=== PATIENT | female | born 1980 | race Caucasian/White ===

== ENCOUNTER → 2020-06-03 08:15 | Outpatient (CLI) | payer BC, SELFPAY ==
--- NOTE | ~2020-06-03 | MMUS_ITS ---
EXAMINATION: MM diagnostic taylor BI w william, US breast BI complete HISTORY: Possible left breast lump palpated and clinical exam. Lumpy breasts. TECHNIQUE: Full field and spot ML, MLO and craniocaudal 3-D tomosynthesis images of both breasts were performed and synthetic 2-D images were generated. CAD analysis was submitted and interpreted. High resolution bilateral complete breast ultrasound was performed. COMPARISON: None BREAST PARENCHYMAL COMPOSITION: The breasts are heterogeneously dense, which may obscure small masses . FINDINGS: MAMMOGRAPHIC FINDINGS: No definite reproducible suspicious mass or architectural distortion is evident. Occasional punctate benign calcifications are noted bilaterally. ULTRASOUND: No suspicious solid lesion or shadowing of either breast is evident. Right breast: 12:00 3 cm from nipple: 4 mm simple cyst 1:00 1 cm from nipple: Parallel circumscribed hypoechoic 5.8 x 2.9 x 5.5 mm solid lesion with central hyperechogenicity, uniform hypoechoic cortex, no posterior shadowing, likely a benign lymph node. 3:00 2 cm from nipple: two 2 mm cysts 5:00 3 cm from nipple: 3.7 mm cyst 8:00 5 cm from nipple: 3.4 mm x 5.7 mm cyst Left breast: 1:00 1 cm from nipple: 2.4 x 4.4 mm cyst 3:00 4 cm from nipple: 2.8 x 5.8 mm cyst 3:00 4 cm from nipple: 2.6 x 3.5 mm cyst 10:00 5 cm from nipple: 2.2 x 3.6 mm cyst IMPRESSION: 1. No mammographic evidence of malignancy 2. Routine mammographic screening is recommended. BI-RADS Category 2: Benign finding(s). Reviewed, dictated and finalized at location A. IMPRESSION: 1. No mammographic evidence of malignancy 2. Routine mammographic screening is recommended. BI-RADS Category 2: Benign finding(s).
== END ==
PROVIDERS: PCP Nurse Practitioner Family; Visit Provider Obstetrics & Gynecology
DX: N63.0 Unspecified lump in unspecified breast (principal)
CPT/HCPCS: 76641; 77062; 77066; G0279

== ENCOUNTER 2021-09-06 10:40 | Outpatient (CLI) | payer BC, SELFPAY ==
--- NOTE | ~2021-09-06 | MM_ITS ---
EXAMINATION: MM screening taylor BI w william HISTORY: Screening TECHNIQUE: Craniocaudal and mediolateral oblique 3-D tomosynthesis images were obtained and synthetic 2-D images were generated. CAD analysis was submitted and interpreted. COMPARISON: 06/03/2020 BREAST PARENCHYMAL COMPOSITION: The breasts are heterogeneously dense, which may obscure small masses . FINDINGS: There is no evidence of suspicious mass, calcification, or architectural distortion to sugg est malignancy in either breast. There has been no suspicious interval change. IMPRESSION: 1. No mammographic evidence of malignancy. 2. Recommend routine screening mammography in one year. BI-RADS Category 1: Negative Reviewed, dictated and finalized at location A. 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
== END 2021-09-06 10:41 | disposition home or self-care (01) ==
LOC: ANHIMG 10:43
PROVIDERS: PCP Nurse Practitioner Family; Visit Provider Obstetrics & Gynecology
DX: Z12.31 Encounter for screening mammogram for malignant neoplasm of breast (principal)
CPT/HCPCS: 77063; 77067

== ENCOUNTER 2022-10-09 15:08 | Outpatient (CLI) | payer BC, SELFPAY ==
--- NOTE | ~2022-10-09 | MM_ITS ---
EXAMINATION: MM screening taylor BI w william HISTORY: Screening TECHNIQUE: Craniocaudal and mediolateral oblique 3-D tomosynthesis images were obtained and synthetic 2-D images were generated. CAD analysis was submitted and interpreted. COMPARISON: Comparison to multiple prior studies sequentially, with oldest reviewed study dated 06/03. BREAST PARENCHYMAL COMPOSITION: The breasts are heterogeneously dense, which may obscure small masses . FINDINGS: There is no evidence of suspicious mass, calcification, or architectural distortion to sugg est malignancy in either breast. There has been no suspicious interval change. IMPRESSION: 1. No mammographic evidence of malignancy. 2. Recommend routine screening mammography in one year. BI-RADS Category 1: Negative Reviewed, dictated and finalized at location A. 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
== END 2022-10-09 15:09 | disposition home or self-care (01) ==
LOC: ANHIMG 15:10
PROVIDERS: PCP Nurse Practitioner Family; Visit Provider Obstetrics & Gynecology
DX: Z12.31 Encounter for screening mammogram for malignant neoplasm of breast (principal)
CPT/HCPCS: 77063; 77067

== ENCOUNTER 2023-09-24 12:47 | Outpatient (CLI) | payer BC, SELFPAY ==
--- NOTE | ~2023-09-24 | CT_ITS ---
EXAMINATION: CT sinus wo con DATE: 09/24/2023 12:58 INDICATION: Chronic sinusitis TECHNIQUE: Computed tomography (CT) of the paranasal sinuses was performed without contrast. Iterativ e reconstruction technique was employed. Exam dose: 321.89 mGy-cm total exam DLP. COMPARISON: None FINDINGS: There is leftward deviation of the nasal septum. There is relatively symmetric prominent soft tissue swelling of the nasal turbinates The right frontal sinus is not developed. The paranasal sinuses and mastoid air cells are otherwise n ormally developed and aerated. The ostiomeatal units are patent bilaterally. IMPRESSION: Leftward deviation of nasal septum Soft tissue swelling nasal turbinates No significant abnormality of the ostiomeatal units, paranasal sinuses or mastoid air cells Reviewed, dictated and finalized at Location A. Reviewed, dictated and finalized at location B. 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
== END 2023-09-24 12:48 | disposition home or self-care (01) ==
PROVIDERS: PCP Nurse Practitioner Family; Visit Provider Allergy & Immunology
DX: J32.9 Chronic sinusitis, unspecified (principal); J34.2 Deviated nasal septum
CPT/HCPCS: 70486

== ENCOUNTER 2023-12-06 15:27 | Outpatient (CLI) | payer BC, SELFPAY ==
--- NOTE | ~2023-12-06 | MM_ITS ---
EXAMINATION: MM screening taylor BI w william HISTORY: Screening mammogram TECHNIQUE: Craniocaudal and mediolateral oblique 3-D tomosynthesis images were obtained and synthetic 2-D images were generated. CAD analysis was submitted and interpreted. COMPARISON: 10/09/2022, 09/06/2021 bilateral screening mammogram examinations BREAST PARENCHYMAL COMPOSITION: The breasts are extremely dense, which lowers the sensitivity of mamm ography. FINDINGS: Occasional bilateral benign calcifications. There is no evidence of suspicious mass, calcif ication, or architectural distortion to suggest malignancy in either breast. There has been no suspic ious interval change. IMPRESSION: 1. No mammographic evidence of malignancy. 2. Recommend routine screening mammography in one year. BI-RADS Category 1: Negative Reviewed, dictated and finalized at location A.
== END 2023-12-06 15:28 | disposition home or self-care (01) ==
PROVIDERS: PCP Obstetrics & Gynecology; Visit Provider Obstetrics & Gynecology
DX: Z12.31 Encounter for screening mammogram for malignant neoplasm of breast (principal)
CPT/HCPCS: 77063; 77067

== ENCOUNTER 2024-03-07 11:28 | Outpatient (CLI) | payer BC, SELFPAY ==
--- NOTE | ~2024-03-07 | XR_ITS ---
Clinical Indication: Cough PA and lateral views of the chest: Comparison: None Findings: The lungs are clear, without evidence of focal consolidation or pleural effusion. Cardiome diastinal silhouette is within normal limits. Bones and soft tissues are unremarkable. Impression: Normal chest. Reviewed, dictated and finalized at location . Impression: Normal chest.
== END 2024-03-07 11:29 ==
DX: R05.9 Cough, unspecified (principal)
CPT/HCPCS: 71046

== ENCOUNTER 2024-06-06 08:39 | Outpatient (CLI) | payer BC, SELFPAY ==
--- NOTE | ~2024-06-06 | US_ITS ---
EXAMINATION: US pelvic complete w TV DATE: 06/06/2024 09:19 INDICATION: N93.9 - Abnormal uterine and vaginal bleeding, unspecified TECHNIQUE: Multiple transabdominal and endovaginal sonographic images of the pelvis were obtained. COMPARISON: None. FINDINGS: Uterus: 10.3 x 6.9 x 7.6 cm. Endometrial complex measures 1.0 mm. 0.7 cm isoechoic focus in the endom etrium. Multiple exophytic and intramural fibroids measuring up to 2.3 cm. Right Ovary: 2.9 x 2.4 x 2.4 cm. Vascular flow is present. No adnexal mass Left Ovary: 5.3 x 3.8 x 4.6 cm. Vascular flow is present. 4.0 cm simple ovarian cyst There is no free fluid in the pelvis. IMPRESSION: 7 mm isoechoic focus in the endometrial cavity of the uterine body, may represent an endometrial poly p, blood clot, or submucosal fibroid. Multiple uterine fibroids measuring up to 2.3 cm. 4.0 simple left ovarian cyst. Reviewed, dictated and finalized at location K. IMPRESSION: 7 mm isoechoic focus in the endometrial cavity of the uterine body, may represe nt an endometrial polyp, blood clot, or submucosal fibroid. Multiple uterine fibroids measuring up to 2.3 cm. 4.0 simple left ovarian cyst.
== END 2024-06-06 08:40 | disposition home or self-care (01) ==
PROVIDERS: PCP Obstetrics & Gynecology; Visit Provider Obstetrics & Gynecology
DX: D25.1 Intramural leiomyoma of uterus (principal); N83.292 Other ovarian cyst, left side
CPT/HCPCS: 76830; 76856

== ENCOUNTER 2024-07-12 17:36 | Emergency (ER) | payer BC, SELFPAY ==
--- NOTE | ~2024-07-12 | XR_ITS ---
XR chest 2V DATE: 07/12/2024 18:14 INDICATION: Productive cough for 2 weeks. Nonsmoker. TECHNIQUE: 2 views COMPARISON: 03/07/2024 2 view chest FINDINGS: Normal heart size. No hilar or mediastinal enlargement. No pulmonary infiltrate or consolid ation, pleural effusion or pulmonary vascular congestion or pneumothorax is detected. Status post cholecystectomy. L3 probable limbus vertebra. IMPRESSION: No active cardiopulmonary disease Status post cholecystectomy Reviewed, dictated and finalized at location A.
[2024-07-12 17:39] VITALS: PULSE 120; RESP 28; O2SAT 98
[2024-07-12 17:51] VITALS: BP 143/92; PULSE 139; RESP 16; TEMP 37.3; O2SAT 98
[2024-07-12 18:04] VITALS: BP 143/92; PULSE 139; RESP 16; TEMP 37.3; O2SAT 98
--- NOTE | 2024-07-12 18:07 | ED.GENADULT ---
HPI - General Adult General Chief complaint: Shortness of Breath/Dyspnea Stated complaint: SOB,cough pneumonia exposure Source: patient Mode of arrival: ambulatory Limitations: no limitations History of Present Illness HPI narrative: Pt presents for evaluation of a cough since 06/29/24. She states she went to urgent care on 07/01/24 and was told she had a common cold. She has an underlying history of asthma. She states that the provider at urgent care advised she use her inhaler for symptom. She now reports a fever, cough, shortness of breath and sore throat from frequent coughing. She denies any nausea, vomiting or diarrhea. 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 She does not smoke. She is concerned that she may have pneumonia. She was given a prescription for a medrol dose leon on 06/26/24 for what she states were symptoms related to her ears. She has tried dayquil and nyquil for her symptoms without much relief. Related Data Home Medications Medication Instructions Recorded Confirmed omeprazole 20 mg capsule,delayed 40 mg PO DAILY 10/30/23 07/12/24 release albuterol 90 mcg-budesonide 80 2 inh inhalation ONCE 06/24/24 07/12/24 mcg/actuation HFA aerosol inhaler (Airsupra) ergocalciferol (vitamin D2) 50,000 50,000 unit PO WEEKLY 06/26/24 07/12/24 unit tablet ferrous sulfate 325 mg (65 mg 325 mg PO DAILY 06/26/24 07/12/24 iron) tablet fluticasone propionate 50 1 spray intranasal QHS 07/12/24 07/12/24 mcg/actuation nasal spray,suspension Allergies Allergy/AdvReac Type Severity Reaction Status Date / Time No Known Allergies Allergy Verified 07/12/24 17:40 Review of Systems Review of Systems: CONSTITUTIONAL: Reports fever. Denies chills, or sweats. EYES: Denies visual changes, redness, or discharge. ENT: reports sore throat. Denies rhinorrhea, congestion, or otalgia. CARDIOVASCULAR: Denies chest pain, palpitations, or edema. RESPIRATORY: Reports cough and shortness of breath GASTROINTESTINAL: Denies abdominal pain, nausea, vomiting, or diarrhea. GENITOURINARY: Denies dysuria or hematuria. SKIN: Denies rash or itching. MUSCULOSKELETAL: Denies back pain, joint pain, or myalgia. NEUROLOGIC: Denies headache, numbness, dizziness, or weakness. PSYCHIATRIC: Denies anxiety or depression. [facility] Past Medical History Medical History Allergies Anemia, unspecified Anxiety Asthma GERD (gastroesophageal reflux disease) Low serum vitamin D Screening mammogram for breast cancer Surgical History Surgical History H/O tubal ligation (~2005) Hx of cholecystectomy Family History Family History Mother Hypertension Depression Anxiety Father Hypertension Cerebrovascular accident Depression Anxiety Other Carcinoma of colon, Onset Age: 70 maternal aunt Malignant tumor of transverse colon maternal aunt Sibling Anxiety Depression Sibling Anxiety Depression Social History Social History Smoking status: Never smoker Second hand tobacco smoke exposure: No Alcohol intake: never Alcohol use details: 1-4 a week Substance use: never Substance use type: does not use Do You Feel Safe in your Home?: Yes Lack of Transportation: No Lack of Food: Never True Current Housing: I Have Housing Concerned About Future Housing: No Difficulty Paying Gas/Electric Bills: No Difficulty Paying for Meds: No Currently Unemployed: No Education: High School Diploma/GED Difficulty w/ Childcare or Family Care: No Living arrangements: with family Additional living arrangements comments: Occupation/Education: occupation 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 HEAD: Normocephalic, atraumatic. EYES: PERRLA and EOMI. ENT: Nares clear, no rhinorrhea or epistaxis. Mucous membranes moist. Oropharynx without tonsillar hypertrophy exudate or other lesions. Bilateral TMs pearly strauss nonbulging NECK: Supple. No adenopathy or masses. No carotid bruits or JVD CHEST: cough present on exam. Clear to auscultation. No respiratory distress. No wheezes rales or rhonchi HEART: Rate 115 No murmur heard. Normal peripheral pulses. ABDOMEN: Soft, nontender, nondistended, normal active bowel sounds. EXTREMITIES: Normal range of motion. No edema. SKIN: Warm, dry, no rash. NEURO: No focal deficits. Alert and oriented x3. PSYCH: Normal mood and affect. Course Course Emergency Course: This is a 44-year-old female who presented for evaluation of this sick symptoms. Chest x-ray was obtained and there was no evidence of pneumonia. Exam is consistent with acute viral syndrome. She is tachycardic but her heart rate improved to the 110's on my exam. She indicates this is her baseline heart rate. I did offer to send her to the emergency department for further evaluation treatment. She declined. She states she has had similar symptoms in the past and simply wants to go home and rest. Will discharge with prednisone. She requested a prescription for guaifenesin with codeine. She has tried other medications without success so will proceed with that therapy. She should follow-up with her primary care provider go to the emergency department for worsening symptoms. Patient in agreement with plan of care. Level of Care: Express Care Visit Vital Signs Vital signs: Vital Signs Pulse Rate 120 H 07/12/24 17:39 Respiratory Rate 28 H 07/12/24 17:39 Pulse Oximetry 98 07/12/24 17:39 Oxygen Delivery Room Air 07/12/24 17:39 Temperature 37.3 C 07/12/24 18:04 Pulse Rate 139 H 07/12/24 18:04 Respiratory Rate 16 07/12/24 18:04 Blood Pressure 143/92 H 07/12/24 18:04 Pulse Oximetry 98 07/12/24 18:04 Oxygen Delivery Room Air 07/12/24 18:04 Medical Decision Making Vital Signs Vital Signs: Vital Signs Pulse Rate 120 H 07/12/24 17:39 Respiratory Rate 28 H 07/12/24 17:39 Pulse Oximetry 98 07/12/24 17:39 Oxygen Delivery Room Air 07/12/24 17:39 Temperature 37.3 C 07/12/24 18:04 Pulse Rate 139 H 07/12/24 18:04 Respiratory Rate 16 07/12/24 18:04 Blood Pressure 143/92 H 07/12/24 18:04 Pulse Oximetry 98 07/12/24 18:04 Oxygen Delivery Room Air 07/12/24 18:04 Imaging Data Radiologist's impression: XR chest 2V DATE: 07/12/2024 18:14 INDICATION: Productive cough for 2 weeks. Nonsmoker. TECHNIQUE: 2 views COMPARISON: 03/07/2024 2 view chest FINDINGS: Normal heart size. No hilar or mediastinal enlargement. No pulmonary infiltrate or consolidation, pleural effusion or pulmonary vascular congestion or pneumothorax is detected. Status post cholecystectomy. L3 probable limbus vertebra. IMPRESSION: No active cardiopulmonary disease Status post cholecystectomy Discharge Plan Discharge Clinical Impression: Viral upper respiratory tract infection Patient Disposition: Home, Self-Care Condition: Stable Instructions: Antibiotic Form, Viral Syndrome (ED) Patient Language: Maltese Prescriptions: New prednisone 20 mg tablet 40 mg PO DAILY Qty: 10 0RF codeine-guaifenesin 8-200 mg/5 mL liquid 5 ml PO Q6H Qty: 120 0RF No Action fluticasone propionate 50 mcg/actuation spray,suspension 1 spray INTRANASAL QHS omeprazole 20 mg capsule,delayed release(DR/EC) 40 mg PO DAILY norethindrone (contraceptive) 0.35 mg tablet 0.35 mg PO DAILY Qty: 28 0RF Airsupra 90-80 mcg/actuation HFA aerosol inhaler 2 inh inhalation ONCE Rx Instructions: as a single dose; may repeat up to 6 doses per day (12 inhalations) ferrous sulfate 325 mg (65 mg iron) tablet 325 mg PO DAILY ergocalciferol (vitamin D2) 50,000 unit tablet 50,000 unit PO WEEKLY methylprednisolone [Medrol (Leon)] 4 mg tablets,dose pack See Rx Instructions PO PER PKG DIR Qty: 21 0RF Patient Comments: COMPLETED Rx Instructions: COMPLETED Follow-up/Referrals: Juliet Guerrero APRN [Primary Care Provider] - Time of Disposition: 18:41
[2024-07-12 18:43] VITALS: PULSE 118; RESP 22; O2SAT 98
== END 2024-07-12 18:43 | disposition home or self-care (01) ==
PROVIDERS: Emergency Provider Nurse Practitioner; PCP Nurse Practitioner Adult Health
DX: J06.9 Acute upper respiratory infection, unspecified (principal); J45.909 Unspecified asthma, uncomplicated; K21.9 Gastro-esophageal reflux disease without esophagitis; D64.9 Anemia, unspecified
CPT/HCPCS: 71046; 99213; G0463

== ENCOUNTER 2024-08-06 11:24 | Outpatient (CLI) | payer BC, SELFPAY ==
[2024-08-06 20:26] LABS: Hematocrit 41.4 % (37.0-47.0); Hemoglobin 12.7 g/dL (12.0-15.0); Mean Corpuscular HGB Conc 30.7 g/dl (32-36); Mean Corpuscular Hemoglobin 27.7 pg (26-34); Mean Corpuscular Volume 90.2 fl (80-100); Mean Platelet Volume 9.4 fl (7.4-10.4); Platelet Count Result 397 k/mm3 (150-375); Red Blood Count 4.59 M/mm3 (4.2-5.4); Red Cell Distribution Width 14.5 % (11.5-14.5); White Blood Count 10.7 K/mm3 (4.5-10.0)
[2024-08-06 20:59] LABS: Iron 56 ug/dL (37-170)
[2024-08-06 21:09] LABS: Percent Iron Saturation 14 % (20-50)
[2024-08-06 21:22] LABS: Free T4 Free Thyroxine 1.54 ng/mL (0.78-2.19)
[2024-08-06 21:28] LABS: Alanine Aminotransferase 21 U/L (6-35); Alkaline Phosphatase 121 U/L (38-126); Anion Gap 5 mmol/L (4-12); Aspartate Amino Transferase 47 U/L (14-36); Bilirubin,Total 0.4 mg/dL (0.2-1.3); Blood Urea Nitrogen 10 mg/dL (7-17); Calcium 9.1 mg/dL (8.4-10.2); Carbon Dioxide 24 mmol/L (22-30); Chloride 106 mmol/L (98-107); Cholesterol 196 mg/dL (0-200); Estimated Glomerular Filt Rate > 60; Glucose 84 mg/dL (65-110); HDL Direct 50 mg/dL; Potassium 3.6 mmol/L (3.4-5.0); Sodium 135 mmol/L (137-145); Triglycerides 144 mg/dL (<150)
[2024-08-06 21:35] LABS: Ferritin 8.91 ng/mL (6.24-137)
[2024-08-06 21:44] LABS: LDL Cholesterol Direct 113 mg/dL
[2024-08-06 23:04] LABS: Vitamin D 25 Hydroxy 31.3 ng/mL
[2024-08-11 18:29] LABS: Thyroid Peroxidase Antibodies 2 IU/mL (<9)
== END 2024-08-06 11:25 | disposition home or self-care (01) ==
LOC: ANHBWCLAB 11:26
PROVIDERS: PCP Nurse Practitioner Adult Health; Visit Provider Nurse Practitioner Adult Health
DX: Z13.220 Encounter for screening for lipoid disorders (principal); D64.9 Anemia, unspecified; R79.89 Other specified abnormal findings of blood chemistry; E04.9 Nontoxic goiter, unspecified
CPT/HCPCS: 36415; 80053; 80061; 82306; 82728; 83540; 83550; 84439; 84443; 85027; 86376

== ENCOUNTER 2024-08-15 12:28 | Outpatient (CLI) | payer BC, SELFPAY ==
--- NOTE | ~2024-08-15 | US_ITS ---
EXAMINATION: US thyroid DATE: 08/15/2024 12:45 INDICATION: Nontoxic goiter, unspecified. TECHNIQUE: Multiple ultrasound images of the thyroid were obtained. COMPARISON: None. FINDINGS: The right thyroid lobe measures 5.5 x 2.0 x 2.0 cm. The left thyroid lobe measures 4.8 x 1.4 x 1.8 c m. The thyroid demonstrates heterogeneous echogenicity. Vascularity is normal. In the right thyroid lobe, there is a 7 mm solid, hyperechoic, wider than tall nodule with lobular margin without echogeni c foci (TI-RADS TR4). In the left thyroid lobe, there is a 4 mm nodule (TR4). IMPRESSION: 1. Thyroid nodules, likely not clinically significant. No follow-up is needed. Reviewed, dictated and finalized at location A. 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
== END 2024-08-15 12:29 | disposition home or self-care (01) ==
PROVIDERS: PCP Nurse Practitioner Adult Health; Visit Provider Nurse Practitioner Adult Health
DX: E04.2 Nontoxic multinodular goiter (principal)
CPT/HCPCS: 76536

== ENCOUNTER 2024-09-05 00:11 | Day surgery (SDC) | payer BC, SELFPAY ==
[2024-08-27 13:25] VITALS: BMI 29.7
--- NOTE | 2024-08-27 13:39 | PC.NURSE ---
Report to the Outpatient Waiting Room, entrance under the green pavilion located off [facility], at time _10:00am on date _09/05/24 . Planned Procedure Time: _12:00pm .? Time changes happen often and if your time is changed the preop area will call you the afternoon before. - You and your visitor will be asked to self-screen and do not enter if you have any COVID symptoms. Please call surgeon if you need to reschedule. - A mask is optional within the hospital at this time. Patients may have clear liquids (water, carbonated beverages, clear teas, apple juice) until 3 hours prior to surgery with a maximum of 20 ounces. - No food from midnight until time of surgery and no smoking. This includes no chewing gum, candy or mints.(0900) Take only the following medications with a SIP of water on the morning of surgery: ____Inhaler if needed DO NOT STOP ANY OF YOUR OTHER PRESCRIPTION MEDICATIONS PRIOR TO SURGERY EXCEPT THE FOLLOWING Medications to discontinue per physician Hold all vitamins and supplements for 3 days prior per Anesthesia Date to take last dose 09/01/24 Please no make-up, nail tajik, hairspray, perfume, deodorant, or body powder the day of surgery.? No jewelry (including any body piercings) or valuables the day of surgery, leave them at home.? Please take a shower or bath the night before, or the morning of, surgery with an antibacterial soap.? Wear comfortable, loose fitting clothing.? - Jewelry must be removed prior to entering the operating room.? Rings and piercings that are not removed may be cut off. - The hospital will not accept responsibility for valuables.? - Please leave all valuables, including medications, at home the day of surgery. If you are going home after surgery, a licensed route driver salesperson must drive you home.? - NO public transportation without another adult if you receive anesthesia. - We recommend that an adult stay with you for 24 hours following discharge. - We also recommend that you do not drive, make important decision, drink alcoholic beverages, or take any drugs that were not prescribed by your health care provider for at least 24 hours after your discharge time. Follow any additional instructions given to you from your surgeon. Telephone instructions given to __Patient and asked if any additional questions and then verbalized understanding. Patient advised to call surgeon office or pre surgery nurse liaison [phone] if any additional questions.
[2024-09-05] VITALS (10 sets, daily range): BP systolic 103–129; BP diastolic 46–82; PULSE 84–105; RESP 12–18; TEMP 36.1–37.1; O2SAT 94–100
--- NOTE | 2024-09-05 07:40 | P.HP_ITS ---
H&P: HPI History of Present Illness Date/Time: 09/05/24 07:40 Chief Complaint: Abnormal uterine bleeding uterine fibroids Narrative: 44-year-old female who presents robotic hysterectomy for abnormal uterine bleedi ng, pelvic pain and uterine fibroids. Patient has been dealing with prolonged vaginal bleeding. She states her pelvic pain has increased over time. Pelvic ultrasound was ordered to evaluate cause of bleeding. Ultrasound showed multiple uterine fibroids her out the uterus. Patient is status post tubal ligation. She is interested in surgical management of uterine fibroids. Review of Systems Cardiovascular: Cardiovascular: Denies chest pain, Denies leg edema, Denies palpitations, Denies dyspnea and Denies dyspnea on exertion Respiratory: Respiratory: Denies cough, Denies dyspnea and Denies dyspnea on exertion Gastrointestinal: Gastrointestinal: Denies abdominal pain, Denies constipation, Denies diarrhea, Denies nausea and Denies vomiting Genitourinary: Genitourinary: Denies hematuria, Denies urinary frequency, Denies dysuria, Denies pelvic pain, Denies urinary incontinence and Denies vaginal discharge Neurologic: Reports system reviewed and no additional complaints, except as documented Psychiatric: Psychiatric: Reports no additional psychiatric complaints Endocrine: Endocrine: Denies palpitations PMFSH Past Medical History Medical History Allergies Anemia, unspecified Anxiety Asthma GERD (gastroesophageal reflux disease) Low serum vitamin D Screening mammogram for breast cancer Surgical History Surgical History H/O tubal ligation (~2005) Hx of cholecystectomy Family History Family History Mother Hypertension Depression Anxiety Father Hypertension Cerebrovascular accident Depression Anxiety Other Carcinoma of colon, Onset Age: 70 maternal aunt Malignant tumor of transverse colon maternal aunt Sibling Anxiety Depression Sibling Anxiety Depression Social History Social History Smoking status: Never smoker Second hand tobacco smoke exposure: No Alcohol intake: never Alcohol use details: 1 monthly Substance use: never Substance use type: does not use Do You Feel Safe in your Home?: Yes Lack of Transportation: No Lack of Food: Never True Current Housing: I Have Housing Concerned About Future Housing: No Difficulty Paying Gas/Electric Bills: No Difficulty Paying for Meds: No Currently Unemployed: No Education: High School Diploma/GED Difficulty w/ Childcare or Family Care: No Living arrangements: with family Additional living arrangements comments: Occupation/Education: occupation 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 Gender identity (if verbalized by the patient): Female Sexual Orientation (if Verbalized by the Patient): Straight or Heterosexual Spiritual care concerns: No Agree to blood products: Yes Meds Home Medications and Allergies Home Medications ?Medication ?Instructions ?Recorded ?Confirmed ?Type albuterol 90 mcg-budesonide 80 2 inh inhalation ONCE 06/24/24 08/27/24 History mcg/actuation HFA aerosol inhaler (Airsupra) ergocalciferol (vitamin D2) 50,000 50,000 unit PO WEEKLY 06/26/24 08/27/24 History unit tablet fluticasone propionate 50 1 spray intranasal QHS 07/12/24 08/27/24 History mcg/actuation nasal spray,suspension multivitamin (Daily Multi-Vitamin 1 tablet PO DAILY 08/27/24 08/27/24 History tablet) esomeprazole magnesium 40 mg 40 mg PO DAILY #30 caps 08/28/24 Rx capsule,delayed release (Nexium) ferrous sulfate 325 mg (65 mg 650 mg (2 x 325 mg (65 mg iron)) 09/05/24 Rx iron) tablet PO DAILY #180 tabs Allergies Allergy/AdvReac Type Severity Reaction Status Date / Time No Known Allergies Allergy Verified 08/27/24 13:19 Exam Const: General: no acute distress Eyes: EOM: EOMs intact bilaterally Neck: Neck: supple Thyroid: thyroid normal Chest: Breast/axilla inspection: normal inspection of the breasts Breast/axilla palpation: normal palpation of the breasts, normal palpation of the axillae and no axillary lymphadenopathy Resp: Effort & Inspection: normal respiratory effort Auscultation: clear to auscultation bilaterally Cardio: Rate: regular rate Rhythm: regular rhythm GI: Inspection: non-distended GI Palp: Yes Soft to palpation, No Tenderness to palpation present (GI) and No Guarding due to palpation present (GI) Auscultation: normal bowel sounds : General: No bladder normal to palpation External Female Exam: normal external appearance Speculum Exam - Vagina: normal vaginal discharge and No vaginal bleeding Speculum Exam - Cervix: nontender Bimanual exam- vagina & uterus: No bladder normal to palpation and No Cervical tenderness present OB/external & speculum: No vaginal bleeding Skin: General skin exam: normal color and no rashes or lesions noted Neuro: Cognition (Neuro): normal cognition Speech: normal speech Extrem: General: normal to inspection and no edema Psych: Mental Status: mental status grossly normal Affect: normal affect Assessment and Plan Assessment and plan (1) Abnormal uterine bleeding (AUB): Code(s): N93.9 - Abnormal uterine and vaginal bleeding, unspecified Status: Acute Assessment and Plan: 44-year-old female who presents for follow-up regarding abnormal uterine bleeding Patient has had persistent prolonged bleeding Patient also reports associated pelvic pain Pelvic ultrasound reviewed enlarged uterus with multiple uterine fibroids Management options reviewed with patient Offered medical management with hormonal contraceptives versus surgical management Patient requesting definitive management via hysterectomy risks benefits and alternatives reviewed Will plan for robotic assisted total laparoscopic hysterectomy with bilateral salpingectomy (2) Pelvic pain: Code(s): R10.2 - Pelvic and perineal pain Status: Acute (3) Uterine fibroid: Code(s): D25.9 - Leiomyoma of uterus, unspecified Status: Acute Assessment and Plan: Uterus: 10.3 x 6.9 x 7.6 cm. Endometrial complex measures 1.0 mm. 0.7 cm isoechoic focus in the endometrium. Multiple exophytic and intramural fibroids measuring up to 2.3 cm.
[2024-09-05] MEDS: LACTATED RINGERS 1,000 ML 30 ML IV CONT ×2 (10:30→13:21)
[2024-09-05] MEDS: ACETAMINOPHEN 500 MG TABLET 1000 MG PO ×3 (10:41→23:16)
[2024-09-05] MEDS: KETOROLAC 15 MG/ML VIAL (*BKC) IV PUSH (10:41)
[2024-09-05 11:01] LABS: BEDSIDEPREGUCG Negative (Negative)
--- NOTE | 2024-09-05 11:10 | WPDHPUPDATE1 ---
History and Physical Update Update Date/Time: 09/05/24 11:10 History and Physical has been reviewed, including an updated exam of the patient. There are NO changes in the patient's condition. Risks, benefits, and alternatives have been discussed and questions answered. Patient agrees to proceed with procedure.
--- NOTE | 2024-09-05 11:26 | P.PNAN_ITS ---
Anes - Initial Pre Proc Eval Procedure: Operation Date: 09/05/24 12:00 Proposed Procedures p Robotic Assisted Total Laparoscopic Hysterectomy with Bilateral Salpingectomy, Possible Left Ovarian Cystectomy - Seferino Mccauley MD Date/Time: 09/05/24 11:26 Surgeon: Seferino Mccauley MD Pre Op Diagnosis: Abnormal Uterine Bleeding Patient Data Age: 44 Gender: F Height: 1.7 m Weight: 88.6 kg Last Vital Signs Temp 98 F 09/05/24 10:30 Pulse 99 09/05/24 10:30 Resp 16 09/05/24 10:30 BP 121/46 L 09/05/24 10:30 Pulse Ox 100 09/05/24 10:30 O2 Del Method Room Air 09/05/24 10:30 Allergies Allergy/AdvReac Type Severity Reaction Status Date / Time No Known Allergies Allergy Verified 09/05/24 10:35 Home Medications ?Medication ?Instructions ?Recorded ?Confirmed ?Type albuterol 90 mcg-budesonide 80 2 inh inhalation ONCE 06/24/24 08/27/24 History mcg/actuation HFA aerosol inhaler (Airsupra) ergocalciferol (vitamin D2) 50,000 50,000 unit PO WEEKLY 06/26/24 09/05/24 History unit tablet fluticasone propionate 50 1 spray intranasal QHS 07/12/24 09/05/24 History mcg/actuation nasal spray,suspension multivitamin (Daily Multi-Vitamin 1 tablet PO DAILY 08/27/24 09/05/24 History tablet) esomeprazole magnesium 40 mg 40 mg PO DAILY #30 caps 08/28/24 09/05/24 Rx capsule,delayed release (Nexium) ferrous sulfate 325 mg (65 mg 650 mg (2 x 325 mg (65 mg iron)) 09/05/24 09/05/24 Rx iron) tablet PO DAILY #180 tabs Laboratory Tests 09/05/24 09/05/24 10:19 10:30 POC Urine HCG, Qual Negative (Negative) Blood Type A Positive Antibody Screen Negative Patient hx anesthesia problems: none Family hx anesthesia problems: none Results Review: All pre-operative results and documents have been reviewed as part of the pre- operative evaluation. [facility] Past Medical History Medical History Anemia, unspecified Low serum vitamin D GERD (gastroesophageal reflux disease) Allergies Asthma Anxiety Screening mammogram for breast cancer Surgical History Surgical History H/O tubal ligation (~2006) Hx of cholecystectomy Family History Family History Mother Hypertension Depression Anxiety Father Hypertension Cerebrovascular accident Depression Anxiety Other Carcinoma of colon, Onset Age: 70 maternal aunt Malignant tumor of transverse colon maternal aunt Sibling Anxiety Depression Sibling Anxiety Depression Social History Social History Smoking status: Never smoker Second hand tobacco smoke exposure: No Alcohol intake: never Alcohol use details: 1 monthly Substance use: never Substance use type: does not use Do You Feel Safe in your Home?: Yes Lack of Transportation: No Lack of Food: Never True Current Housing: I Have Housing Concerned About Future Housing: No Difficulty Paying Gas/Electric Bills: No Difficulty Paying for Meds: No Currently Unemployed: No Education: High School Diploma/GED Difficulty w/ Childcare or Family Care: No Living arrangements: with family Additional living arrangements comments: Occupation/Education: occupation 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 Gender identity (if verbalized by the patient): Female Sexual Orientation (if Verbalized by the Patient): Straight or Heterosexual Spiritual care concerns: No Agree to blood products: Yes Anes - Eval Final PreProcedure Day of Procedure 09/05/24 11:26 Patient weight: obese Heart: regular rate and rhythm Lungs: clear to auscultation Airway: Mallampati scale class II Neurological: alert and oriented Last oral intake: >/= 8 hours ASA classification: II Emergent: no Anesthetic plan: proceed Anesthesia type and monitoring: general ETT and standard monitoring Results Review: All pre-operative results and documents have been reviewed as part of the pre- operative evaluation. Asthma, stable, hx of anxiety. Pt reports hx of palpitations, w/u sounds to have included holter and stress test all of which were nml. Informed Consent: The patient's anesthetic plan and its attendant risks and benefits were discussed with the patient/family/POA. Questions were solicited and answers provided to the satisfaction of the patient/family/POA.
[2024-09-05] MEDS: ceFAZolin 2 GM/D5W 50 ML 2 GM/50 ML BAG IVPB (11:53)
[2024-09-05] MEDS: LIDO 1%/EPINEPHRINE 1:100,000 20 ML VIAL 30 ML INFILTRATE (12:31)
--- NOTE | 2024-09-05 13:05 | W.PM.PROC2 ---
Procedure Note - Detailed Date of Procedure 09/05/24 Pre-op Diagnosis Abnormal Uterine Bleeding pelvic pain uterine fibroids ovarian cyst Post-op Diagnosis Same Procedure Performed robotic assisted total laparoscopic hysterectomy and right ovarian cystectomy Surgeon Seferino Mccauley MD Anesthesia General Indications AUB, uterine fibroids, ovarian cyst Findings right ovarian cyst, simple in appearnce, subserosal fibroids noted, s/p b/l salpingectomy, normal left ovary Description of Procedure After the patient was appropriately consented she was taken to the operating room where she was transferred to the table in a dorsal supine position. General anesthesia was then induced with endotracheal intubation. The patient was transferred to a dorsal lithotomy position using adjustable yellow-fin stirrups. Her position was adjusted for appropriate support of her lower back and lower extremities. The patient was prepped and draped. A transurethral asif catheter was place. The cervix was sequentially dilated and a AURELIA uterine manipulator placed in typical fashion about a 3.5 cm ANGELO ring. Gloves were changed. After confirmation of a functioning orogastric tube, lidocaine was injected at Poe's point in the LUQ and a 8mm incision was made. A 5mm Optiview trocar was then inserted into the abdominal cavity under direct visualization and done so without complication. The abdomen was then insufflated with approximately 2-3L of CO2 establishing a pneumoperitoneum and the patient was placed in Trendelenburg position. Just above the umbilicus in the midline, a 8mm incision made after injection of lidocaine and a 8mm bladeless trocar advanced into the abdominal cavity under direct visualization without incident. We subsequently placed two robotic ports in a similar fashion, one in the left mid-quadrant and one in the right, 10cm lateral to the midline port. The robot was then docked. Attention was turned to the left pelvis. The left fallopian tubes were noted to be surgically absent due to previous tubal ligation. The left utero-ovarian ligament was desiccated and transected, as was the round ligament. The posterior peritoneal leaf was taken down to the ANGELO ring. The anterior leaf was developed as well as the start of the bladder flap. The left uterine artery was then skeletonized and desiccated and transected just above the level of the ANGELO ring. Attention was turned to the right pelvis. The utero-ovarian ligament was desiccated and transected, as was the round ligament. The posterior peritoneal leaf was taken down to the ANGELO ring. The anterior leaf was developed as well as the start of the bladder flap. The right uterine artery was then skeletonized and desiccated and transected just above the level of the ANGELO ring. The bladder was then further dissected inferiorly over the level of the ANGELO ring. A circumferential colpotomy was made using monopolar current. The uterus and cervix were then delivered transvaginally. The right ovary was noted to have two large simple appearing cysts. Cystotomy was performed and clear fluid was suctioned from the cysts. Approximately 40 ml of clear fluid was removed. The cyst was was then removed and sent for pathology. Minimal ovarian tissue was removed. The cyst bed was copiously irrigated and noted to be hemostatic. I then placed a single figure of eight suture of 0-vicryl in the left corner of the vaginal cuff. I then re-approximated the colpotomy with a running #1 PDO Quill suture in 2 layers. Following this dissection, the abdomen and pelvis were copiously irrigated and all surgical sites found to be hemostatic. Skin sites were reapproximated with 4-0 Vicryl in a subcuticular fashion. Steri-Strips were placed. The patient tolerated the procedure well. Sponge, needle and instrument counts were correct x 2 and the patient was taken to recovery in stable condition. Ancef was given for antimicrobial prophylaxis. The patient had SCD's on for VTE prophylaxis during the entire procedure. Estimated Blood Loss 15 Drains No Packing No Pathology Yes (uterus, cervix, right ovarian cyst wall) Complications No immediate complications Condition Stable Disposition PACU [facility] Billing Surgery - Charge Forward: Surgery Billing
[2024-09-05] MEDS: fentaNYL CITRATE INJ (*CRX) 100 MCG/2 ML VIAL 25 MCG IV PUSH ×3 (14:01→14:27)
--- NOTE | 2024-09-05 14:41 | PC.NURSE ---
This patient, uAng Wilkins, was received from PACU on 09/05/24 at 1441. Patient/family oriented to unit policies and routines.
[2024-09-05] MEDS: ONDANSETRON INJ 4 MG/2 ML VIAL IV PUSH (15:16)
[2024-09-05] MEDS: LACTATED RINGERS 1,000 ML 125 ML IV CONT ×2 (15:19→23:18)
[2024-09-05] MEDS: SIMETHICONE 80 MG TAB.CHEW PO (17:09)
[2024-09-05] MEDS: DOCUSATE SODIUM 100 MG CAPSULE PO (17:10)
[2024-09-05] MEDS: KETOROLAC 30 MG/ML VIAL (*BKC) IV PUSH ×2 (17:10→23:17)
[2024-09-05] MEDS: PROMETHAZINE HCL 25 MG/ML AMPUL 12.5 MG IV PUSH (19:39)
[2024-09-05] MEDS: oxyCODONE HCL (*CRX) 5 MG TAB IR PO (19:42)
[2024-09-05] MEDS: SENNA/DOCUSATE SODIUM TABLET 2 TAB PO (22:35)
[2024-09-06 03:40] VITALS: BP 108/61; PULSE 89; RESP 16; TEMP 37.1; O2SAT 96
[2024-09-06 04:50] LABS: Basophils Percent Auto 0.3 % (0.2-1.2); Hematocrit 36.2 % (37.0-47.0); Hemoglobin 11.7 g/dL (12.0-15.0); Immature Granulocyte Absolute 0.05 K/mm3 (0.00-0.031); Immature Granulocyte Percent A 0.3 % (0-0.5); Lymphocytes Absolute Auto 1.12 K/mm3 (0.9-3.2); Lymphocytes Percent Auto 7.7 % (18.3-44.2); Mean Corpuscular HGB Conc 32.3 g/dl (32-36); Mean Corpuscular Hemoglobin 28.5 pg (26-34); Mean Corpuscular Volume 88.3 fl (80-100); Mean Platelet Volume 9.5 fl (7.4-10.4); Monocytes Absolute Auto 1.2 K/mm3 (0.1-0.6); Monocytes Percent Auto 8.5 % (2.6-8.5); Neutrophils Percent Auto 83.2 % (45.5-73.1); Platelet Count Result 340 k/mm3 (150-375); Red Cell Distribution Width 14.6 % (11.5-14.5); White Blood Count 14.5 K/mm3 (4.5-10.0)
[2024-09-06 04:59] LABS: Anion Gap 1 mmol/L (4-12); Blood Urea Nitrogen 9 mg/dL (7-17); Calcium 8.8 mg/dL (8.4-10.2); Carbon Dioxide 23 mmol/L (22-30); Chloride 111 mmol/L (98-107); Estimated CRCL calculation 116 ml/min; Estimated Glomerular Filt Rate > 60; Glucose 115 mg/dL (65-110); Sodium 135 mmol/L (137-145)
[2024-09-06] MEDS: KETOROLAC 30 MG/ML VIAL (*BKC) IV PUSH (05:29)
[2024-09-06] MEDS: ACETAMINOPHEN 500 MG TABLET 1000 MG PO (05:30)
--- NOTE | 2024-09-06 06:49 | WPDANESPN ---
Anes - Prog Note Post-Op Date/Time: 09/06/24 06:49 Cardiovascular status: normal Respiratory status: normal Airway patency: baseline Mental status: baseline Post-Op hydration status: normal Vital Signs: Last Vital Signs Temp 37.1 C 09/06/24 03:40 Pulse 89 09/06/24 03:40 Resp 16 09/06/24 03:40 BP 108/61 09/06/24 03:40 Pulse Ox 96 09/06/24 03:40 O2 Del Method Room Air 09/05/24 14:35 O2 Flow Rate 6 09/05/24 13:35 Pain Score (VAS): 1 I/O: Intake & Output 09/05/24 09/05/24 09/06/24 15:59 23:59 07:59 Intake Total 850 1530 1000 Output Total 230 1250 400 Balance 620 280 600 Laboratory Tests 09/06/24 03:47 09/06/24 03:47 09/05/24 09/05/24 09/06/24 10:19 10:30 03:47 WBC 14.5 H RBC 4.10 L Hgb 11.7 L Hct 36.2 L MCV 88.3 MCH 28.5 MCHC 32.3 RDW 14.6 H Plt Count 340 MPV 9.5 Immature Gran % (Auto) 0.3 Neut % (Auto) 83.2 H Lymph % (Auto) 7.7 L [place] % (Auto) 8.5 Eos % (Auto) 0.0 Baso % (Auto) 0.3 Lymph # (Auto) 1.12 [place] # (Auto) 1.2 H Eos # (Auto) 0.0 Baso # (Auto) 0.0 Abs Immat Gran (auto) 0.05 H Absolute Neuts (auto) 12.0 H Absolute Nucleated RBC 0.000 Nucleated RBC % 0.0 Sodium 135 L Potassium 4.0 Chloride 111 H Carbon Dioxide 23 Anion Gap 1 L BUN 9 Creatinine 0.60 L Estim Creat Clear Calc 116 Estimated GFR > 60 Glucose 115 H Calcium 8.8 POC Urine HCG, Qual Negative Blood Type A Positive Antibody Screen Negative Post-procedural complaints: none Patient Feedback: Patient satisfied with anesthetic care.
[2024-09-06] MEDS: DOCUSATE SODIUM 100 MG CAPSULE PO (08:24)
[2024-09-06] MEDS: PANTOPRAZOLE 40 MG TABLET PO (08:25)
[2024-09-06] MEDS: SIMETHICONE 80 MG TAB.CHEW PO (08:25)
[2024-09-06] MEDS: FERROUS SULFATE 325 MG TABLET DR 650 MG BY MOUTH (08:26)
[2024-09-06 08:30] VITALS: BP 134/81; PULSE 103; RESP 16; TEMP 36.6; O2SAT 100
--- NOTE | 2024-09-06 10:29 | P.PNOB_ITS ---
PRENATAL TEACHER - A/P Assessment and plan (1) H/O: hysterectomy: Code(s): Z90.710 - Acquired absence of both cervix and uterus Status: Acute Assessment and Plan: POD1. Doing well. Will discharge home. Postoperative Procedures: Procedures Operation Date: 09/05/24 12:00 Actual Procedure Side Surgeon p Robotic Assisted Total Laparoscopic Hysterectomy, Right Ovarian Cystectomy Bilateral Seferino Mccauley MD Time Spent With Patient Time: Total time spent is greater than 50% in coordination of care (as documented) at patient's floor/unit and/or counseling patient: Time with patient: less than 15 minutes PRENATAL TEACHER- PN:Subj Post-Op Subjective Date/time seen: 09/06/24 10:29 Interval history: She tolerated regular food this am. Request Zofran to be sent home with. She ambulated in room without difficulty. Subjective: patient reports feeling better, patient desires discharge, pain is well controlled and patient is tolerating oral intake Exam 2 Const: General: comfortable and no acute distress Eyes: General: appearance normal, both eyes and all related structures Resp: Effort & Inspection: normal respiratory effort GI: Other: incisions intact Neuro: General: patient oriented x3 Extrem: General: normal to inspection and no calf tenderness PRENATAL TEACHER - PN: Obj Data Vital Signs Vital Signs: Vital Signs - 24 hr 09/05/24 10:30 09/05/24 13:21 09/05/24 13:35 Temperature 98 F 97.7 F Pulse Rate 99 88 90 Respiratory Rate 16 12 12 Blood Pressure 121/46 L 124/78 128/80 Pulse Oximetry 100 100 100 Oxygen Delivery Room Air Simple Face Mask Simple Face Mask Oxygen Flow Rate 6 6 09/05/24 13:50 09/05/24 14:05 09/05/24 14:20 Temperature Pulse Rate 93 95 95 Respiratory Rate 16 16 16 Blood Pressure 127/79 128/73 129/82 Pulse Oximetry 100 97 99 Oxygen Delivery Room Air Room Air Room Air Oxygen Flow Rate 09/05/24 14:35 09/05/24 15:10 09/05/24 18:30 Temperature 97.0 F L 97.2 F L 98.1 F Pulse Rate 92 84 105 H Respiratory Rate 14 16 18 Blood Pressure 123/76 103/55 L 125/68 Pulse Oximetry 94 100 98 Oxygen Delivery Room Air Oxygen Flow Rate 09/05/24 22:35 09/06/24 03:40 09/06/24 08:30 Temperature 98.7 F 98.8 F 97.9 F Pulse Rate 98 89 103 H Respiratory Rate 15 16 16 Blood Pressure 127/78 108/61 134/81 Pulse Oximetry 96 96 100 Oxygen Delivery Oxygen Flow Rate 09/06/24 08:30 Temperature Pulse Rate 103 H Respiratory Rate 16 Blood Pressure Pulse Oximetry 100 Oxygen Delivery Room Air Oxygen Flow Rate Intake/Output Intake/Output: Intake & Output 09/03/24 09/04/24 09/05/24 09/06/24 23:59 23:59 23:59 23:59 Intake Total 2380 1250 Output Total 1480 600 Balance 900 650 Meds/Results Medications: Active Medications Generic Name Dose Route Start Last Admin Trade Name Barbara PRN Reason Stop Dose Admin Acetaminophen 1,000 mg 09/05/24 18:00 09/06/24 05:30 Acetaminophen 500 Mg Tablet PO 1,000 mg Q6HR LYNDON Administration Docusate Sodium 100 mg 09/05/24 17:00 09/06/24 08:24 Docusate Sodium 100 Mg Capsule PO 100 mg BID LYNDON Administration Ergocalciferol 50,000 units 09/08/24 09:00 Ergocalciferol 50,000 Units Capsule PO WEEKLY LYNDON Ferrous Sulfate 325 mg 09/06/24 17:00 Ferrous Sulfate [address] BY MOUTH BIDWM [facility] Fluticasone Propionate 1 spray 09/05/24 21:00 09/05/24 22:35 Fluticasone Propionate 0.05% Na Spr 16 Gm Btl (*Bkc) NASAL Not Given QHS [facility] Lactated Ringer's 1,000 mls @ 125 mls/hr 09/05/24 15:10 09/06/24 03:40 Lr - Lactated Ringers Iv IV CONT Infused .Q8H LYNDON Infusion Ibuprofen 600 mg 09/06/24 12:00 Ibuprofen 600 Mg Tablet PO Q6HR [facility] Miscellaneous Information 0 each 09/05/24 00:01 Airsupra Inhaler Is Nonformulary - Can Patient Use From Home? XX 10/05/24 00:00 CLARIFY LYNDON Multivitamins Therapeutic 1 tablet 09/06/24 09:00 Multivitamins Therapeutic Tab (*Bkc) PO DAILY LYNDON Naloxone HCl 0.1 mg 09/05/24 14:35 Naloxone Hcl 0.4 Mg/Ml Vial IV PUSH Q2M PRN Respiratory rate less than 10 Non-Formulary Medication 2 inhalation 09/05/24 14:35 Albuterol-Budesonide [Airsupra] INHALATION 10/05/24 14:34 ONCE LYNDON Ondansetron HCl 4 mg 09/05/24 14:35 09/05/24 15:16 Ondansetron Inj 4 Mg/2 Ml Vial IV PUSH 4 mg Q6H PRN Administration Nausea And Vomiting Oxycodone HCl 5 mg 09/05/24 14:35 09/05/24 19:42 Oxycodone Hcl (*Crx) 5 Mg Tab Ir PO 5 mg Q4H PRN Administration Pain Rated 4-6 Oxycodone HCl 10 mg 09/05/24 14:35 Oxycodone Hcl (*Crx) 5 Mg Tab Ir PO Q6H PRN Pain Rated 7-10 Pantoprazole Sodium 40 mg 09/06/24 09:00 09/06/24 08:25 Pantoprazole 40 Mg Tablet PO 40 mg QAM LYNDON Administration Promethazine HCl 12.5 mg 09/05/24 19:09 09/05/24 19:39 Promethazine Hcl 25 Mg/Ml Ampul IV PUSH 12.5 mg Q6H PRN Administration Nausea And Vomiting Senna/Docusate Sodium 2 tab 09/05/24 21:00 09/05/24 22:35 Senna/Docusate Sodium Tablet PO 2 tab HS LYNDON Administration Simethicone 80 mg 09/05/24 17:00 09/06/24 08:25 Simethicone 80 Mg Tab.Chew PO 80 mg TIDWM LYNDON Administration Labs 09/06/24 03:47 09/06/24 03:47 Labs: Laboratory Results - last 24 hr 09/05/24 09/05/24 09/06/24 10:19 10:30 03:47 WBC 14.5 H RBC 4.10 L Hgb 11.7 L Hct 36.2 L MCV 88.3 MCH 28.5 MCHC 32.3 RDW 14.6 H Plt Count 340 MPV 9.5 Immature Gran % (Auto) 0.3 Neut % (Auto) 83.2 H Lymph % (Auto) 7.7 L [place] % (Auto) 8.5 Eos % (Auto) 0.0 Baso % (Auto) 0.3 Lymph # (Auto) 1.12 [place] # (Auto) 1.2 H Eos # (Auto) 0.0 Baso # (Auto) 0.0 Abs Immat Gran (auto) 0.05 H Absolute Neuts (auto) 12.0 H Absolute Nucleated RBC 0.000 Nucleated RBC % 0.0 Sodium 135 L Potassium 4.0 Chloride 111 H Carbon Dioxide 23 Anion Gap 1 L BUN 9 Creatinine 0.60 L Estim Creat Clear Calc 116 Estimated GFR > 60 Glucose 115 H Calcium 8.8 POC Urine HCG, Qual Negative Blood Type A Positive Antibody Screen Negative
--- OUTSIDE RECORDS SUMMARY | 2024-09-12 00:39 | XMS_ITS | Encounter Summary ---
Author Organization [facility] Address [address] [facility] [place] [address] Care Team Providers Care Cook Roast Name Role Phone Haim Bullard Primary Care Provider + Reason for Visit * Reason Onset Date Comments Follow-up 07/09/2017 Encounter Details Date Type Department Care Team (Late st Contact Info) Description 07/09/2017 Telephone [facility] [address] [id number] Cindy Vora Follow-up Social History Tobacco Use Types Packs/Day Years Used Date Smoking Tobacco: Never Smokeless Tobacco: Never Alcohol Use Standard Drinks/Week Comments Yes 0 (1 standard drink = 0.6 oz pur e alcohol) Socially Sex and Gender Information Value Date Recorded Sex Assigned at Not on file Gender Identity Not on file Sexual Orientation Not on file documented as of this encounter Plan of Treatment Not on file documented as of this encounter Visit Diagnoses Not on filedocumented in this encounter Care Teams Cook Roast Relationship Specialty Start Date End Date Haim Bullard PA [address] [place] [address] [phone] PCP - General Physician Public Health Policy Analyst 07/06/17 documented as of this encounter
--- OUTSIDE RECORDS SUMMARY | 2024-09-12 00:39 | XMS_ITS | CONTINUITY OF CARE DOCUMENT ---
Author Name zeyad jeffers Address Unknown Organization [facility] Address [address] [place] [address] Phone [phone] Care Team Providers Care Grinder Set Up Operator Name Role Phone Salvatore Toribio MD Unavailable [phone] Nazario [facility], Yasmeen Nicolas Unavailable Nazario INVESTIGATOR CLAIMS-BC, Yasmeen Nicolas Unavailable PROBLEMS Condition Status Date Provider Notes Vitamin D deficiency active Asif Melendrez LVH active Alanna Albertmeyer Obesity active Salvatore Toribio MD COVID-19 active Salvatore Toribio MD Shortness of breath active Salvatore Toribio MD Cardiology examination active Salvatore Melendrez Chest pain-type to be determined active Florentino Hermosillo MD Palpitations active Asif Hermosillo MD FAMILY HISTORY OF HEART DISEASE active Sharad Hermosillo MD Acid reflux disease active Asif Hermosillo MD Asthma active Asif Hermosillo MD Family History of Hypertension: active ? Sharad Hermosillo MD ENCOUNTERS Date Type Provider Location Encounter Diag nosis - In-person encounter Office Visit Salvatore Toribio MD [facility] - In-person encounter Office Visit Salvatore Toribio MD [facility] Cardiology examinationShortness of breathCOVID-19ObesityLVH - In-person encounter Office Visit Asif Hermosillo MD [facility] Family History of Hypertension:AsthmaAcid reflux diseaseFAMILY HISTORY OF HEART DISEASEPalpitationsChest pain-type to be determined VITAL SIGNS Date Observation Value Provider Body Mass Index (Ratio) 30.98 kg/m2 My scanlon Kiran blood pressure, cuff size large Ta rudi Van blood pressure, diastolic 73 mm[Hg] Ta rudi Van blood pressure, systolic 112 mm[Hg] [facility] oxygen saturation, oximetry 99 % [facility] respiratory rate E&M 18 /min [facility] pulse rate 110 /min [facility] weight E&M 197.8 [lb_av] [facility] height E&M 67 [in_i] [facility] Body Mass Index (Ratio) 31.63 kg/m2 My scanlon Kiran blood pressure, diastolic 80 mm[Hg] Li [employer] blood pressure, systolic 123 mm[Hg] Linda [employer]Logic blood pressure, diastolic 80 mm[Hg] Sa ra Moon blood pressure, systolic 123 mm[Hg] Karmen a Moon oxygen saturation, oximetry 98 % Radha Moon respiratory rate E&M 22 /min Radha Si ms pulse rate 128 /min Radha Moon weight E&M 202 [lb_av] Radha Moon height E&M 67 [in_i] Radha Moon blood pressure, cuff size regular Sa ra Moon blood pressure, diastolic 72 mm[Hg] glory Chaudhary blood pressure, systolic 104 mm[Hg] Serina miguel Chaudhary blood pressure, diastolic 80 mm[Hg] Ailin Matamoros blood pressure, systolic 124 mm[Hg] Nicolette Matamoros pulse rate 96 /min Shankar stockton oxygen saturation, oximetry 96 % Shankar Matamoros respiratory rate E&M 16 /min Terry Matamoros Body Mass Index (Ratio) 29.60 kg/m2 Leda Matamoros weight E&M 189 [lb_av] Shankar stockton height E&M 67 [in_i] Shankar stockton ALLERGIES No Known Drug Allergies RESULTS Date Observation Value Provider Reference Range Interpretation Location NT-pro BNP 67 [facility] Normal [place] [facility] [address] [place] [address] Eric Orona D.O., MPH vitamin b12, serum 600.2 pg/mL [facility] 211.0 - 946.0 free thyroxine index 8.7 ??g/dL [facility] 4.4 - 11.4 triiodothyronine uptake 0.9 TBI [facility] 0.8 - 1.3 thyroxine, serum, total 7.8 ??G/DL [facility] 4.5 - 11.7 thyroid stimulating hormone, serum 1.790 ??IU/ML [facility] 0.270 - 4.200 pro brain natriuretic peptide 17.3 pg/mL [facility] 0.0 - 125.0 very low density lipoproteins 27.2 mg/dL [facility] 5.0 - 40.0 LDL/HDL (low-density lipoprotein/high-de nsity lipoprotein) ratio 2.7 RATIO [employer] - lipoprotein, beta, serum, point, quantitative, calculated 101.8 (?) [facility] 0.0 - 100.0 High HDL cholesterol, serum 38.0 mg/dL [facility] 45.0 - 65.0 Low cholesterol, serum 167.0 mg/dL [facility] 0.0 - 200.0 triglyceride, serum, fasting 136.0 mg/dL [facility] 0.0 - 150.0 lipase, serum 24.0 U/L [facility] 13.0 - 60.0 folate, serum 8.8 NG/MLM [facility] 4.4 - 31.0 ferritin, serum 16.2 ng/mL [facility] 13.0 - 150.0 anion gap, serum 10.2 [employer] - albumin/globulin ratio, serum 2.6 g/dL [facility] 1.1 - 2.5 High globulin, serum 2.9 [facility] 2.3 - 3.8 urea nitrogen/creatinine ratio, serum 14.3 [employer] - Estimated Glomerular Filtration Rate (calc) 101.2 (?) [facility] 59.0 - chloride, serum 102.8 mmol/L [facility] 98.0 - 107.0 potassium, serum 4.4 mmol/L [facility] 3.5 - 5.1 sodium, serum 137.0 mmol/L [facility] 136.0 - 145.0 creatinine, serum 0.7 mg/dL [facility] 0.5 - 1.0 carbon dioxide, venous blood 24.0 mmol/L [employer] 22.0 - 29.0 albumin, serum 4.3 g/dL [facility] 3.5 - 5.2 calcium, serum 9.7 mg/dL [facility] 8.6 - 10.2 aspartate aminotransferase (SGOT), serum 22.0 1/L [facility] 0.0 - 32.0 alkaline phosphatase, serum 97.0 1/L [facility] 40.0 - 130.0 alanine aminotransferase (SGPT), serum 31.0 1/L [facility] 0.0 - 33.0 protein, total, serum 7.2 g/dL [facility] 6.6 - 8.7 bilirubin, serum, total 0.3 mg/dL [facility] 0.0 - 1.2 urea nitrogen, blood 10.0 mg/dL [facility] 6.0 - 20.0 blood glucose, random 88.0 mg/dL [facility] 74.0 - 99.0 red blood cell distribution width, size density 49.4 fL [facility] - immature granulocytes, percentage of total cells, blood 0.1 % [facility] - nucleated red blood cells as percent of blood leukocytes 0.0 % [facility] - red blood cell (erythrocyte) count, per high power field 0.0 10*3/UL [facility] - eosinophils as percent of blood leukocytes 1.8 % [facility] as percent of blood leukocytes 54.1 % [facility] Neutrophils 3.8 CELLS/UL [facility] 1.5 - 7.8 basophils as percent of blood leukocytes 0.8 % [facility] - Absolute Basophils 0.1 CELLS/UL [facility] 0.0 - 0.2 monocytes as percent of blood leukocytes 7.8 % [facility] - Absolute Monocytes 0.6 CELLS/UL [facility] 0.2 - 1.0 lymphocytes as percent of blood leukocytes 35.4 % [facility] - Absolute Lymphocytes 2.5 CELLS/UL [facility] 0.9 - 3.9 mean platelet volume 10.2 (?) [facility] - platelet count 407.0 THOUSAND/U L [facility] 100.0 - 400.0 High mean corpuscular hemoglobin concentration, RBC 30.3 G/DL [facility] 31.0 - 38.0 Low mean corpuscular hemoglobin, RBC 28.7 pg [facility] 25.0 - 35.0 mean corpuscular volume, RBC 94.7 fL Link[facility] 75.0 - 100.0 hematocrit, blood 42.6 % LinkLog 35.0 - 55.0 hemoglobin, blood 12.9 g/dL [facility] 11.5 - 16.5 erythrocyte count, whole blood 4.5 MILLION/UL [facility] 3.5 - 5.5 iron, serum 52.0 ug/dL [facility] 25.0 - 156.0 iron saturation percent, serum 12.6 % [facility] 20.0 - 50.0 Low iron binding capacity, total 413.0 ug/dL [facility] 250.0 - 450.0 rapid plasma reagin antibody, serum NON-REACTI VE [facility] NON-REACTIVE activated partial thromboplastin time 29.2 SECONDS [facility] 23.0 - 33.0 prothrombin time (patient) 10.4 s [facility] 9.0 - 11.5 international normalized ratio (INR) 0.9 [facility] 0.9 - 1.1 hemoglobin A1C, blood, as % of total hemoglobin 5.1 % [facility] 4.0 - 6.0 HISTORY OF MEDICATION USE Medication Status Instructions Dates Provider Indications Com ments VITAMIN D3 71349 UNIT ORAL TABLET active take 1 tab once a week Delicia Garcia VENTOLIN HFA AEROSOL SOLUTION active once daily Shankar Matamoros PROMETHAZINE HCL CRYSTALS active every 4 hours as needed for cough Shankar Matamoros OMEPRAZOLE 40 MG ORAL CAPSULE DELAYED RELEASE active once daily Shankar Matamoros QVAR 40 MCG/ACT INHALATION AEROSOL SOLUTION active 2 puffs twice daily Shankar Matamoros SOCIAL HISTORY Date Observation Value Provider social history E&M S moking History: Hoa finley has never smoked. Salvatore Toribio MD social history reviewed E&M revi ewed - no changes required Salvatore Toribio MD smoking status Never smoker Chelsea Silver social history E&M S moking History: Hoa finley has never smoked. Salvatore Toribio MD social history reviewed E&M revi ewed - no changes required Salvatore Toribio MD smoking status Never smoker Radha Moon smoking status Never smoker Nasrin flores smoking status Never smoker Asif Hermosillo MD social history E&M S moking History: Hoa finley has been counseled to quit. Asif Hermosillo MD social history reviewed E&M revi ewed - no changes required Asif Hermosillo MD FUNCTIONAL STATUS Date Observation Value Provider periodic limb movement index absent (0) Nasrin Chaudhary FAMILY HISTORY Family Member Condition Father Family History of Hy pertension: Mother Family History of Hy pertension: INSURANCE PROVIDERS Payer name Policy type / Coverage type Vesta red libertarian ID [id number] 1 ADVANCE DIRECTIVES Name Date DISCUSSED - NO DECISION MADE TREATMENT PLAN Date Name Performer [id number],C, H er updated medication list for this problem includes: Omeprazole 40 Mg Oral Capsule Delayed Release (Omeprazole) ..... Once daily Alanna Wadechanning [id number],S, W eight loss advised Alanna Pricemargareth [id number],C,T he pt continues to be very symptomatic with SOB and rapid heartbeats with minimal exertion. Myoview scan was normal, echo was normal. CT was negative for PE, however showed bronchal thickening. Insurance denied TcPYP scan. At this time I recommend to have the TcPYP scan done and schedule a cardiac cath. Alanna Beck [id number],C,T he pt continues to be very symptomatic with SOB and rapid heartbeats with minimal exertion. Myoview scan was normal, echo was normal. CT was negative for PE, however showed bronchal thickening. Insurance denied TcPYP scan. At this time I recommend to have the TcPYP scan done and schedule a cardiac cath. Alanna Pricemargareth [id number],C, W eight loss advised Alanna Pricemargraeth [id number],C, P t had Covid in 2021. She describes it as mild. Last month she developed SOB with minimal exertion. Chest Xray showed cardiomegaly. Echo showed LVH with diastolic dysfunction. No leg swelling. WE will obtian stress myoview, PFTs, proBNP, and CT PE protocol , and Tc PYP scan. Alanna Kiran [id number],C,P t had Covid in 2021. She describes it as mild. Last month she developed SOB with minimal exertion. Chest Xray showed cardiomegaly. Echo showed LVH with diastolic dysfunction. No leg swelling. WE will obtian stress myoview, PFTs, proBNP, and CT PE protocol , and Tc PYP scan. Alanna Beck [id number],S, Asif cleveland MD [id number],S, Asif cleveland MD [id number],S, H er updated medication list for this problem includes: Omeprazole 40 Mg Oral Cpdr (Omeprazole) ..... Once daily Asif Hermosillo MD [id number],S,n eg xraty, will prop up head of bed H er updated medication list for this problem includes: Ventolin Hfa Aers (Albuterol sulfate aers) ..... Once daily Qvar 40 Mcg/act Inh Aers (Beclomethasone dipropionate) ..... 2 puffs twice daily Asif Hermosillo MD [id number],S,s on hypermobilie and gentetic varant MYH11 GIVING HIM RISK FOR AORTIC DISEASE, CURRENT EHCO AT 15 IS NORMAL Asif Hermosillo MD Cardiology: H er updated medication list for this problem includes: Omeprazole 40 Mg Oral Capsule Delayed Release (Omeprazole) ..... Once daily Alanna Beck Cardiology: W eight loss advised Alanna Beck Cardiology:The pt co ntinues to be very symptomatic with SOB and rapid heartbeats with minimal exertion. Myoview scan was normal, echo was normal. CT was negative for PE, however showed bronchal thickening. Insurance denied TcPYP scan. At this time I recommend to have the TcPYP scan done and schedule a cardiac cath. Alanna Beck Cardiology:The pt co ntinues to be very symptomatic with SOB and rapid heartbeats with minimal exertion. Myoview scan was normal, echo was normal. CT was negative for PE, however showed bronchal thickening. Insurance denied TcPYP scan. At this time I recommend to have the TcPYP scan done and schedule a cardiac cath. Alanna Beck Cardiology: W eight loss advised Alanna Beck Cardiology: P t had Covid in 2021. She describes it as mild. Last month she developed SOB with minimal exertion. Chest Xray showed cardiomegaly. Echo showed LVH with diastolic dysfunction. No leg swelling. WE will obtian stress myoview, PFTs, proBNP, and CT PE protocol , and Tc PYP scan. Alanna Beck Cardiology:Pt had Co vid in 2021. She describes it as mild. Last month she developed SOB with minimal exertion. Chest Xray showed cardiomegaly. Echo showed LVH with diastolic dysfunction. No leg swelling. WE will obtian stress myoview, PFTs, proBNP, and CT PE protocol , and Tc PYP scan. Alanna Beck Cardiology Asif Heromsillo MD Cardiology Asif Hermosillo MD Cardiology: H er updated medication list for this problem includes: Omeprazole 40 Mg Oral Cpdr (Omeprazole) ..... Once daily Asif Hermosillo MD Cardiology:neg xraty , will prop up head of bed H er updated medication list for this problem includes: Ventolin Hfa Aers (Albuterol sulfate aers) ..... Once daily Qvar 40 Mcg/act Inh Aers (Beclomethasone dipropionate) ..... 2 puffs twice daily Asif Hermosillo MD Cardiology:son hyper mobilie and gentetic varant MYH11 GIVING HIM RISK FOR AORTIC DISEASE, CURRENT EHCO AT 15 IS NORMAL Asif Hermosillo MD Date Name PYP Technetium (Amyl oid) DLCO - 24572 FRC - 15686 FVC - 43999 CT Angio Chest (PE P rotocol) Stress Exercise Card iolite PROBNP, N TERMINAL PARTIAL THROMBOPLAST IN TIME, ACTIVATED PROTHROMBIN TIME WIT H INR LIPASE Complete Echo STR - Routine Mobile Cardiac Tele RPR (MONITOR) W/REFL TITER FOLATE, SERUM FERRITIN IRON AND TOTAL IRON BINDING CAPACITY THYROID PANEL WITH T SH, 3RD GENERATION CBC (INCLUDES DIFF/P LT) VITAMIN B12 VITAMIN D, 25-HYDROX Y, LC/MS/MS HEMOGLOBIN A1c LIPID PANEL COMPREHENSIVE METABO LIC PANEL W/EGFR PROBNP, N TERMINAL DLCO - 75098 FRC - 68019 FVC - 07680 HISTORY OF PROCEDURES Procedure Date Procedure Name Provider Procedure Notes S tatus Spirometry Salvatore Toribio MD completed FVC / MVV - 86703 Salvatore Toribio MD com pleted FRC - 88607 Salvatore Toribio MD completed SpO2 w/o 6min walk/titration Salvatore Toribio MD completed SVC - 43964 Salvatore Toribio MD completed DLCO - 30247 Salvatore Toribio MD complete d EKG Salvatore Toribio MD completed BLOOD COUNT HEMOGLOBIN Asif Hermosillo MD completed FVC - 42748 Asif Hermosillo MD complet ed FRC - 87923 Asif Hermosillo MD complet ed DLCO - 39152 Asif Hermosillo MD comple david Stress EKG Salvatore Toribio MD completed Event Monitor Karla Phillip [facility] EKG Asif Hermosillo MD complete d SNOMED-CT: [id number] Current Medications Documented Asif Hermosillo MD completed
--- OUTSIDE RECORDS SUMMARY | 2024-09-12 00:39 | XMS_ITS | Encounter Summary ---
Author Organization [facility] Address [address] [place] [address] Care Team Providers Care Predictive Maintenance Technician Name Role Phone Haim Bullard Primary Care Provider + Reason for Visit * Reason Onset Date Comments Follow-up 11/16/2017 Encounter Details Date Type Department Care Team (Late st Contact Info) Description 11/16/2017 Telephone [facility] [address] [address] Cindy Vora Follow-up Social History [...] on filedocumented in this encounter Care Teams Predictive Maintenance Technician Relationship Specialty Start Date End Date Haim Bullard PA [address] [place] [phone] PCP - General Physician General Contractor 07/06/17 documented as of this encounter
--- OUTSIDE RECORDS SUMMARY | 2024-09-12 00:39 | XMS_ITS | Encounter Summary ---
Author Organization [facility] Address [address] [place] [address] Care Team Providers Care Telephone Answerer Name Role Phone Haim Bullard Primary Care Provider + Reason for Visit * Reason Onset Date Comments Follow-up 03/28/2019 Encounter Details Date Type Department Care Team (Late st Contact Info) Description 03/28/2019 Telephone [facility] [address] [address] Maira Horn, LADLE CLEANER-[facility] [address] [place] [address] Follow-up Social History Tobacco Use Types Packs/Day [...] on filedocumented in this encounter Care Teams Telephone Answerer Relationship Specialty Start Date End Date Haim Bullard PA [address] [place] [address] PCP - General Physician Speedometer Inspector 07/06/17 documented as of this encounter
--- OUTSIDE RECORDS SUMMARY | 2024-09-12 00:39 | XMS_ITS | Clinical Summary ---
Author Organization [facility] Address [address] [facility] [place] [address] Care Team Providers Care Technical Support Analyst Name Role Phone Haim Bullard Primary Care Provider + Source Comments [facility],non-owned Affiliates and Associated Physician Practices is amultiple site organization consisting of ambulatory clinics and hospital sitesin [place], [place], [place] and [place]. This disclosure is being madepursuant to the Care Everywhere program and may not contain all information available regarding this patient. Last updated 18.[facility] Allergies No known active allergies Medications * Be aware that medications may not be up to date on this document. Alwaysverify current medications with the patient. Medication Sig Dispensed Refills Start Date End Date Status Fexofenadine HCl (SHANTELL PO) Active diphenhydrAMINE HCl (BENADRYL ALLERGY PO) Act wilmer amitriptyline (ELAVIL) 25 MG tablet Take 25 mg by mouth at bedtime Active Family History Medical History Relation Name Comments Hypertension Father Diabetes - Type 2 Mother Hypertension Mother Relation Name Status Comments Father Mother Social History Tobacco Use Types Packs/Day Years Used Date Smoking Tobacco: Never Smokeless Tobacco: Never Alcohol Use Standard Drinks/Week Comments Yes 0 (1 standard drink = 0.6 oz pur e alcohol) Socially Sex and Gender Information Value Date Recorded Sex Assigned at Not on file Gender Identity Not on file Sexual Orientation Not on file Last Filed Vital Signs Vital Sign Reading Time Taken Comments Blood Pressure 104/70 03/26/2019 6:02 PM CDT Pulse 99 03/26/2019 6:02 PM CDT Temperature 36.6 ??C (97.8 ??F) 03/26/2019 6:02 PM CD T Respiratory Rate 16 03/26/2019 6:02 PM CDT Oxygen Saturation 98% 03/26/2019 6:02 PM CDT Inhaled Oxygen Concentration - - Weight 81.6 kg (180 lb) 03/26/2019 6:02 PM CDT Height 171.5 cm (5' 7.5 ) 03/26/2019 6:02 PM CDT Body Mass Index 27.78 03/26/2019 6:02 PM CDT Plan of Treatment Health Maintenance Due Date Last Done Comments LIPID TESTING 1980 MAMMOGRAM 1980 PAP SMEAR 1980 HIV SCREENING 1995 HEPATITIS C SCREENING 06/07/1998 DTAP/TDAP/TD VACCINES (1 - Tdap) 1999 HEPATITIS B VACCINE (1 of 3 - 19+ 3-dose series) 1999 DEPRESSION SCREENING 09/10/2023 COVID-19 VACCINE (1 - 2023-2 5 season) 2024 INFLUENZA VACCINE (#1) 2024 ZOSTER VACCINE (1 of 2) 2030 HIB VACCINE Aged Out No longer eligi ble based on patient's age to complete this topic HPV VACCINE Aged Out No longer eligi ble based on patient's age to complete this topic MENINGOCOCCAL VACCINE Aged Out No yo patrick eligible based on patient's age to complete this topic PNEUMOCOCCAL VACCINE Aged Out No long er eligible based on patient's age to complete this topic Care Teams Technical Support Analyst Relationship Specialty Start Date End Date Haim Bullard PA [address] [place] [address] PCP - General Physician Medical Lab Director 07/06/17
--- OUTSIDE RECORDS SUMMARY | 2024-09-12 00:39 | XMS_ITS | Patient Health Summary ---
Author Organization [facility] [employer] Address [address] [place] [address] Care Team Providers Care Television Production Assistant Name Role Phone Haim Bullard Primary Care Provider + Note from [facility],non-owned Affiliates and Associated Physician Practices is amultiple site organization consisting of ambulatory clinics and hospital sitesin [place], [place], [place] and [place]. This disclosure is being madepursuant to the Care Everywhere program and may not contain all information available regarding this patient. Last updated 18.[facility] [employer] Allergies No known active allergies Medications * Be aware that medications may not be up to date on this document. Alwaysverify current medications with the patient. * Fexofenadine HCl (SHANTELL PO) * diphenhydrAMINE HCl (BENADRYL ALLERGY PO) * amitriptyline (ELAVIL) 25 MG tablet Take 25 mg by mouth at bedtime Social History Tobacco Use Types Packs/Day Years [...] Mass Index 27.78 03/26/2019 6:02 PM CDT Procedures * INFLUENZA A+B - POINT OF CARE (AMB)(Performed 11/14/2017) Performed for Nasopharyngitis acute * STREP A SCREEN - POINT OF CARE (AMB) STL(Performed 11/14/2017) Performed for Nasopharyngitis acute * STREP A SCREEN - POINT OF CARE (AMB) STL(Performed 09/26/2017) Performed for Acute streptococcal pharyngitis * INFLUENZA A+B - POINT OF CARE (AMB)(Performed 09/26/2017) Performed for Acute streptococcal pharyngitis Results * STREP A SCREEN (11/14/2017) Only the most recent of2 resultswithin the time period is included. Strep A Rapid POCT Negative Negative Strep A Internal Control Present Lot # [id number] Expiration Date 05/31/19 Throat ENTIRE THROAT (SURFACE REGION OF NECK) / Unknown 11/14/2017 Leah Brumfield APRN-[facility] - POINT OF CA RE ORDERABLES * INFLUENZA A+B - POINT OF CARE (AMB) (11/14/2017) Only the most recent of2 resultswithin the time period is included. Influenza A Antigen Rapid Negative Negative Influenza B Antigen Rapid Negative Negative Influenza Internal Control yes NEGATIVE - POSITIVE Influenza Lot Number [id number] Influenza Expiration Date 10/11/19 Other NASOPHARYNGEAL SWAB / Unknown 11/14/2017 Leah Brumfield APRN-[facility] - POINT OF CA RE ORDERABLES Care Teams Television Production Assistant Relationship Specialty [place] [address] [place] [phone] PCP - General Physician Turkey Pinner 07/06/17
--- OUTSIDE RECORDS SUMMARY | 2024-09-12 00:39 | XMS_ITS | Data Portability ---
Author Organization [facility] [employer], Main Office Address [address] [place] [address] Care Team Providers Care Digital Director Name Role Phone JM DE LEON Primary Care Provider [phone] HAWA, PFIEFER Diplomatic Interpreter/Translator HAWA, PFIEFER Diplomatic Interpreter/Translator HAWA, PFIEFER Diplomatic Interpreter/Translator [phone] Assessment No assessment recorded. Plan of Treatment Reminders Order Date Submit Date Provider Last Modified By Organization Details Last Modified Time Details Appointments None recorded. Lab lipid panel, serum 2022 [facility] (Lab), [address] [place], [address], 22:43:13 TSH, serum or plasma 2022 [facility] (Lab), [address] [place], [address], 22:47:36 CBC w/ auto diff 2022 [facility] (Lab), [address] [place], [address], 20:32:42 CMP, serum or plasma 2022 [facility] (Lab), [address] [place], [address], 22:43:08 glycohemogl obin, total, blood 2022 023 [facility] (Lab), [address] [place], [address], 3 21:27:50 CBC w/ auto diff 2023 024 [facility] (Lab), [address] [place], [address], 4 18:36:35 iron + total iron-bindin g capacity (TIBC), serum 2023 024 [facility] (Lab), [address] [place], [address], 4 18:36:35 ferritin, serum or plasma 2023 024 [facility] (Lab), [address] [place], [address], 4 18:36:35 vitamin B12 + folate, serum or blood 2023 024 [facility] (Lab), [address] [place], [address], 4 18:36:35 Referral professor of public administration referral 2022 023 [email or web address] 3 Martine Schneider MD, [address] [place] [address], [place], [address], 3 09:02:42 gastroenter ologist referral - Please call patient to schedule an appointment . Thank you. [address] [facility], [address], [id number], [place], [address], 4 18:40:49 Procedures None recorded. Surgeries None recorded. Imaging MAMMO, screening, digital, bilateral - *Please call pt to schedule* [email or web address] [facility], [address], [address], [place], [address], 4 09:10:29 XR, chest, 2 view 2023 024 [facility], [address], [place], [address], 4 10:28:03 Medication Orders Airsupra 90 mcg-80 mcg/actuati on HFA aerosol inhaler 2023 024 [facility] #[id number], [address], [place], [address], 4 09:22:41 ergocalcife rol (vitamin D2) 1,250 mcg (50,000 unit) capsule [address] [id number], [address], [place], [address], 4 09:22:41 omeprazole 40 mg capsule,del ayed release [address] [id number], [address], [place], [address], 4 09:22:40 ergocalcife rol (vitamin D2) 1,250 mcg (50,000 unit) capsule [address] [id number], [address], [place], [address], 4 11:23:47 hydroxyzine HCl 25 mg tablet 2023 024 [id number], [address], [place], [address], 4 11:41:32 triamcinolo ne acetonide 40 mg/mL suspension for injection 2023 024 Not available 4 11:29:13 betamethaso ne acetate and sodium phos 6 mg/mL suspension for injection 2023 024 Not available 11:32:34 Patient TargetsNo targets recorded. Patient Instructions Encounter Date Encounter Id Patient Instructions Last Modified By Organization Details Last Modified Time 07/10/2023 [id number] wellness after 07/11/24 6 mo fu anxiety, gerd, asthma, allergies around january 2024. [email or web address] Not available 07/10/2023 09:41:20 Reason for Referral Cad Drafter Referral for Aller gy to food Referring Physician: Yasmeen De Jesus, [facility], Encounter Date: 07/10/2023 Facepiece Line Supervisor Referral for Family history of cancer of colon Please call patient to schedule an appointment. Thank you. Referring Physician: Jm De Leon, [facility], Encounter Date: 02/22/2024 Results Created Date Observation Date Name Description Value Unit Range Abnormal Flag Note LastModifiedBy Organization Detail LastModifiedTime 01/18/20 22 01/18/2022 HEMOG LOBIN A1C hemoglobin A1C 5.1 %_of_ total _HGB <5.7 normal For the purpo se of [place] for the prese nce of diabe helena: <5.7% Consi stent with the absen ce of diabe helena 5.7-6 .4% Consi stent with incre ased risk for diabe helena (pred iabet es) > or =6.5% Consi stent with diabe helena This assay resul t is consi stent with a decre ased risk of diabe helena. Curre ntly, no conse nsus exist s farhan garay use of hemog lobin A1c for diagn osis of diabe helena in child amadou. Accor ding to Ameri can Diabe helena Assoc iatio n (ADA) guide lines , hemog lobin A1c <7.0% repre sents optim al contr ol in non-p regna nt diabe tic patie nts. Diffe rent metri cs may apply to speci fic patie nt popul ation s. [facility]ds of Medic al Care in Diabe helena(A DA). Not Available [facility] [address] [address] [place], [address], 01/18/2022 04:55:10 01/18/20 22 01/18/2022 VITAM IN D,25- OH,TO ERICH,I A vitamin D,25-oh,tota l,ia 28 NG/mL 30-100 low Vitam in D Statu s 25-OH Vitam in D: Defic iency : <20 ng/mL Insuf ficie ncy: 20 - 29 ng/mL Optim al: > or = 30 ng/mL For 25-OH Vitam in D testi ng on patie nts on D2-cervantes pplem entat ion and patie nts for whom quant itati on of D2 and D3 fract ions is requi red, the [facility] eD(TM ) 25-OH VIT D, (D2,D 3), LC/MS /MS is recom noe d: order code 93981 (juan carlos ents >2yrs ). See Note 1 Note 1 For addit ional infor petra schmitz refer to http: //antoine Castañeda stDia gnost ics.c om/fa q/FAQ 199 (This link is being provi ded for infor cassie fernandez/ douglas bro purpo ses only. ) Not Available [facility] [address] [address] [place], [address], 01/18/2022 04:55:10 01/18/20 22 01/18/2022 TSH W/REF ABRAN TO FT4 TSH w/reflex to FT4 1.75 mIU/L normal Refer ence Range > or = 20 Years 0.40- 4.50 Pregn angelita Range s First trime ster 0.26- 2.66 Secon d trime ster 0.55- 2.73 Third trime ster 0.43- 2.91 Not Available [facility] [address] [place], [address], 01/18/2022 04:55:09 01/18/20 22 01/18/2022 VITAM IN B12/F OLATE , SERUM PANEL vitamin B12 634 pg/mL 200-11 00 normal Not Available [address], [address], 01/18/2022 04:55:08 01/18/20 22 01/18/2022 VITAM IN B12/F OLATE , SERUM PANEL folate, serum 19.0 NG/mL normal Refer ence Range Low: <3.4 Borde rline : 3.4-5 .4 Carmen l: >5.4 Not Available [address], [address], 01/18/2022 04:55:08 01/18/20 22 01/18/2022 CBC (INCL UDES DIFF/ PLT) white blood cell count 8.3 thous and/u L 3.8-10 .8 normal Not Available [address], [address], 01/18/2022 04:55:08 01/18/20 22 01/18/2022 CBC (INCL UDES DIFF/ PLT) red blood cell count 4.28 abel on/uL 3.80-5 .10 normal Not Available [address], [address], 01/18/2022 04:55:08 01/18/20 22 01/18/2022 CBC (INCL UDES DIFF/ PLT) hemoglobin 11.9 g/dL 11.7-1 5.5 normal Not Available [address], [address], 01/18/2022 04:55:08 01/18/20 22 01/18/2022 CBC (INCL UDES DIFF/ PLT) hematocrit 37.2 % 35.0-4 5.0 normal Not Available [address], [address], 01/18/2022 04:55:08 01/18/20 22 01/18/2022 CBC (INCL UDES DIFF/ PLT) MCV 86.9 fL 80.0-1 00.0 normal Not Available [address], [address], 01/18/2022 04:55:08 01/18/20 22 01/18/2022 CBC (INCL UDES DIFF/ PLT) MCH 27.8 pg 27.0-3 3.0 normal Not Available [address], [address], 01/18/2022 04:55:08 01/18/20 22 01/18/2022 CBC (INCL UDES DIFF/ PLT) MCHC 32.0 g/dL 32.0-3 6.0 normal Not Available [facility] [address], [address], 01/18/2022 04:55:08 01/18/20 22 01/18/2022 CBC (INCL UDES DIFF/ PLT) RDW 13.4 % 11.0-1 5.0 normal Not Available [address], [address], 01/18/2022 04:55:08 01/18/20 22 01/18/2022 CBC (INCL UDES DIFF/ PLT) platelet count 442 thous and/u L 140-40 0 high Not Available [address], [address], 01/18/2022 04:55:08 01/18/20 22 01/18/2022 CBC (INCL UDES DIFF/ PLT) MPV 10.0 fL 7.5-12 .5 normal Not Available [facility] [address], [address], 01/18/2022 04:55:08 01/18/20 22 01/18/2022 CBC (INCL UDES DIFF/ PLT) absolute neutrophils 4723 cells /uL 1500-7 800 normal Not Available [address], [address], 01/18/2022 04:55:08 01/18/20 22 01/18/2022 CBC (INCL UDES DIFF/ PLT) absolute lymphocytes 2673 cells /uL 850-39 00 normal Not Available [facility] [address], [address], 01/18/2022 04:55:08 01/18/20 22 01/18/2022 CBC (INCL UDES DIFF/ PLT) absolute monocytes 664 cells /uL 200-95 0 normal Not Available [address], [address], 01/18/2022 04:55:08 01/18/20 22 01/18/2022 CBC (INCL UDES DIFF/ PLT) absolute eosinophils 174 cells /uL 15-500 normal Not Available [facility] [address], [address], 01/18/2022 04:55:08 01/18/20 22 01/18/2022 CBC (INCL UDES DIFF/ PLT) absolute basophils 66 cells /uL 0-200 normal Not Available [facility] [address], [address], 01/18/2022 04:55:08 01/18/20 22 01/18/2022 CBC (INCL UDES DIFF/ PLT) neutrophils 56.9 % normal Not Available [address], [address], 01/18/2022 04:55:08 01/18/20 22 01/18/2022 CBC (INCL UDES DIFF/ PLT) lymphocytes 32.2 % normal Not Available [address], [address], 01/18/2022 04:55:08 01/18/20 22 01/18/2022 CBC (INCL UDES DIFF/ PLT) monocytes 8.0 % normal Not Available [address], [address], 01/18/2022 04:55:08 01/18/20 22 01/18/2022 CBC (INCL UDES DIFF/ PLT) eosinophils 2.1 % normal Not Available [address], [address], 01/18/2022 04:55:08 01/18/20 22 01/18/2022 CBC (INCL UDES DIFF/ PLT) basophils 0.8 % normal Not Available [address], [address], 01/18/2022 04:55:08 01/18/20 22 01/18/2022 COMPR EHENS POLO METAB OLIC PANEL glucose 84 mg/dL 65-99 normal Fasti ng refer ence inter olga Not Available [address], [address], 01/18/2022 04:55:08 01/18/20 22 01/18/2022 COMPR EHENS POLO METAB OLIC PANEL urea nitrogen (BUN) 10 mg/dL 7-25 normal Not Available [address], [address], 01/18/2022 04:55:08 01/18/20 22 01/18/2022 COMPR EHENS POLO METAB OLIC PANEL creatinine 0.83 mg/dL 0.50-1 .10 normal Not Available [address], [address], 01/18/2022 04:55:08 01/18/20 22 01/18/2022 COMPR EHENS POLO METAB OLIC PANEL eGFR non-afr. new zealander 88 mL/mi n/1.7 3m2 > or = 60 normal Not Available [address], [address], 01/18/2022 04:55:08 01/18/20 22 01/18/2022 COMPR EHENS POLO METAB OLIC PANEL eGFR 102 mL/mi n/1.7 3m2 > or = 60 normal Not Available [address], [address], 01/18/2022 04:55:08 01/18/20 22 01/18/2022 COMPR EHENS POLO METAB OLIC PANEL BUN/creatini ne ratio not applic able (calc ) 6-22 Not Available [address], [address], 01/18/2022 04:55:08 01/18/20 22 01/18/2022 COMPR EHENS POLO METAB OLIC PANEL sodium 139 mmol/ L 135-14 6 normal Not Available [address], [address], 01/18/2022 04:55:08 01/18/20 22 01/18/2022 COMPR EHENS POLO METAB OLIC PANEL potassium 4.1 mmol/ L 3.5-5. 3 normal Not Available [address], [address], 01/18/2022 04:55:08 01/18/20 22 01/18/2022 COMPR EHENS POLO METAB OLIC PANEL chloride 106 mmol/ L 98-110 normal Not Available [address], [address], 01/18/2022 04:55:08 01/18/20 22 01/18/2022 COMPR EHENS POLO METAB OLIC PANEL carbon dioxide 25 mmol/ L 20-32 normal Not Available [address], [address], 01/18/2022 04:55:08 01/18/20 22 01/18/2022 COMPR EHENS POLO METAB OLIC PANEL calcium 9.2 mg/dL 8.6-10 .2 normal Not Available [address], [address], 01/18/2022 04:55:08 01/18/20 22 01/18/2022 COMPR EHENS POLO METAB OLIC PANEL protein, total 6.7 g/dL 6.1-8. 1 normal Not Available [address], [address], 01/18/2022 04:55:08 01/18/20 22 01/18/2022 COMPR EHENS POLO METAB OLIC PANEL albumin 3.8 g/dL 3.6-5. 1 normal Not Available [address], [address], 01/18/2022 04:55:08 01/18/20 22 01/18/2022 COMPR EHENS POLO METAB OLIC PANEL globulin 2.9 g/dL_ (calc ) 1.9-3. 7 normal Not Available [address], [address], 01/18/2022 04:55:08 01/18/20 22 01/18/2022 COMPR EHENS POLO METAB OLIC PANEL albumin/glob ulin ratio 1.3 (calc ) 1.0-2. 5 normal Not Available [address], [address], 01/18/2022 04:55:08 01/18/20 22 01/18/2022 COMPR EHENS POLO METAB OLIC PANEL bilirubin, total 0.4 mg/dL 0.2-1. 2 normal Not Available [address], [address], 01/18/2022 04:55:08 01/18/20 22 01/18/2022 COMPR EHENS POLO METAB OLIC PANEL alkaline phosphatase 110 U/L 31-125 normal Not Available [address], [address], 01/18/2022 04:55:08 01/18/20 22 01/18/2022 COMPR EHENS POLO METAB OLIC PANEL AST 18 U/L 10-30 normal Not Available [address], [address], 01/18/2022 04:55:08 01/18/20 22 01/18/2022 COMPR EHENS POLO METAB OLIC PANEL ALT 18 U/L 6-29 normal Not Available [address], [address], 01/18/2022 04:55:08 01/18/20 22 01/18/2022 LIPID PANEL , STAND CAROLIN cholesterol, total 162 mg/dL <200 normal Not Available [address], [address], 01/18/2022 04:55:07 01/18/20 22 01/18/2022 LIPID PANEL , STAND CAROLIN HDL cholesterol 35 mg/dL > or = 50 low Not Available [address], [address], 01/18/2022 04:55:07 01/18/20 22 01/18/2022 LIPID PANEL , STAND CAROLIN triglyceride s 149 mg/dL <150 normal Not Available [address], [address], 01/18/2022 04:55:07 01/18/20 22 01/18/2022 LIPID PANEL , STAND CAROLIN LDL-choleste rol 102 mg/dL _(lilly c) high Refer ence range : <100 Elena able range <100 mg/dL for prima ry preve ntion ; <70 mg/dL for patie nts with CHD or diabe tic patie nts with > or = 2 CHD risk facto rs. LDL-C is now calcu lated using the Mony n-Hop kins calcu stephanie n, which is a valid ated novel metho d provi jarrod stephan r accur acy than the Fried abdi equat ion in the estim ation of LDL-C . Mony flores SS et al. IBIS. 2013; 310(1 9): 2061- 2068 (http ://ed ucati on.[employer] kavyaDataium. com/f aq/FA Q164) Not Available [facility] [address] [address] , [place], [address], 01/18/2022 04:55:07 01/18/20 22 01/18/2022 LIPID PANEL , STAND CAROLIN chol/HDLC ratio 4.6 (calc ) <5.0 normal Not Available [facility] [address] [address] , [place], [address], 01/18/2022 04:55:07 01/18/20 22 01/18/2022 LIPID PANEL , STAND CAROLIN non HDL cholesterol 127 mg/dL _(lilly c) <130 normal For patie nts with diabe helena plus 1 major ASCVD risk facto r, treat ing to a non-H DL-C goal of <100 mg/dL (LDL- C of <70 mg/dL ) is consi dered a thera pejaylai c optio n. Not Available [facility] [address] [address] , [place], [address], 01/18/2022 04:55:07 07/10/20 23 07/10/2023 CBC/C OMPLE TE BLD COUNT W/DIF F white blood cells 8.0 x10'3 /uL 4.2-10 .8 Not Available [facility] (Lab) [address] [place], [address], 07/10/2023 20:32:42 07/10/20 23 07/10/2023 CBC/C OMPLE TE BLD COUNT W/DIF F red blood cells 4.52 x10'6 /uL 3.80-5 .20 Not Available [facility] (Lab) [address] [place], [address], 07/10/2023 20:32:42 07/10/20 23 07/10/2023 CBC/C OMPLE TE BLD COUNT W/DIF F hemoglobin 11.9 g/dL 12.0-1 5.6 low Not Available [facility] (Lab) [address] [place], [address], 07/10/2023 20:32:42 07/10/2007/10/2023 CBC/C OMPLE TE BLD COUNT W/DIF F hematocrit 38.6 % 35.7-4 5.7 Not Available [facility] (Lab) [address] [place], [address], 07/10/2023 20:32:42 07/10/2007/10/2023 CBC/C OMPLE TE BLD COUNT W/DIF F mean red cell volume 85.4 fL 82.0-9 9.0 Not Available [facility] (Lab) [address] [place], [address], 07/10/2023 20:32:42 07/10/2007/10/2023 CBC/C OMPLE TE BLD COUNT W/DIF F mean red cell hemoglobin 26.3 pg 27.0-3 3.0 low Not Available [facility] (Lab) [address] [place], [address], 07/10/2023 20:32:42 07/10/2007/10/2023 CBC/C OMPLE TE BLD COUNT W/DIF F mean RBC HGB concentratio n 30.8 g/dL 31.0-3 6.0 low Not Available [facility] (Lab) [address] [place], [address], 07/10/2023 20:32:42 07/10/2007/10/2023 CBC/C OMPLE TE BLD COUNT W/DIF F red cell distribution width 15.2 % 11.8-1 5.5 Not Available [facility] (Lab) [address] [place], [address], 07/10/2023 20:32:42 07/10/2007/10/2023 CBC/C OMPLE TE BLD COUNT W/DIF F platelets 422 x10'3 /uL 150-40 0 high Not Available [facility] (Lab) [address] [place], [address], 07/10/2023 20:32:42 07/10/2007/10/2023 CBC/C OMPLE TE BLD COUNT W/DIF F mean platelet volume 10.7 fL 9.0-12 .4 Not Available [facility] (Lab) [address] [place], [address], 07/10/2023 20:32:42 07/10/2007/10/2023 CBC/C OMPLE TE BLD COUNT W/DIF F neutrophils 59.7 % 39.0-7 2.0 Not Available [facility] (Lab) [address] [place], [address], 07/10/2023 20:32:42 07/10/2007/10/2023 CBC/C OMPLE TE BLD COUNT W/DIF F lymphocytes 30.7 % 16.0-4 7.0 Not Available [facility] (Lab) [address] [place], [address], 07/10/2023 20:32:42 07/10/2007/10/2023 CBC/C OMPLE TE BLD COUNT W/DIF F monocytes 6.8 % 5.0-12 .0 Not Available [facility] (Lab) [address] [place], [address], 07/10/2023 20:32:42 07/10/2007/10/2023 CBC/C OMPLE TE BLD COUNT W/DIF F eosinophils 1.6 % 1.0-7. 0 Not Available [facility] (Lab) [address] [place], [address], 07/10/2023 20:32:42 07/10/2007/10/2023 CBC/C OMPLE TE BLD COUNT W/DIF F basophils 0.9 % 0.0-2. 0 Not Available [facility] (Lab) [address] [place], [address], 07/10/2023 20:32:42 07/10/2007/10/2023 CBC/C OMPLE TE BLD COUNT W/DIF F immature granulocytes 0.3 % 0.00-0 .50 Not Available [facility] (Lab) [address] [place], [address], 07/10/2023 20:32:42 07/10/2007/10/2023 CBC/C OMPLE TE BLD COUNT W/DIF F neutrophils, absolute count 4.77 x10'3 /uL 1.5-8. 0 Not Available [facility] (Lab) [address] [place], [address], 07/10/2023 20:32:42 07/10/2007/10/2023 CBC/C OMPLE TE BLD COUNT W/DIF F lymphocytes, absolute count 2.45 x10'3 /uL 1.07-3 .43 Not Available [facility] (Lab) [address] [place], [address], 07/10/2023 20:32:42 07/10/2007/10/2023 CBC/C OMPLE TE BLD COUNT W/DIF F monocytes, absolute count 0.54 x10'3 /uL 0.29-0 .99 Not Available [facility] (Lab) [address] [place], [address], 07/10/2023 20:32:42 07/10/2007/10/2023 CBC/C OMPLE TE BLD COUNT W/DIF F eosinophils, absolute count 0.13 x10'3 /uL 0.02-0 .53 Not Available [facility] (Lab) [address] [place], [address], 07/10/2023 20:32:42 07/10/20 23 07/10/2023 CBC/C OMPLE TE BLD COUNT W/DIF F basophils, absolute count 0.07 x10'3 /uL 0.01-0 .08 Not Available [facility] (Lab) [address] [place], [address], 07/10/2023 20:32:42 07/10/2007/10/2023 CBC/C OMPLE TE BLD COUNT W/DIF F immature granulocytes ,absolute 0.02 x10'3 /uL 0.00-0 .05 Not Available [facility] (Lab) [address] [place], [address], 07/10/2023 20:32:42 07/10/20 23 07/10/2023 CBC/C OMPLE TE BLD COUNT W/DIF F nucleated red blood cells 0.0 % -0 Not Available [facility] (Lab) [address] [place], [address], 07/10/2023 20:32:42 07/10/2007/10/2023 CBC/C OMPLE TE BLD COUNT W/DIF F NRBC# 0.00 x10'3 /uL Not Available [facility] (Lab) [address] [place], [address], 07/10/2023 20:32:42 07/10/2007/10/2023 HEMOG LOBIN A1C HA1C 5.5 % 4.0-6. 0 Diabe helena Scree mona Crite tree: <5.7% Consi stent with absen ce of diabe helena 5.7-6 .4% Consi stent with incre ased risk for diabe helena (pred iabet es) >OR=6 .5% Consi stent with diabe helena REFER ENCE: Diabe helena Care 2016, 39(Cervantes ppl.1 ):s13 -s22 Not Available [facility] (Lab) [address] [place], [address], 07/10/2023 21:27:50 07/10/2007/10/2023 COMPR EHENS POLO METAB OLIC PANEL sodium 136 mmol/ L 137-14 5 low Not Available [facility] (Lab) [address] [place], [address], 07/10/2023 22:43:08 07/10/2007/10/2023 COMPR EHENS POLO METAB OLIC PANEL potassium 4.8 mmol/ L 3.5-5. 1 Not Available [facility] (Lab) [address] [place], [address], 07/10/2023 22:43:08 07/10/2007/10/2023 COMPR EHENS POLO METAB OLIC PANEL chloride 106 mmol/ L 98-107 Not Available [facility] (Lab) [address] [place], [address], 07/10/2023 22:43:08 07/10/2007/10/2023 COMPR EHENS POLO METAB OLIC PANEL carbon dioxide 23 mmol/ L 22-30 Not Available [facility] (Lab) [address] [facility] [place], [address], 07/10/2023 22:43:08 07/10/2007/10/2023 COMPR EHENS POLO METAB OLIC PANEL anion gap 11.8 mmol/ L 14-22 low Not Available [facility] (Lab) [address] [place], [address], 07/10/2023 22:43:08 07/10/2007/10/2023 COMPR EHENS POLO METAB OLIC PANEL glucose 68 mg/dL 70-99 low Not Available [facility] (Lab) [address] [place], [address], 07/10/2023 22:43:08 07/10/20 23 07/10/2023 COMPR EHENS POLO METAB OLIC PANEL BUN 12 mg/dL 8-19 Not Available [facility] (Lab) [address] [place], [address], 07/10/2023 22:43:08 07/10/20 23 07/10/2023 COMPR EHENS POLO METAB OLIC PANEL creatinine 0.73 mg/dL 0.66-1 .25 Not Available [facility] (Lab) [address] [place], [address], 07/10/2023 22:43:08 07/10/20 23 07/10/2023 COMPR EHENS POLO METAB OLIC PANEL GFR >60 Refer ence Range : Wyano ge GFR Healt hy Adult : >60 mL/mi n/1.7 3 m2 Chron ic Kidne y Disea se: 15-60 mL/mi n/1.7 3 m2 Kidne y Failu re: <15/m L/min /1.73 m2 www.n iddk. nih.g ov The MDRD study equat ion has not been valid ated in child amadou <18 years of age; pregn ant women ; the elder ly >85 years of age; or in some racia l or ethni c subgr oups, such as Hisma nics. Outsi de the valid ated shade eters , estim ated GFR is less accur ate, requi ring clini lilly judgm ent on a case- by-ca se basis . Clini lilly inter preta tion for other races and ages must be made by the clini shelley. The MDRD study equat ion has not been valid ated for the evalu ation of serum creat inine relat ed to nutri brionna l statu s or medic ation usage . For perso ns <18 years of age, a pedia tric GFR calcu lator is avail able on the NKF websi te: https ://owen w.geovanni kovacs.o rg/pr ofess ional s/kdo qi/gf r_cal culat or Not Available [facility] (Lab) [address] [place], [address], 07/10/2023 22:43:08 07/10/20 23 07/10/2023 COMPR EHENS POLO METAB OLIC PANEL alkaline phosphatase 106 U/L 38-126 Not Available [facility] (Lab) [address] [place], [address], 07/10/2023 22:43:08 07/10/20 23 07/10/2023 COMPR EHENS POLO METAB OLIC PANEL alanine aminotransfe rase 22 U/L 0-35 Not Available [facility] (Lab) [address] [place], [address], 07/10/2023 22:43:08 07/10/20 23 07/10/2023 COMPR EHENS POLO METAB OLIC PANEL aspartate aminotransfe rase 24 U/L 15-37 Not Available [facility] (Lab) [address] [place], [address], 07/10/2023 22:43:08 07/10/20 23 07/10/2023 COMPR EHENS POLO METAB OLIC PANEL bilirubin, total 0.30 mg/dL 0.20-1 .30 Not Available [facility] (Lab) [address] [place], [address], 07/10/2023 22:43:08 07/10/20 23 07/10/2023 COMPR EHENS POLO METAB OLIC PANEL calcium 9.6 mg/dL 8.4-10 .2 Not Available [facility] (Lab) [address] [place], [address], 07/10/2023 22:43:08 07/10/20 23 07/10/2023 COMPR EHENS POLO METAB OLIC PANEL total protein 7.6 g/dL 6.3-8. 2 Not Available [facility] (Lab) [address] [place], [address], 07/10/2023 22:43:08 07/10/20 23 07/10/2023 COMPR EHENS POLO METAB OLIC PANEL albumin 4.1 g/dL 3.4-5. 0 Not Available [facility] (Lab) [address] [place], [address], 07/10/2023 22:43:08 07/10/20 23 07/10/2023 COMPR EHENS POLO METAB OLIC PANEL globulin 3.5 g/dL 2.6-4. 2 Not Available [facility] (Lab) [address] [place], [address], 07/10/2023 22:43:08 07/10/2007/10/2023 COMPR EHENS POLO METAB OLIC PANEL A/G ratio 1.2 ratio 1.0-2. 0 Not Available [facility] (Lab) [address] [place], [address], 07/10/2023 22:43:08 07/10/2007/10/2023 LIPID PANEL cholesterol 181 mg/dL 140-19 9 [facility] STACEY NSUS RECOM MENDA TION FOR DARREN STERO L: ADULT CHILD LOW RISK: <200 <170 BORDE RLINE : <200- 239 ----- HIGH RISK: >240 >200 Not Available [facility] (Lab) [address] [place], [place], [id number], 07/10/2023 22:43:13 07/10/2007/10/2023 LIPID PANEL triglyceride s 129 mg/dL 0-150 [facility] STACEY NSUS REPOR T RECOM MENDA TION FOR TRIGL YCERI HEATHER: ADULT CHILD LOW RISK: <150 ----- BODER LINE: 150-1 99 ----- HIGH RISK: >200 ----- Not Available [facility] (Lab) [address] [place], [address], 07/10/2023 22:43:13 07/10/20 23 07/10/2023 LIPID PANEL HDL cholesterol 35 mg/dL 40- low Not Available [facility] (Lab) [address] [place], [address], 07/10/2023 22:43:13 07/10/2007/10/2023 LIPID PANEL LDL cholesterol, calculated 120 mg/dL 0-130 [facility] STACEY NSUS REPOR T RECOM MENDA TIONS FOR LDL: ADULT CHILD LOW RISK <130 <110 (OPTI MAL LDL) <100 ----- BORDE RLINE : 130-1 59 ----- HIGH RISK: >160 >130 A TRIGL YCERI DE RESUL T >400 INVAL IDATE S THE CALCU LATIO N FOR LDL FRACT IONAT ION - THE LDL RESUL T WILL NOT BE REPOR MICHOACANO. Not Available [facility] (Lab) [address] [place], [address], 07/10/2023 22:43:13 07/10/2007/10/2023 TSH W/REF ABRAN FT4 TSH with reflex free T4 1.970 uIU/m L 0.465- 4.680 Not Available [facility] (Lab) [address] [place], [address], 07/10/2023 22:47:36 12/20/19 22 12/19/2021 XR, chest [facility] [address] [place] [address] Patien t Name: AUNG TYSON Access ion #: [id number] Sex: F : 1979 9 Locati on: RAD Attend ing Physic armando: ROSA DE JESUS Orderi Physic armando: ROSA DE JESUS Exam Date: 022 10:24 AM Exam Name: XR CHEST 2V Admitt ing Diagno sis(es ): RADIOL OGY REPORT - FINAL EXAM: XR CHEST 2V HISTOR Y: dyspne a 41-yea r-old female with chroni c bronch itis, cough, chest conges tion, shortn ess of breath . COMPAR SID: Chest x-ray dated 2014. TECHNI QUE: PA and latera l views of the chest were perfor med. FINDIN GS: No pneumo thorax , pulmon lara edema, pleura l effusi ons, or consol idativ e infilt rates. The heart is enlarg ed. 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 No fractu res are identi fied about the bony thorax . Surgic al clips in the right upper quadra nt are consis tent with prior cholec ystect bernadette. Page 1 of 2 [facility] Patien t Name: AUNG TYSON Access ion #: [id number] Sex: F : 1979 9 Exam Date: 10:24 AM Exam Name: XR CHEST 2V Admitt ing Diagno sis(es ): IMPRES OREN: Cardio megaly withou t eviden ce of acute intrat horaci c proces s. Create d and electr onical ly signed by: Kale salazar MD Signed Date: 10:41 AM (CT) Dictat ed by: Kale salazar MD DD: 10:41 AM (CT) DT: 10:41 AM (CT) Page 2 of 2 [id number] [facility] (Imaging) [address] [place], [address], 11/08/2022 13:57:19 12/24/19 22 12/23/2021 US, echoc ardio gram No observ ation record ed. [id number] [facility] [address] [place], [address], 11/08/2022 13:57:19 02/04/20 22 02/03/2022 CT, angio gram, chest , w/ contr ast No observ ation record ed. [id number] [facility] Add On Lab Orders [address] [place], [address], 11/08/2022 13:57:19 02/14/20 22 02/13/2022 exerc ise stres s test No observ ation record ed. MIGRATION. [id number] [facility] [address], [place], [address], 11/08/2022 13:57:19 02/15/20 22 02/13/2022 myoca rdial perfu oren study w/ eject ion fract ion (PROC ) No observ ation record ed. MIGRATION. [id number] [facility] [address], [place], [address], 11/08/2022 13:57:19 03/30/20 22 03/30/2022 PFT, compl ete No observ ation record ed. MIGRATION. [id number] [facility] [address] , [place], [address], 11/08/2022 13:57:19 10/09/19 23 10/09/2022 MAMMO , scree mona, bilat eral No observ ation record ed. [id number], [place], [address], 11/08/2022 13:57:19 07/04/20 23 07/04/2023 XR, ribs, bilat eral No observ ation record ed. [email or web address] [facility] [address] [place], [address], 07/05/2023 07:18:57 07/04/20 23 07/04/2023 XR, lumba r spine No observ ation record ed. [email or web address] [facility] [address] [place], [address], 07/05/2023 07:19:29 09/24/19 24 09/24/2023 CT, sinus es, w/o contr ast No observ ation record ed. [address], [place], [address], 09/26/2023 12:41:31 03/10/20 24 03/07/2024 XR, chest , 2 view No observ ation record ed. [facility] [address], [place], [address], 03/10/2024 11:17:16 Result Notes None recorded. Problems Name Problem SNOMED Code Status Onset Date Resolution Date Notes Provider Name and Address Organization Details Recorded Time Sprain of left ankle 6578567094845 9105 Active 2019 Not Available [facility] 3 13:54:05 Fluid level behind tympanic membrane Active 2018 Not Available [facility] 3 13:54:05 Pain in right hip joint 9699037055816 02 Active 2020 Not Available [facility] 3 13:54:05 Bronchitis 74872310 Active 2021 Not Available [facility] 3 13:54:06 Seasonal allergic rhinitis 145473858 Active 2021 Not Available [facility] 3 13:54:06 Feels hot 386422227 Active 2019 Not Available [facility] 3 13:54:06 Seasonal asthma 357200150 Active 2021 Not Available [facility] 3 13:54:06 Anxiety 33956717 Active 2020 Not Available [facility] 3 13:54:06 Cough 79573075 Active 2021 Not Available [facility] 3 13:54:06 Wheezing 24930570 Active 2019 Not Available [facility] 3 13:54:06 Cardiomega ly 5050263 Active 2021 Not Available [facility] 3 13:54:06 COVID-19 755522782 Active 2022 Yasmeen De Jesus NP [address] [facility] [address], [place], [address] , [facility] 3 10:07:24 Gastroesop hageal reflux disease 203406371 Active 2022 Yasmeen De Jesus NP [address], [address], [place], [address] , [place] [facility] 3 09:37:33 Allergy to food 987059290 Active 2022 Yasmeen De Jesus NP [address], [address], [place], [address] , [facility] 3 11:31:20 Vitamin D deficiency 95525861 Active 2023 MARAH June [address], [address], [place], [address] , [place] [facility] 4 09:09:33 Asthma 412070224 Active 2023 MARAH June [address], [address], [place], [address] , [place] [facility] 4 09:11:38 Mucus in stool 204096190 Active 2023 MARAH Juen [address], [address], [place], [address] , [place] [facility] 4 09:14:57 Productive cough 68467389 Active 2023 MARAH June [address], [address], [place], [address] , [facility] 4 09:19:26 Thrombocyt osis 2432557 Active 2023 MARAH June [address], [address], [place], [address] , [facility] 4 09:22:15 Iron deficiency anemia 71851692 Active 2023 MARAH June [address], [address], [place], [address] , [place] [facility] 4 19:47:24 Contact dermatitis 28967855 Active 2023 MARAH June [address], [address], [place], [address] , [place] [facility] 11:10:01 Problem Notes None recorded. Procedures Surgical History Date Name Laterality Status Provider Name and Address Organization Details Recorded Time 10/09/19 23 Date of Last Pap Smear completed Yasmeen Yoder RN [facility] 07/10/2023 11:09:47 10/09/19 23 Most Recent Mammogram completed Yasmeen Yoder RN [facility] 07/10/2023 11:09:30 09/10/19 14 Cholecystectomy completed Not Available [facility] 11/08/2022 13:52:32 09/10/19 06 [employer] Surgery completed Not Available [facility] 11/08/2022 13:52:32 Imaging Results Imaging Date Name Status LastModified by Organization Details LastModified Time 12/19/2021 XR, chest completed [id number] [facility] (Imaging) [address] [place], [address], 11/08/2022 13:57:19 12/23/2021 US, echocardiogram completed [id number] [facility] [address] [place], [address], 11/08/2022 13:57:19 02/03/2022 CT, angiogram, chest, w/ contrast completed [id number] [facility] Add On Lab Orders [address] [place], [address], 11/08/2022 13:57:19 10/09/2022 MAMMO, screening, bilateral completed [id number] [facility] [address], [place], [address], 11/08/2022 13:57:19 02/13/2022 exercise stress test completed [id number] [facility] [address], [place], [address], 11/08/2022 13:57:19 02/13/2022 myocardial perfusion study w/ ejection fraction (PROC) completed [id number] [facility] [address], [place], [address], 11/08/2022 13:57:19 03/30/2022 PFT, complete completed [id number] [facility] [address], [place], [address], 11/08/2022 13:57:19 07/04/2023 XR, ribs, bilateral completed [email or web address] [facility] [address] [place], [address], 07/05/2023 07:18:57 07/04/2023 XR, lumbar spine completed [email or web address] [facility] [address] [place], [address], 07/05/2023 07:19:29 09/24/2023 CT, sinuses, w/o contrast completed [place] [address], [place], [address], 09/26/2023 12:41:31 03/07/2024 XR, chest, 2 view [facility] [address] [facility] [address], [place], [address], 03/10/2024 11:17:16 Procedure Notes None recorded. Medical Equipment None Reported. Allergies No known drug allergies Medications Name Sig Start Date Stop Date Status Note LastModified by Organization Details LastModified Time sleepio mis 07/10 completed Not Available Not Available Not Available cyclobenz aprine 10 mg tablet Take 1 tablet 3 times a day by oral route as needed. 07/10 completed Not Available Not Available Not Available amoxicill in 500 mg capsule 01/22 completed Not Available Not Available Not Available Qvar 80 mcg/actua tion Metered Aerosol oral inhaler 04/02 completed Not Available Not Available Not Available promethaz ine-DM 6.25 mg-15 mg/5 mL oral syrup 01/22 completed Not Available Not Available Not Available prednison e 10 mg tablet PLEASE SEE ATTACHED FOR DETAILED DIRECTIO NS 04/29 completed Not Available Not Available Not Available azithromy amrit 250 mg tablet TAKE 2 TABLETS BY MOUTH TODAY, THEN TAKE 1 TABLET DAILY FOR 4 DAYS active Not Available Not Available No t Available fluconazo le 150 mg tablet Take 1 tablet by oral route for 1 day. active Not Available Not Available No t Available benzonata te 200 mg capsule TAKE 1 CAPSULE BY MOUTH EVERY 8 HOURS NEEDED active Not Available Not Available No t Available phenazopy ridine 200 mg tablet TAKE 1 TABLET BY MOUTH THREE TIMES A DAY FOR 3 DAYS active Not Available Not Available No t Available prednison e 20 mg tablet 2 tab po daily for 3 days, then 1 tab po daily for 4 days. 05/08 completed Not Available Not Available Not Available sertralin e 100 mg tablet TAKE 1 TABLET BY MOUTH EVERY DAY active Not Available Not Available No t Available acetamino phen 300 mg-codein e 30 mg tablet TAKE 1-2 TABLETS BY MOUTH EVERY 6 HOURS NEEDED FOR PAIN DIRECTED 07/10 completed Not Available Not Available Not Available ciproflox acin 500 mg tablet 01/22 completed Not Available Not Available Not Available sulfameth oxazole 800 mg-trimet hoprim 160 mg tablet 01/22 completed Not Available Not Available Not Available omeprazol e 40 mg capsule,d elayed release TAKE 1 CAPSULE BY MOUTH EVERY DAY DIRECTED FOR 90 DAYS active Not Available Not Available No t Available triamcino lone acetonide 0.1 % topical cream APPLY TO AFFECTED AREA NEEDED 2 TIMES DAILY FOR 7 DAYS 04/29 completed Not Available Not Available Not Available amoxicill in 500 mg tablet Take 1 tablet every 8 hours by oral route. active Not Available Not Available No t Available ondansetr on 8 mg disintegr ating tablet Place 1 tablet every 8 hours by translin gual route as needed. active Not Available Not Available No t Available betametha sone acetate and sodium phos 6 mg/mL suspensio n for injection Take 8 mg every day by injectio n route as directed for 1 day. 2023 active Not Available Not Available Not Avai lable ofloxacin 0.3 % ear drops INSTILL 1 DROP INTO THE LEFT EAR EVERY 3 HOURS WHILE AWAKE 07/10 completed Not Available Not Available Not Available amoxicill in 875 mg tablet TAKE 1 TABLET BY MOUTH EVERY 12 HOURS FOR 10 DAYS 07/10 completed Not Available Not Available Not Available amitripty line 25 mg tablet 1 tab po nightly active Not Available Not Available No t Available triamcino lone acetonide 0.025 % topical cream APPLY TO AFFECTED AREA TWICE A DAY 07/10 completed Not Available Not Available Not Available baclofen 10 mg tablet 01/22 completed Not Available Not Available Not Available triamcino lone acetonide 40 mg/mL suspensio n for injection Take 2 mL every day by injectio n route as directed for 1 day. 2023 active Not Available Not Available Not Avai lable ferrous sulfate 325 mg (65 mg iron) tablet TAKE 1 TABLET BY MOUTH EVERY DAY DIRECTED active Not Available Not Available No t Available omeprazol e 20 mg capsule,d elayed release TAKE 1 CAPSULE BY MOUTH EVERY DAY 04/29 completed perfers 2 pills Not Available Not Available Not Available monteluka st 10 mg tablet TAKE 1 TABLET BY MOUTH EVERY DAY IN THE EVENING FOR 30 DAYS 07/10 completed Not Available Not Available Not Available hydroxyzi ne HCl 25 mg tablet TAKE 1 TABLET BY MOUTH THREE TIMES A DAY NEEDED FOR ITCHING 2023 active Not Available Not Available Not Avai lable codeine 10 mg-guaife nesin 100 mg/5 mL oral liquid TAKE 5ML BY MOUTH EVERY 6 HOURS NEEDED FOR ALLERGY SYMPTOMS 05/08 completed Not Available Not Available Not Available ergocalci ferol (vitamin D2) 1,250 mcg (50,000 unit) capsule TAKE 1 CAPSULE BY MOUTH ONCE WEEKLY DIRECTED FOR 84 DAYS 2023 active Not Available Not Available Not Avai lable cefuroxim e axetil 500 mg tablet TAKE 1 TABLET BY MOUTH TWICE A DAY 02/21 completed Not Available Not Available Not Available methylpre dnisolone 4 mg tablets in a dose pack TAKE 6 TABLETS ON DAY 1 DIRECTED ON PACKAGE AND DECREASE BY 1 TAB EACH DAY FOR A TOTAL OF 6 DAYS 02/21 completed Not Available Not Available Not Available albuterol sulfate HFA 90 mcg/actua tion aerosol inhaler INHALE 2 PUFFS BY MOUTH EVERY 4-6 HOURS NEEDED FOR WHEEZING active Not Available Not Available No t Available celecoxib 100 mg capsule TAKE 1 CAPSULE BY MOUTH EVERY DAY NEEDED WITH FOOD 07/10 completed Not Available Not Available Not Available ketoconaz ole 2 % topical cream APPLY 1 GRAM ONTO THE AFFECTED AREA(S) ONCE DAILY UNTIL RESOLVED THEN FOR AN ADDITION AL 7 DAYS 07/10 completed Not Available Not Available Not Available ondansetr on 4 mg disintegr ating tablet Take 1 tablet every 6-8 hours by oral route as needed for 5 days. active Not Available Not Available No t Available fluticaso ne propionat e 50 mcg/actua tion nasal spray,braeden pension INSTILL 1 TO 2 SPRAYS INTO EACH NOTRIL DAILY 02/21 completed Not Available Not Available Not Available sertralin e 50 mg tablet TAKE 1 TABLET BY MOUTH ONCE DAILY FOR 2 WEEKS, THEN INCREASE TO 100 MG TABLETS 07/10 completed Not Available Not Available Not Available doxycycli ne hyclate 100 mg tablet Take 1 tablet twice a day by oral route. active Not Available Not Available No t Available naproxen 500 mg tablet 1 tab po bid prn 08/03 completed Not Available Not Available Not Available amoxicill in 875 mg-potass ium clavulana te 125 mg tablet TAKE 1 TABLET BY MOUTH TWICE A DAY 02/21 completed Not Available Not Available Not Available amoxicill in 500 mg-potass ium clavulana te 125 mg tablet TAKE 1 TABLET BY MOUTH EVERY 12 HOURS FOR 7 DAYS 12/14 completed Not Available Not Available Not Available tobramyci n 0.3 %-dexamet hasone 0.1 % eye drops,braeden pension 12/04 completed Not Available Not Available Not Available azithromy amrit 500 mg tablet 01/22 completed Not Available Not Available Not Available bupropion HCl XL 150 mg 24 hr tablet, extended release TAKE 1 TABLET BY MOUTH EVERY DAY 06/16 completed Not Available Not Available Not Available escitalop dorian 5 mg tablet TAKE 1 TABLET BY MOUTH EVERY DAY 05/17 completed pt was shaky and stopped it. Not Available Not Available Not Available nitrofura ntoin monohydra te/macroc rystals 100 mg capsule Take 1 capsule every 12 hours by oral route as directed for 7 days. 08/03 completed Not Available Not Available Not Available omeprazol e 20 mg tablet,de layed release 01/22 completed Not Available Not Available Not Available Whitney Saline Nasal Neti Rinse with packet Take 1 packet twice a day by nasal route. 08/03 completed Not Available Not Available Not Available Fluzone Quad (PF) 60 mcg (15 mcg x 4)/0.5 mL IM syringe TO BE ADMINIST ERED BY PHARMACI ST FOR IMMUNIZA TION active Not Available Not Available No t Available Fluzone Quad (PF) 60 mcg (15 mcg x 4)/0.5 mL IM syringe active Not Available Not Available Not Available BinaxNOW COVID-19 Ag Self Test kit 06/16 completed Not Available Not Available Not Available Paxlovid 300 mg (150 mg x 2)-100 mg tablets in a dose pack Take 1 dose pk twice a day by oral route as directed for 5 days. 10/17 completed Not Available Not Available Not Available Airsupra 90 mcg-80 mcg/actua tion HFA aerosol inhaler Inhale 2 inhalati ons 3 times a day by inhalati on route as needed for 30 days. active Not Available Not Available No t Available Vitals Date Recorded Body mass index (BMI) Body height Oxygen saturation Oxygen saturation in Arterial blood by Pulse oximetry Heart rate Body temperature Body weight Systolic blood pressure Diastolic blood pressure Provider Name and Address Organization Details Last Updated DateTime 2 31.3 kg/m2 170.18 cm 98 % 98 % 106 /min 98.2 [degF] 81095.4 7 g 124 mm[Hg] 88 mm[Hg] Not Available [facility] 3 13:53:09 Date Recorded Body weight Body mass index (BMI) Body height Body temperature Heart rate Respiratory rate Oxygen saturation Oxygen saturation in Arterial blood by Pulse oximetry Systolic blood pressure Diastolic blood pressure Provider Name and Address Organization Details Last Updated DateTime 3 16672.1 7 g 31.3 kg/m2 170.18 cm 96.5 [degF] 81 /min 16 /min 99 % 99 % 138 mm[Hg] 92 mm[Hg] Yasmeen Yoder RN [place] [facility] 3 11:05:40 Date Recorded Body height Body mass index (BMI) Body weight Body temperature Respiratory rate Heart rate Oxygen saturation Oxygen saturation in Arterial blood by Pulse oximetry Systolic blood pressure Diastolic blood pressure Provider Name and Address Organization Details Last Updated DateTime 4 170.18 cm 30.4 kg/m2 90623.9 2 g 98.3 [degF] 20 /min 74 /min 98 % 98 % 122 mm[Hg] 88 mm[Hg] Yasmeen Yoder RN [facility] [employer] [facility] 4 08:46:02 Date Recorded Body height Body mass index (BMI) Body weight Body temperature Heart rate Respiratory rate Oxygen saturation Oxygen saturation in Arterial blood by Pulse oximetry Systolic blood pressure Diastolic blood pressure Provider Name and Address Organization Details Last Updated DateTime 4 170.18 cm 30 kg/m2 58994.9 4 g 97.8 [degF] 100 /min 20 /min 98 % 98 % 122 mm[Hg] 70 mm[Hg] Yasmeen Yoder RN [facility] [employer] [facility] 4 11:07:18 Social History Question Answer Notes LastModified by Organization Details LastModified Time Tobacco Smoking Status Never Smoker Not Available [facility] 11/08/2022 13:52:29 Do You Have An Advance Directive? No Information not available 07/10/2023 What Is Your Level Of Alcohol Consumption? Occasional [id number] Information not available 11/08/2022 If You Are , What Was Your Level Of Alcohol Consumption Prior To ? None [id number] Information not available 11/08/2022 Is Blood Transfusion Acceptable In An Emergency? Yes Information not available 07/10/2023 What Is Your Level Of Caffeine Consumption? Moderate [id number] Information not available 11/08/2022 What Is Your Code Status? Full Code Not If Brain Information not available 07/10/2023 In The 14 Days Before Symptom Onset, Have You Had Close Contact With A Laboratory-confi rmed COVID-19 While That Case Was Ill? No [id number] Information not available 11/08/2022 In The 14 Days Before Symptom Onset, Have You Had Close Contact With A Person Who Is Under Investigation For COVID-19 While That Person Was Ill? No [id number] Information not available 11/08/2022 Are You Currently Employed? Yes Information not available 07/10/2023 What Type Of Diet Are You Following? REGULAR [id number] Information not available 11/08/2022 What Is Your Occupation? [employer] Information not available 07/10/2023 Have There Been Any Changes To Your Family Or Social Situation? No Information not available 07/10/2023 Do You Use Insect Repellent Routinely? No Information not available 07/10/2023 Where Do You Live? 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 No Information not available 07/10/2023 Do You Have Any Pets? Yes Information not available 07/10/2023 What Is Your Relationship Status? [id number] Information not available 11/08/2022 Do You Use Your Seat Belt Or Car Seat Routinely? Yes [id number] Information not available 11/08/2022 Do You Have Smoke And Carbon Monoxide Detectors In Your Home? Yes Information not available 07/10/2023 Are There Any Smokers In Your House? No Information not available 07/10/2023 Do You Participate In Social Media? Yes Information not available 07/10/2023 Do You Feel Stressed (tense, Restless, Nervous, Or Anxious, Or Unable To Sleep At Night)? [id number] Information not available 02/22/2024 Do You Use Any Illicit Or Recreational Drugs? No [id number] Information not available 11/08/2022 Do You Use Sunscreen Routinely? No Information not available 07/10/2023 Have You Recently Traveled Abroad? No Information not available 07/10/2023 Sex: Female Functional Status Question Answer Note LastModified by Organizat ion Details LastModified Time What is your exercise level? Occasional active job Information not available 07/10/2023 Mental Status None recorded. Family History Relationship Description Onset Age of this Age Resolved Age Notes LastModified by Organization Details LastModified Time Father Hypertensive disorder [id number] Not available 11/08/2022 13:52:33 Father Family history of stroke [id number] Not available 11/08/2022 13:52:33 Mother Hypertensive disorder [id number] Not available 11/08/2022 13:52:33 Maternal Aunt Malignant tumor of transverse colon [id number] Not available 11/08/2022 13:52:33 Maternal Aunt Malignant tumor of colon ~70's [id number] Not available 11/08/2022 13:52:33 Medical History Condition Response ANXIETY DISORDER Y HEADACHES/MIGRAINES Y Gynecological History Statement/Question Response Abnormal Pap Y Flow Heavy Date of LMP 01/30/2024 Duration of Flow (days) 6 Current Control Method Tubal Ligat ion Age at Menarche 12 Most Recent Mammogram 10/09/2022 Date of Last Mammogram 10/09/2022 Date of Last Colonoscopy Frequency of Cycle (Q days) 28 Most Recent Bone Density Date of Last Pap Smear 10/09/2022 Obstetrics History GPAL:G 2 P 2 0 0 2 Type Value Full Term 2 Living 2 Total 2 Immunizations Vaccine Type Date Status Note Provider Nam e and Address Organization Details Recorded Time Influenza, split virus, quadrivalent, preservative 1 completed Not Available [facility] 11/08/2022 13:57:13 Influenza, split virus, quadrivalent, preservative 0 completed Not Available [facility] 11/08/2022 13:57:13 Influenza, split virus, quadrivalent, preservative 9 completed Not Available [facility] 11/08/2022 13:57:14 Past Encounters Encounter ID Performer Location Encounter Start Date Encounter Closed Date Diagnosis/Indication Diagnosis SNOMED-CT Code Diagnosis ICD10 Code [id number] [facility] [address] [place] [address] 12/20/2020 00:00:00 12/20/2020 14:33:50 [id number] [facility] [address] [place] [address] 1 08/03/2021 00:00:00 08/03/2021 14:53:36 [id number] _DEISY_Cheryl IGRATION_ DEFAULT_1 _1 , 08/31/2021 00:00:00 08/31/2021 10:59:[id number] [address] 10/14/2021 00:00:00 10/14/2021 16:34:[id number] [address] 12/14/2021 00:00:00 12/14/2021 10:34:[id number] [address] 1 01/04/2022 00:00:00 01/04/2022 11:38:[id number] [address] 1 06/16/2022 00:00:00 06/16/2022 10:05:24 [id number] Yasmeen De Jesus NP [address] [address] 07/10/2023 10:52:51 07/10/2023 12:09:13 Adult health examination 757352104 Z00.00 Anemia screening 1512264 07 Z13.0 Diabetes m ellitus screening 682077365 Z13.1 Thyroid di sorder screening 884318676 Z13.29 Hyperlipid emia screening 431012567 Z13.220 Anxiety 04805183 F41.9 Seasonal asthma 54191236 6 J45.909 Gastroesop hageal reflux disease 020962334 K21.9 Screening for malignant neoplasm of breast 344798028 Z12.39 Allergy to food 26472762 1 T78.1XXA [id number] MARAH June [address] [address] 02/22/2024 08:28:53 02/22/2024 09:38:22 Vitamin D deficiency 76958089 E55.9 Asthma 644068433 J45.90 9 Gastroesop hageal reflux disease 492208726 K21.9 Family his tory of cancer of colon 080059301 Z80.0 Productive cough 7431367 5 R05.9 Thrombocytosis 7812286 D 75.826 [id number] MARAH June S_GMG [address] [address] 04/29/2024 10:54:07 04/29/2024 11:27:31 Contact dermatitis 70395433 L25.9 Vitamin D deficiency 347 48718 E55.9 Health Concerns Section Related Observation LastModified by Organization Detai ls LastModified Time None Recorded Concern Status LastModified by Organization Details LastModified Time None Recorded Advance Directives Directive N: Payers Encounter Date Sequence Insurance Name Policy Number Policy Adan Covered Member ID Adan Member ID Guarantor Name 07/10/2023 1 [facility] [id number] Carlos Wilkins [id number] Aung Wilkins 02/22/2024 1 [employer] [id number] Carlos Wilkins [id number] Aung Bergeron Franky 04/29/2024 1 [employer] [id number] Carlos Wilkins [id number] Aung Wilkins Notes Date Note Type Note Provider Name and Address Organization Details Recorded Time 07/10/2023 text/html Here for jaimee s visit.Last was 01/04/22 Covid End of Apr 2023. Still having hoarse voice and goes in and out.Cough still going on.Has posterior drainage.Has changed all taste buds. Sensitive to peanut butter, recees peanut butter- throat feels thick and under pressure. Since covid vood hasn't tasted the same. No pickles, peppers, fruit. Yasmeen De Jesus NP [address] [facility], [place], [address], [facility] 07/10/2023 11:53:48 02/22/2024 text/html Aung Wilkins is a 43 year old female patient here today to establish care. She was previously under the care of Yasmeen De Jesus DNP. Her past medical history is significant for asthma and seasonal allergic rhinitis. She utilizes albuterol 2 puffs q 4 hours PRN. She also utilizes flonase and xavier/benadryl. She has a histroy of acid reflux. She takes omeprazole 20 mg PO daily. She states this is ineffective. She has been taking two per day. She has a history of vitamin D deficiency and anemia. We will start vitamin D once weekly and OTC iron supplement. She has elevated platelets. She has concerns with mucousy stools. She states that she will occasionally have cough fits that will produce watery phlegm. Family Hx:Colon cancers Surgical Hx:cholecystomytub al Flu shot: OVID vaccines: x2Tdap: 2013WWE: 11/2023, managed by OBMammogram: 09/2023, managed by OBColonoscopy: referral sent MARAH June [address] [facility], [place], [address], [facility] 02/22/2024 09:33:40 04/29/2024 text/html Aung Wilkins is a 43 year old female patient here today for a concern of poison mohit. Went to on 03/29, had a shot of prednisone and an oral taper pack. States helped when she was taking it but is now so itchy that she is scratching bruises into her skin. MARAH June [address] [facility], [place], [address], [facility] 04/29/2024 11:26:04 OBGyn Episode No OBEpisode recorded.
--- OUTSIDE RECORDS SUMMARY | 2024-09-12 00:39 | XMS_ITS | Encounter Summary ---
Author Organization [facility] Address [address] [facility] [place] [address] Care Team Providers Care Informatica Architect Name Role Phone Haim Bullard Primary Care Provider + Reason for Visit * Reason Comments Sore Throat Ear Pain Fatigue Nausea GENERALIZED BODY ACHES Encounter Details Date Type Department Care Team (Latest Contact Info) Description 11/14/2017 9:00 AM THERAPIST PHYSICAL Office Visit [facility] AT [address] [address] Provider, Yannick Exp Nameoki Nasopharyngitis acute (Primary Dx) Social History Tobacco Use Types Packs/Day Years Used Date Smoking Tobacco: Never Smokeless Tobacco: Never Alcohol Use Standard Drinks/Week Comments Yes 0 (1 standard drink = 0.6 oz pur e alcohol) Socially Sex and Gender Information Value Date Recorded Sex Assigned at Not on file Gender Identity Not on file Sexual Orientation Not on file documented as of this encounter Last Filed Vital Signs Vital Sign Reading Time Taken Comments Blood Pressure 108/70 11/14/2017 9:07 AM THERAPIST PHYSICAL Pulse 99 11/14/2017 9:07 AM THERAPIST PHYSICAL Temperature 37 ??C (98.6 ??F) 11/14/2017 9:07 AM THERAPIST PHYSICAL Respiratory Rate 16 11/14/2017 9:07 AM THERAPIST PHYSICAL Oxygen Saturation 98% 11/14/2017 9:07 AM THERAPIST PHYSICAL Inhaled Oxygen Concentration - - Weight 86.2 kg (190 lb) 11/14/2017 9:07 AM THERAPIST PHYSICAL Height 171.5 cm (5' 7.5 ) 11/14/2017 9:07 AM THERAPIST PHYSICAL Body Mass Index 29.32 11/14/2017 9:07 AM THERAPIST PHYSICAL documented in this encounter Patient Instructions * Patient Instructions* Trower, M, [employer] WORK[employer] - 11/14/2017 9:25 AM THERAPIST PHYSICAL Images from the original note were not included. Cold Symptoms PLUNKET NURSE: Cold symptoms include sneezing, dry throat, a stuffy nose, headache, watery eyes, and a cough. Yourcough may be dry, or you may cough up mucus. You may also have muscle aches, joint pain, and tiredness. Rarely, you may have a fever. Cold symptoms occur from inflammation in your upper respiratory system caused by a virus. Most colds go away without treatment. Seek care immediately if: ?? You have increased tiredness and weakness. ?? You are unable to eat. ?? Your heart is beating much faster than usual for you. ?? You see white spots in the back of your throat and your neck is swollen and sore to the touch. ?? You see pinpoint or larger reddish-purple dots on your skin. Contact your healthcare provider if: ?? You have a fever higher than 102??F (38.9??C). ?? You have new or worsening shortness of breath. ?? You have thick nasal drainage for more than 2 days. ?? Your symptoms do not improve or get worse within 5 days. ?? You have questions or concerns about your condition or care. Treatment for cold symptoms may include NSAIDS to decrease muscle aches and fever. Cold medicines may also be given to decrease coughing, nasal stuffiness, sneezing, and a runny nose. Manage your cold symptoms: The following may help relieve cold symptoms, such as a dry throat and congestion: ?? Gargle with mouthwash or warm salt water as directed. ?? Suck on throat lozenges or hard candy. ?? Use a cold or warm vaporizer or humidifier to ease your breathing. ?? Rest for at least 2 days and then as needed to decrease tiredness and weakness. ?? Use petroleum based jelly around your nostrils to decrease irritation from blowing your nose. ?? Drink plenty of liquids. Liquids will help thin and loosen thick mucus so you can cough it up. Liquids will also keep you hydrated. Ask your healthcare provider which liquids are best for you and how much to drink each day. Prevent the spread of germs by washing your hands often. You can spread your cold germs to others for at least 3 days after your symptoms start. Do not share items, such as eating utensils. Cover your nose and mouth when you cough or sneeze using the crook of your elbow instead of your hands. Throwused tissues in the garbage. Do not smoke: Smoking may worsen your symptoms and increase the length of time you feel sick. Talk with your healthcare provider if you need help to stop smoking. Follow up with your healthcare provider as directed: Write down your questions so you remember to ask them during your visits. ?? 2017 [employer] Information is for End User's use only and may not be sold, redistributed or otherwise used for commercial purposes. All illustrations and images included in CareNotes?? are the copyrighted property of [employer] or [employer]. The above information is an medicaid nurse only. It is not intended as medical advice for individual conditions or treatments. Talk to your doctor, nurse or pharmacist before following any medical regimen to see if it is safe and effective for you. Pharyngitis WHAT YOU NEED TO KNOW: What is pharyngitis? Pharyngitis, or sore throat, is inflammation of the tissues and structures in your pharynx (throat). Pharyngitis is most often caused by bacteria. It may also be caused by a coldor flu virus. Other causes include smoking, allergies, or acid reflux. What signs and symptoms may occur with pharyngitis? ?? Sore throat or pain when you swallow ?? Fever, chills, and body aches ?? Hoarse or raspy voice ?? Cough, runny or stuffy nose, itchy or watery eyes ?? Headache ?? Upset stomach and loss of appetite ?? Mild neck stiffness ?? Swollen glands that feel like hard lumps when you touch your neck ?? White and yellow pus-filled blisters in the back of your throat How is pharyngitis diagnosed? Tell your healthcare provider about your symptoms. He may look insideyour throat and feel your neck. You may also need the following tests: ?? A throat culture may show which germ is causing your sore throat. A cotton swab is rubbed against the back of your throat. ?? Blood tests may be used to show if another medical condition is causing your sore throat. How is pharyngitis treated? Viral pharyngitis will go away on its own without treatment. Your sore throat should start to feel better in 3 to 5 days for both viral and bacterial infections. You may need any of the following: ?? Antibiotics treat a bacterial infection. ?? NSAIDs , such as ibuprofen, help decrease swelling, pain, and fever. NSAIDs can cause stomach bleeding or kidney problems in certain people. If you take blood thinner medicine, always ask your healthcare provider if NSAIDs are safe for you. Always read the medicine label and follow directions. ?? Acetaminophen decreases pain and fever. It is available without a doctor's order. Ask how much to take and how often to take it. Follow directions. Acetaminophen can cause liver damage if not taken correctly. How can I manage my symptoms? ?? Gargle salt water. Mix ?? teaspoon salt in an 8 ounce glass of warm water and gargle. This may help decrease swelling in your throat. ?? Drink liquids as directed. You may need to drink more liquids than usual. Liquids may help soothe your throat and prevent dehydration. Ask how much liquid to drink each day and which liquids are best for you. ?? Use a cool-steam humidifier to help moisten the air in your room and decrease your cough. ?? Soothe your throat with cough drops, ice, soft foods, or popsicles. How can I prevent the spread of pharyngitis? Cover your mouth and nose when you cough or sneeze. Donot share food or drinks. Wash your hands often. Use soap and water. If soap and water are unavailable, use an alcohol based hand medicaid business analyst. Call 911 for any of the following: ?? You have trouble breathing or swallowing because your throat is swollen or sore. When should I seek immediate care? ?? You are drooling because it hurts too much to swallow. ?? Your fever is higher than 102?F (39?C) or lasts longer than 3 days. ?? You are confused. ?? You taste blood in your throat. When should I contact my healthcare provider? ?? Your throat pain gets worse. ?? You have a painful lump in your throat that does not go away after 5 days. ?? Your symptoms do not improve after 5 days. ?? You have questions or concerns about your condition or care. CARE AGREEMENT: You have the right to help plan your care. Learn about your health condition and how it may be treated. Discuss treatment options with your caregivers to decide what care you want to receive. You always have the right to refuse treatment. The above information is an medicaid nurse only. It is not intended as medical advice for individual conditions or treatments. Talk to your doctor, nurse or pharmacist before following any medical regimen to see if it is safe and effective for you. ?? 2017 [employer] Information is for End User's use only and may not be sold, redistributed or otherwise used for commercial purposes. All illustrations and images included in CareNotes?? are the copyrighted property of [employer] or [employer]. APIST PHYSICAL documented in this encounter Progress Notes * Leah Brumfield APRN-CNP - 11/14/2017 9:17 AM CST History Aung Hills is a 37 y.o. female who presents to the clinic with Chief Complaint Patient presents with ??? Sore Throat ??? Ear Pain ??? Fatigue ??? Nausea ??? GENERALIZED BODY ACHES . Primary Care Physician is CATHERINE Payne. She reports the following symptoms: sinus and nasal congestion, sneezing, body aches, sore throat, post nasal drip, myalgias, fever, chills, dry cough, productive cough, pain while swallowing and enlarged tonsils. Onset was 1 day ago. The Clinical course has been gradually worsening. Patient is drinking plenty of fluids. Positive for sick contacts. OTC- NyQuil, tylenol cold, and ibuprofen with norelief. Past Medical History: Diagnosis Date ??? No known health problems Family History Problem Relation Age of Onset ??? Diabetes - Type 2 Mother ??? Hypertension Mother ??? Hypertension Father No current outpatient prescriptions on file. No current facility-administered medications for this visit. No Known Allergies Social History Social History ??? Marital status: Single Social History Main Topics ??? Smoking status: Never Smoker ??? Smokeless tobacco: Never Used ??? Alcohol use Yes Comment: Socially Social History Narrative Review of Systems Constitutional: Positive for fatigue, fevers, chills, malaise Eyes: Negative Ears, nose, mouth, and throat: Positive for persistent sore throat, congestion Respiratory: Positive for acute cough, Negative for shortness of breath Cardiovascular: Negative for chest pain Objective: BP 108/70 (BP SITE: LEFT ARM, BP POSITION: SITTING, BP CUFF SIZE: Adult) Pulse 99 Temp 98.6 ??F (Oral) Resp 16 Ht 1.715 m (5' 7.5 ) Wt 86.2 kg (190 lb) SpO2 98% BMI 29.32 kg/m2 General appearance: alert, cooperative, no distress, oriented to person, place, and time Head: normocephalic, without trauma Eyes: sclera and conjunctiva clear Ears: canals clear, tympanic membranes normal, hearing intact to voice, fluid noted behind right TM, no bulging Nose: mucosa erythematous and swollen, clear rhinorrhea Throat: mild oropharyngeal erythema, tonsils unremarkable Neck: supple Nodes: no cervical adenopathy Lungs: breath sounds normal and symmetric; no rales or wheezes Heart: regular rhythm, normal S1 and S2, without murmurs, gallops or rubs Assessment: Encounter Diagnosis Name Primary? Nasopharyngitis acute Yes Plan: Drink plenty of fluids to help thin secretions. May take Tylenol or Ibuprofen for fever or pain as directed per package instructions May take OTC antihistamines such as Zyrtec, Kristel, or Claritin as directed per package instructions for allergy relief May take Sudafed (must get from behind pharmacy counter), for relief of sinus congestion, as directed per package instructions Recommend use of OTC intranasal saline irrigation daily per package instructions Recommend daily use of Flonase or Nasonex, as directed per package instuctions Warm salt water gargles Humidifier Reviewed education materials and instructions with patient and answered all questions. Aung Hills verbalized understanding and agrees with plan. Follow up with CATHERINE Payne if symptoms worsen or do not completely resolve. SEEK EMERGENCY CARE IF SEVERE SYMPTOMS, SUCH HIGH FEVER, DIFFICULTY SWALLOWING SALIVA, DROOLING,NECK PAIN OR SWELLING, MENTAL STATUS CHANGES, OR SEVERE HEADACHE OCCUR. Orders Placed This Encounter ??? STREP A SCREEN ??? INFLUENZA A+B - POINT OF CARE (AMB) Recent Results (from the past 24 hour(s)) STREP A SCREEN Collection Time: 11/14/17 12:00 AM Result Value Ref Range Strep A Rapid Negative Negative Strep A INTERNAL CONTROL Present Lot Number [id number] Expiration Date 05/31/19 INFLUENZA A+B - POINT OF CARE (AMB) Collection Time: 11/14/17 12:00 AM Result Value Ref Range Influenza A Ag Negative Negative Influenza B Ag Negative Negative Influenza Control yes NEGATIVE - POSITIVE Influenza Lot# [id number] Influenza Expir Date 10/11/19 Leah Brumfield APRN, FNP-BC 11/14/2017 9:33 AM APIST PHYSICAL documented in this encounter Plan of Treatment Not on file documented as of this encounter Procedures Procedure Name Priority Date/Time Associated Diagnosis Comments STREP A SCREEN - POINT OF CARE (AMB) STL Routine 11/14/2017 Nasopharyngitis acute INFLUENZA A+B - POINT OF CARE (AMB) Routine 11/14/2017 Nasopharyngitis acute documented in this encounter Results * INFLUENZA A+B - POINT OF CARE (AMB) (11/14/2017) Influenza A Antigen Rapid Negative Negative Influenza B Antigen Rapid Negative Negative Influenza Internal Control yes NEGATIVE - POSITIVE Influenza Lot Number [id number] Influenza Expiration Date 10/11/19 Other NASOPHARYNGEAL SWAB / Unknown 11/14/2017 [facility] - POINT OF CA RE ORDERABLES * STREP A SCREEN (11/14/2017) Strep A Rapid POCT Negative Negative Strep A Internal Control Present Lot # [id number] Expiration Date 05/31/19 Throat ENTIRE THROAT (SURFACE REGION OF NECK) / Unknown 11/14/2017 [facility] - POINT OF CA RE ORDERABLES documented in this encounter Visit Diagnoses Diagnosis Nasopharyngitis acute- Primary Acute nasopharyngitis (common cold) documented in this encounter Care Teams Informatica Architect Relationship Specialty Start Date End Date Haim Bullard PA [address] [place] [id number] PCP - General Physician Real Estate Associate 07/06/17 documented as of this encounter
--- OUTSIDE RECORDS SUMMARY | 2024-09-12 00:39 | XMS_ITS | Encounter Summary ---
Author Organization [facility] Address [address] [place] [address] Care Team Providers Care Geriatric Physical Therapist Name Role Phone Haim Bullard Primary Care Provider + Reason for Visit * Reason Comments FLU Encounter Details Date Type Department Care Team (Latest Contact Info) Description 09/26/2017 6:00 PM MOBILE PET GROOMER Office Visit [facility] [place] [address] [place] [address] Provider, [facility] Exp Nameoki Acute streptococcal pharyngitis (Primary Dx) Social History Tobacco Use Types [...] Sign Reading Time Taken Comments Blood Pressure 110/80 09/26/2017 6:41 PM MOBILE PET GROOMER Pulse 110 09/26/2017 6:41 PM MOBILE PET GROOMER Temperature 36.9 ??C (98.5 ??F) 09/26/2017 6:41 PM CS T Respiratory Rate 16 09/26/2017 6:41 PM MOBILE PET GROOMER Oxygen Saturation 99% 09/26/2017 6:41 PM MOBILE PET GROOMER Inhaled Oxygen Concentration - - Weight 86.2 kg (190 lb) 09/26/2017 6:41 PM MOBILE PET GROOMER Height 171.5 cm (5' 7.5 ) 09/26/2017 6:41 PM MOBILE PET GROOMER Body Mass Index 29.32 09/26/2017 6:41 PM MOBILE PET GROOMER documented in this encounter Patient Instructions * Patient Instructions* Maira Horn, WOODEN BOAT BUILDER-SOLAR PHOTOVOLTAIC DESIGNER - 09/26/2017 6:58 PM MOBILE PET GROOMER Images from the original note were not included. Drink plenty of fluids May take Tylenol or Ibuprofen as directed per package instructions Warm salt water gargles Humidifier Change toothbrush on day 3 of antibiotic (or after 6 doses)- Sunday evening Follow up with CATHERINE Payne if symptoms worsen or do not completely resolve. SEEK EMERGENCY CARE IF SEVERE SYMPTOMS PERSIST, SUCH BUT NOT LIMITED TO: HIGH FEVERS, NECK PAIN OR TENDERNESS, DEVELOPMENT OF RASH, DIFFICULTY SWALLOWING, MENTAL STATUS CHANGES, SEVERE HEADACHE, OR INABILITY TO SWALLOW SALIVA (MAY MANIFEST DROOLING IN CHILDREN) Strep Throat SEAT COVERS TRIMMER: Strep throat is a throat infection caused by bacteria. It is easily spread from person to person. Common symptoms include the following: ?? Sore, red, and swollen throat ?? Fever and headache ?? Upset stomach, abdominal pain, or vomiting ?? White or yellow patches or blisters in the back of your throat ?? Tender, swollen lumps on the sides of your neck or jaw ?? Throat pain when you swallow Call 911 for any of the following: ?? You have trouble breathing. Seek care immediately if: ?? You have new symptoms like a bad headache, stiff neck, chest pain, or vomiting. ?? You are drooling because you cannot swallow your spit. Contact your healthcare provider if: ?? You have a fever. ?? You have a rash or ear pain. ?? You have green, yellow-brown, or bloody mucus when you cough or blow your nose. ?? You are unable to drink anything. ?? You have questions or concerns about your condition or care. Treatment for strep throat may include antibiotic medicine to treat your strep throat. You should feel better within 2 to 3 days after you start antibiotics. You may return to work or school 24 hoursafter you start antibiotics. Manage strep throat: ?? Use lozenges, ice, soft foods, or popsicles to soothe your throat. ?? Drink juice, milk shakes, or soup if your throat is too sore to eat solid food. Drinking liquidscan also help prevent dehydration. ?? Gargle with salt water. Mix ?? teaspoon salt in a glass of warm water and gargle. This may help reduce swelling in your throat. ?? Do not smoke. Nicotine and other chemicals in cigarettes and cigars can cause lung damage and make your symptoms worse. Ask your healthcare provider for information if you currently smoke and needhelp to quit. E-cigarettes or smokeless tobacco still contain nicotine. Talk to your healthcare provider before you use these products. Prevent the spread of strep throat: ?? Wash your hands often. Use soap and water. Wash your hands after you use the bathroom, change a child's diapers, or sneeze. Wash your hands before you prepare or eat food. ?? Do not share food or drinks. Replace your toothbrush after you have taken antibiotics for 24 hours. Follow up with your healthcare provider as directed: Write down your questions so you remember to ask them during your visits. ?? 2017 [employer] Information is for End User's use only and may not be sold, redistributed or otherwise used for commercial purposes. All illustrations and images included in CareNotes?? are the copyrighted property of [employer]. or [employer]. The above information is an certified nurses' aide only. It is not intended as medical advice for individual conditions or treatments. Talk to your doctor, nurse or pharmacist before following any medical regimen to see if it is safe and effective for you. LE PET GROOMER documented in this encounter Progress Notes * Maira Horn APRN-CNP - 09/26/2017 6:40 PM CST Images from the original note were not included. Subjective: Aung Hills is a 37 y.o. female who presents to the clinic for Chief Complaint Patient presents with ??? FLU . Her Primary Care Physician is CATHERINE Payne. She reports sore throat, congestion, fever with Tmax to 100.5-101.9, bilateral ear pressure/pain, sinus pressure, productive cough Color: moderate clear, achiness, shortness of breath, wheeze, headache described as sinus pain and pressure. Onset of symptoms was 3 days ago, and is gradually worsening since that time. She is drinking plenty of fluids. Positive for sick contacts. OTC- NyQuil cold and flu Past Medical History: Diagnosis Date ??? No known health problems Family History Problem Relation Age of Onset ??? Diabetes - Type 2 Mother ??? Hypertension Mother ??? Hypertension Father Current Outpatient Prescriptions Medication Sig Dispense Refill ??? amoxicillin (AMOXIL) 500 MG capsule Take 1 capsule by mouth 2 times daily for 10 days 20 capsule 0 No current facility-administered medications for this visit. No Known Allergies Social History Social History ??? Marital status: Single Social History Main Topics ??? Smoking status: Never Smoker ??? Smokeless tobacco: Never Used ??? Alcohol use Yes Comment: Socially ??? Drug use: No Review of Systems Constitutional: Positive for fatigue, fevers, chills, malaise, body aches and headache. Eyes: Positive for visual blurring bilaterally, resolved Ears, nose, mouth, and throat: Positive for earaches bilaterally, persistent sore throat, congestion Respiratory: Positive for shortness of breath, acute cough, clear sputum production, wheezing Cardiovascular: Negative for tachycardia Gastrointestinal: Negative for poor appetite Hematologic/lymphatic: Positive for swollen nodes Objective: BP 110/80 Pulse 110 Temp 98.5 ??F Resp 16 Ht 1.715 m (5' 7.5 ) Wt 86.2 kg (190 lb) SpO2 99% BMI 29.32 kg/m2 Exam General appearance: alert, cooperative, no distress, oriented to person, place, and time, ill-appearing Head: normocephalic, without trauma Eyes: sclera and conjunctiva clear Ears: bilateral TM with serous fluid. No erythema or bulging Nose: nares open; no septal deviation is noted, nasal mucosa not inflamed Throat: no mucous membrane abnormalities, moderate oropharyngeal erythema, tonsils 2+ Neck: supple Nodes: submandibular and cervical adenopathy bilaterally Lungs: breath sounds normal and symmetric; no rales or wheezes Heart: regular rhythm, normal S1 and S2, without murmurs, gallops or rubs Assessment: Encounter Diagnosis Name Primary? Acute streptococcal pharyngitis Yes Plan: Drink plenty of fluids May take Tylenol or Ibuprofen as directed per package instructions Warm salt water gargles Humidifier Change toothbrush on day 3 of antibiotic (or after 6 doses)- Sunday evening Follow up with CATHERINE Payne if symptoms worsen or do not completely resolve. SEEK EMERGENCY CARE IF SEVERE SYMPTOMS PERSIST, SUCH BUT NOT LIMITED TO: HIGH FEVERS, NECK PAIN OR TENDERNESS, DEVELOPMENT OF RASH, DIFFICULTY SWALLOWING, MENTAL STATUS CHANGES, SEVERE HEADACHE, OR INABILITY TO SWALLOW SALIVA (MAY MANIFEST DROOLING IN CHILDREN) Orders Placed This Encounter ??? INFLUENZA A+B - POINT OF CARE (AMB) ??? STREP A SCREEN - POINT OF CARE (AMB) STL ??? amoxicillin (AMOXIL) 500 MG capsule Sig: Take 1 capsule by mouth 2 times daily for 10 days Dispense: 20 capsule Refill: 0 Recent Results (from the past 24 hour(s)) STREP A SCREEN - POINT OF CARE (AMB) STL Collection Time: 09/26/17 12:00 AM Result Value Ref Range Strep A Rapid Positive (Abnormal) Negative Strep A INTERNAL CONTROL Present Lot Number [id number] Expiration Date 03/05/2019 Maira Horn APRN, MARAH-NY 09/26/2017 7:05 PM LE PET GROOMER documented in this encounter Plan of Treatment Not on file documented as of this encounter Procedures Procedure Name Priority Date/Time Associated Diagnosis Comments STREP A SCREEN - POINT OF CARE (AMB) STL Routine 09/26/2017 Acute streptococcal pharyngitis INFLUENZA A+B - POINT OF CARE (AMB) Routine 09/26/2017 Acute streptococcal pharyngitis documented in this encounter Results * (ABNORMAL) STREP A SCREEN - POINT OF CARE (AMB) STL (09/26/2017) Strep A Rapid POCT Positive(A) Negative Strep A Internal Control Present Lot # [id number] Expiration Date 03/05/2019 Throat ENTIRE THROAT (SURFACE REGION OF NECK) / Unknown 09/26/2017 [facility] - POINT OF CARE ORDERABLES * INFLUENZA A+B - POINT OF CARE (AMB) (09/26/2017) Influenza A Antigen Rapid Negative Negative Influenza B Antigen Rapid Negative Negative Influenza Internal Control present NEGATIVE - POSITIVE Influenza Lot Number [id number] Influenza Expiration Date 06/04/2019 Other NASOPHARYNGEAL SWAB / Unknown 09/26/2017 Maira Horn APRN-SOLAR PHOTOVOLTAIC DESIGNER LAB - POINT OF CARE ORDERABLES documented in this encounter Visit Diagnoses Diagnosis Acute streptococcal pharyngitis- Primary Streptococcal sore throat documented in this encounter Care Teams Geriatric Physical Therapist Relationship Specialty [place] [address] [place] [phone] PCP - General Physician Shredder Tender Peat 07/06/17 documented as of this encounter
--- OUTSIDE RECORDS SUMMARY | 2024-09-12 00:39 | XMS_ITS | Encounter Summary ---
Author Organization [facility] Address [address] [address] Care Team Providers Care Automation Mechanic Name Role Phone Haim Bullard Primary Care Provider + Reason for Visit * Reason Comments Headache Sinusitis Encounter Details Date Type Department Care Team (Late st Contact Info) Description 07/06/2017 11:20 AM CDT Office Visit [facility] [address] [phone] Provider, [facility] Exp Nameoki Acute non-recurrent sinusitis, unspecified location (Primary Dx) Social History Tobacco Use Types [...] Sign Reading Time Taken Comments Blood Pressure 112/68 07/06/2017 11:27 AM CDT Pulse 86 07/06/2017 11:27 AM CDT Temperature 36.6 ??C (97.8 ??F) 07/06/2017 11:27 AM C DT Respiratory Rate 18 07/06/2017 11:27 AM CDT Oxygen Saturation 98% 07/06/2017 11:27 AM CDT Inhaled Oxygen Concentration - - Weight 86.2 kg (190 lb) 07/06/2017 11:27 AM CDT Height 170.2 cm (5' 7 ) 07/06/2017 11:27 AM CDT Body Mass Index 29.76 07/06/2017 11:27 AM CDT documented in this encounter Patient Instructions * Patient Instructions* Castro Teresa A, INCIDENT HANDLER-ENDLESS TRACK VEHICLE MECHANIC - 07/06/2017 11:38 AM CDT Sinusitis TOOL POLISHER: Sinusitis is inflammation or infection of your sinuses. It is most often caused by a virus. Acute sinusitis may last up to 12 weeks. Chronic sinusitis lasts longer than 12 weeks. Recurrent sinusitis is when you have 3 or more episodes of sinusitis in 1 year. Common symptoms include the following: ?? Fever ?? Pain, pressure, redness, or swelling around the forehead, cheeks, or eyes ?? Thick yellow or green discharge from your nose ?? Tenderness when you touch your face over your sinuses ?? Dry cough that happens mostly at night or when you lie down ?? Headache and face pain that is worse when you lean forward ?? Teeth pain or pain when you chew Seek care immediately if: ?? Your eye and eyelid are red, swollen, and painful. ?? You cannot open your eye. ?? You have vision changes, such as double vision. ?? Your eyeball bulges out or you cannot move your eye. ?? You are more sleepy than normal, or you notice changes in your ability to think, move, or talk. ?? You have a stiff neck, a fever, or a bad headache. ?? You have swelling of your forehead or scalp. Contact your healthcare provider if: ?? Your symptoms get worse after 5 to 7 days. ?? Your symptoms do not go away after 10 days. ?? You have nausea and vomiting. ?? Your nose is bleeding. ?? You have questions or concerns about your condition or care. Treatment for sinusitis may include any of the following: ?? Acetaminophen decreases pain and fever. It is available without a doctor's order. Ask how much to take and how often to take it. Follow directions. Acetaminophen can cause liver damage if not taken correctly. ?? NSAIDs , such as ibuprofen, help decrease swelling, pain, and fever. This medicine is available with or without a doctor's order. NSAIDs can cause stomach bleeding or kidney problems in certain people. If you take blood thinner medicine, always ask if NSAIDs are safe for you. Always read the medicine label and follow directions. Do not give these medicines to children under 6 months of age without direction from your child's healthcare provider. ?? Nasal steroid sprays may help decrease inflammation in your nose and sinuses. ?? Decongestants help reduce swelling and drain mucus in the nose and sinuses. They may help you breathe easier. ?? Antihistamines help dry mucus in the nose and relieve sneezing. ?? Take your medicine as directed. Contact your healthcare provider if you think your medicine is not helping or if you have side effects. Tell him or her if you are allergic to any medicine. Keep a list of the medicines, vitamins, and herbs you take. Include the amounts, and when and why you take them. Bring the list or the pill bottles to follow-up visits. Carry your medicine list with you in case of an emergency. Self-care: ?? Rinse your sinuses. Use a sinus rinse device to rinse your nasal passages with a saline (salt water) solution. This will help thin the mucus in your nose and rinse away pollen and dirt. It will also help reduce swelling so you can breathe normally. Ask your healthcare provider how often to do this. ?? Breathe in steam. Heat a bowl of water until you see steam. Lean over the bowl and make a tent over your head with a large towel. Breathe deeply for about 20 minutes. Be careful not to get too close to the steam or burn yourself. Do this 3 times a day. You can also breathe deeply when you take ahot shower. ?? Sleep with your head elevated. Place an extra pillow under your head before you go to sleep to help your sinuses drain. ?? Drink liquids as directed. Ask your healthcare provider how much liquid to drink each day and which liquids are best for you. Liquids will thin the mucus in your nose and help it drain. Avoid drinks that contain alcohol or caffeine. ?? Do not smoke, and avoid secondhand smoke. Nicotine and other chemicals in cigarettes and cigars can make your symptoms worse. Ask your healthcare provider for information if you currently smoke and need help to quit. E-cigarettes or smokeless tobacco still contain nicotine. Talk to your healthcare provider before you use these products. Prevent the spread of germs that cause sinusitis: Wash your hands often with soap and water. Wash your hands after you use the bathroom, change a child's diaper, or sneeze. Wash your hands before youprepare or eat food. Follow up with your healthcare provider as directed: Write down your questions so you remember to ask them during your visits. ?? 2016 [employer]. Information is for End User's use only and may not be sold, redistributed or otherwise used for commercial purposes. All illustrations and images included in CareNotes?? are the copyrighted property of [employer]. or [employer]. The above information is an tray delivery aide only. It is not intended as medical advice for individual conditions or treatments. Talk to your doctor, nurse or pharmacist before following any medical regimen to see if it is safe and effective for you. documented in this encounter Progress Notes * Teresa Erazo APRN-CNP - 07/06/2017 11:31 AM CDT Subjective: Aung Hills is a 37 y.o. female who presents to the clinic for Chief Complaint Patient presents with ??? Headache ??? Sinusitis . Her Primary Care Physician is CATHERINE Payne. She reports ear pain left, plugged sensation left ear, congestion, coryza, productive cough with yellow and green sputum, minimal amount, sinus pressure and headache, and post nasal drainage Patient states the sinus pressure and headache is currently a 3/10. Was a 10/10 a few days ago, but has been taking Excedrin, which does help. Onset of symptoms was 2 weeks ago, and is gradually worsening since that time. She is drinking plenty of fluids. Patient denies fever, chills, sore throat, shortness of breath, chest pain, or wheezing. Patient states she has had some nausea, but thinks it is from the drainage. Denies vomiting or diarrhea. She have tried Claritin and Kristel, which has not helped with symptoms. Has also tried Excedrin forher headache and sinus pressure, which has helped. 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 Past Medical History: Diagnosis Date ??? No known health problems Family History Problem Relation Age of Onset ??? Diabetes - Type 2 Mother ??? Hypertension Mother ??? Hypertension Father Current Outpatient Prescriptions Medication Sig Dispense Refill ??? amoxicillin-clavulanate (AUGMENTIN) 875-125 MG tablet Take 1 tablet by mouth 2 times daily withmorning and evening meal for 7 days 14 tablet 0 No current facility-administered medications for this visit. No Known Allergies Social History Social History ??? Marital status: Single Spouse name: N/A ??? Number of children: N/A ??? Years of education: N/A Occupational History ??? Not on file. Social History Main Topics ??? Smoking status: Never Smoker ??? Smokeless tobacco: Never Used ??? Alcohol use Yes Comment: Socially ??? Drug use: No ??? Sexual activity: Not on file Other Topics Concern ??? Not on file Social History Narrative ??? No narrative on file Review of Systems Constitutional: Negative Eyes: Negative Ears, nose, mouth, and throat: Positive for left ear pain and clogged sensation, nasal congestion, runny nose, sinus pressure, post nasal drainage Respiratory: Positive for acute cough, green and yellow sputum production Cardiovascular: Negative Gastrointestinal: Positive for nausea Skin: Negative Neurological: Headaches Objective: BP 112/68 Pulse 86 Temp 97.8 ??F Resp 18 Ht 1.702 m (5' 7 ) Wt 86.2 kg (190 lb) SpO2 98% BMI 29.76 kg/m2 Exam General appearance: alert, cooperative, no distress Eyes: sclera and conjunctiva clear, EOMI and PERRLA, lids normal Ears: Bilateral canals clear. Right tympanic membrane - normal. Left tympanic membrane - air/fluid interface visualized and bubbles present Nose: nares open; no septal deviation is noted, mucosa erythematous and swollen, purulent rhinorrhea, maxillary tenderness bilaterally, frontal tenderness bilaterally Throat: no mucous membrane abnormalities, no erythema of the posterior oropharynx, no exudates noted. Uvula midline. Moderate amount of post nasal drainage noted. Nodes: Neck supple with full AROM. no cervical, axillary or inguinal adenopathy Lungs: breath sounds normal and symmetric; no rales or wheezes Heart: regular rhythm, normal S1 and S2, without murmurs, gallops or rubs Skin: no rashes or other abnormalities are noted Neurologic: mental status normal; alert and oriented X 3 Assessment: Encounter Diagnosis Name Primary? Acute non-recurrent sinusitis, unspecified location Yes Plan: Discussed the dx and tx of sinusitis. Start Augmentin for acute sinusitis. Treating with antibiotic based on length of symptoms with worsening symptoms and physical exam findings. Increase fluid intake and rest Steam inhalation and warm compresses may help with sinus pressure Alt tylenol and motrin every 3-4 hours as needed for pain/fever OTC antihistamine of choice per label directions. Flonase 2 sprays in each nostril daily to help with nasal congestion and post-nasal drainage Plain robitussin during the day and 1 dose of the robitussin DM at night if cough keeping you awakeat night, all per label directions. ?? If not being treated for high blood pressure, may take sudafed per label directions. ?? otc saline nasal spray per label directions for sinus pressure and nasal stuffiness. ?? Can use of a cool mist humidifier or a vaporizer to increase air moisture in home or can breath moist air from warm shower to help with breathing and cough.. F/u with PCP if symptoms worsen or do not improve Go to the ER if having uncontrolled fever with headache and stiff neck, respiratory difficulty, uncontrollable fever, or increase in severity of symptoms. Orders Placed This Encounter ??? amoxicillin-clavulanate (AUGMENTIN) 875-125 MG tablet Sig: Take 1 tablet by mouth 2 times daily with morning and evening meal for 7 days Dispense: 14 tablet Refill: 0 No results found for this or any previous visit (from the past 24 hour(s)). documented in this encounter Plan of Treatment Not on file documented as of this encounter Visit Diagnoses Diagnosis Acute non-recurrent sinusitis, unspecified location- Primary documented in this encounter Care Teams Automation Mechanic Relationship Specialty Start Date End Date Haim Bullard PA [address] [place] [phone] PCP - General Physician Chief Deputy Clerk/Bailiff 07/06/17 documented as of this encounter
--- OUTSIDE RECORDS SUMMARY | 2024-09-12 00:39 | XMS_ITS | Encounter Summary ---
Author Organization [facility] Address [address] [place] [address] Care Team Providers Care Cloth Covered Helmet Puller Name Role Phone aHim Bullard Primary Care Provider + Reason for Visit * Reason Comments Ear Pain Encounter Details Date Type Department Care Team (Late st Contact Info) Description 03/26/2019 5:40 PM CDT Office Visit [facility] AT [address] [address] [facility], [facility] Exp Nameoki Non-recurrent acute serous otitis media of both ears (Primary Dx) Social History Tobacco Use Types [...] Mass Index 27.78 03/26/2019 6:02 PM CDT documented in this encounter Patient Instructions * Patient Instructions* Maira Horn, SENIOR QUALITY METHODS SPECIALIST-THERAPEUTIC SUPPORT STAFF - 03/26/2019 6:11 PM CDT It could take up to 12 weeks for the fluid behind your ear drum(s) to clear. If symptoms remain beyond 12 weeks, seek an evaluation from ENT. Continue daily use of antihistamine. Consider changing to Zyrtec or Xyyal for a while. Applying a warm pack to the affected area may help with the discomfort. Do not place Q-Tips or other objects into ear canal Do not use OTC ear drops without consulting with your healthcare provider. May take Tylenol or Ibuprofen for fever or pain as directed per package instructions. Recommend daily use of Flonase or Nasonex, as directed per package instructions Follow up with CATHERINE Payne if symptoms worsen or do not completely resolve. Earache MULTIPLE NEEDLE STITCHER: An earache may be caused by any of the following: ?? Infection of the inner or outer ear ?? Earwax buildup, or small objects put into your ear ?? Ear injury caused by a cotton swab or by air pressure changes from a plane ride or scuba diving ?? Other infections, such as tonsillitis or pharyngitis ?? Jaw or dental problems such as cavities or TMJ ?? Neck pain caused by problems such as arthritis in your upper spine Seek care immediately if: ?? You have a severe earache. ?? You have ear pain with itching, hearing loss, dizziness, a feeling of fullness in your ear, or ringing in your ears. Contact your healthcare provider if: ?? Your ear pain worsens or does not go away with treatment. ?? You have drainage from your ear. ?? You have a fever. ?? Your outer ear becomes red, swollen, and warm. ?? You have questions or concerns about your condition or care. Treatment for an earache will depend on how severe it is. Pain medicine may help decrease your pain. Ask for more information about the medicines you are given and how to use them safely. Follow up with your healthcare provider as directed: Write down your questions so you remember to ask them during your visits. ?? Copyright [employer] 2019 Information is for End User's use only and may not be sold, redistributed or otherwise used for commercial purposes. All illustrations and images included in CareNotes?? are the copyrighted property of [employer]. or [employer] The above information is an educational program assistant only. It is not intended as medical advice for individual conditions or treatments. Talk to your doctor, nurse or pharmacist before following any medical regimen to see if it is safe and effective for you. documented in this encounter Progress Notes * Maira Horn APRN-CNP - 03/26/2019 6:01 PM CDT Subjective: Aung Wilkins is a 38 year old female who presents to the clinic today for Chief Complaint Patient presents with ??? Ear Pain . Primary Care Physician is CATHERINE Payne. Symptoms include ear pain bilateral, plugged sensation bilateral and congestion. Onset of symptoms was 7 days ago, gradually worsening since that time. She has also reported the following symptoms: sore throat, congestion, post nasal drip, bilateral ear pressure/pain, and is drinking plenty of fluids.. The ear pain is described as aching and pressure, and is 7/10 in intensity. OTC- Takes antihista mines daily, including antihistamine nose spray. Sick Contacts: none Past Medical History: Diagnosis Date ??? Seasonal allergies Family History Problem Relation Age of Onset ??? Diabetes - Type 2 Mother ??? Hypertension Mother ??? Hypertension Father Current Outpatient Prescriptions Medication Sig Dispense Refill ??? amitriptyline (ELAVIL) 25 MG tablet Take 25 mg by mouth at bedtime ??? diphenhydrAMINE HCl (BENADRYL ALLERGY PO) ??? Fexofenadine HCl (SHANTELL PO) No current facility-administered medications for this visit. No Known Allergies Social History Social History ??? Marital status: Social History Main Topics ??? Smoking status: Never Smoker ??? Smokeless tobacco: Never Used ??? Alcohol use Yes Comment: Socially ??? Drug use: No Review of Systems Constitutional: Negative for fevers, chills, malaise. Eyes: Negative Ears, nose, mouth, and throat: Positive for nasal congestion, bilateral ear pain, muffled hearing, and seasonal allergies. Respiratory: Negative Cardiovascular: Negative Hematologic/lymphatic: Negative Objective: BP 104/70 Pulse 99 Temp 97.8 ??F (36.6 ??C) Resp 16 Ht 1.715 m (5' 7.5 ) Wt 81.6 kg (180 lb) SpO2 98% BMI 27.78 kg/m2 Exam General appearance: alert, cooperative, no distress, oriented to person, place, and time, wellappearing Head: normocephalic, without trauma Eyes: sclera and conjunctiva clear Ears: bilateral TM with serous bubbles. No erythema or bulging. Nose: nares open; no septal deviation is noted, mucosa erythematous and swollen, no sinus pain withpalpation. No rhinorrhea. Throat: no mucous membrane abnormalities Neck: supple; no tenderness over eustachian tubes with palpation Nodes: no cervical, pre-auricular or post-auricular adenopathy Lungs: breath sounds normal and symmetric; no rales or wheezes Heart: regular rhythm, normal S1 and S2, without murmurs, gallops or rubs Assessment: Encounter Diagnosis Name Primary? Non-recurrent acute serous otitis media of both ears Yes Plan: It could take up to 12 weeks for the fluid behind your ear drum(s) to clear. If symptoms remain beyond 12 weeks, seek an evaluation from ENT. Continue daily use of antihistamine. Consider changing to Xyzal or Zyrtec. Applying a warm pack to the affected area may help with the discomfort. Do not place Q-Tips or other objects into ear canal Do not use OTC ear drops without consulting with your healthcare provider. May take Tylenol or Ibuprofen for fever or pain as directed per package instructions May take Sudafed (must get from behind pharmacy counter), for relief of sinus congestion, as directed per package instructions Recommend use of OTC intranasal saline irrigation daily per package instructions Recommend daily use of Flonase or Nasonex, as directed per package instructions Reviewed education materials and instructions with patient and answered all questions. Aung Wilkins verbalized understanding and agrees with plan. Follow up with CATHERINE Payne if symptoms worsen or do not completely resolve. JENNIFER Be 03/26/2019 6:29 PM documented in this encounter Plan of Treatment Not on file documented as of this encounter Visit Diagnoses Diagnosis Non-recurrent acute serous otitis media of both ears- Primary documented in this encounter Care Teams Cloth Covered Helmet Puller Relationship Specialty Start Date End Date Haim Bullard PA [address] [place] [address] PCP - General Physician Machinist General 07/06/17 documented as of this encounter
--- OUTSIDE RECORDS SUMMARY | 2024-09-12 00:39 | XMS_ITS | Referral Summary ---
Author Organization [facility] Address [address] [place] [address] Care Team Providers Care Claim Adjuster Name Role Phone Haim Bullard Primary Care Provider + Source Comments [facility],non-owned Affiliates and Associated Physician Practices is amultiple site organization consisting of ambulatory clinics and hospital sitesin [place], [place], [place] and [place]. This disclosure is being madepursuant to the Care Everywhere program and may not contain all information available regarding this patient. Last updated 18.[employer] [facility] Allergies No known active allergies Medications * Be aware that medications may not be up to date on this document. Alwaysverify current medications with the patient. Medication Sig Dispensed Refills Start Date End Date Status Fexofenadine HCl (SHANTELL PO) Active diphenhydrAMINE HCl (BENADRYL ALLERGY PO) Act wilmer amitriptyline (ELAVIL) 25 MG tablet Take 25 mg by mouth at bedtime Active Social History Tobacco Use Types Packs/Day Years [...] 03/26/2019 6:02 PM CDT Plan of Treatment Not on file Care Teams Claim Adjuster Relationship Specialty Start Date End Date Haim Bullard PA [address] [place] [address] PCP - General Physician White Sugar Pan Tank Operator 07/06/17
== END 2024-09-06 11:00 | disposition home or self-care (01) ==
LOC: ANHSURGERY 13:12 → ANHOB2 16:25
PROVIDERS: PCP Nurse Practitioner Adult Health; Visit Provider Student in an Organized Health Care Education/Training Program
PROC: (CPT 58571; principal; 2024-09-05 12:00)
DX: D25.1 Intramural leiomyoma of uterus (principal); D27.0 Benign neoplasm of right ovary; N85.8 Other specified noninflammatory disorders of uterus; G89.18 Other acute postprocedural pain; D64.9 Anemia, unspecified; F41.9 Anxiety disorder, unspecified; J45.909 Unspecified asthma, uncomplicated; K21.9 Gastro-esophageal reflux disease without esophagitis; E55.9 Vitamin D deficiency, unspecified; E66.9 Obesity, unspecified; Z68.30 Body mass index [BMI] 30.0-30.9, adult; Z79.51 Long term (current) use of inhaled steroids; Z98.890 Other specified postprocedural states; Z98.51 Tubal ligation status; Z90.49 Acquired absence of other specified parts of digestive tract; Z80.0 Family history of malignant neoplasm of digestive organs; Z82.49 Family history of ischemic heart disease and other diseases of the circulatory system
CPT/HCPCS: 58571; 58662; S2900; 36415; 80048; 85025; 86850; 86900; 86901; 88305; 88307; 99199; A9270; J0690; J1100; J1171; J1885; J2003; J2004; J2250; J2371; J2405; J2550; J2704; J3010; J7030; J7120

== ENCOUNTER 2024-10-22 08:07 | Outpatient (CLI) | payer BC, SELFPAY ==
--- NOTE | ~2024-10-22 | XR_ITS ---
Left foot Technique: AP, oblique, and lateral views were obtained. Clinical History: Injury Findings: No acute fracture or dislocation is seen. Osseous alignment is anatomic. Joint spaces are p reserved without erosive or degenerative change. Soft tissues are unremarkable. Impression: Unremarkable left foot radiographs. Reviewed, dictated and finalized at [facility]. [employer] Impression: Unremarkable left foot radiographs.
--- OUTSIDE RECORDS SUMMARY | 2024-10-22 08:23 | XMS_ITS | Data Portability ---
Author Organization [facility] [employer], Main Office Address [address] [place] [address] Care Team Providers Care Polymer Scientist Name Role Phone JM DE LEON Primary Care Provider HAWA, PFIEFER Tank Erector HAWA, PFIEFER Tank Erector HAWA, PFIEFER Tank Erector Assessment No assessment recorded. Plan of Treatment Reminders Order Date Submit Date Provider Last Modified By Organization Details Last Modified Time Details Appointments None recorded. Lab lipid panel, serum 2022 [facility] (Lab), [address] [place], [address], 22:43:13 TSH, serum or plasma 2022 [facility] (Lab), [address] [place], [address], 22:47:36 CBC w/ auto diff 2022 [facility] (Lab), [address] [place], [address], 20:32:42 CMP, serum or plasma 2022 [facility] (Lab), [address] [place], [address], 22:43:08 glycohemogl obin, total, blood 2022 023 [facility] (Lab), [address] [place], [address], 3 21:27:50 CBC w/ auto diff 2023 024 [facility] (Lab), [address] [place], [address], 4 18:36:35 iron + total iron-bindin g capacity (TIBC), serum 2023 024 [facility] (Lab), [address] [place], [address], 4 18:36:35 ferritin, serum or plasma 2023 024 [facility] (Lab), [address] [place], [address], 4 18:36:35 vitamin B12 + folate, serum or blood 2023 024 [facility] (Lab), [address] [place], [address], 4 18:36:35 Referral transactional paralegal referral 2022 023 [email or web address] 3 Martine Schneider MD, [address] [place] [address], [place], [address], 3 09:02:42 gastroenter ologist referral - Please call patient to schedule an appointment . Thank you. [address] [facility], [address], [address], [place], [address], 4 18:40:49 Procedures None recorded. Surgeries None recorded. Imaging MAMMO, screening, digital, bilateral - *Please call pt to schedule* [email or web address] [facility], [address], [address], [place], [address], 4 09:10:29 XR, chest, [address] [facility], [address], [place], [address], 4 10:28:03 Medication Orders Airsupra 90 mcg-80 mcg/actuati on HFA aerosol inhaler 2023 024 [facility] #[id number], [address], [place], [address], 4 09:22:41 ergocalcife rol (vitamin D2) 1,250 mcg (50,000 unit) capsule 2023 024 [id number], [address], [place], [address], 4 09:22:41 omeprazole 40 mg capsule,del ayed release 2023 024 [id number], [address], [place], [address], 4 09:22:40 ergocalcife rol (vitamin D2) 1,250 mcg (50,000 unit) capsule 2023 024 [id number], [address], [place], [address], 4 11:23:47 hydroxyzine HCl 25 mg tablet 2023 024 [id number], [address], [place], [address], 4 11:41:32 triamcinolo ne acetonide 40 mg/mL suspension for injection 2023 024 Not available 4 11:29:13 betamethaso ne acetate and sodium phos 6 mg/mL suspension for injection 2023 024 Not available 11:32:34 Patient TargetsNo targets recorded. Patient Instructions Encounter Date Encounter Id Patient Instructions Last Modified By Organization Details Last Modified Time 07/10/2023 [id number] wellness after 07/11/24 6 mo fu anxiety, gerd, asthma, allergies around january 2024. 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 Thank you. Referring Physician: Jm De Leon, [facility], Encounter Date: 02/22/2024 Results Created Date [...] Care in Diabe helena(A DA). Not Available [employer] [address] [address] [place], [address], 01/18/2022 04:55:10 01/18/20 22 01/18/2022 VITAM IN [...] /MS is recom noe d: order code 27189 (juan carlos ents >2yrs ). See Note 1 Note 1 For addit ional infor petra schmitz refer to http: //antoine Castañeda stDia gnost ics.c om/fa q/FAQ 199 (This link is being provi ded for infor cassie fernandez/ douglas bro purpo ses only. ) Not Available [employer] [facility] [address] [address] [place], [address], 01/18/2022 04:55:10 01/18/20 22 01/18/2022 TSH W/REF ABRAN TO FT4 TSH w/reflex to FT4 1.75 mIU/L normal Refer ence Range > or = 20 Years 0.40- 4.50 Pregn angelita Range s First trime ster 0.26- 2.66 Secon d trime ster 0.55- 2.73 Third trime ster 0.43- 2.91 Not Available [employer] [facility] [address] [place], [address], 01/18/2022 04:55:09 01/18/20 22 01/18/2022 VITAM IN B12/F OLATE , SERUM PANEL vitamin B12 634 pg/mL 200-11 00 normal Not Available [address], [address], 01/18/2022 04:55:08 01/18/20 22 01/18/2022 VITAM IN B12/F OLATE , SERUM PANEL folate, serum 19.0 NG/mL normal Refer ence Range Low: <3.4 Borde rline : 3.4-5 .4 Carmen l: >5.4 Not Available [address], [address], 01/18/2022 04:55:08 01/18/20 22 01/18/2022 CBC (INCL UDES DIFF/ PLT) white blood cell count 8.3 thous and/u L 3.8-10 .8 normal Not Available [address], [address], 01/18/2022 04:55:08 01/18/20 22 01/18/2022 CBC (INCL UDES DIFF/ PLT) red blood cell count 4.28 abel on/uL 3.80-5 .10 normal Not Available [address], [address], 01/18/2022 04:55:08 01/18/20 22 01/18/2022 CBC (INCL UDES DIFF/ PLT) hemoglobin 11.9 g/dL 11.7-1 5.5 normal Not Available [address], [address], 01/18/2022 04:55:08 01/18/20 22 01/18/2022 CBC (INCL UDES DIFF/ PLT) hematocrit 37.2 % 35.0-4 5.0 normal Not Available [address], [address], 01/18/2022 04:55:08 01/18/20 22 01/18/2022 CBC (INCL UDES DIFF/ PLT) MCV 86.9 fL 80.0-1 00.0 normal Not Available [address], [address], 01/18/2022 04:55:08 01/18/20 22 01/18/2022 CBC (INCL UDES DIFF/ PLT) MCH 27.8 pg 27.0-3 3.0 normal Not Available [address], [address], 01/18/2022 04:55:08 01/18/20 22 01/18/2022 CBC (INCL UDES DIFF/ PLT) MCHC 32.0 g/dL 32.0-3 6.0 normal Not Available [facility] [address], [address], 01/18/2022 04:55:08 01/18/20 22 01/18/2022 CBC (INCL UDES DIFF/ PLT) RDW 13.4 % 11.0-1 5.0 normal Not Available [address], [address], 01/18/2022 04:55:08 01/18/20 22 01/18/2022 CBC (INCL UDES DIFF/ PLT) platelet count 442 thous and/u L 140-40 0 high Not Available [address], [address], 01/18/2022 04:55:08 01/18/20 22 01/18/2022 CBC (INCL UDES DIFF/ PLT) MPV 10.0 fL 7.5-12 .5 normal Not Available [employer] [address], [address], 01/18/2022 04:55:08 01/18/20 22 01/18/2022 CBC (INCL UDES DIFF/ PLT) absolute neutrophils 4723 cells /uL 1500-7 800 normal Not Available [address], [address], 01/18/2022 04:55:08 01/18/20 22 01/18/2022 CBC (INCL UDES DIFF/ PLT) absolute lymphocytes 2673 cells /uL 850-39 00 normal Not Available [facility] [address], [address], 01/18/2022 04:55:08 01/18/20 22 01/18/2022 CBC (INCL UDES DIFF/ PLT) absolute monocytes 664 cells /uL 200-95 0 normal Not Available [address], [address], 01/18/2022 04:55:08 01/18/20 22 01/18/2022 CBC (INCL UDES DIFF/ PLT) absolute eosinophils 174 cells /uL 15-500 normal Not Available [facility] [address], [address], 01/18/2022 04:55:08 01/18/20 22 01/18/2022 CBC (INCL UDES DIFF/ PLT) absolute basophils 66 cells /uL 0-200 normal Not Available [employer] [address], [address], 01/18/2022 04:55:08 01/18/20 22 01/18/2022 CBC (INCL UDES DIFF/ PLT) neutrophils 56.9 % normal Not Available [address], [address], 01/18/2022 04:55:08 01/18/20 22 01/18/2022 CBC (INCL UDES DIFF/ PLT) lymphocytes 32.2 % normal Not Available [address], [address], 01/18/2022 04:55:08 01/18/20 22 01/18/2022 CBC (INCL UDES DIFF/ PLT) monocytes 8.0 % normal Not Available [address], [address], 01/18/2022 04:55:08 01/18/20 22 01/18/2022 CBC (INCL UDES DIFF/ PLT) eosinophils 2.1 % normal Not Available [address], [address], 01/18/2022 04:55:08 01/18/20 22 01/18/2022 CBC (INCL UDES DIFF/ PLT) basophils 0.8 % normal Not Available [address], [address], 01/18/2022 04:55:08 01/18/20 22 01/18/2022 COMPR EHENS POLO METAB OLIC PANEL glucose 84 mg/dL 65-99 normal Fasti ng refer ence inter olga Not Available [address], [address], 01/18/2022 04:55:08 01/18/20 22 01/18/2022 COMPR EHENS POLO METAB OLIC PANEL urea nitrogen (BUN) 10 mg/dL 7-25 normal Not Available [address], [address], 01/18/2022 04:55:08 01/18/20 22 01/18/2022 COMPR EHENS POLO METAB OLIC PANEL creatinine 0.83 mg/dL 0.50-1 .10 normal Not Available [address], [address], 01/18/2022 04:55:08 01/18/20 22 01/18/2022 COMPR EHENS POLO METAB OLIC PANEL eGFR non-afr. gabonese 88 mL/mi n/1.7 3m2 > or = 60 normal Not Available [address], [address], 01/18/2022 04:55:08 01/18/20 22 01/18/2022 COMPR EHENS POLO METAB OLIC PANEL eGFR 102 mL/mi n/1.7 3m2 > or = 60 normal Not Available [address], [address], 01/18/2022 04:55:08 01/18/20 22 01/18/2022 COMPR EHENS POLO METAB OLIC PANEL BUN/creatini ne ratio not applic able (calc ) 6-22 Not Available [address], [address], 01/18/2022 04:55:08 01/18/20 22 01/18/2022 COMPR EHENS POLO METAB OLIC PANEL sodium 139 mmol/ L 135-14 6 normal Not Available [address], [address], 01/18/2022 04:55:08 01/18/20 22 01/18/2022 COMPR EHENS POLO METAB OLIC PANEL potassium 4.1 mmol/ L 3.5-5. 3 normal Not Available [address], [address], 01/18/2022 04:55:08 01/18/20 22 01/18/2022 COMPR EHENS POLO METAB OLIC PANEL chloride 106 mmol/ L 98-110 normal Not Available [address], [address], 01/18/2022 04:55:08 01/18/20 22 01/18/2022 COMPR EHENS POLO METAB OLIC PANEL carbon dioxide 25 mmol/ L 20-32 normal Not Available [address], [address], 01/18/2022 04:55:08 01/18/20 22 01/18/2022 COMPR EHENS POLO METAB OLIC PANEL calcium 9.2 mg/dL 8.6-10 .2 normal Not Available [address], [address], 01/18/2022 04:55:08 01/18/20 22 01/18/2022 COMPR EHENS POLO METAB OLIC PANEL protein, total 6.7 g/dL 6.1-8. 1 normal Not Available [address], [address], 01/18/2022 04:55:08 01/18/20 22 01/18/2022 COMPR EHENS POLO METAB OLIC PANEL albumin 3.8 g/dL 3.6-5. 1 normal Not Available [address], [address], 01/18/2022 04:55:08 01/18/20 22 01/18/2022 COMPR EHENS POLO METAB OLIC PANEL globulin 2.9 g/dL_ (calc ) 1.9-3. 7 normal Not Available [address], [address], 01/18/2022 04:55:08 01/18/20 22 01/18/2022 COMPR EHENS POLO METAB OLIC PANEL albumin/glob ulin ratio 1.3 (calc ) 1.0-2. 5 normal Not Available [address], [address], 01/18/2022 04:55:08 01/18/20 22 01/18/2022 COMPR EHENS POLO METAB OLIC PANEL bilirubin, total 0.4 mg/dL 0.2-1. 2 normal Not Available [address], [address], 01/18/2022 04:55:08 01/18/20 22 01/18/2022 COMPR EHENS POLO METAB OLIC PANEL alkaline phosphatase 110 U/L 31-125 normal Not Available [address], [address], 01/18/2022 04:55:08 01/18/20 22 01/18/2022 COMPR EHENS POLO METAB OLIC PANEL AST 18 U/L 10-30 normal Not Available [address], [address], 01/18/2022 04:55:08 01/18/20 22 01/18/2022 COMPR EHENS POLO METAB OLIC PANEL ALT 18 U/L 6-29 normal Not Available [address], [address], 01/18/2022 04:55:08 01/18/20 22 01/18/2022 LIPID PANEL , STAND CAROLIN cholesterol, total 162 mg/dL <200 normal Not Available [address], [address], 01/18/2022 04:55:07 01/18/20 22 01/18/2022 LIPID PANEL , STAND CAROLIN HDL cholesterol 35 mg/dL > or = 50 low Not Available [address], [address], 01/18/2022 04:55:07 01/18/20 22 01/18/2022 LIPID PANEL , STAND CAROLIN triglyceride s 149 mg/dL <150 normal Not Available [address], [address], 01/18/2022 04:55:07 01/18/20 22 01/18/2022 LIPID PANEL [...] 310(1 9): 2061- 2068 (http ://ed ucati on.IntroNiche kavyaEnliken. com/f aq/FA Q164) Not Available [facility] [address] , [place], [address], 01/18/2022 04:55:07 01/18/20 22 01/18/2022 LIPID PANEL , STAND CAROLIN chol/HDLC ratio 4.6 (calc ) <5.0 normal Not Available [facility] [address] , [place], [address], 01/18/2022 04:55:07 01/18/20 22 01/18/2022 LIPID PANEL , STAND CAROLIN non HDL cholesterol 127 mg/dL _(lilly c) <130 normal For patie nts with diabe helena plus 1 major ASCVD risk facto r, treat ing to a non-H DL-C goal of <100 mg/dL (LDL- C of <70 mg/dL ) is consi dered a thera pejaylai c optio n. Not Available [facility] [address] [address] , [place], [address], 01/18/2022 04:55:07 07/10/20 23 07/10/2023 CBC/C OMPLE TE BLD COUNT W/DIF F white blood cells 8.0 x10'3 /uL 4.2-10 .8 Not Available [facility] (Lab) [address] [place], [address], 07/10/2023 20:32:42 07/10/20 23 07/10/2023 CBC/C OMPLE TE BLD COUNT W/DIF F red blood cells 4.52 x10'6 /uL 3.80-5 .20 Not Available [facility] (Lab) [address] [place], [address], 07/10/2023 20:32:42 07/10/20 23 07/10/2023 CBC/C OMPLE TE BLD COUNT W/DIF F hemoglobin 11.9 g/dL 12.0-1 5.6 low Not Available [facility] (Lab) [address] [place], [address], 07/10/2023 20:32:42 07/10/2007/10/2023 CBC/C OMPLE TE BLD COUNT W/DIF F hematocrit 38.6 % 35.7-4 5.7 Not Available [facility] (Lab) [address] [place], [address], 07/10/2023 20:32:42 07/10/2007/10/2023 CBC/C OMPLE TE BLD COUNT W/DIF F mean red cell volume 85.4 fL 82.0-9 9.0 Not Available [facility] (Lab) [address] [place], [address], 07/10/2023 20:32:42 07/10/2007/10/2023 CBC/C OMPLE TE BLD COUNT W/DIF F mean red cell hemoglobin 26.3 pg 27.0-3 3.0 low Not Available [facility] (Lab) [address] [place], [address], 07/10/2023 20:32:42 07/10/2007/10/2023 CBC/C OMPLE TE BLD COUNT W/DIF F mean RBC HGB concentratio n 30.8 g/dL 31.0-3 6.0 low Not Available [facility] (Lab) [address] [place], [address], 07/10/2023 20:32:42 07/10/2007/10/2023 CBC/C OMPLE TE BLD COUNT W/DIF F red cell distribution width 15.2 % 11.8-1 5.5 Not Available [facility] (Lab) [address] [place], [address], 07/10/2023 20:32:42 07/10/2007/10/2023 CBC/C OMPLE TE BLD COUNT W/DIF F platelets 422 x10'3 /uL 150-40 0 high Not Available [facility] (Lab) [address] [place], [address], 07/10/2023 20:32:42 07/10/2007/10/2023 CBC/C OMPLE TE BLD COUNT W/DIF F mean platelet volume 10.7 fL 9.0-12 .4 Not Available [facility] (Lab) [address] [place], [address], 07/10/2023 20:32:42 07/10/2007/10/2023 CBC/C OMPLE TE BLD COUNT W/DIF F neutrophils 59.7 % 39.0-7 2.0 Not Available [facility] (Lab) [address] [place], [address], 07/10/2023 20:32:42 07/10/2007/10/2023 CBC/C OMPLE TE BLD COUNT W/DIF F lymphocytes 30.7 % 16.0-4 7.0 Not Available [facility] (Lab) [address] [place], [address], 07/10/2023 20:32:42 07/10/2007/10/2023 CBC/C OMPLE TE BLD COUNT W/DIF F monocytes 6.8 % 5.0-12 .0 Not Available [facility] (Lab) [address] [place], [address], 07/10/2023 20:32:42 07/10/2007/10/2023 CBC/C OMPLE TE BLD COUNT W/DIF F eosinophils 1.6 % 1.0-7. 0 Not Available [facility] (Lab) [address] [place], [address], 07/10/2023 20:32:42 07/10/2007/10/2023 CBC/C OMPLE TE BLD COUNT W/DIF F basophils 0.9 % 0.0-2. 0 Not Available [facility] (Lab) [address] [place], [address], 07/10/2023 20:32:42 07/10/2007/10/2023 CBC/C OMPLE TE BLD COUNT W/DIF F immature granulocytes 0.3 % 0.00-0 .50 Not Available [facility] (Lab) [address] [place], [address], 07/10/2023 20:32:42 07/10/2007/10/2023 CBC/C OMPLE TE BLD COUNT W/DIF F neutrophils, absolute count 4.77 x10'3 /uL 1.5-8. 0 Not Available [facility] (Lab) [address] [place], [address], 07/10/2023 20:32:42 07/10/2007/10/2023 CBC/C OMPLE TE BLD COUNT W/DIF F lymphocytes, absolute count 2.45 x10'3 /uL 1.07-3 .43 Not Available [facility] (Lab) [address] [place], [address], 07/10/2023 20:32:42 07/10/2007/10/2023 CBC/C OMPLE TE BLD COUNT W/DIF F monocytes, absolute count 0.54 x10'3 /uL 0.29-0 .99 Not Available [facility] (Lab) [address] [place], [address], 07/10/2023 20:32:42 07/10/2007/10/2023 CBC/C OMPLE TE BLD COUNT W/DIF F eosinophils, absolute count 0.13 x10'3 /uL 0.02-0 .53 Not Available [facility] (Lab) [address] [place], [address], 07/10/2023 20:32:42 07/10/20 23 07/10/2023 CBC/C OMPLE TE BLD COUNT W/DIF F basophils, absolute count 0.07 x10'3 /uL 0.01-0 .08 Not Available [facility] (Lab) [address] [place], [address], 07/10/2023 20:32:42 07/10/2007/10/2023 CBC/C OMPLE TE BLD COUNT W/DIF F immature granulocytes ,absolute 0.02 x10'3 /uL 0.00-0 .05 Not Available [facility] (Lab) [address] [place], [address], 07/10/2023 20:32:42 07/10/20 23 07/10/2023 CBC/C OMPLE TE BLD COUNT W/DIF F nucleated red blood cells 0.0 % -0 Not Available [facility] (Lab) [address] [place], [address], 07/10/2023 20:32:42 07/10/2007/10/2023 CBC/C OMPLE TE BLD COUNT W/DIF F NRBC# 0.00 x10'3 /uL Not Available [facility] (Lab) [address] [place], [address], 07/10/2023 20:32:42 07/10/2007/10/2023 HEMOG LOBIN A1C HA1C 5.5 % 4.0-6. 0 Diabe helena Scree mona Crite tere: <5.7% Consi stent with absen ce of diabe helena 5.7-6 .4% Consi stent with incre ased risk for diabe helena (pred iabet es) >OR=6 .5% Consi stent with diabe helena REFER ENCE: Diabe helena Care 2016, 39(Cervantes ppl.1 ):s13 -s22 Not Available [facility] (Lab) [address] [place], [address], 07/10/2023 21:27:50 07/10/2007/10/2023 COMPR EHENS POLO METAB OLIC PANEL sodium 136 mmol/ L 137-14 5 low Not Available [facility] (Lab) [address] [place], [address], 07/10/2023 22:43:08 07/10/2007/10/2023 COMPR EHENS POLO METAB OLIC PANEL potassium 4.8 mmol/ L 3.5-5. 1 Not Available [facility] (Lab) [address] [place], [address], 07/10/2023 22:43:08 07/10/2007/10/2023 COMPR EHENS POLO METAB OLIC PANEL chloride 106 mmol/ L 98-107 Not Available [facility] (Lab) [address] [place], [address], 07/10/2023 22:43:08 07/10/2007/10/2023 COMPR EHENS POLO METAB OLIC PANEL carbon dioxide 23 mmol/ L 22-30 Not Available [facility] (Lab) [address] [facility] [place], [address], 07/10/2023 22:43:08 07/10/2007/10/2023 COMPR EHENS POLO METAB OLIC PANEL anion gap 11.8 mmol/ L 14-22 low Not Available [facility] (Lab) [address] [place], [address], 07/10/2023 22:43:08 07/10/2007/10/2023 COMPR EHENS POLO METAB OLIC PANEL glucose 68 mg/dL 70-99 low Not Available [facility] (Lab) [address] [place], [address], 07/10/2023 22:43:08 07/10/20 23 07/10/2023 COMPR EHENS POLO METAB OLIC PANEL BUN 12 mg/dL 8-19 Not Available [facility] (Lab) [address] [place], [address], 07/10/2023 22:43:08 07/10/20 23 07/10/2023 COMPR EHENS POLO METAB OLIC PANEL creatinine 0.73 mg/dL 0.66-1 .25 Not Available [facility] (Lab) [address] [place], [address], 07/10/2023 22:43:08 07/10/20 23 07/10/2023 COMPR EHENS POLO METAB OLIC PANEL GFR >60 Refer ence Range : [place] ge GFR Healt hy Adult : >60 [...] or ethni c subgr oups, such as Hisky nics. Outsi de the valid ated shade [...] s/kdo qi/gf r_cal culat or Not Available [facility] (Lab) [address] [place], [address], 07/10/2023 22:43:08 07/10/20 23 07/10/2023 COMPR EHENS POLO METAB OLIC PANEL alkaline phosphatase 106 U/L 38-126 Not Available [facility] (Lab) [address] [place], [address], 07/10/2023 22:43:08 07/10/20 23 07/10/2023 COMPR EHENS POLO METAB OLIC PANEL alanine aminotransfe rase 22 U/L 0-35 Not Available [facility] (Lab) [address] [place], [address], 07/10/2023 22:43:08 07/10/20 23 07/10/2023 COMPR EHENS POLO METAB OLIC PANEL aspartate aminotransfe rase 24 U/L 15-37 Not Available [facility] (Lab) [address] [place], [address], 07/10/2023 22:43:08 07/10/20 23 07/10/2023 COMPR EHENS POLO METAB OLIC PANEL bilirubin, total 0.30 mg/dL 0.20-1 .30 Not Available [facility] (Lab) [address] [place], [address], 07/10/2023 22:43:08 07/10/20 23 07/10/2023 COMPR EHENS POLO METAB OLIC PANEL calcium 9.6 mg/dL 8.4-10 .2 Not Available [facility] (Lab) [address] [place], [address], 07/10/2023 22:43:08 07/10/20 23 07/10/2023 COMPR EHENS POLO METAB OLIC PANEL total protein 7.6 g/dL 6.3-8. 2 Not Available [facility] (Lab) [address] [place], [address], 07/10/2023 22:43:08 07/10/20 23 07/10/2023 COMPR EHENS POLO METAB OLIC PANEL albumin 4.1 g/dL 3.4-5. 0 Not Available [facility] (Lab) [address] [place], [address], 07/10/2023 22:43:08 07/10/20 23 07/10/2023 COMPR EHENS POLO METAB OLIC PANEL globulin 3.5 g/dL 2.6-4. 2 Not Available [facility] (Lab) [address] [place], [address], 07/10/2023 22:43:08 07/10/2007/10/2023 COMPR EHENS POLO METAB OLIC PANEL A/G ratio 1.2 ratio 1.0-2. 0 Not Available [facility] (Lab) [address] [place], [address], 07/10/2023 22:43:08 07/10/2007/10/2023 LIPID PANEL cholesterol 181 mg/dL 140-19 9 NIH STACEY NSUS RECOM MENDA TION FOR DARREN STERO L: ADULT CHILD LOW RISK: <200 <170 BORDE RLINE : <200- 239 ----- HIGH RISK: >240 >200 Not Available [facility] (Lab) [address] [place], [address], 07/10/2023 22:43:13 07/10/2007/10/2023 LIPID PANEL triglyceride s 129 mg/dL 0-150 NIH STACEY NSUS REPOR T RECOM MENDA TION FOR TRIGL YCERI HEATHER: ADULT CHILD LOW RISK: <150 ----- BODER LINE: 150-1 99 ----- HIGH RISK: >200 ----- Not Available [facility] (Lab) [address] [place], [address], 07/10/2023 22:43:13 07/10/20 23 07/10/2023 LIPID PANEL HDL cholesterol 35 mg/dL 40- low Not Available [facility] (Lab) [address] [place], [address], 07/10/2023 22:43:13 07/10/2007/10/2023 LIPID PANEL LDL cholesterol, [...] WILL NOT BE REPOR MICHOACANO. Not Available [facility] (Lab) [address] [place], [address], 07/10/2023 22:43:13 07/10/2007/10/2023 TSH W/REF ABRAN FT4 TSH with reflex free T4 1.970 uIU/m L 0.465- 4.680 Not Available [facility] (Lab) [address] [place], [address], 07/10/2023 22:47:36 12/20/19 22 12/19/2021 XR, chest [facility] [address] [place] [address] [phone] Patien t Name: AUNG TYSON Access ion #: [id number] Sex: F : 1979 9 Locati [...] cholec ystect bernadette. Page 1 of 2 [facility] Patien t Name: AUNG TYSON Access ion #: [id number] Sex: F : 1979 9 Exam [...] 10:41 AM (CT) Page 2 of 2 [id number] [facility] (Imaging) [address] [place], [address], 11/08/2022 13:57:19 12/24/19 22 12/23/2021 US, echoc ardio gram No observ ation record ed. [id number] [facility] [address] [place], [address], 11/08/2022 13:57:19 02/04/20 22 02/03/2022 CT, angio gram, chest , w/ contr ast No observ ation record ed. [id number] [facility] Add On Lab Orders [address] [place], [address], 11/08/2022 13:57:19 02/14/20 22 02/13/2022 exerc ise stres s test No observ ation record ed. MIGRATION. [id number] [facility] [address], [place], [address], 11/08/2022 13:57:19 02/15/20 22 02/13/2022 myoca rdial perfu oren study w/ eject ion fract ion (PROC ) No observ ation record ed. MIGRATION. [id number] [facility] [address], [place], [address], 11/08/2022 13:57:19 03/30/20 22 03/30/2022 PFT, compl ete No observ ation record ed. MIGRATION. [id number] [facility] [address] , [place], [address], 11/08/2022 13:57:19 10/09/19 23 10/09/2022 MAMMO , scree mona, bilat eral No observ ation record ed. [id number], [place], [address], 11/08/2022 13:57:19 07/04/20 23 07/04/2023 XR, ribs, bilat eral No observ ation record ed. [email or web address] [facility] [address] [place], [address], 07/05/2023 07:18:57 07/04/20 23 07/04/2023 XR, lumba r spine No observ ation record ed. [email or web address] [facility] [address] [place], [address], 07/05/2023 07:19:29 09/24/19 24 09/24/2023 CT, sinus es, w/o contr ast No observ ation record ed. [address], [place], [address], 09/26/2023 12:41:31 03/10/20 24 03/07/2024 XR, chest , 2 view No observ ation record ed. [facility] [address], [place], [address], 03/10/2024 11:17:16 Result Notes None recorded. Problems Name Problem SNOMED Code Status Onset Date Resolution Date Notes Provider Name and Address Organization Details Recorded Time Sprain of left ankle 8144628202079 9105 Active 2019 Not Available [facility] 3 13:54:05 Fluid level behind tympanic membrane Active 2018 Not Available [facility] 3 13:54:05 Pain in right hip joint 2488889993594 02 Active 2020 Not Available [facility] 3 13:54:05 Bronchitis 75217650 Active 2021 Not Available [facility] 3 13:54:06 Seasonal allergic rhinitis 501759401 Active 2021 Not Available [facility] 3 13:54:06 Feels hot 686036141 Active 2019 Not Available [facility] 3 13:54:06 Seasonal asthma 584582421 Active 2021 Not Available [facility] 3 13:54:06 Anxiety 16597837 Active 2020 Not Available [facility] 3 13:54:06 Cough 92905207 Active 2021 Not Available [facility] 3 13:54:06 Wheezing 84621945 Active 2019 Not Available [facility] 3 13:54:06 Cardiomega ly 2742717 Active 2021 Not Available [facility] 3 13:54:06 COVID-19 275442138 Active 2022 Yasmeen De Jesus NP [address] [facility] [address] [address], [facility] [address], [place], [address] , [facility] [employer] [facility] 3 10:07:24 Gastroesop hageal reflux disease 154624815 Active 2022 Yasmeen De Jesus NP [address], [place], [address] , [place] [facility] 3 09:37:33 Allergy to food 882107990 Active 2022 Yasmeen De Jesus NP [address], [address], [place], [address] , [place] [facility] 3 11:31:20 Vitamin D deficiency 22256722 Active 2023 MARAH June [address], [address], [place], [address] , [place] [facility] 4 09:09:33 Asthma 933084007 Active 2023 MARHA June [address], [place], [address] , [place] [facility] 4 09:11:38 Mucus in stool 677905698 Active 2023 MARAH June [address], [place], [address] , [place] [facility] 4 09:14:57 Productive cough 63256889 Active 2023 MARAH June [address], [place], [address] , [facility] 4 09:19:26 Thrombocyt osis 3621116 Active 2023 MARAH June [address], [place], [address] , [facility] 4 09:22:15 Iron deficiency anemia 66062255 Active 2023 MARAH June [address], [place], [address] , [place] [facility] 4 19:47:24 Contact dermatitis 16192064 Active 2023 MARAH June [address], [place], [address] , [place] [facility] 11:10:01 Problem Notes None recorded. 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 Not Available [facility] 11/08/2022 13:52:32 Imaging Results Imaging Date Name Status LastModified by Organization Details LastModified Time 12/19/2021 XR, chest completed [id number] [facility] (Imaging) [address] [place], [address], 11/08/2022 13:57:19 12/23/2021 US, echocardiogram completed [id number] .[id number] [facility] [address] [place], [address], 11/08/2022 13:57:19 02/03/2022 CT, angiogram, chest, w/ contrast completed [id number].[id number] 8900 [facility] Add On Lab Orders [address] [place], [address], 11/08/2022 13:57:19 10/09/2022 MAMMO, screening, bilateral completed [id number] 7766 [facility] [address], [place], [address], 11/08/2022 13:57:19 02/13/2022 exercise stress test completed MIGRATION.[id number] 9857 [facility] [address], [place], [address], 11/08/2022 13:57:19 02/13/2022 myocardial perfusion study w/ ejection fraction (PROC) completed MIGRATION.[id number] 8125 [facility] [address], [place], [address], 11/08/2022 13:57:19 03/30/2022 PFT, complete completed MIGRATION.[id number] 23 0026 [facility] [address], [place], [address], 11/08/2022 13:57:19 07/04/2023 XR, ribs, bilateral completed [email or web address] [facility] [address] [place], [address], 07/05/2023 07:18:57 07/04/2023 XR, lumbar spine completed [email or web address] [facility] [address] [place], [address], 07/05/2023 07:19:29 09/24/2023 CT, sinuses, w/o contrast completed [place] [address], [place], [address], 09/26/2023 12:41:31 03/07/2024 XR, chest, [address] [facility] [address], [place], [address], 03/10/2024 11:17:16 Procedure Notes None recorded. Medical [...] MOUTH ONCE WEEKLY DIRECTED FOR 84 DAYS 2024 active Not Available Not Available Not Avai [...] completed Not Available Not Available Not Available [facility] Nasal Neti Rinse with packet Take [...] Address Organization Details Last Updated DateTime 3 31.3 kg/m2 170.18 cm 98 % 98 % 106 /min 98.2 [degF] 63467.4 7 g 124 mm[Hg] 88 mm[Hg] Not Available [facility] 3 13:53:09 Date Recorded Body weight Body mass index (BMI) Body height Body temperature Heart rate Respiratory rate Oxygen saturation Oxygen saturation in Arterial blood by Pulse oximetry Pain severity - 0-10 verbal numeric rating [Score] - Reported Systolic blood pressure Diastolic blood pressure Provider Name and Address Organization Details Last Updated DateTime 3 34937.1 7 g 31.3 kg/m2 170.18 cm 96.5 [degF] 81 /min 16 /min 99 % 99 % 5 138 mm[Hg] 92 mm[Hg] Yasmeen Yoder RN [place] [facility] [place] [facility] [employer] 3 11:05:40 Date Recorded Body height Body mass index (BMI) Body weight Body temperature Respiratory rate Heart rate Oxygen saturation Oxygen saturation in Arterial blood by Pulse oximetry Pain severity - 0-10 verbal numeric rating [Score] - Reported Systolic blood pressure Diastolic blood pressure Provider Name and Address Organization Details Last Updated DateTime 4 170.18 cm 30.4 kg/m2 83098.9 2 g 98.3 [degF] 20 /min 74 /min 98 % 98 % 0 122 mm[Hg] 88 mm[Hg] Yasmeen Yoder RN [facility] [employer] [facility] 4 08:46:02 Date Recorded Body height Body mass index (BMI) Body weight Body temperature Heart rate Respiratory rate Oxygen saturation Oxygen saturation in Arterial blood by Pulse oximetry Pain severity - 0-10 verbal numeric rating [Score] - Reported Systolic blood pressure Diastolic blood pressure Provider Name and Address Organization Details Last Updated DateTime 4 170.18 cm 30 kg/m2 71021.9 4 g 97.8 [degF] 100 /min 20 /min 98 % 98 % 2 122 mm[Hg] 70 mm[Hg] Yasmeen Yoder RN [facility] [employer] 4 11:07:18 Social History Question Answer Notes LastModified by Organization Details LastModified Time Tobacco Smoking Status Never Smoker Not Available [facility] 11/08/2022 13:52:29 Do You Have An Advance Directive? No Information not available 07/10/2023 What Is Your Level Of Alcohol Consumption? Occasional [id number] Information not available 11/08/2022 If You Are , What Was Your Level Of Alcohol Consumption Prior To ? None MIGRATION.[id number] Information not available 11/08/2022 Is Blood Transfusion Acceptable In An Emergency? Yes Information not available 07/10/2023 What Is Your Level Of Caffeine Consumption? Moderate [id number] Information not available 11/08/2022 What Is Your Code Status? Full Code Not If Brain Information not available 07/10/2023 In The 14 Days Before Symptom Onset, Have You Had Close Contact With A Laboratory-confi rmed COVID-19 While That Case Was Ill? No MIGRATION.030 [id number] Information not available 11/08/2022 In The 14 Days Before Symptom Onset, Have You Had Close Contact With A Person Who Is Under Investigation For COVID-19 While That Person Was Ill? No MIGRATION.0301 [id number] Information not available 11/08/2022 Are You Currently Employed? Yes Information not available 07/10/2023 What Type Of Diet Are You Following? REGULAR MIGRATION.030 392871 Information not available 11/08/2022 What Is Your Occupation? [employer] Information not available 07/10/2023 Have There Been Any Changes To Your Family Or Social Situation? No Information not available 07/10/2023 Do You Use Insect Repellent Routinely? No Information not available 07/10/2023 Where Do You Live? SingleLevelHouse Information not available 07/10/2023 Do You Have A Medical Power Of Core Laying Machine Operator? No Information not available 07/10/2023 Do You Have Any Pets? Yes Information not available 07/10/2023 What Is Your Relationship Status? MIGRATION.030 [id number] Information not available 11/08/2022 Do You Use Your Seat Belt Or Car Seat Routinely? Yes MIGRATION.030 957482 Information not available 11/08/2022 Do You Have Smoke And Carbon Monoxide Detectors In Your Home? Yes Information not available 07/10/2023 Are There Any Smokers In Your House? No Information not available 07/10/2023 Do You Participate In Social Media? Yes Information not available 07/10/2023 Do You Feel Stressed (tense, Restless, Nervous, Or Anxious, Or Unable To Sleep At Night)? [id number] Information not available 02/22/2024 Do You Use Any Illicit Or Recreational Drugs? No MIGRATION.030 196900 Information not available 11/08/2022 Do You Use [...] Organization Details LastModified Time Father Hypertensive disorder MIGRATION.186 [id number] Not available 11/08/2022 13:52:33 Father Family history of stroke MIGRATION.538 [id number] Not available 11/08/2022 13:52:33 Mother Hypertensive disorder MIGRATION.292 [id number] Not available 11/08/2022 13:52:33 Maternal Aunt Malignant tumor of transverse colon MIGRATION.609 [id number] Not available 11/08/2022 13:52:33 Maternal Aunt Malignant tumor of colon ~70's MIGRATION.934 [id number] Not available 11/08/2022 13:52:33 Medical History Condition Response HEADACHES/MIGRAINES Y ANXIETY DISORDER Y Gynecological History Statement/Question Response Abnormal Pap [...] virus, quadrivalent, preservative 1 completed Not Available [facility] 11/08/2022 13:57:13 Influenza, split virus, quadrivalent, preservative 0 completed Not Available [facility] 11/08/2022 13:57:13 Influenza, split virus, quadrivalent, preservative 9 completed Not Available [facility] 11/08/2022 13:57:14 Past Encounters Encounter ID Performer Location Encounter Start Date Encounter Closed Date Diagnosis/Indication Diagnosis SNOMED-CT Code Diagnosis ICD10 Code Diagnosis Note [id number] [facility] [address] [place] [address] 12/20/2020 00:00:00 12/20/2020 14:33:50 [id number] [facility] [address] [place] [address] 08/03/2021 00:00:00 08/03/2021 14:53:36 [id number] _ATHENA_M IGRATION_ DEFAULT_1 _1 , 08/31/2021 00:00:00 08/31/2021 10:59:[id number] [address] 10/14/2021 00:00:00 10/14/2021 16:34:[id number] [address] 12/14/2021 00:00:00 12/14/2021 10:34:[id number] [address] 01/04/2022 00:00:00 01/04/2022 11:38:[id number] [address] 06/16/2022 00:00:00 06/16/2022 10:05:24 [id number] Yasmeen De Jesus NP [address] [address] 07/10/2023 10:52:51 07/10/2023 12:09:13 Adult health examination 001338963 Z00.00 Encouraged well balanced meals, active lifestyle, and routine vision and dental exams. Anemia screening 7893459 07 Z13.0 Diabetes m ellitus screening 173582659 Z13.1 Thyroid di sorder screening 525033149 Z13.29 Hyperlipid emia screening 065006909 Z13.220 Anxiety 69123651 F41.9 Sertraline 50 mg, 2 tabs po daily. Seasonal asthma 42107613 6 J45.909 Montelukas t 10 mg po daily.Albu terol prn Gastroesop hageal reflux disease 629061795 K21.9 Omeprazole 20 mg po daily. Jump to 40 mg to see if better coverage. Screening for malignant neoplasm of breast 622126305 Z12.39 Allergy to food 22890943 1 T78.1XXA [id number] Jm De Leon [facility] [address] [address] 02/22/2024 08:28:53 02/22/2024 09:38:22 Vitamin D deficiency 25989264 E55.9 Asthma 189807557 J45.90 9 Gastroesop hageal reflux disease 059251352 K21.9 Family his tory of cancer of colon 221707228 Z80.0 Productive cough 0800579 5 R05.9 Thrombocytosis 3450757 D 75.127 [id number] Jm De Leon [facility] [address] [address] 04/29/2024 10:54:07 04/29/2024 11:27:31 Contact dermatitis 33863120 L25.9 Vitamin D deficiency 347 [address]3941 E55.9 Health Concerns Section Related Observation LastModified by Organization Detai ls LastModified Time None Recorded Concern Status LastModified by Organization Details LastModified Time None Recorded Advance Directives Directive N: Payers Encounter Date Sequence Insurance Name Policy Number Policy Adan Covered Member ID Adan Member ID Guarantor Name 07/10/2023 1 [place] [id number] Carlos Wilkins [id number] Aung Wilkins 02/22/2024 1 [place] [id number] Carlos Wilkins [id number] Aung Wilkins 04/29/2024 1 [place] [id number] Carlos Wilkins [id number] Aung Wilkins Notes Date Note Type Note [...] same. No pickles, peppers, fruit. Yasmeen De Jesus, [facility] [address], [place], [address], [employer] 07/10/2023 11:53:48 02/22/2024 text/html Aung Wilkins is [...] by OBColonoscopy: referral sent MARAH June [address] [employer] [place], [address], [employer] 02/22/2024 09:33:40 04/29/2024 text/html Aung Wilkins is a 43 year old female patient here today for a concern of poison mohit. Went to on 03/29, had a shot of prednisone and an oral taper pack. States helped when she was taking it but is now so itchy that she is scratching bruises into her skin. MARAH June [address], [place], [address], [employer] 04/29/2024 11:26:04 OBGyn Episode No OBEpisode recorded.
== END 2024-10-22 08:08 | disposition home or self-care (01) ==
LOC: ANHBWCIMG 08:07
PROVIDERS: PCP Nurse Practitioner Adult Health; Visit Provider Nurse Practitioner Adult Health
DX: S99.922A Unspecified injury of left foot, initial encounter (principal); X58.XXXA Exposure to other specified factors, initial encounter
CPT/HCPCS: 73630

== ENCOUNTER 2024-10-23 11:52 | Outpatient (CLI) | payer BC, SELFPAY ==
--- NOTE | ~2024-10-23 | XR_ITS ---
EXAMINATION: XR tibia fibula LT 2V, XR ankle LT 2V DATE: 10/23/2024 12:02 INDICATION: Left lower leg injury TECHNIQUE: 1. Anteroposterior and lateral views of the left tibia and fibula were obtained. 2. AP and lateral views of the left ankle were obtained. COMPARISON: None. FINDINGS: Alignment is normal. No fracture. Joint spaces are normal. Soft tissues are unremarkable. No ankle graciela int effusion. IMPRESSION: 1. Negative left ankle and tibia-fibula radiographs. Reviewed, dictated and finalized at location A. TIONAL CONSULTANT IMPRESSION: 1. Negative left ankle and tibia-fibula radiographs.
--- OUTSIDE RECORDS SUMMARY | 2024-10-23 11:55 | XMS_ITS | Referral Summary ---
Author Organization [facility] Address [address] [place] [address] Care Team Providers Care Honey Extractor Name Role Phone Haim Bullard Primary Care Provider + Source Comments [facility],non-owned Affiliates and Associated Physician Practices is amultiple site organization consisting of ambulatory clinics and hospital sitesin [place], [place], [place] and [place]. This disclosure is being madepursuant to the Care Everywhere program and may not contain all information available regarding this patient. Last updated 18.[facility] Allergies No known active allergies Medications * [...] 99 03/26/2019 6:02 PM CDT Temperature 36.6 C (97.8 F) 03/26/2019 6:02 PM CDT Respiratory Rate 16 03/26/2019 6:02 PM CDT Oxygen Saturation 98% 03/26/2019 6:02 PM CDT Inhaled Oxygen Concentration - - Weight 81.6 kg (180 lb) 03/26/2019 6:02 PM CDT Height 171.5 cm (5' 7.5 ) 03/26/2019 6:02 PM CDT Body Mass Index 27.78 03/26/2019 6:02 PM CDT Plan of Treatment Not on file Care Teams Honey Extractor Relationship Specialty Start Date End Date Haim Bullard PA [address] [place] [address] PCP - General Physician Investment Representative 07/06/17
--- OUTSIDE RECORDS SUMMARY | 2024-10-23 11:55 | XMS_ITS | Patient Health Summary ---
Author Organization [facility] [employer] Address [address] [facility] [place] [address] Care Team Providers Care Outside B2B Sales Name Role Phone Haim Bullard Primary Care Provider + Note from [facility],non-owned Affiliates and Associated Physician Practices is amultiple site organization consisting of ambulatory clinics and hospital sitesin [place], [place], [place] and [place]. This disclosure is being madepursuant to the Care Everywhere program and may not contain all information available regarding this patient. Last updated 18.[facility] Allergies No known active allergies Medications [...] Strep A Internal Control Present Lot # [id number] Expiration Date 05/31/19 Throat ENTIRE THROAT (SURFACE REGION OF NECK) / Unknown 11/14/2017 Leah Brumfield APRN-[facility] - POINT OF [place] RE ORDERABLES * INFLUENZA A+B - POINT OF CARE (AMB) (11/14/2017) Only the most recent of2 resultswithin the time period is included. Influenza A Antigen Rapid Negative Negative Influenza B Antigen Rapid Negative Negative Influenza Internal Control yes NEGATIVE - POSITIVE Influenza Lot Number [id number] Influenza Expiration Date 10/11/19 Other NASOPHARYNGEAL SWAB / Unknown 11/14/2017 Leah Brumfield APRN-[facility] - POINT OF CA RE ORDERABLES Care Teams Outside B2B Sales Relationship Specialty Start Date End Date Haim Bullard PA [address] [place] [phone] PCP - General Physician Environmental Test Technician 07/06/17
--- OUTSIDE RECORDS SUMMARY | 2024-10-23 11:55 | XMS_ITS | Clinical Summary ---
Author Organization [facility] Address [address] [facility] [place] [address] Care Team Providers Care Mosaic Tile Maker Name Role Phone Haim Bullard Primary Care Provider + Source Comments [facility],non-owned Affiliates and Associated Physician Practices is amultiple site organization consisting of ambulatory clinics and hospital sitesin [place], [place], [place] and [place]. This disclosure is being madepursuant to the Care Everywhere program and may not contain all information available regarding this patient. Last updated 18.[facility] Allergies No known active allergies Medications * [...] of 3 - 19+ 3-dose series) 1999 COVID-19 VACCINE ( - 2023-2 5 season) 2024 INFLUENZA VACCINE (#1) 2024 DEPRESSION SCREENING 09/10/2024 ZOSTER VACCINE (1 of 2) 2030 HIB VACCINE Aged Out No longer eligi ble based on patient's age to complete this topic HPV VACCINE Aged Out No longer eligi ble based on patient's age to complete this topic MENINGOCOCCAL (Group B) VACCINE Aged Out No longer eligible based on patient's age to complete this topic MENINGOCOCCAL VACCINE Aged Out No yo patrick eligible based on patient's age to complete this topic PNEUMOCOCCAL VACCINE Aged Out No long er eligible based on patient's age to complete this topic Care Teams Mosaic Tile Maker Relationship Specialty Start Date End Date Haim Bullard PA [address] [place] [address] PCP - General Physician Court Specialist 07/06/17
== END 2024-10-23 11:53 | disposition home or self-care (01) ==
LOC: ANHBWCIMG 11:53
PROVIDERS: PCP Nurse Practitioner Adult Health; Visit Provider Nurse Practitioner Adult Health
DX: S99.919A Unspecified injury of unspecified ankle, initial encounter (principal); S89.92XA Unspecified injury of left lower leg, initial encounter; X58.XXXA Exposure to other specified factors, initial encounter
CPT/HCPCS: 73590; 73600

== ENCOUNTER 2024-10-23 13:48 | Outpatient (CLI) | payer BC, SELFPAY ==
--- NOTE | ~2024-10-23 | US_ITS ---
EXAMINATION: US venous doppler [facility] DATE: 10/23/2024 14:33 INDICATION: Left lower limb pain. TECHNIQUE: Grayscale ultrasound images without and with compression and Doppler ultrasound images of the left lower extremity veins were obtained. COMPARISON: None. FINDINGS: The visualized portions of left common femoral vein, profunda (deep) femoral vein, femoral vein, popl iteal vein, peroneal veins, posterior tibial veins, and greater saphenous vein outflow are patent. IMPRESSION: 1. No deep venous thrombosis. Reviewed, dictated and finalized at location A. LOPER SUPPORT ENGINEER
--- OUTSIDE RECORDS SUMMARY | 2024-10-23 13:51 | XMS_ITS | Patient Health Summary ---
Author Organization [facility] Address [address] [place] [address] Care Team Providers Care Chief Credit Officer Name Role Phone Haim Bullard Primary Care Provider + Note from [facility],non-owned Affiliates and Associated Physician Practices is amultiple site organization consisting of ambulatory clinics and hospital sitesin [place], [place], [place] and [place]. This disclosure is being madepursuant to the Care Everywhere program and may not contain all information available regarding this patient. Last updated 18.[facility] Allergies No known active allergies Medications * [...] Strep A Internal Control Present Lot # [id number] Expiration Date 05/31/19 Throat ENTIRE THROAT (SURFACE REGION OF NECK) / Unknown 11/14/2017 Leah Brumfield APRN-[facility] - POINT OF [place] RE ORDERABLES * INFLUENZA A+B - POINT OF CARE (AMB) (11/14/2017) Only the most recent of2 resultswithin the time period is included. Influenza A Antigen Rapid Negative Negative Influenza B Antigen Rapid Negative Negative Influenza Internal Control yes NEGATIVE - POSITIVE Influenza Lot Number [id number] Influenza Expiration Date 10/11/19 Other NASOPHARYNGEAL SWAB / Unknown 11/14/2017 Leah Brumfield APRN-[facility] - POINT OF CA RE ORDERABLES Care Teams Chief Credit Officer Relationship Specialty Start Date End Date Haim Bullard PA [address] [place] [phone] PCP - General Physician Taping Supervisor 07/06/17
--- OUTSIDE RECORDS SUMMARY | 2024-10-23 13:51 | XMS_ITS | Referral Summary ---
Author Organization [facility] [employer] Address [address] [place] [address] Care Team Providers Care Tube Inspector Name Role Phone Haim Bullard Primary Care Provider + Source Comments [facility],non-owned Affiliates and Associated Physician Practices is amultiple site organization consisting of ambulatory clinics and hospital sitesin [place], [place], [place] and [place]. This disclosure is being madepursuant to the Care Everywhere program and may not contain all information available regarding this patient. Last updated 18.[facility] Allergies No known active allergies Medications * [...] of Treatment Not on file Care Teams Tube Inspector Relationship Specialty Start Date End Date Haim Bullard PA [address] [place] [address] PCP - General Physician Counter Stitcher 07/06/17
--- OUTSIDE RECORDS SUMMARY | 2024-10-23 13:51 | XMS_ITS | Clinical Summary ---
Author Organization [facility] [employer] Address [address] [place] [address] Care Team Providers Care Corporate Planner Name Role Phone Haim Bullard Primary Care Provider + Source Comments [facility] [employer],non-owned Affiliates and Associated Physician Practices is amultiple site organization consisting of ambulatory clinics and hospital sitesin [place], [place], [place] and [place]. This disclosure is being madepursuant to the Care Everywhere program and may not contain all information available regarding this patient. Last updated 18.[employer] Allergies No known active allergies Medications * [...] age to complete this topic Care Teams Corporate Planner Relationship Specialty Start Date End Date Haim Bullard PA [address] [place] [address] PCP - General Physician Mind Reader 07/06/17
== END 2024-10-23 13:49 | disposition home or self-care (01) ==
PROVIDERS: PCP Nurse Practitioner Adult Health; Visit Provider Nurse Practitioner Adult Health
DX: M79.662 Pain in left lower leg (principal); Z98.890 Other specified postprocedural states
CPT/HCPCS: 73590; 73600; 93971

== ENCOUNTER 2024-12-08 15:45 | Outpatient (CLI) | payer BC, SELFPAY ==
--- NOTE | ~2024-12-08 | MM_ITS ---
EXAMINATION: MM screening taylor BI w william HISTORY: Screening mammogram TECHNIQUE: Craniocaudal and mediolateral oblique 3-D tomosynthesis images were obtained and synthetic 2-D images were generated. CAD analysis was submitted and interpreted. COMPARISON: 12/06/2023, 10/09/2022, 09/06/2021 BREAST PARENCHYMAL COMPOSITION:Dense: The breasts are heterogeneously dense, which may obscure small masses. FINDINGS: Possible developing asymmetry in the central left breast on MLO view. Stable parenchymal ap pearance of the right breast. No suspicious masses or calcifications. IMPRESSION: Possible developing asymmetry left breast on MLO view. Spot compression and true lateral views, and possibly ultrasound, recommended for further evaluation. BI-RADS Category 0: Incomplete: Needs additional imaging evaluation. Reviewed, dictated and finalized at [facility]. IMPRESSION: Possible developing asymmetry left breast on MLO view. Spot compression and tr ue lateral views, and possibly ultrasound, recommended for further evaluation. BI-RADS Category 0: Incomplete: Needs additional imaging evaluation.
--- OUTSIDE RECORDS SUMMARY | 2024-12-08 17:15 | XMS_ITS | Clinical Summary ---
Author Organization [facility] Address [address] [place] [address] Care Team Providers Care Sander Operator Name Role Phone Haim Bullard Primary Care Provider + Source Comments [facility],non-owned Affiliates and Associated Physician Practices is amultiple site organization consisting of ambulatory clinics and hospital sitesin [place], [place], [place] and [place]. This disclosure is being madepursuant to the Care Everywhere program and may not contain all information available regarding this patient. Last updated 18.[facility] Allergies No known active allergies Medications * [...] to complete this topic MENINGOCOCCAL (Group B) VACC INE SHARED DECISION-MAKING Aged Out No longer eligibl e based on patient's age to complete this topic MENINGOCOCCAL GROUPS A/C/Y/W VACCINE Aged Out No longer eligible b ased on patient's age to complete this topic PNEUMOCOCCAL VACCINE Aged Out No long er eligible based on patient's age to complete this topic Care Teams Sander Operator Relationship Specialty Start Date End Date Haim Bullard PA [address] [place] [address] PCP - General Physician Diving Board Assembler 07/06/17
--- OUTSIDE RECORDS SUMMARY | 2024-12-08 17:15 | XMS_ITS | CONTINUITY OF CARE DOCUMENT ---
Author Name zeyad jeffers Address Unknown Organization [facility] Address [address] [place] [address] Phone [phone] Care Team Providers Care Director Of Safety Name Role Phone Salvatore Toribio MD Unavailable [phone] Nazario [facility]-, Yasmeen Nicolas Unavailable Nazario [employer] [facility], Yasmeen Nicolas Unavailable PROBLEMS Condition Status Date Provider Notes Vitamin D deficiency active Asif Melendrez Family History of Hypertension: active ? Sharad Hermosillo MD Asthma active Asif Hermosillo MD Acid reflux disease active Asif Hermosillo MD FAMILY HISTORY OF HEART DISEASE active Sharad Hermosillo MD Palpitations active Asif Hermosillo MD Chest pain-type to be determined active Florentino Hermosillo MD Cardiology examination active Salvatore Melendrez Shortness of breath active Salvatore Toribio MD COVID-19 active Salvatore Toribio MD Obesity active Salvatore Toribio MD [facility] active Alanna Beck ENCOUNTERS Date Type Provider Location Encounter Diag nosis - In-person encounter Office Visit Salvatore Toribio MD [facility] - In-person encounter Office Visit Salvatore Toribio MD [facility] Cardiology examinationShortness of breathCOVID-19ObesityLVH - In-person encounter Office Visit Asif Hermosillo MD [facility] Family History of Hypertension:AsthmaAcid reflux diseaseFAMILY HISTORY OF HEART DISEASEPalpitationsChest pain-type to be determined VITAL SIGNS Date Observation Value Provider Body Mass Index (Ratio) 30.98 kg/m2 My scanlon Kiran blood pressure, cuff size large Ta rudi Van blood pressure, diastolic 73 mm[Hg] Ta rudi Van blood pressure, systolic 112 mm[Hg] [facility] oxygen saturation, oximetry 99 % [facility] respiratory rate E&M 18 /min [facility] pulse rate 110 /min [facility] weight E&M 197.8 [lb_av] [facility] height E&M 67 [in_i] [facility] Body Mass Index (Ratio) 31.63 kg/m2 My [...] Location NT-pro BNP [address] [facility] [place] [facility] [address] [place] [address] Eric Orona D.O., MPH vitamin b12, serum [...] cell distribution width, size density 49.4 fL [facility] - immature granulocytes, percentage of total cells, blood 0.1 % [facility] - nucleated red blood cells as percent of blood leukocytes 0.0 % [facility] - red blood cell (erythrocyte) count, per high power field 0.0 10*3/UL [facility] - eosinophils as percent of blood leukocytes 1.8 % [facility] - neutrophils as percent of blood leukocytes 54.1 % [facility] Absolute Neutrophils 3.8 CELLS/UL [facility] 1.5 - 7.8 basophils as percent of blood leukocytes 0.8 % [facility] - Absolute Basophils 0.1 CELLS/UL [facility] 0.0 - 0.2 monocytes as percent of blood leukocytes 7.8 % [facility] - Absolute Monocytes 0.6 CELLS/UL [facility] 0.2 - 1.0 lymphocytes as percent of blood leukocytes 35.4 % [facility] - Absolute Lymphocytes 2.5 CELLS/UL [facility] 0.9 - 3.9 mean platelet volume 10.2 (?) [facility] - platelet count 407.0 THOUSAND/U L [facility] [...] Dates Provider Indications Com ments VITAMIN D3 19081 UNIT ORAL TABLET active take 1 tab [...] Policy type / Coverage type Vesta red republican ID [id number] 1 ADVANCE DIRECTIVES Name Date DISCUSSED - NO DECISION MADE TREATMENT PLAN Date Name Performer [id number],C, H er updated medication list for this problem includes: Omeprazole 40 Mg Oral Capsule Delayed Release (Omeprazole) ..... Once daily Alanna Wadechanning [id number],S, W eight loss advised Alanna Pricemargareth [id number],C,T he pt continues to be very symptomatic with SOB and rapid heartbeats with minimal exertion. Myoview scan was normal, echo was normal. CT was negative for PE, however showed bronchal thickening. Insurance denied TcPYP scan. At this time I recommend to have the TcPYP scan done and schedule a cardiac cath. Alanna Beck [id number],C,T he pt continues to be very symptomatic with SOB and rapid heartbeats with minimal exertion. Myoview scan was normal, echo was normal. CT was negative for PE, however showed bronchal thickening. Insurance denied TcPYP scan. At this time I recommend to have the TcPYP scan done and schedule a cardiac cath. Alanna Pricemargareth [id number],C, W eight loss advised Alanna Pricemargareth [id number],C, P t had Covid in 2021. She describes it as mild. Last month she developed SOB with minimal exertion. Chest Xray showed cardiomegaly. Echo showed LVH with diastolic dysfunction. No leg swelling. WE will obtian stress myoview, PFTs, proBNP, and CT PE protocol , and Tc PYP scan. Alanna Kiran [id number],C,P t had Covid in 2021. She describes it as mild. Last month she developed SOB with minimal exertion. Chest Xray showed cardiomegaly. Echo showed LVH with diastolic dysfunction. No leg swelling. WE will obtian stress myoview, PFTs, proBNP, and CT PE protocol , and Tc PYP scan. Alanna Beck [id number],S, Asif cleveland MD [id number],S, Asif cleveland MD [id number],S, H er updated medication list for this problem includes: Omeprazole 40 Mg Oral Cpdr (Omeprazole) ..... Once daily Asif Hermosillo MD [id number],S,n eg xraty, will prop up head of bed H er updated medication list for this problem includes: Ventolin Hfa Aers (Albuterol sulfate aers) ..... Once daily Qvar 40 Mcg/act Inh Aers (Beclomethasone dipropionate) ..... 2 puffs twice daily Asif Hermosillo MD [id number],S,s on hypermobilie and gentetic varant MYH11 GIVING [...] Tc PYP scan. Alanna Beck Cardiology Asif Hermosillo MD Cardiology Asif Hermosillo MD Cardiology: H [...] Name PYP Technetium (Amyl oid) DLCO - 74918 FRC - 32735 FVC - 72002 CT Angio Chest (PE P rotocol) Stress [...] PANEL W/EGFR PROBNP, N TERMINAL DLCO - 87598 FRC - 81647 FVC - 80215 HISTORY OF PROCEDURES Procedure Date Procedure Name Provider Procedure Notes S tatus Spirometry Salvatore Toribio MD completed FVC / MVV - 33982 Salvatore Toribio MD com pleted FRC - 67291 Salvatore Toribio MD completed SpO2 w/o 6min walk/titration Salvatore Toribio MD completed SVC - 32405 Salvatore Toribio MD completed DLCO - 23369 Salvatore Toribio MD complete d EKG Salvatore Toribio MD completed BLOOD COUNT HEMOGLOBIN Asif Hermosillo MD completed FVC - 34076 Asif Hermosillo MD complet ed FRC - 65725 Asif Hermosillo MD complet ed DLCO - 81085 Asif Hermosillo MD comple david Stress EKG Salvatore Toribio MD completed Event Monitor Karla Phillip [facility] EKG Asif Hermosillo MD complete d SNOMED-CT: [id number] Current Medications Documented Asif Hermosillo MD completed
== END 2024-12-08 15:46 | disposition home or self-care (01) ==
LOC: ANHIMG 15:51
PROVIDERS: PCP Nurse Practitioner Adult Health; Visit Provider Obstetrics & Gynecology
DX: Z12.31 Encounter for screening mammogram for malignant neoplasm of breast (principal); R92.8 Other abnormal and inconclusive findings on diagnostic imaging of breast
CPT/HCPCS: 77063; 77067

== ENCOUNTER 2024-12-19 13:14 | Outpatient (CLI) | payer BC, SELFPAY ==
--- NOTE | ~2024-12-19 | MMUS_ITS ---
EXAMINATION: MM diagnostic taylor LT w william, US breast LT complete HISTORY: Follow-up developing asymmetry of the left breast. TECHNIQUE: Additional 3-D tomosynthesis images of the left breast were performed and synthetic 2-D im ages were generated. CAD analysis was submitted and interpreted. High resolution complete left breast ultrasound was performed. COMPARISON: Comparison to multiple prior studies sequentially, with oldest reviewed study dated 06/03. BREAST PARENCHYMAL COMPOSITION: Dense: The breasts are heterogeneously dense, which may obscure small masses FINDINGS: MAMMOGRAPHIC FINDINGS: There is a new centrally located left breast mass obscured by fibroglandular tissue. ULTRASOUND: Complete US of all 4 quadrants of the left breast/s and retroareolar region was reviewed. At 12:00 ne ar the nipple there is an oval hypoechoic mass measuring 1.3 x 1.3 x 0.6 cm with parallel orientation , circumscribed margins and no internal vascularity. There is posterior acoustic enhancement. At 2:00 , 1 cm from the nipple there is a slightly lobulated hypoechoic 1 cm mass with heterogeneous internal echotexture, no internal vascularity and no significant posterior features. At 8:00, 2 cm from the n ipple there is an oval hypoechoic 4 mm mass with central echogenicity, likely benign. IMPRESSION: 1. Multiple left breast masses identified by ultrasound. Ultrasound-guided biopsy of masses located a t 12:00 near the nipple and 2:00, 1 cm from the nipple recommended. 2. Recommend ultrasound-guided left breast biopsies. BI-RADS category 4, suspicious findings. Reviewed, dictated and finalized at location A. IMPRESSION: 1. Multiple left breast masses identified by ultrasound. Ultrasound-guided biop sy of masses located at 12:00 near the nipple and 2:00, 1 cm from the nipple re commended. 2. Recommend ultrasound-guided left breast biopsies. BI-RADS category 4, suspicious findings.
--- OUTSIDE RECORDS SUMMARY | 2024-12-19 13:19 | XMS_ITS | Clinical Summary ---
Author Organization [email or web address] Address [address] [place] [address] Care Team Providers Care Food Photographer Name Role Phone Haim Bullard Primary Care Provider + Source Comments [email or web address],non-owned Affiliates and Associated Physician Practices is amultiple site organization consisting of ambulatory clinics and hospital sitesin [place], [place], [place] and [place]. This disclosure is being madepursuant to the Care Everywhere program and may not contain all information available regarding this patient. Last updated [email or web address] Allergies No known active allergies Medications * [...] - 19+ 3-dose series) 1999 COVID-19 VACCINE (1 - 2023-2 5 season) 2024 DEPRESSION SCREENING 09/10/2024 INFLUENZA VACCINE (Season Ended) 2025 ZOSTER VACCINE (1 of 2) 2030 HIB [...] age to complete this topic Care Teams Food Photographer Relationship Specialty Start Date End Date Haim Bullard PA [address] [place] [address] PCP - General Physician Geographic Information Systems Manager 07/06/17
--- OUTSIDE RECORDS SUMMARY | 2024-12-19 13:19 | XMS_ITS | CONTINUITY OF CARE DOCUMENT ---
Author Name zeyad jeffers Address Unknown Organization [facility] Address [address] [place] [address] Phone [phone] Care Team Providers Care Court Commissioner Name Role Phone Salvatore Toribio MD Unavailable [phone] Nazario [facility]-, Yasmeen Nicolas Unavailable [phone] Nazario [employer] [facility]-BC, Yasmeen Nicolas Unavailable PROBLEMS Condition Status Date [...] In-person encounter Office Visit Salvatore Toribio MD [facility] - In-person encounter Office Visit Salvatore Toribio MD [facility] Cardiology examinationShortness of breathCOVID-19ObesityLVH - In-person encounter Office Visit Asif Hermosillo MD [facility] Family History of Hypertension:AsthmaAcid reflux diseaseFAMILY HISTORY OF HEART DISEASEPalpitationsChest pain-type to be determined VITAL SIGNS Date Observation Value Provider Body Mass Index (Ratio) 30.98 kg/m2 My scanlon Kiran blood pressure, cuff size large Ta rudi Van blood pressure, diastolic 73 mm[Hg] Ta rudi Van blood pressure, systolic 112 mm[Hg] [facility] oxygen saturation, oximetry 99 % [facility] respiratory rate E&M 18 /min [facility] pulse rate 110 /min [facility] weight E&M 197.8 [lb_av] [facility] height E&M 67 [in_i] [facility] Body Mass Index (Ratio) 31.63 [...] [place] Body Mass Index (Ratio) 29.60 kg/m2 Lead [place] weight E&M 189 [lb_av] Shankar [place] height E&M 67 [in_i] Shankar [place] ALLERGIES No Known Drug Allergies RESULTS Date Observation Value Provider Reference Range Interpretation Location NT-pro BNP [address] [employer] [place] [facility] [address] [place] [address] Eric Orona D.O., MPH vitamin b12, serum [...] cell distribution width, size density 49.4 fL [facility] - immature granulocytes, percentage of total cells, blood 0.1 % [facility] - nucleated red blood cells as percent of blood leukocytes 0.0 % [facility] - red blood cell (erythrocyte) count, per high power field 0.0 10*3/UL [facility] - eosinophils as percent of blood leukocytes 1.8 % [facility] - neutrophils as percent of blood leukocytes 54.1 % [facility] Neutrophils 3.8 CELLS/UL [facility] 1.5 - 7.8 basophils as percent of blood leukocytes 0.8 % [facility] - Absolute Basophils 0.1 CELLS/UL [facility] 0.0 - 0.2 monocytes as percent of blood leukocytes 7.8 % [employer] - Absolute Monocytes 0.6 CELLS/UL [facility] 0.2 - 1.0 lymphocytes as percent of blood leukocytes 35.4 % [facility] - Absolute Lymphocytes 2.5 CELLS/UL [facility] 0.9 - 3.9 mean platelet volume 10.2 (?) [facility] - platelet count 407.0 THOUSAND/U L [employer] [...] Dates Provider Indications Com ments VITAMIN D3 04563 UNIT ORAL TABLET active take 1 tab [...] Nasrin flores smoking status Never smoker Asif eHrmosillo MD social history E&M S moking History: [...] Policy type / Coverage type Vesta red constitution party ID [id number] 1 ADVANCE DIRECTIVES Name Date DISCUSSED - NO DECISION MADE TREATMENT PLAN Date Name Performer [id number],C, H er updated medication list for this problem includes: Omeprazole 40 Mg Oral Capsule Delayed Release (Omeprazole) ..... Once daily Alanna Wadechanning [id number],S, W eight loss advised Alanna Pricemargareth [id number],C,T he pt continues to be very symptomatic with SOB and rapid heartbeats with minimal exertion. Myoview scan was normal, echo was normal. CT was negative for PE, however showed bronchal thickening. Insurance denied TcPYP scan. At this time I recommend to have the TcPYP scan done and schedule a cardiac cath. Alanna Beck [id number],C,T he pt continues to be very symptomatic with SOB and rapid heartbeats with minimal exertion. Myoview scan was normal, echo was normal. CT was negative for PE, however showed bronchal thickening. Insurance denied TcPYP scan. At this time I recommend to have the TcPYP scan done and schedule a cardiac cath. Alanna Pricemargareth [id number],C, W eight loss advised Alanna Pricemargareth [id number],C, P t had Covid in 2021. She describes it as mild. Last month she developed SOB with minimal exertion. Chest Xray showed cardiomegaly. Echo showed LVH with diastolic dysfunction. No leg swelling. WE will obtian stress myoview, PFTs, proBNP, and CT PE protocol , and Tc PYP scan. Alanna Kiran [id number],C,P t had Covid in 2021. She describes it as mild. Last month she developed SOB with minimal exertion. Chest Xray showed cardiomegaly. Echo showed LVH with diastolic dysfunction. No leg swelling. WE will obtian stress myoview, PFTs, proBNP, and CT PE protocol , and Tc PYP scan. Alanna Beck [id number],S, Asif cleveland MD [id number],S, Asif cleveland MD [id number],S, H er updated medication list for this problem includes: Omeprazole 40 Mg Oral Cpdr (Omeprazole) ..... Once daily Asif Hermosillo MD [id number],S,n eg xraty, will prop up head of bed H er updated medication list for this problem includes: Ventolin Hfa Aers (Albuterol sulfate aers) ..... Once daily Qvar 40 Mcg/act Inh Aers (Beclomethasone dipropionate) ..... 2 puffs twice daily Asif Hermosillo MD [id number],S,s on hypermobilie and gentetic varant MYH11 GIVING [...] Name PYP Technetium (Amyl oid) DLCO - 85947 FRC - 80579 FVC - 55762 CT Angio Chest (PE P rotocol) Stress [...] PANEL W/EGFR PROBNP, N TERMINAL DLCO - 88342 FRC - 49599 FVC - 56344 HISTORY OF PROCEDURES Procedure Date Procedure Name Provider Procedure Notes S tatus Spirometry Salvatore Toribio MD completed FVC / MVV - 77737 Salvatore Toribio MD com pleted FRC - 20360 Salvatore Toribio MD completed SpO2 w/o 6min walk/titration Salvatore Toribio MD completed SVC - 81800 Salvatore Toribio MD completed DLCO - 05812 Salvatore Toribio MD complete d EKG Salvatore Toriboi MD completed BLOOD COUNT HEMOGLOBIN Asif Hermosillo MD completed FVC - 79977 Asif Hermosillo MD complet ed FRC - 75145 Asif Hermosillo MD complet ed DLCO - 28351 Asif Hermosillo MD comple david Stress EKG Salvatore Toribio MD completed Event Monitor Karla Phillip [facility] EKG Asif Hermosillo MD complete d SNOMED-CT: [id number] Current Medications Documented Asif Hermosillo MD completed
--- OUTSIDE RECORDS SUMMARY | 2024-12-19 13:19 | XMS_ITS | Data Portability ---
Author Organization [facility] [employer], Main Office Address [address] [place] [address] Care Team Providers Care Learning Support Specialist Name Role Phone JM DE LEON Primary Care Provider [phone] HAWA, PFIEFER Picc Nurse HAWA, PFIEFER Picc Nurse HAWA, PFIEFER Picc Nurse [phone] Assessment No assessment recorded. Plan of Treatment Reminders Order Date Submit Date Provider Last Modified By Organization Details Last Modified Time Details Appointments None recorded. Lab CBC w/ auto diff 2023 024 [facility] (Lab), [address] [place], [address], 4 18:36:35 iron + total iron-bindin g capacity (TIBC), serum 2023 024 [facility] (Lab), [address] [place], [address], 4 18:36:35 ferritin, serum or plasma 2023 024 [facility] (Lab), [address] [place], [address], 4 18:36:35 vitamin B12 + folate, serum or blood 2023 024 [facility] (Lab), [address] [place], [address], 4 18:36:35 lipid panel, serum 2022 023 [facility] (Lab), [address] [place], [address], 22:43:13 TSH, serum or plasma 2022 023 [facility] (Lab), [address] [place], [address], 22:47:36 CBC w/ auto diff 2022 023 [facility] (Lab), [address] [place], [address], 20:32:42 CMP, serum or plasma 2022 023 [facility] (Lab), [address] [place], [address], 22:43:08 glycohemogl obin, total, blood 2022 023 [facility] (Lab), [address] [place], [address], 21:27:50 Referral gastroenter ologist referral - Please call patient to schedule an appointment . Thank you. [address] [facility], [address] [facility] [address], [id number], [address], 4 18:40:49 reel worker referral 2022 023 [email or web address] 3 Martine Schneider MD, [address] [place], [address], 3 09:02:42 Procedures None recorded. Surgeries None recorded. Imaging XR, chest, 2 view 2023 024 [facility], [address] [facility] [address], [address], 4 10:28:03 MAMMO, screening, digital, bilateral - *Please call pt to schedule* 2022 [email or web address] [place] [address] - [facility], [address], [place] [address], [place], [address], 4 09:10:29 Medication Orders ergocalcife rol (vitamin D2) 1,250 mcg (50,000 unit) capsule 2023 024 [facility] #[id number], [address], [place], [address], 4 11:23:47 hydroxyzine HCl 25 mg tablet [address] [facility]/Pharmacy #[id number], [address], [place], [address], 4 11:41:32 triamcinolo ne acetonide 40 mg/mL suspension for injection 2023 024 Not available 4 11:29:13 betamethaso ne acetate and sodium phos 6 mg/mL suspension for injection 2023 024 Not available 4 11:32:34 Airsupra 90 mcg-80 mcg/actuati on HFA aerosol inhaler 2023 024 [facility]/Pharmacy #[id number], [address], [place], [address], 4 09:22:41 ergocalcife rol (vitamin D2) 1,250 mcg (50,000 unit) capsule 2023 024 [facility]/Pharmacy #[id number], [address], [place], [address], 4 09:22:41 omeprazole 40 mg capsule,del ayed release 2023 024 [facility] #[id number], [address], [place], [address], 09:22:40 Patient TargetsNo targets recorded. Patient Instructions Encounter Date Encounter Id Patient Instructions Last Modified By Organization Details Last Modified Time 07/10/2023 [id number] wellness after 07/11/24 6 mo fu anxiety, gerd, asthma, allergies around january 2024. 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 Thank you. Referring Physician: Jm De Leon, Family Medicine, Encounter Date: 02/22/2024 Results Created Date [...] Care in Diabe helena(A DA). Not Available [facility] [place] [address] [place], [address], 01/18/2022 04:55:10 01/18/20 22 01/18/2022 VITAM IN [...] /MS is recom noe d: order code 14121 (juan carlos ents >2yrs ). See Note 1 Note 1 For addit ional infor petra schmitz refer to http: //antoine Castañeda stDia gnost ics.c om/fa q/FAQ 199 (This link is being provi ded for infor cassie fernandez/ douglas bro purpo ses only. ) Not Available [facility] [address] [address] [place], [address], 01/18/2022 04:55:10 01/18/20 22 01/18/2022 TSH W/REF ABRAN TO FT4 TSH w/reflex to FT4 1.75 mIU/L normal Refer ence Range > or = 20 Years 0.40- 4.50 Pregn angelita Range s First trime ster 0.26- 2.66 Secon d trime ster 0.55- 2.73 Third trime ster 0.43- 2.91 Not Available [facility] [address] [place], [address], 01/18/2022 04:55:09 01/18/20 22 01/18/2022 VITAM IN B12/F OLATE , SERUM PANEL vitamin B12 634 pg/mL 200-11 00 normal Not Available [address], [address], 01/18/2022 04:55:08 01/18/20 22 01/18/2022 VITAM IN B12/F OLATE , SERUM PANEL folate, serum 19.0 NG/mL normal Refer ence Range Low: <3.4 Borde rline : 3.4-5 .4 Carmen l: >5.4 Not Available [address], [address], 01/18/2022 04:55:08 01/18/20 22 01/18/2022 CBC (INCL UDES DIFF/ PLT) white blood cell count 8.3 thous and/u L 3.8-10 .8 normal Not Available [address], [address], 01/18/2022 04:55:08 01/18/20 22 01/18/2022 CBC (INCL UDES DIFF/ PLT) red blood cell count 4.28 abel on/uL 3.80-5 .10 normal Not Available [address], [address], 01/18/2022 04:55:08 01/18/20 22 01/18/2022 CBC (INCL UDES DIFF/ PLT) hemoglobin 11.9 g/dL 11.7-1 5.5 normal Not Available [address], [address], 01/18/2022 04:55:08 01/18/20 22 01/18/2022 CBC (INCL UDES DIFF/ PLT) hematocrit 37.2 % 35.0-4 5.0 normal Not Available [address], [address], 01/18/2022 04:55:08 01/18/20 22 01/18/2022 CBC (INCL UDES DIFF/ PLT) MCV 86.9 fL 80.0-1 00.0 normal Not Available [address], [address], 01/18/2022 04:55:08 01/18/20 22 01/18/2022 CBC (INCL UDES DIFF/ PLT) MCH 27.8 pg 27.0-3 3.0 normal Not Available [address], [address], 01/18/2022 04:55:08 01/18/20 22 01/18/2022 CBC (INCL UDES DIFF/ PLT) MCHC 32.0 g/dL 32.0-3 6.0 normal Not Available [facility] [address], [address], 01/18/2022 04:55:08 01/18/20 22 01/18/2022 CBC (INCL UDES DIFF/ PLT) RDW 13.4 % 11.0-1 5.0 normal Not Available [address], [address], 01/18/2022 04:55:08 01/18/20 22 01/18/2022 CBC (INCL UDES DIFF/ PLT) platelet count 442 thous and/u L 140-40 0 high Not Available [address], [address], 01/18/2022 04:55:08 01/18/20 22 01/18/2022 CBC (INCL UDES DIFF/ PLT) MPV 10.0 fL 7.5-12 .5 normal Not Available [facility] [address], [address], 01/18/2022 04:55:08 01/18/20 22 01/18/2022 CBC (INCL UDES DIFF/ PLT) absolute neutrophils 4723 cells /uL 1500-7 800 normal Not Available [address], [address], 01/18/2022 04:55:08 01/18/20 22 01/18/2022 CBC (INCL UDES DIFF/ PLT) absolute lymphocytes 2673 cells /uL 850-39 00 normal Not Available [facility] [address], [address], 01/18/2022 04:55:08 01/18/20 22 01/18/2022 CBC (INCL UDES DIFF/ PLT) absolute monocytes 664 cells /uL 200-95 0 normal Not Available [address], [address], 01/18/2022 04:55:08 01/18/20 22 01/18/2022 CBC (INCL UDES DIFF/ PLT) absolute eosinophils 174 cells /uL 15-500 normal Not Available [facility] [address], [address], 01/18/2022 04:55:08 01/18/20 22 01/18/2022 CBC (INCL UDES DIFF/ PLT) absolute basophils 66 cells /uL 0-200 normal Not Available [facility] [address], [address], 01/18/2022 04:55:08 01/18/20 22 01/18/2022 CBC (INCL UDES DIFF/ PLT) neutrophils 56.9 % normal Not Available [address], [address], 01/18/2022 04:55:08 01/18/20 22 01/18/2022 CBC (INCL UDES DIFF/ PLT) lymphocytes 32.2 % normal Not Available [address], [address], 01/18/2022 04:55:08 01/18/20 22 01/18/2022 CBC (INCL UDES DIFF/ PLT) monocytes 8.0 % normal Not Available [address], [address], 01/18/2022 04:55:08 01/18/20 22 01/18/2022 CBC (INCL UDES DIFF/ PLT) eosinophils 2.1 % normal Not Available [address], [address], 01/18/2022 04:55:08 01/18/20 22 01/18/2022 CBC (INCL UDES DIFF/ PLT) basophils 0.8 % normal Not Available [address], [address], 01/18/2022 04:55:08 01/18/20 22 01/18/2022 COMPR EHENS POLO METAB OLIC PANEL glucose 84 mg/dL 65-99 normal Fasti ng refer ence inter olga Not Available [address], [address], 01/18/2022 04:55:08 01/18/20 22 01/18/2022 COMPR EHENS POLO METAB OLIC PANEL urea nitrogen (BUN) 10 mg/dL 7-25 normal Not Available [address], [address], 01/18/2022 04:55:08 01/18/20 22 01/18/2022 COMPR EHENS POLO METAB OLIC PANEL creatinine 0.83 mg/dL 0.50-1 .10 normal Not Available [address], [address], 01/18/2022 04:55:08 01/18/20 22 01/18/2022 COMPR EHENS POLO METAB OLIC PANEL eGFR non-afr. paraguayan 88 mL/mi n/1.7 3m2 > or = 60 normal Not Available [address], [address], 01/18/2022 04:55:08 01/18/20 22 01/18/2022 COMPR EHENS POLO METAB OLIC PANEL eGFR 102 mL/mi n/1.7 3m2 > or = 60 normal Not Available [address], [address], 01/18/2022 04:55:08 01/18/20 22 01/18/2022 COMPR EHENS POLO METAB OLIC PANEL BUN/creatini ne ratio not applic able (calc ) 6-22 Not Available [address], [address], 01/18/2022 04:55:08 01/18/20 22 01/18/2022 COMPR EHENS POLO METAB OLIC PANEL sodium 139 mmol/ L 135-14 6 normal Not Available [address], [address], 01/18/2022 04:55:08 01/18/20 22 01/18/2022 COMPR EHENS POLO METAB OLIC PANEL potassium 4.1 mmol/ L 3.5-5. 3 normal Not Available [address], [address], 01/18/2022 04:55:08 01/18/20 22 01/18/2022 COMPR EHENS POLO METAB OLIC PANEL chloride 106 mmol/ L 98-110 normal Not Available [address], [address], 01/18/2022 04:55:08 01/18/20 22 01/18/2022 COMPR EHENS POLO METAB OLIC PANEL carbon dioxide 25 mmol/ L 20-32 normal Not Available [address], [address], 01/18/2022 04:55:08 01/18/20 22 01/18/2022 COMPR EHENS POLO METAB OLIC PANEL calcium 9.2 mg/dL 8.6-10 .2 normal Not Available [address], [address], 01/18/2022 04:55:08 01/18/20 22 01/18/2022 COMPR EHENS POLO METAB OLIC PANEL protein, total 6.7 g/dL 6.1-8. 1 normal Not Available [address], [address], 01/18/2022 04:55:08 01/18/20 22 01/18/2022 COMPR EHENS POLO METAB OLIC PANEL albumin 3.8 g/dL 3.6-5. 1 normal Not Available [address], [address], 01/18/2022 04:55:08 01/18/20 22 01/18/2022 COMPR EHENS POLO METAB OLIC PANEL globulin 2.9 g/dL_ (calc ) 1.9-3. 7 normal Not Available [address], [address], 01/18/2022 04:55:08 01/18/20 22 01/18/2022 COMPR EHENS POLO METAB OLIC PANEL albumin/glob ulin ratio 1.3 (calc ) 1.0-2. 5 normal Not Available [address], [address], 01/18/2022 04:55:08 01/18/20 22 01/18/2022 COMPR EHENS POLO METAB OLIC PANEL bilirubin, total 0.4 mg/dL 0.2-1. 2 normal Not Available [address], [address], 01/18/2022 04:55:08 01/18/20 22 01/18/2022 COMPR EHENS POLO METAB OLIC PANEL alkaline phosphatase 110 U/L 31-125 normal Not Available [address], [address], 01/18/2022 04:55:08 01/18/20 22 01/18/2022 COMPR EHENS POLO METAB OLIC PANEL AST 18 U/L 10-30 normal Not Available [address], [address], 01/18/2022 04:55:08 01/18/20 22 01/18/2022 COMPR EHENS POLO METAB OLIC PANEL ALT 18 U/L 6-29 normal Not Available [address], [address], 01/18/2022 04:55:08 01/18/20 22 01/18/2022 LIPID PANEL , STAND CAROLIN cholesterol, total 162 mg/dL <200 normal Not Available [address], [address], 01/18/2022 04:55:07 01/18/20 22 01/18/2022 LIPID PANEL , STAND CAROLIN HDL cholesterol 35 mg/dL > or = 50 low Not Available [address], [address], 01/18/2022 04:55:07 01/18/20 22 01/18/2022 LIPID PANEL , STAND CAROLIN triglyceride s 149 mg/dL <150 normal Not Available [address], [address], 01/18/2022 04:55:07 01/18/20 22 01/18/2022 LIPID PANEL [...] 310(1 9): 2061- 2068 (http ://ed ucati on.Coinex-IO kavyaEmployyd.com. com/f aq/FA Q164) Not Available [facility] [address] [address] , [place], [address], 01/18/2022 04:55:07 01/18/20 22 01/18/2022 LIPID PANEL , STAND CAROLIN chol/HDLC ratio 4.6 (calc ) <5.0 normal Not Available [facility] [address] [address] , [place], [address], 01/18/2022 04:55:07 01/18/20 22 01/18/2022 LIPID PANEL , STAND CAROLIN non HDL cholesterol 127 mg/dL _(lilly c) <130 normal For patie nts with diabe helena plus 1 major ASCVD risk facto r, treat ing to a non-H DL-C goal of <100 mg/dL (LDL- C of <70 mg/dL ) is consi dered a thera pejaylai c optio n. Not Available [facility] [address] [address] , [place], [address], 01/18/2022 04:55:07 07/10/20 23 07/10/2023 CBC/C OMPLE TE BLD COUNT W/DIF F white blood cells 8.0 x10'3 /uL 4.2-10 .8 Not Available [facility] (Lab) [address] [place], [address], 07/10/2023 20:32:42 07/10/20 23 07/10/2023 CBC/C OMPLE TE BLD COUNT W/DIF F red blood cells 4.52 x10'6 /uL 3.80-5 .20 Not Available [facility] (Lab) [address] [place], [address], 07/10/2023 20:32:42 07/10/20 23 07/10/2023 CBC/C OMPLE TE BLD COUNT W/DIF F hemoglobin 11.9 g/dL 12.0-1 5.6 low Not Available [facility] (Lab) [address] [place], [address], 07/10/2023 20:32:42 07/10/2007/10/2023 CBC/C OMPLE TE BLD COUNT W/DIF F hematocrit 38.6 % 35.7-4 5.7 Not Available [facility] (Lab) [address] [place], [address], 07/10/2023 20:32:42 07/10/2007/10/2023 CBC/C OMPLE TE BLD COUNT W/DIF F mean red cell volume 85.4 fL 82.0-9 9.0 Not Available [facility] (Lab) [address] [place], [address], 07/10/2023 20:32:42 07/10/2007/10/2023 CBC/C OMPLE TE BLD COUNT W/DIF F mean red cell hemoglobin 26.3 pg 27.0-3 3.0 low Not Available [facility] (Lab) [address] [place], [address], 07/10/2023 20:32:42 07/10/2007/10/2023 CBC/C OMPLE TE BLD COUNT W/DIF F mean RBC HGB concentratio n 30.8 g/dL 31.0-3 6.0 low Not Available [facility] (Lab) [address] [place], [address], 07/10/2023 20:32:42 07/10/2007/10/2023 CBC/C OMPLE TE BLD COUNT W/DIF F red cell distribution width 15.2 % 11.8-1 5.5 Not Available [facility] (Lab) [address] [place], [address], 07/10/2023 20:32:42 07/10/2007/10/2023 CBC/C OMPLE TE BLD COUNT W/DIF F platelets 422 x10'3 /uL 150-40 0 high Not Available [facility] (Lab) [address] [place], [address], 07/10/2023 20:32:42 07/10/2007/10/2023 CBC/C OMPLE TE BLD COUNT W/DIF F mean platelet volume 10.7 fL 9.0-12 .4 Not Available [facility] (Lab) [address] [place], [address], 07/10/2023 20:32:42 07/10/2007/10/2023 CBC/C OMPLE TE BLD COUNT W/DIF F neutrophils 59.7 % 39.0-7 2.0 Not Available [facility] (Lab) [address] [place], [address], 07/10/2023 20:32:42 07/10/2007/10/2023 CBC/C OMPLE TE BLD COUNT W/DIF F lymphocytes 30.7 % 16.0-4 7.0 Not Available [facility] (Lab) [address] [place], [address], 07/10/2023 20:32:42 07/10/2007/10/2023 CBC/C OMPLE TE BLD COUNT W/DIF F monocytes 6.8 % 5.0-12 .0 Not Available [facility] (Lab) [address] [place], [address], 07/10/2023 20:32:42 07/10/2007/10/2023 CBC/C OMPLE TE BLD COUNT W/DIF F eosinophils 1.6 % 1.0-7. 0 Not Available [facility] (Lab) [address] [place], [address], 07/10/2023 20:32:42 07/10/2007/10/2023 CBC/C OMPLE TE BLD COUNT W/DIF F basophils 0.9 % 0.0-2. 0 Not Available [facility] (Lab) [address] [place], [address], 07/10/2023 20:32:42 07/10/2007/10/2023 CBC/C OMPLE TE BLD COUNT W/DIF F immature granulocytes 0.3 % 0.00-0 .50 Not Available [facility] (Lab) [address] [place], [address], 07/10/2023 20:32:42 07/10/2007/10/2023 CBC/C OMPLE TE BLD COUNT W/DIF F neutrophils, absolute count 4.77 x10'3 /uL 1.5-8. 0 Not Available [facility] (Lab) [address] [place], [address], 07/10/2023 20:32:42 07/10/2007/10/2023 CBC/C OMPLE TE BLD COUNT W/DIF F lymphocytes, absolute count 2.45 x10'3 /uL 1.07-3 .43 Not Available [facility] (Lab) [address] [place], [address], 07/10/2023 20:32:42 07/10/2007/10/2023 CBC/C OMPLE TE BLD COUNT W/DIF F monocytes, absolute count 0.54 x10'3 /uL 0.29-0 .99 Not Available [facility] (Lab) [address] [place], [address], 07/10/2023 20:32:42 07/10/2007/10/2023 CBC/C OMPLE TE BLD COUNT W/DIF F eosinophils, absolute count 0.13 x10'3 /uL 0.02-0 .53 Not Available [facility] (Lab) [address] [place], [address], 07/10/2023 20:32:42 07/10/20 23 07/10/2023 CBC/C OMPLE TE BLD COUNT W/DIF F basophils, absolute count 0.07 x10'3 /uL 0.01-0 .08 Not Available [facility] (Lab) [address] [place], [address], 07/10/2023 20:32:42 07/10/2007/10/2023 CBC/C OMPLE TE BLD COUNT W/DIF F immature granulocytes ,absolute 0.02 x10'3 /uL 0.00-0 .05 Not Available [facility] (Lab) [address] [place], [address], 07/10/2023 20:32:42 07/10/20 23 07/10/2023 CBC/C OMPLE TE BLD COUNT W/DIF F nucleated red blood cells 0.0 % -0 Not Available [facility] (Lab) [address] [place], [address], 07/10/2023 20:32:42 07/10/2007/10/2023 CBC/C OMPLE TE BLD COUNT W/DIF F NRBC# 0.00 x10'3 /uL Not Available [facility] (Lab) [address] [place], [address], 07/10/2023 20:32:42 07/10/2007/10/2023 HEMOG LOBIN A1C HA1C 5.5 % 4.0-6. 0 Diabe helena Scree mona Crite tere: <5.7% Consi stent with absen ce of diabe helena 5.7-6 .4% Consi stent with incre ased risk for diabe helena (pred iabet es) >OR=6 .5% Consi stent with diabe helena REFER ENCE: Diabe helena Care 2016, 39(Cervantes ppl.1 ):s13 -s22 Not Available [facility] (Lab) [address] [place], [address], 07/10/2023 21:27:50 07/10/2007/10/2023 COMPR EHENS POLO METAB OLIC PANEL sodium 136 mmol/ L 137-14 5 low Not Available [facility] (Lab) [address] [place], [address], 07/10/2023 22:43:08 07/10/2007/10/2023 COMPR EHENS POLO METAB OLIC PANEL potassium 4.8 mmol/ L 3.5-5. 1 Not Available [facility] (Lab) [address] [place], [address], 07/10/2023 22:43:08 07/10/2007/10/2023 COMPR EHENS POLO METAB OLIC PANEL chloride 106 mmol/ L 98-107 Not Available [facility] (Lab) [address] [place], [address], 07/10/2023 22:43:08 07/10/2007/10/2023 COMPR EHENS POLO METAB OLIC PANEL carbon dioxide 23 mmol/ L 22-30 Not Available [facility] (Lab) [address] [place], [address], 07/10/2023 22:43:08 07/10/2007/10/2023 COMPR EHENS POLO METAB OLIC PANEL anion gap 11.8 mmol/ L 14-22 low Not Available [facility] (Lab) [address] [place], [address], 07/10/2023 22:43:08 07/10/2007/10/2023 COMPR EHENS POLO METAB OLIC PANEL glucose 68 mg/dL 70-99 low Not Available [facility] (Lab) [address] [place], [address], 07/10/2023 22:43:08 07/10/20 23 07/10/2023 COMPR EHENS POLO METAB OLIC PANEL BUN 12 mg/dL 8-19 Not Available [facility] (Lab) [address] [place], [address], 07/10/2023 22:43:08 07/10/20 23 07/10/2023 COMPR EHENS POLO METAB OLIC PANEL creatinine 0.73 mg/dL 0.66-1 .25 Not Available [facility] (Lab) [address] [place], [address], 07/10/2023 22:43:08 07/10/20 23 07/10/2023 COMPR EHENS POLO METAB OLIC PANEL GFR >60 Refer ence Range : [place] ge GFR Healt hy Adult : >60 [...] or ethni c subgr oups, such as Hisok nics. Outsi de the valid ated shade [...] qi/gf r_cal culat or Not Available [facility] (Lab) [address] [place], [address], 07/10/2023 22:43:08 07/10/20 23 07/10/2023 COMPR EHENS POLO METAB OLIC PANEL alkaline phosphatase 106 U/L 38-126 Not Available [facility] (Lab) [address] [place], [address], 07/10/2023 22:43:08 07/10/20 23 07/10/2023 COMPR EHENS POLO METAB OLIC PANEL alanine aminotransfe rase 22 U/L 0-35 Not Available [facility] (Lab) [address] [place], [address], 07/10/2023 22:43:08 07/10/20 23 07/10/2023 COMPR EHENS POLO METAB OLIC PANEL aspartate aminotransfe rase 24 U/L 15-37 Not Available [facility] (Lab) [address] [place], [address], 07/10/2023 22:43:08 07/10/20 23 07/10/2023 COMPR EHENS POLO METAB OLIC PANEL bilirubin, total 0.30 mg/dL 0.20-1 .30 Not Available [facility] (Lab) [address] [place], [address], 07/10/2023 22:43:08 07/10/20 23 07/10/2023 COMPR EHENS POLO METAB OLIC PANEL calcium 9.6 mg/dL 8.4-10 .2 Not Available [facility] (Lab) [address] [place], [address], 07/10/2023 22:43:08 07/10/20 23 07/10/2023 COMPR EHENS POLO METAB OLIC PANEL total protein 7.6 g/dL 6.3-8. 2 Not Available [facility] (Lab) [address] [place], [address], 07/10/2023 22:43:08 07/10/20 23 07/10/2023 COMPR EHENS POLO METAB OLIC PANEL albumin 4.1 g/dL 3.4-5. 0 Not Available [facility] (Lab) [address] [place], [address], 07/10/2023 22:43:08 07/10/20 23 07/10/2023 COMPR EHENS POLO METAB OLIC PANEL globulin 3.5 g/dL 2.6-4. 2 Not Available [facility] (Lab) [address] [place], [address], 07/10/2023 22:43:08 07/10/2007/10/2023 COMPR EHENS POLO METAB OLIC PANEL A/G ratio 1.2 ratio 1.0-2. 0 Not Available [facility] (Lab) [address] [place], [address], 07/10/2023 22:43:08 07/10/2007/10/2023 LIPID PANEL cholesterol 181 mg/dL 140-19 9 NIH STACEY NSUS RECOM MENDA TION FOR DARREN STERO L: ADULT CHILD LOW RISK: <200 <170 BORDE RLINE : <200- 239 ----- HIGH RISK: >240 >200 Not Available [facility] (Lab) [address] [place], [address], 07/10/2023 22:43:13 07/10/2007/10/2023 LIPID PANEL triglyceride s 129 mg/dL 0-150 NIH STACEY NSUS REPOR T RECOM MENDA TION FOR TRIGL YCERI HEATHER: ADULT CHILD LOW RISK: <150 ----- BODER LINE: 150-1 99 ----- HIGH RISK: >200 ----- Not Available [facility] (Lab) [address] [place], [address], 07/10/2023 22:43:13 07/10/20 23 07/10/2023 LIPID PANEL HDL cholesterol 35 mg/dL 40- low Not Available [facility] (Lab) [address] [place], [address], 07/10/2023 22:43:13 07/10/2007/10/2023 LIPID PANEL LDL cholesterol, [...] NOT BE REPOR MICHOACANO. Not Available [facility] (Lab) [address] [place], [address], 07/10/2023 22:43:13 07/10/2007/10/2023 TSH W/REF ABRAN FT4 TSH with reflex free T4 1.970 uIU/m L 0.465- 4.680 Not Available [facility] (Lab) [address] [place], [address], 07/10/2023 22:47:36 12/20/19 22 12/19/2021 XR, chest [facility] [address] [place] [address] [phone] Patien t Name: AUNG TYSON Access ion #: [id number] Sex: F : 1979 9 Locati [...] cholec ystect bernadette. Page 1 of 2 [facility] Patien t Name: AUNG TYSON Access ion #: [id number] Sex: F : 1979 9 Exam [...] 10:41 AM (CT) Page 2 of 2 [id number] [facility] (Imaging) [address] [place], [address], 11/08/2022 13:57:19 12/24/19 22 12/23/2021 US, echoc ardio gram No observ ation record ed. [id number] [facility] [address] [place], [address], 11/08/2022 13:57:19 02/04/20 22 02/03/2022 CT, angio gram, chest , w/ contr ast No observ ation record ed. [id number] [facility] Add On Lab Orders [address] [place], [address], 11/08/2022 13:57:19 02/14/20 22 02/13/2022 exerc ise stres s test No observ ation record ed. MIGRATION. [id number] [facility] [address], [place], [address], 11/08/2022 13:57:19 02/15/20 22 02/13/2022 myoca rdial perfu oren study w/ eject ion fract ion (PROC ) No observ ation record ed. MIGRATION. [id number] [facility] [address], [place], [address], 11/08/2022 13:57:19 03/30/20 22 03/30/2022 PFT, compl ete No observ ation record ed. MIGRATION. [id number] [facility] [address] , [place], [address], 11/08/2022 13:57:19 10/09/19 23 10/09/2022 MAMMO , scree mona, bilat eral No observ ation record ed. [id number], [place], [address], 11/08/2022 13:57:19 07/04/20 23 07/04/2023 XR, ribs, bilat eral No observ ation record ed. [email or web address] [facility] [address] [place], [address], 07/05/2023 07:18:57 07/04/20 23 07/04/2023 XR, lumba r spine No observ ation record ed. [email or web address] [facility] [address] [place], [address], 07/05/2023 07:19:29 09/24/19 24 09/24/2023 CT, sinus es, w/o contr ast No observ ation record ed. [address], [place], [address], 09/26/2023 12:41:31 03/10/20 24 03/07/2024 XR, chest , 2 view No observ ation record ed. [facility] [address], [place], [address], 03/10/2024 11:17:16 Result Notes None recorded. Problems Name Problem SNOMED Code Status Onset Date Resolution Date Notes Provider Name and Address Organization Details Recorded Time Sprain of left ankle 7790378746340 9105 Active 2019 Not Available [facility] 3 13:54:05 Fluid level behind tympanic membrane Active 2018 Not Available [facility] 3 13:54:05 Pain in right hip joint 6798568899482 02 Active 2020 Not Available [facility] 3 13:54:05 Bronchitis 54410967 Active 2021 Not Available [facility] 3 13:54:06 Seasonal allergic rhinitis 178945150 Active 2021 Not Available [facility] 3 13:54:06 Feels hot 055283659 Active 2019 Not Available [facility] 3 13:54:06 Seasonal asthma 203876638 Active 2021 Not Available [facility] 3 13:54:06 Anxiety 33800034 Active 2020 Not Available [facility] 3 13:54:06 Cough 44489926 Active 2021 Not Available [facility] 3 13:54:06 Wheezing 92002157 Active 2019 Not Available [facility] 3 13:54:06 Cardiomega ly 2910024 Active 2021 Not Available [facility] 3 13:54:06 COVID-19 437303838 Active 2022 Yasmeen De Jesus NP [address], [facility] [address], [place], [address] , [facility] [employer] [facility] 3 10:07:24 Gastroesop hageal reflux disease 143860781 Active 2022 Yasmeen De Jesus NP [address], [address], [place], [address] , [place] [facility] 3 09:37:33 Allergy to food 576228890 Active 2022 Yasmeen De Jesus NP [address], [address], [place], [address] , [place] [facility] 3 11:31:20 Vitamin D deficiency 68863342 Active 2023 MARAH June [address], [address], [place], [address] , [place] [facility] 4 09:09:33 Asthma 744366127 Active 2023 MARAH June [address], [address], [place], [address] , [place] [facility] 4 09:11:38 Mucus in stool 609361384 Active 2023 MARAH June [address], [address], [place], [address] , [place] [facility] 4 09:14:57 Productive cough 14445221 Active 2023 MARAH June [address], [address], [place], [address] , [facility] 4 09:19:26 Thrombocyt osis 3771656 Active 2023 MARAH June [address], [address], [place], [address] , [facility] 4 09:22:15 Iron deficiency anemia 12614640 Active 2023 MARAH June [address], [address], [place], [address] , [place] [facility] 4 19:47:24 Contact dermatitis 89769029 Active 2023 MARAH June [address], [address], [place], [address] , [place] [facility] 11:10:01 Problem Notes None recorded. Procedures Surgical History Date Name Laterality Status Provider Name and Address Organization Details Recorded Time 10/09/19 23 Date of Last Pap Smear completed Yasmeen Yoder RN [facility] 07/10/2023 11:09:47 10/09/19 23 Most Recent Mammogram completed Yasmeen Yoder RN [facility] 07/10/2023 11:09:30 09/10/19 14 Cholecystectomy completed Not Available [facility] 11/08/2022 13:52:32 09/10/19 06 DIGITAL ANALYTICS MANAGER Surgery completed Not Available [facility] 11/08/2022 13:52:32 Imaging Results Imaging Date Name Status LastModified by Organization Details LastModified Time 12/19/2021 XR, chest completed [id number] [facility] (Imaging) [address] [place], [address], 11/08/2022 13:57:19 12/23/2021 US, echocardiogram completed [id number] .[id number] [facility]- [facility] [address] [place], [address], 11/08/2022 13:57:19 02/03/2022 CT, angiogram, chest, w/ contrast completed [id number] 7178 [facility] Add On Lab Orders [address] [place], [address], 11/08/2022 13:57:19 10/09/2022 MAMMO, screening, bilateral completed [id number] 8319 [facility] [address], [place], [address], 11/08/2022 13:57:19 02/13/2022 exercise stress test completed [id number] 7837 [facility] [address], [place], [address], 11/08/2022 13:57:19 02/13/2022 myocardial perfusion study w/ ejection fraction (PROC) completed [id number].[id number] 9382 [facility] [address], [place], [address], 11/08/2022 13:57:19 03/30/2022 PFT, complete completed [id number].[id number] 0026 [facility] [address], [place], [address], 11/08/2022 13:57:19 07/04/2023 XR, ribs, bilateral completed [email or web address] [facility] [address] [place], [address], 07/05/2023 07:18:57 07/04/2023 XR, lumbar spine completed [email or web address] [facility] [address] [place], [address], 07/05/2023 07:19:29 09/24/2023 CT, sinuses, w/o contrast completed [place] [address], [place], [address], 09/26/2023 12:41:31 03/07/2024 XR, chest, 2 view completed [address] [facility] [address], [place], [address], 03/10/2024 11:17:16 Procedure Notes None recorded. Medical [...] completed Not Available Not Available Not Available [facility]al Neti Rinse with packet Take [...] % 98 % 106 /min 98.2 [degF] 37495.4 7 g 124 mm[Hg] 88 mm[Hg] Not Available [facility] 3 13:53:09 Date Recorded Body weight Body mass index (BMI) Body height Body temperature Heart rate Respiratory rate Oxygen saturation Oxygen saturation in Arterial blood by Pulse oximetry Pain severity - 0-10 verbal numeric rating [Score] - Reported Systolic blood pressure Diastolic blood pressure Provider Name and Address Organization Details Last Updated DateTime 3 87148.1 7 g 31.3 kg/m2 170.18 cm 96.5 [degF] 81 /min 16 /min 99 % 99 % 5 138 mm[Hg] 92 mm[Hg] Yasmeen Yoder RN [place] [facility] [place] [facility] 3 11:05:40 Date Recorded Body height Body mass index (BMI) Body weight Body temperature Respiratory rate Heart rate Oxygen saturation Oxygen saturation in Arterial blood by Pulse oximetry Pain severity - 0-10 verbal numeric rating [Score] - Reported Systolic blood pressure Diastolic blood pressure Provider Name and Address Organization Details Last Updated DateTime 4 170.18 cm 30.4 kg/m2 59366.9 2 g 98.3 [degF] 20 /min 74 /min 98 % 98 % 0 122 mm[Hg] 88 mm[Hg] Yasmeen Yoder RN [facility] [employer] [facility] 4 08:46:02 Date Recorded Body height Body mass index (BMI) Body weight Body temperature Heart rate Respiratory rate Oxygen saturation Oxygen saturation in Arterial blood by Pulse oximetry Pain severity - 0-10 verbal numeric rating [Score] - Reported Systolic blood pressure Diastolic blood pressure Provider Name and Address Organization Details Last Updated DateTime 4 170.18 cm 30 kg/m2 83130.9 4 g 97.8 [degF] 100 /min 20 /min 98 % 98 % 2 122 mm[Hg] 70 mm[Hg] Yasmeen Yoder RN [facility] [employer] 4 11:07:18 Social History Question Answer Notes LastModified by Organization Details LastModified Time Tobacco Smoking Status Never Smoker Not Available [facility] 11/08/2022 13:52:29 Do You Have An Advance Directive? No Information not available 07/10/2023 What Is Your Level Of Alcohol Consumption? Occasional [id number] Information not available 11/08/2022 If You Are , What Was Your Level Of Alcohol Consumption Prior To ? None [id number] Information not available 11/08/2022 Is Blood Transfusion Acceptable In An Emergency? Yes Information not available 07/10/2023 What Is Your Level Of Caffeine Consumption? Moderate [id number] Information not available 11/08/2022 What Is Your Code Status? Full Code Not If Brain Information not available 07/10/2023 In The 14 Days Before Symptom Onset, Have You Had Close Contact With A Laboratory-confi rmed COVID-19 While That Case Was Ill? No MIGRATION.030 [id number] Information not available 11/08/2022 In The 14 Days Before Symptom Onset, Have You Had Close Contact With A Person Who Is Under Investigation For COVID-19 While That Person Was Ill? No MIGRATION.0301 [id number] Information not available 11/08/2022 Are You Currently Employed? Yes Information not available 07/10/2023 What Type Of Diet Are You Following? 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 No Information not available 07/10/2023 Do You Use Insect Repellent Routinely? No Information not available 07/10/2023 Where Do You Live? SingleLevelHouse Information not available 07/10/2023 Do You Have A Medical Power Of Capper Machine Operator? No Information not available 07/10/2023 Do You Have Any Pets? Yes Information not available 07/10/2023 What Is Your Relationship Status? MIGRATION.030 [id number] Information not available 11/08/2022 Do You Use Your Seat Belt Or Car Seat Routinely? Yes MIGRATION.030 [id number] Information not available 11/08/2022 Do You Have Smoke And Carbon Monoxide Detectors In Your Home? Yes Information not available 07/10/2023 Are There Any Smokers In Your House? No Information not available 07/10/2023 Do You Participate In Social Media? Yes Information not available 07/10/2023 Do You Feel Stressed (tense, Restless, Nervous, Or Anxious, Or Unable To Sleep At Night)? [id number] Information not available 02/22/2024 Do You Use Any Illicit Or Recreational Drugs? No MIGRATION.030 [id number] Information not available 11/08/2022 Do You Use [...] Organization Details LastModified Time Father Hypertensive disorder MIGRATION.015 [id number] Not available 11/08/2022 13:52:33 Father Family history of stroke MIGRATION.066 [id number] Not available 11/08/2022 13:52:33 Mother Hypertensive disorder MIGRATION.856 [id number] Not available 11/08/2022 13:52:33 Maternal Aunt Malignant tumor of transverse colon MIGRATION.393 [id number] Not available 11/08/2022 13:52:33 Maternal Aunt Malignant tumor of colon ~70's MIGRATION.750 [id number] Not available 11/08/2022 13:52:33 Medical History Condition [...] virus, quadrivalent, preservative 1 completed Not Available [facility] 11/08/2022 13:57:13 Influenza, split virus, quadrivalent, preservative 0 completed Not Available [facility] 11/08/2022 13:57:13 Influenza, split virus, quadrivalent, preservative 9 completed Not Available [facility] 11/08/2022 13:57:14 Past Encounters Encounter ID Performer Location Encounter Start Date Encounter Closed Date Diagnosis/Indication Diagnosis SNOMED-CT Code Diagnosis ICD10 Code Diagnosis Note [id number] [facility] [address] [place] [address] 12/20/2020 00:00:00 12/20/2020 14:33:50 [id number] [facility] [address] [place] [address] 08/03/2021 00:00:00 08/03/2021 14:53:36 [id number] _ATHENA_M IGRATION_ DEFAULT_1 _1 , 08/31/2021 00:00:00 08/31/2021 10:59:[id number] [address] 10/14/2021 00:00:00 10/14/2021 16:34:[id number] [address] 12/14/2021 00:00:00 12/14/2021 10:34:[id number] [address] 01/04/2022 00:00:00 01/04/2022 11:38:[id number] [address] 06/16/2022 00:00:00 06/16/2022 10:05:24 [id number] Yasmeen De Jesus NP [address] [address] 07/10/2023 10:52:51 07/10/2023 12:09:13 Adult health examination 647467717 Z00.00 Encouraged well balanced meals, active lifestyle, and routine vision and dental exams. Anemia screening 0728354 07 Z13.0 Diabetes m ellitus screening 709450513 Z13.1 Thyroid di sorder screening 247717836 Z13.29 Hyperlipid emia screening 672923294 Z13.220 Anxiety 31891637 F41.9 Sertraline 50 mg, 2 tabs po daily. Seasonal asthma 52422384 6 J45.909 Montelukas t 10 mg po daily.Albu terol prn Gastroesop hageal reflux disease 194333318 K21.9 Omeprazole 20 mg po daily. Jump to 40 mg to see if better coverage. Screening for malignant neoplasm of breast 957731770 Z12.39 Allergy to food 84857418 1 T78.1XXA [id number] Jm De Leon [facility] [address] [address] 02/22/2024 08:28:53 02/22/2024 09:38:22 Vitamin D deficiency 20194253 E55.9 Asthma 018947478 J45.90 9 Gastroesop hageal reflux disease 864019414 K21.9 Family his tory of cancer of colon 270663719 Z80.0 Productive cough 7416650 5 R05.9 Thrombocytosis 9635405 D 75.467 [id number] Jm De Leon [facility] [address] [address] 04/29/2024 10:54:07 04/29/2024 11:27:31 Contact dermatitis 05207329 L25.9 Vitamin D deficiency 347 11757 E55.9 Health Concerns Section Related Observation LastModified by Organization Detai ls LastModified Time None Recorded Concern Status LastModified by Organization Details LastModified Time None Recorded Advance Directives Directive N: Payers Encounter Date Sequence Insurance Name Policy Number Policy Adan Covered Member ID Adan Member ID Guarantor Name 07/10/2023 1 [place] [id number] Carlos Wilkins [id number] Aung Wilkins 02/22/2024 1 [place] [id number] Carlos Wilkins [id number] Aung Wilkins 04/29/2024 1 [place] [id number] Carlos Wilkins [id number] Aung Wilkins Notes Date Note Type Note [...] Jesus, CARYN [address], [address], [place], [address], [employer] 07/10/2023 11:53:48 02/22/2024 text/html Aung Wilkins is a 43 year old female patient here today to establish care. She was previously under the care of aYsmeen De Jesus DNP. Her past medical history [...] OBMammogram: 09/2023, managed by OBColonoscopy: referral sent AMRAH June [address], [employer], [place], [address], [employer] 02/22/2024 09:33:40 04/29/2024 text/html Aung Wilkins is a 43 year old female patient here today for a concern of poison mohit. Went to on 03/29, had a shot of prednisone and an oral taper pack. States helped when she was taking it but is now so itchy that she is scratching bruises into her skin. MARAH June [address], [employer] [address], [place], [address], [employer] 04/29/2024 11:26:04 OBGyn Episode No OBEpisode recorded.
== END 2024-12-19 13:15 | disposition home or self-care (01) ==
PROVIDERS: PCP Nurse Practitioner Adult Health; Visit Provider Obstetrics & Gynecology
DX: R92.8 Other abnormal and inconclusive findings on diagnostic imaging of breast (principal); N64.89 Other specified disorders of breast
CPT/HCPCS: 76641; 77061; 77065; G0279

== ENCOUNTER 2025-01-09 10:00 | Outpatient (RCR) | payer BC, SELFPAY ==
--- NOTE | 2024-11-21 08:55 | OPREHPOC ---
Outpatient Therapy Plan of Care This is a Multidisciplinary Plan of Care that may contain components documented by all disciplines (PT, OT, and ST.) PT Problem 1 PT Problem #1 Knowledge Deficit PT Goal 1 Goal / Goal Update *indep with HEP Target Visit 8 PT Problem 2 PT Problem #2 Pain PT Goal 1 Goal / Goal Update *decrease pain L ankle to 3/10 at worst Target Visit 8 PT Problem 3 PT Problem #3 Impaired Strength PT Goal 1 Goal / Goal Update increase strength and stability over L ankle to improve posture and mobility 1* single leg standing x 10 seconds 2* bilateral ankle PF in standing x 10 reps without UE support Target Visit 8
--- NOTE | 2024-11-21 08:55 | PTOPEVAL1 ---
Assessment and note entered by Alannah Vora, PT Evaluation Information Assessment Status Evaluation ICD-10 Condition Codes (PT) Pain in left ankle and joints of left foot M25.572 Other ICD-10 Condition Codes ( sprain L ankle S93.402A PT) Onset Oct 20, 2024 Subjective Information ankle rolled when walking to her car; instant pain; had xrays- no fracture, walking boot for 2 weeks-- no longer using; have lace up ankle brace now, wearing all time when walking; have been doing ankle exercises from dr: a-b-c, gastroc stretch, move ankle HX: multiple R and L ankle sprains, L ankle fracture-non surgical, L knee and hip pain. 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 Standing/walking tolerance decreased due to pain. She is doing all of her home and work tasks with increased pain. LE functional scale rating of 58% limitation in activity level. She has been doing active L ankle exercises from dr office. She is wearing a lace up support brace over ankle. History includes: multiple R and L ankle sprains, L ankle fracture- non surgical; Bilateral knee pain. With the evaluation: L ankle active ROM is WNL-- increased inversion motion; decreased strength of L ankle; poor standing position of knees and ankles, with no arch of feet, bilateral single leg standing of 3 seconds and unstable. Skilled PT services are indicated to increase strength and stability of L ankle, modalities to decrease pain and education for HEP and posture correction. Plan of Care Interventions Electrical Stimulation,Hot Pack/Cold Pack,Manual Therapy,Neuro Re-education,Patient/Caregiver Education,Therapeutic Activities,Therapeutic Exercise,Ultrasound,Other Other Interventions taping, fluidotherapy PT Services Indicated Yes Treatment Frequency and 1-2x/wk for 8 visits Duration These treatments will address the objective and functional deficits as defined above. The patient will be advanced safely and appropriately in order for the patient to progress towards his/her prior level of function. Additional exercises will be introduced and as well as a comprehensive home exercise program upon discharge, if needed, ?to ensure carryover of functional gains achieved in the clinic. This treatment plan has been reviewed and agreement upon by the patient.
--- NOTE | 2025-01-09 10:32 | OPREHPOC ---
Outpatient Therapy Plan of Care This is a Multidisciplinary Plan of Care that may contain components documented by all disciplines (PT, OT, and ST.) PT Problem 1 PT Problem #1 Knowledge Deficit PT Goal 1 Goal / Goal Update *indep with HEP 5-25 d/c goal met [facility] Visit 8 Progress Met PT Problem 2 PT Problem #2 Pain PT Goal 1 Goal / Goal Update *decrease pain L ankle to 3/10 at worst 5-25 d/c goal met Target Visit 8 Progress Met PT Problem 3 PT Problem #3 Impaired Strength PT Goal 1 Goal / Goal Update increase strength and stability over L ankle to improve posture and mobility 1* single leg standing x 10 seconds 2* bilateral ankle PF in standing x 10 reps without UE support --25 d/c goal 2 met Target Visit 8 Progress Partially Met
--- NOTE | 2025-01-09 10:32 | PTOPDC ---
Assessment and note entered by Alannah Vora, PT Assessment Status Discharge ICD-10 Condition Codes (PT) Pain in left ankle and joints of left foot M25.572 Other ICD-10 Condition Codes ( sprain L ankle S93.402A PT) Onset Oct 20, 2024 Subjective Information am doing better, but still having some tingling on bottom of foot and in toes; also having L knee pain and irritation; have been busy and doing everything again; do not have an appt with the dr --was told to call if I need anything. Reported Pain Level Pain Score Self Report Additional Pain Score Comments pain range in the past week 1-2/10; tingles at bottom of foot and top & bottom of toes also have L knee pain- spasms, pops and swells decrease pain with ice and over the counter meds PRN Assessment PT Clinical Summary Aung has received 8 PT sessions. With today's discharge: pain 1-2/10- tingle and numbness constant L bottom of foot and toes; good L ankle active ROM without pain; increase strength of L LE and ankle, but difficulty with single leg standing--unsteady for 6 seconds; increase ankle strength with bilateral standing activities; education completed for HEP. The goals were achieved, except single leg standing tolerance. Discharge PT. She is to continue with the HEP. Plan of Care PT Services Indicated No
== END 2025-01-09 12:45 | disposition home or self-care (01) ==
LOC: ANHPT 10:00
PROVIDERS: PCP Nurse Practitioner Adult Health; Visit Provider Orthopaedic Surgery
DX: S93.402A Sprain of unspecified ligament of left ankle, initial encounter (principal)
CPT/HCPCS: 97016; 97022; 97110; 97112; 97116; 97140; 97161; 97530

== ENCOUNTER 2025-01-29 09:16 | Outpatient (CLI) | payer BC, SELFPAY ==
--- NOTE | ~2025-01-29 | MMUS_ITS ---
MM post biopsy diagnostic LT, US breast bx add lesion LT, US breast biopsy LT w image EXAMINATION: US GUIDED NEEDLE BIOPSY WITH VACUUM ASSISTANCE DATE: 01/29/2025 10:43 CDT INDICATION: Multiple left breast masses seen on prior examination. Ultrasound-guided core biopsy is requested to evaluate for malignancy. BREAST PARENCHYMAL COMPOSITION: Dense: The breasts are extremely dense, which lowers the sensitivity of mammography. TECHNIQUE AND FINDINGS: The risks and potential benefits of the procedure were discussed with the patient, and written inform ed consent was obtained. After sterile preparation of the left breast, 1% lidocaine was utilized for local anesthesia. 1% lidocaine with epinephrine was used for deep anesthesia. Left breast: 12:00 near the nipple: A 10G vacuum-assisted biopsy gun needle was advanced through to t he outer edge of the region of interest from a superior approach utilizing sonographic guidance. A t otal of 4 tissue core samples were obtained through the lesion. An Inrad tissue marker clip was then placed at the biopsy site. Hemostasis was achieved. Left breast: 2:00, 1 cm from the nipple A 10G vacuum-assisted biopsy gun needle was advanced through to the outer edge of the region of interest from a superior approach utilizing sonographic guidance. A total of 4 tissue core samples were obtained through the lesion. An Inrad tissue marker clip was then placed at the biopsy site. Hemostasis was achieved. The patient tolerated procedure well and there was no evidence of immediate complication. The patien t was given verbal instructions partly is from the department. Left breast mammograms to document ti ssue marker clip placement. The tissue samples were submitted to surgical pathology for histologic an alysis. IMPRESSION: 1. Successful ultrasound-guided vacuum-assisted biopsies of left breast masses with post procedure m ammogram for marker placement. Please refer to pathology report for histologic analysis. Reviewed, dictated and finalized at location B. IMPRESSION: 1. Successful ultrasound-guided vacuum-assisted biopsies of left breast masses with post procedure mammogram for marker placement. Please refer to pathology report for histologic analysis. IMPRESSION: 1. Successful ultrasound-guided vacuum-assisted biopsies of left breast masses with post procedure mammogram for marker placement. Please refer to pathology report for histologic analysis.
--- OUTSIDE RECORDS SUMMARY | 2025-01-29 09:18 | XMS_ITS | Clinical Summary ---
Author Organization [facility] Address [address] [place] [address] Care Team Providers Care Tire Retreader Name Role Phone Juliet Guerrero NP Primary Care Provider [phone] Allergies No known active allergies Medications esomeprazole DR (NexIUM) 40 mg capsule Take 1 capsule (40 mg total) by mouth daily before breakfast Active ferrous sulfate 325 mg (65 mg of elemental iron) tablet Take 2 tablets (650 mg total) by mouth daily Active ergocalciferol (VITAMIN D) 50,000 unit capsule TAKE 1 CAPSULE BY MOUTH ONCE WEEKLY DIRECTED FOR 84 DAYS Active fluticasone propionate (FLONASE) 50 mcg/actuation nasal spray Administer 2 sprays into each nostril daily Active azelastine 205.5 mcg (0.15 %) spray,non-aeros olIndications:S easonal allergic rhinitis due to pollen Administer 0.3 mL (2 sprays total) into each nostril 2 (two) times a day 18 mL 3 Active Active Problems Problem Noted Date Diagnosed Date Seasonal allergic rhinitis due to pollen 025 Sensorineural hearing loss (SNHL) of both ears 0 12/22/2024 Deviated nasal septum 12/22/2024 Hypertrophy of both inferior nasal turbinates Encounters Date Type Department Care Team Description 12/22/2024 2:00 PM CDT Office Visit [facility] Otolaryngology [address] [place] [address] Júnior Gonzalez II, MD Seasonal allergic rhinitis due to pollen (Primary Dx); Sensorineural hearing loss (SNHL) of both ears; Deviated nasal septum; Hypertrophy of both inferior nasal turbinates 12/22/2024 1:30 PM CDT Procedure visit [facility] Otolaryngology [address] [place] [address] Nasrin Ruelas Au.D. Fullness in ear, bilateral (Primary Dx) from Last 3 Months Surgical History Surgery Date Site/Laterality Comments CHOLECYSTECTOMY TUBAL LIGATION HYSTERECTOMY Medical History Medical History Date Comments Allergies Anxiety GERD (gastroesophageal reflux disease) Sinusitis Ear problems Tinnitus Dizziness Headache Sleep difficulties Family History Medical History Relation Name Comments Hypertension Father Stroke Father Hypertension Mother Relation Name Status Comments Father Mother Social History Tobacco Use Types Packs/Day Years Used Date Smoking Tobacco: Never Smokeless Tobacco: Never Tobacco Cessation:Counseling Given: Not Answered Comments Unknown Sex and Gender Information Value Date Recorded Sex Assigned at Not on file Legal Sex Female 2:32 PM CDT Gender Identity Not on file Sexual Orientation Not on file Obstetrics History Last Filed Vital Signs Vital Sign Reading Time Taken Comments Blood Pressure 103/58 04/19/2015 11:17 AM CDT Pulse 82 04/19/2015 11:17 AM CDT Temperature 36.6 C (97.9 F) 04/19/2015 11:17 AM CDT Respiratory Rate 17 12/22/2024 2:17 PM CDT Oxygen Saturation 98% 04/19/2015 11:17 AM CDT Inhaled Oxygen Concentration - - Weight 86.2 kg (190 lb) 12/22/2024 2:17 PM CDT Height 170.2 cm (5' 7 ) 12/22/2024 2:17 PM CDT Body Mass Index 29.76 12/22/2024 2:17 PM CDT Plan of Treatment Health Maintenance Due Date Last Done Comments Depression Screening 1980 Hepatitis C Screening 1980 Varicella Vaccines (1 of 2 - 13+ 2-dose series) 1993 Regular Well Visit/Exam 18-64 1998 Pneumococcal vaccine <65 (2 of 2 - PPSV23) 03/11/2001 01/14/2001, 11/14/2000, 09/13/2000 DTaP/Tdap/Td Vaccine (4 - Tdap) 01/14/2011 01/14/2001, 11/14/2000, 09/13/2000 Breast Cancer Screening-Mammogram 10/09/2023 10/09/2022 Influenza Vaccine (Season Ended) 2025 06/16/2023, 05/14/2022, 07/08/2021, Additional history exists Hepatitis B Screening Completed 08/06/2000, 000 HPV Vaccines Aged Out No longer eligi ble based on patient's age to complete this topic Insurance [employer] O[employer] Care Teams Tire Retreader Relationship Specialty Start Date End Date Juliet Guerrero NP [address] [place] [id number] PCP - General Nurse Practitioner 12/08/24
--- OUTSIDE RECORDS SUMMARY | 2025-01-29 09:18 | XMS_ITS | Referral Summary ---
Author Organization [facility] Address [address] [place] [address] Care Team Providers Care Drying Unit Felting Machine Operator Name Role Phone Cesar Juliet CARYN Primary Care Provider [phone] Encounters Date Type Department Care Team Description 12/22/2024 1:30 PM CDT Procedure visit [facility] Otolaryngology [address] [place] [address] Nasrin Ruelas Au.D. Fullness in ear, bilateral (Primary Dx) 12/22/2024 2:00 PM CDT Office Visit [facility] Otolaryngology [address] [place] [address] Júnior Gonzalez II, MD Seasonal allergic rhinitis due to pollen (Primary Dx); Sensorineural hearing loss (SNHL) of both ears; Deviated nasal septum; Hypertrophy of both inferior nasal turbinates from Last 3 Months Allergies No known active allergies Medications esomeprazole DR (NexIUM) 40 mg capsule Take 1 capsule (40 mg total) by mouth daily before breakfast 5 Active ferrous sulfate 325 mg (65 mg [...] 12/22/2024 Hypertrophy of both inferior nasal turbinates Social History Tobacco Use Types Packs/Day Years [...] 12/22/2024 2:17 PM CDT Plan of Treatment Not on file Insurance [employer] O[employer] Care Teams Drying Unit Felting Machine Operator Relationship Specialty Start Date End Date Juliet Guerrero NP [address] [place] [id number] PCP - General Nurse Practitioner 12/08/24
--- OUTSIDE RECORDS SUMMARY | 2025-01-29 09:18 | XMS_ITS | Clinical Summary ---
Author Organization [facility] Address [address] [place] [address] Care Team Providers Care Granite Setter Name Role Phone Haim Bullard Primary Care Provider + Source Comments [facility],non-owned Affiliates and Associated Physician Practices is amultiple site organization consisting of ambulatory clinics and hospital sitesin [place], [place], [place] and [place]. This disclosure is being madepursuant to the Care Everywhere program and may not contain all information available regarding this patient. Last updated [email or web address] [facility] Allergies No known active allergies Medications * Be aware that medications may not be up to date on this document. Alwaysverify current medications with the patient. Fexofenadine HCl (SHANTELL PO) Active diphenhydrAMINE HCl (BENADRYL ALLERGY PO) Active amitriptyline (ELAVIL) 25 MG tablet Take 25 [...] = 0.6 oz pur e alcohol) Socially Comments No Sex and Gender Information Value Date Recorded Sex Assigned at Not on file Legal Sex Female 10:06 AM CDT Gender Identity Not on file Sexual [...] patient's age to complete this topic Insurance [facility] Care Teams Granite Setter Relationship Specialty Start Date End Date Haim Bullard PA [address] [place] [address] PCP - General Physician Resource Program Teacher 07/06/17
--- OUTSIDE RECORDS SUMMARY | 2025-01-29 09:19 | XMS_ITS | CONTINUITY OF CARE DOCUMENT ---
Author Name zeyad jeffers Address Unknown Organization [facility] Address [address] [place] [address] Phone [phone] Care Team Providers Care Contact Lens Technician Name Role Phone Salvatore Toribio MD Unavailable [phone] Nazario [facility]-, Yasmeen Nicolas Unavailable [phone] Nazario MACHINE I COREMAKER-BC, Yasmeen Nicolas Unavailable [phone] PROBLEMS Condition Status Date Provider Notes Vitamin [...] In-person encounter Office Visit Salvatore Toribio MD [facility] - In-person encounter Office Visit Salvatore Toribio MD [facility] Cardiology examinationShortness of breathCOVID-19ObesityLVH - In-person encounter Office Visit Asif Hermosillo MD [facility] Family History of Hypertension:AsthmaAcid reflux diseaseFAMILY HISTORY OF HEART DISEASEPalpitationsChest pain-type to be determined VITAL SIGNS Date Observation Value Provider Body Mass Index (Ratio) 30.98 kg/m2 My scanlon Kiran blood pressure, cuff size large Ta rudi Van blood pressure, diastolic 73 mm[Hg] Ta rudi Van blood pressure, systolic 112 mm[Hg] Dodd [facility] oxygen saturation, oximetry 99 % [facility] respiratory rate E&M 18 /min [facility] pulse rate 110 /min [facility] weight E&M 197.8 [lb_av] [facility] height E&M 67 [in_i] [facility] Body Mass Index (Ratio) 31.63 kg/m2 My [...] Location NT-pro BNP [address] [address] [place] [facility] [address] [place] [address] Eric Orona D.O., MPH vitamin b12, serum [...] cell distribution width, size density 49.4 fL [facility] - immature granulocytes, percentage of total cells, blood 0.1 % [facility] - nucleated red blood cells as percent of blood leukocytes 0.0 % [facility] - red blood cell (erythrocyte) count, per high power field 0.0 10*3/UL [facility] - eosinophils as percent of blood leukocytes 1.8 % [facility] neutrophils as percent of blood leukocytes 54.1 % [facility] - Absolute Neutrophils 3.8 CELLS/UL [facility] 1.5 - 7.8 basophils as percent of blood leukocytes 0.8 % [facility] - Absolute Basophils 0.1 CELLS/UL [facility] 0.0 - 0.2 monocytes as percent of blood leukocytes 7.8 % [facility] - Absolute Monocytes 0.6 CELLS/UL [facility] 0.2 - 1.0 lymphocytes as percent of blood leukocytes 35.4 % [facility] - Absolute Lymphocytes 2.5 CELLS/UL [employer] 0.9 - 3.9 mean platelet volume 10.2 (?) [facility] - platelet count 407.0 THOUSAND/U L [...] Dates Provider Indications Com ments VITAMIN D3 67370 UNIT ORAL TABLET active take 1 tab [...] Coverage type Vesta red constitution party ID [id number] 1 ADVANCE DIRECTIVES Name Date DISCUSSED - NO DECISION MADE TREATMENT PLAN Date Name Performer [id number],C, H er updated medication list for this problem includes: Omeprazole 40 Mg Oral Capsule Delayed Release (Omeprazole) ..... Once daily Alanna Wadechanning [id number],S, W eight loss advised Alanna Pricemargareth [id number],C,T he pt continues to be very symptomatic with SOB and rapid heartbeats with minimal exertion. Myoview scan was normal, echo was normal. CT was negative for PE, however showed bronchal thickening. Insurance denied TcPYP scan. At this time I recommend to have the TcPYP scan done and schedule a cardiac cath. Alanna Beck [id number],C,T he pt continues to be very symptomatic with SOB and rapid heartbeats with minimal exertion. Myoview scan was normal, echo was normal. CT was negative for PE, however showed bronchal thickening. Insurance denied TcPYP scan. At this time I recommend to have the TcPYP scan done and schedule a cardiac cath. Alanna Pricemargareth [id number],C, W eight loss advised Alanna Pricemargareth [id number],C, P t had Covid in 2021. She describes it as mild. Last month she developed SOB with minimal exertion. Chest Xray showed cardiomegaly. Echo showed LVH with diastolic dysfunction. No leg swelling. WE will obtian stress myoview, PFTs, proBNP, and CT PE protocol , and Tc PYP scan. Alanna Kiran [id number],C,P t had Covid in 2021. She describes it as mild. Last month she developed SOB with minimal exertion. Chest Xray showed cardiomegaly. Echo showed LVH with diastolic dysfunction. No leg swelling. WE will obtian stress myoview, PFTs, proBNP, and CT PE protocol , and Tc PYP scan. Alanna Beck [id number],S, Asif cleveland MD [id number],S, Asif cleveland MD [id number],S, H er updated medication list for this problem includes: Omeprazole 40 Mg Oral Cpdr (Omeprazole) ..... Once daily Asif Hermosillo MD [id number],S,n eg xraty, will prop up head of bed H er updated medication list for this problem includes: Ventolin Hfa Aers (Albuterol sulfate aers) ..... Once daily Qvar 40 Mcg/act Inh Aers (Beclomethasone dipropionate) ..... 2 puffs twice daily Asif Hermosillo MD [id number],S,s on hypermobilie and gentetic varant MYH11 GIVING [...] Name PYP Technetium (Amyl oid) DLCO - 19240 FRC - 44238 FVC - 25176 CT Angio Chest (PE P rotocol) Stress [...] PANEL W/EGFR PROBNP, N TERMINAL DLCO - 03028 FRC - 38515 FVC - 70335 HISTORY OF PROCEDURES Procedure Date Procedure Name Provider Procedure Notes S tatus Spirometry Salvatore Toribio MD completed FVC / MVV - 52089 Salvatore Toribio MD com pleted FRC - 63366 Salvatore Toribio MD completed SpO2 w/o 6min walk/titration Salvatore Toribio MD completed SVC - 48762 Salvatore Toribio MD completed DLCO - 56267 Salvatore Toribio MD complete d EKG Salvatore Toribio MD completed BLOOD COUNT HEMOGLOBIN Asif Hermosillo MD completed FVC - 67749 Asif Hermosillo MD complet ed FRC - 40347 Asif Hermosillo MD complet ed DLCO - 40449 Asif Hermosillo MD comple david Stress EKG Salvatore Toribio MD completed Event Monitor Karla Phillip [facility] EKG Asif Hermosillo MD complete d SNOMED-CT: [id number] Current Medications Documented Asif Hermosillo MD completed
== END 2025-01-29 09:17 | disposition home or self-care (01) ==
PROVIDERS: PCP Nurse Practitioner Adult Health; Visit Provider Surgery
DX: N63.25 Unspecified lump in the left breast, overlapping quadrants (principal); N63.21 Unspecified lump in the left breast, upper outer quadrant
CPT/HCPCS: 19083; 19084; 77065; 88305; A4648

== ENCOUNTER 2025-02-04 09:59 | Outpatient (CLI) | payer BC, SELFPAY ==
--- OUTSIDE RECORDS SUMMARY | 2025-02-04 10:07 | XMS_ITS | Referral Summary ---
Author Organization [facility] Address [address] [place] [address] Care Team Providers Care Director Heart Name Role Phone Cesar Juliet CARYN Primary Care Provider [phone] Encounters Date Type Department Care Team Description 12/22/2024 1:30 PM CDT Procedure visit [facility] Otolaryngology [address] [place] [address] Nasrin Ruelas Au.D. Fullness in ear, bilateral (Primary Dx) 12/22/2024 2:00 PM CDT Office Visit [facility] Otolaryngology [address] [place] [address] Júnior Gonzalez II, MD Seasonal allergic [...] 2:17 PM CDT Height 170.2 cm (5' 7) 12/22/2024 2:17 PM CDT Body Mass Index 29.76 12/22/2024 2:17 PM CDT Plan of Treatment Not on file Insurance [employer] OOS Care Teams Director Heart Relationship Specialty Start Date End Date Juliet Guerrero NP [address] [place] [place] [id number] PCP - General Nurse Practitioner 12/08/24
--- OUTSIDE RECORDS SUMMARY | 2025-02-04 10:07 | XMS_ITS | Clinical Summary ---
Author Organization [facility] Address [address] [place] [address] Care Team Providers Care Camera Person Name Role Phone Haim Bullard Primary Care Provider + Source Comments [facility],non-owned Affiliates and Associated Physician Practices is amultiple site organization consisting of ambulatory clinics and hospital sitesin [place], [place], [place] and [place]. This disclosure is being madepursuant to the Care Everywhere program and may not contain all information available regarding this patient. Last updated [employer] [facility] Allergies No known active allergies Medications * [...] 6:02 PM CDT Height 171.5 cm (5' 7.5) 03/26/2019 6:02 PM CDT Body Mass Index [...] patient's age to complete this topic Insurance [facility] Care Teams Camera Person Relationship Specialty Start Date End Date Haim Bullard PA [address] [place] [address] PCP - General Physician Underwear Finisher 07/06/17
--- OUTSIDE RECORDS SUMMARY | 2025-02-04 10:07 | XMS_ITS | Clinical Summary ---
Author Organization [facility] Address [address] [place] [address] Care Team Providers Care Ortho Nurse Name Role Phone Juliet Guerrero NP Primary Care Provider [phone] Allergies No known active allergies Medications esomeprazole [...] Description 12/22/2024 2:00 PM CDT Office Visit [facility] Otolaryngology [address] [place] [address] Júnior Gonzalez II, MD Seasonal allergic rhinitis due to pollen (Primary Dx); Sensorineural hearing loss (SNHL) of both ears; Deviated nasal septum; Hypertrophy of both inferior nasal turbinates 12/22/2024 1:30 PM CDT Procedure visit [facility] Otolaryngology [address] [place] [address] Nasrin Ruelas Au.D. Fullness in [...] patient's age to complete this topic Insurance [employer] OOS Care Teams Ortho Nurse Relationship Specialty Start Date End Date Juliet Guerrero NP [address] [place] [id number] PCP - General Nurse Practitioner 12/08/24
--- OUTSIDE RECORDS SUMMARY | 2025-02-04 10:08 | XMS_ITS | CONTINUITY OF CARE DOCUMENT ---
Author Name zeyad jeffers Address Unknown Organization [facility] Address [address] [place] [address] Phone [phone] Care Team Providers Care Hooker Up Name Role Phone Salvatore Toribio MD Unavailable [phone] Nazario [facility], Yasmeen Nicolas Unavailable [phone] Nazario CHRISTIAN SCIENCE READER-BC, Yasmeen Nicolas Unavailable PROBLEMS Condition Status Date Provider Notes Vitamin D deficiency active Asif Melendrez LVH active Alanna Pricemeyer Obesity active Salvatore Toribio MD COVID-19 active [...] In-person encounter Office Visit Salvatore Toribio MD [facility] - In-person encounter Office Visit Salvatore Toribio MD [facility] Cardiology examinationShortness of breathCOVID-19ObesityLVH - In-person encounter Office Visit Asif Hermosillo MD [facility] Family History of Hypertension:AsthmaAcid reflux diseaseFAMILY HISTORY OF HEART DISEASEPalpitationsChest pain-type to be determined VITAL SIGNS Date Observation Value Provider Body Mass Index (Ratio) 30.98 kg/m2 My scanlon Kiran blood pressure, cuff size large Ta urdi Van blood pressure, diastolic 73 mm[Hg] Ta rudi Van blood pressure, systolic 112 mm[Hg] Dodd [facility] oxygen saturation, oximetry 99 % [facility] respiratory rate E&M 18 /min [facility] pulse rate 110 /min [facility] weight E&M 197.8 [lb_av] [facility] height E&M 67 [in_i] [facility] Body Mass Index (Ratio) 31.63 kg/m2 [...] Location NT-pro BNP [address] [place] [facility] [address] [place] [address] Eric Orona D.O., MPH vitamin b12, serum [...] cell distribution width, size density 49.4 fL [facility] - immature granulocytes, percentage of total cells, blood 0.1 % [facility] - nucleated red blood cells as percent of blood leukocytes 0.0 % [facility] - red blood cell (erythrocyte) count, per high power field 0.0 10*3/UL [facility] - eosinophils as percent of blood leukocytes 1.8 % [facility] - neutrophils as percent of blood leukocytes 54.1 % [facility] Absolute Neutrophils 3.8 CELLS/UL [employer] 1.5 - 7.8 basophils as percent of blood leukocytes 0.8 % [facility] - Absolute Basophils 0.1 CELLS/UL [employer] 0.0 - 0.2 monocytes as percent of blood leukocytes 7.8 % [employer] - Absolute Monocytes 0.6 CELLS/UL [employer] 0.2 - 1.0 lymphocytes as percent of blood leukocytes 35.4 % [facility] - Absolute Lymphocytes 2.5 CELLS/UL [employer] 0.9 - 3.9 mean platelet volume 10.2 (?) [facility] - platelet count 407.0 THOUSAND/U L [...] Dates Provider Indications Com ments VITAMIN D3 17557 UNIT ORAL TABLET active take 1 tab [...] Policy type / Coverage type Vesta red alliance party ID [id number] 1 ADVANCE DIRECTIVES Name Date DISCUSSED - NO DECISION MADE TREATMENT PLAN Date Name Performer [id number],C, H er updated medication list for this problem includes: Omeprazole 40 Mg Oral Capsule Delayed Release (Omeprazole) ..... Once daily Alanna Wadechanning [id number],S, W eight loss advised Alanna Pricemargareth [id number],C,T he pt continues to be very symptomatic with SOB and rapid heartbeats with minimal exertion. Myoview scan was normal, echo was normal. CT was negative for PE, however showed bronchal thickening. Insurance denied TcPYP scan. At this time I recommend to have the TcPYP scan done and schedule a cardiac cath. Alanna Beck [id number],C,T he pt continues to be very symptomatic with SOB and rapid heartbeats with minimal exertion. Myoview scan was normal, echo was normal. CT was negative for PE, however showed bronchal thickening. Insurance denied TcPYP scan. At this time I recommend to have the TcPYP scan done and schedule a cardiac cath. Alanna Pricemargareth [id number],C, W eight loss advised Alanna Pricemargareth [id number],C, P t had Covid in 2021. She describes it as mild. Last month she developed SOB with minimal exertion. Chest Xray showed cardiomegaly. Echo showed LVH with diastolic dysfunction. No leg swelling. WE will obtian stress myoview, PFTs, proBNP, and CT PE protocol , and Tc PYP scan. Alanna Kiran [id number],C,P t had Covid in 2021. She describes it as mild. Last month she developed SOB with minimal exertion. Chest Xray showed cardiomegaly. Echo showed LVH with diastolic dysfunction. No leg swelling. WE will obtian stress myoview, PFTs, proBNP, and CT PE protocol , and Tc PYP scan. Alanna Beck [id number],S, Asif cleveland MD [id number],S, Asif cleveland MD [id number],S, H er updated medication list for this problem includes: Omeprazole 40 Mg Oral Cpdr (Omeprazole) ..... Once daily Asif Hermosillo MD [id number],S,n eg xraty, will prop up head of bed H er updated medication list for this problem includes: Ventolin Hfa Aers (Albuterol sulfate aers) ..... Once daily Qvar 40 Mcg/act Inh Aers (Beclomethasone dipropionate) ..... 2 puffs twice daily Asif Hermosillo MD [id number],S,s on hypermobilie and gentetic varant MYH11 GIVING [...] Name PYP Technetium (Amyl oid) DLCO - 16511 FRC - 17270 FVC - 78139 CT Angio Chest (PE P rotocol) Stress [...] PANEL W/EGFR PROBNP, N TERMINAL DLCO - 98307 FRC - 30245 FVC - 13902 HISTORY OF PROCEDURES Procedure Date Procedure Name Provider Procedure Notes S tatus Spirometry Salvatore Toribio MD completed FVC / MVV - 81722 Salvatore Toribio MD com pleted FRC - 18710 Salvatore Toribio MD completed SpO2 w/o 6min walk/titration Salvatore Toribio MD completed SVC - 64305 Salvatore Toribio MD completed DLCO - 02580 Salvatore Toribio MD complete d EKG Salvatore Toribio MD completed BLOOD COUNT HEMOGLOBIN Asif Hermosillo MD completed FVC - 46024 Asif Hermosillo MD complet ed FRC - 22648 Asif Hermosillo MD complet ed DLCO - 42385 Asif Hermosillo MD comple david Stress EKG Salvatore Toribio MD completed Event Monitor Karla Phillip [facility] EKG Asif Hermosillo MD complete d SNOMED-CT: [id number] Current Medications Documented Asif Hermosillo MD completed
== END 2025-02-04 10:00 | disposition home or self-care (01) ==
LOC: ANHBWCIMG 10:01
PROVIDERS: PCP Nurse Practitioner Adult Health; Visit Provider Nurse Practitioner Adult Health
DX: M25.562 Pain in left knee (principal); M25.561 Pain in right knee
CPT/HCPCS: 73562

== ENCOUNTER 2025-03-19 09:53 | Outpatient (CLI) | payer BC, SELFPAY ==
--- OUTSIDE RECORDS SUMMARY | 2025-03-19 10:01 | XMS_ITS | Clinical Summary ---
Author Organization [facility] Address [address] [place] [address] Care Team Providers Care Master Fire Control Technician Name Role Phone Juliet Guerrero NP Primary Care Provider [phone] Allergies No known active allergies Medications esomeprazole [...] Description 12/22/2024 2:00 PM CDT Office Visit [facility] Otolaryngology [address] [place] [address] Júnior Gonzalez II, MD Seasonal allergic rhinitis due to pollen (Primary Dx); Sensorineural hearing loss (SNHL) of both ears; Deviated nasal septum; Hypertrophy of both inferior nasal turbinates 12/22/2024 1:30 PM CDT Procedure visit [facility] Otolaryngology [address] [place] [address] Nasrin Ruelas Au.D. Fullness in [...] Breast Cancer Screening-Mammogram 10/09/2023 10/09/2022 Influenza Vaccine (#1) 2025 , 05/14/2022, 07/08/2021, Additional history exists Hepatitis B Screening Completed 08/06/2000, 000 HPV Vaccines Aged Out No longer eligi ble based on patient's age to complete this topic Insurance [employer] OOS Care Teams Master Fire Control Technician Relationship Specialty Start Date End Date Juliet Guerrero NP [address] [place] [address] PCP - General Nurse Practitioner 12/08/24
--- OUTSIDE RECORDS SUMMARY | 2025-03-19 10:01 | XMS_ITS | Referral Summary ---
Author Organization [facility] Address [address] [place] [address] Care Team Providers Care Carbide Powder Processor Name Role Phone Cesar Juliet CARYN Primary Care Provider [phone] Encounters Date Type Department Care Team Description 12/22/2024 1:30 PM CDT Procedure visit [facility] Otolaryngology [address] [place] [address] Nasrin Ruelas Au.D. Fullness in ear, bilateral (Primary Dx) 12/22/2024 2:00 PM CDT Office Visit [facility] Otolaryngology [address] [place] [address] Júnior Gonzalez II, MD Seasonal allergic [...] Plan of Treatment Not on file Insurance [employer] OOS Care Teams Carbide Powder Processor Relationship Specialty Start Date End Date Juliet Guerrero NP [address] [place] [id number] PCP - General Nurse Practitioner 12/08/24
--- OUTSIDE RECORDS SUMMARY | 2025-03-19 10:01 | XMS_ITS | Clinical Summary ---
Author Organization [facility] Address [address] [place] [address] Care Team Providers Care Barrow Worker Name Role Phone Haim Bullard Primary Care Provider + Source Comments [facility],non-owned Affiliates and Associated Physician Practices is amultiple site organization consisting of ambulatory clinics and hospital sitesin [place], [place], [place] and [place]. This disclosure is being madepursuant to the Care Everywhere program and may not contain all information available regarding this patient. Last updated 18.[employer] [facility] Allergies No known active allergies Medications * [...] Done Comments LIPID TESTING 1980 MAMMOGRAM 1980 HIV SCREENING 1995 HEPATITIS C SCREENING 06/07/1998 DTAP/TDAP/TD VACCINES (1 - Tdap) 1999 HEPATITIS B VACCINE (1 of 3 - 19+ 3-dose series) 1999 PAP SMEAR 2001 COVID-19 VACCINE (1 - 2023-2 5 season) [...] patient's age to complete this topic Insurance [facility] BCBS/BLUE BLUE [place] SELF PAY NO INSURANCE Member Subscriber Plan / Payer (Ef fective for All Dates) Name:Aung Wilkins Member ID:Not on file Relation to Subscriber:Not on file Subscriber ID:Not on file Payer ID:Not on file Group ID:Not on file Type:Self Pay Address: [place], [place] BCBS/[place] BLUE [place] BL[place] SELF PAY NO INSURANCE Member Subscriber Plan / Payer (Ef fective for All Dates) Name:Aung Wilkins Member ID:Not on file Relation to Subscriber:Not on file Subscriber ID:Not on file Payer ID:Not on file Group ID:Not on file Type:Self Pay Address: [place], [place] BCBS/[place] SELF PAY NO INSURANCE Member Subscriber Plan / Payer (Ef fective for All Dates) Name:Aung Wilkins Member ID:Not on file Relation to Subscriber:Not on file Subscriber ID:Not on file Payer ID:Not on file Group ID:Not on file Type:Self Pay Address: [place], [place] Care Teams Barrow Worker Relationship Specialty Start Date End Date Haim Bullard PA [address] [place] [phone] PCP - General Physician Telephone Technician 07/06/17
[2025-03-19 11:02] LABS: Thyroid Stimulating Hormone 1.620 uIU/mL (0.465-4.680)
== END 2025-03-19 09:54 | disposition home or self-care (01) ==
LOC: ANHLAB 09:54
PROVIDERS: PCP Nurse Practitioner Adult Health; Visit Provider Student in an Organized Health Care Education/Training Program
DX: N95.1 Menopausal and female climacteric states (principal)
CPT/HCPCS: 36415; 83001; 84443

== ENCOUNTER 2025-04-02 11:17 | Outpatient (CLI) | payer BC, SELFPAY ==
--- NOTE | ~2025-04-02 | US_ITS ---
US soft tissue upper back 04/02/2025 11:28 Indication: Palpable abnormality mid upper back Procedure: Ultrasound mid upper back Comparison: No prior studies for comparison. Findings: Normal heterogeneous soft tissues in the area of palpable concern without discrete mass. No abnormal fluid collections. Impression: 1: Normal limited soft tissue ultrasound of the area palpable concern without discrete abnormality. Reviewed, dictated and finalized at location A. Impression: 1: Normal limited soft tissue ultrasound of the area palpable concern without d iscrete abnormality.
== END 2025-04-02 11:18 | disposition home or self-care (01) ==
LOC: MICIMG 11:18
PROVIDERS: PCP Nurse Practitioner Adult Health; Visit Provider Nurse Practitioner Adult Health
DX: D17.9 Benign lipomatous neoplasm, unspecified (principal)
CPT/HCPCS: 76604

== ENCOUNTER 2025-04-07 09:09 | Outpatient (CLI) | payer BC, SELFPAY ==
--- OUTSIDE RECORDS SUMMARY | 2025-04-07 09:18 | XMS_ITS | Patient Health Record ---
Author Organization [facility] [employer] Address [address] [facility] [address] [place] [address] Care Team Providers Care Engineer Second Assistant Name Role Phone Claudio Wynne Unavailable [phone] Reason For Referral No Information Plan Of Treatment No Information
--- OUTSIDE RECORDS SUMMARY | 2025-04-07 09:18 | XMS_ITS | Referral Summary ---
Author Organization [facility] Address [address] [place] [address] Care Team Providers Care Furniture Rental Consultant Name Role Phone Juliet Guerrero NP Primary Care Provider Allergies No known active allergies Medications esomeprazole [...] Plan of Treatment Not on file Insurance [employer] OOS Care Teams Furniture Rental Consultant Relationship Specialty Start Date End Date Juliet Guerrero NP [address] [place] [address] PCP - General Nurse Practitioner 12/08/24
--- OUTSIDE RECORDS SUMMARY | 2025-04-07 09:18 | XMS_ITS | Clinical Summary ---
Author Organization [facility] Address [address] [place] [address] Care Team Providers Care Aircraft Tool Maker Name Role Phone Juliet Guerrero NP Primary Care Provider [phone] Allergies No known active allergies Medications esomeprazole [...] (two) times a day 18 mL 3 5 Active Active Problems Problem Noted Date Diagnosed Date Seasonal allergic rhinitis due to pollen 025 Sensorineural hearing loss (SNHL) of both ears 0 12/22/2024 Deviated nasal septum 12/22/2024 Hypertrophy of both inferior nasal turbinates Surgical History Surgery Date Site/Laterality Comments CHOLECYSTECTOMY [...] 2 - PPSV23) 03/11/2001 01/14/2001, 11/14/2000, 09/13/2000 HPV Vaccines (1 - 3-dose SCD M series) 2007 DTaP/Tdap/Td Vaccine (4 - Tdap) 01/14/2011 01/14/2001, 11/14/2000, 09/13/2000 Breast Cancer Screening-Mammogram 10/09/2023 023 Influenza Vaccine (#1) 2025 3, 05/14/2022, 07/08/2021, Additional history exists Hepatitis B Screening Completed 08/06/2000, 000 Insurance [employer] OOS Care Teams Aircraft Tool Maker Relationship Specialty Start Date End Date Juliet Guerrero NP [address] [place] [address] PCP - General Nurse Practitioner 12/08/24
--- OUTSIDE RECORDS SUMMARY | 2025-04-07 09:18 | XMS_ITS | Clinical Summary ---
Author Organization [facility] Address [address] [place] [address] Care Team Providers Care Rug Scratcher Name Role Phone Haim Bullard Primary Care Provider + Source Comments [facility],non-owned Affiliates and Associated Physician Practices is amultiple site organization consisting of ambulatory clinics and hospital sitesin [place], [place], [place] and [place]. This disclosure is being madepursuant to the Care Everywhere program and may not contain all information available regarding this patient. Last updated 18.[employer] [facility] Allergies No known active allergies Medications [...] 19+ 3-dose series) 1999 PAP SMEAR 2001 HPV VACCINE (1 - 3-dose SCDM series) 2007 COVID-19 VACCINE ( - 2023-2 5 season) 2024 DEPRESSION SCREENING 09/10/2024 INFLUENZA VACCINE (#1) 2025 ZOSTER VACCINE (1 of 2) 2030 [...] patient's age to complete this topic Insurance [employer] BCBS/[place] SELF [place] NO INSURANCE Member Subscriber Plan / Payer (Ef fective for All Dates) Name:Aung Wilkins Member ID:Not on file Relation to Subscriber:Not on file Subscriber ID:Not on file Payer ID:Not on file Group ID:Not on file Type:Self Pay Address: [place], [place] BCBS/BL[employer] [employer] [place] SELF [place]Y NO INSURANCE Member Subscriber Plan / Payer (Ef fective for All Dates) Name:Aung Wilkins Member ID:Not on file Relation to Subscriber:Not on file Subscriber ID:Not on file Payer ID:Not on file Group ID:Not on file Type:Self Pay Address: [place], [place] BCBS/[place] [place] SELF PAY NO INSURANCE Member Subscriber Plan / Payer (Ef fective for All Dates) Name:Aung Wilkins Member ID:Not on file Relation to Subscriber:Not on file Subscriber ID:Not on file Payer ID:Not on file Group ID:Not on file Type:Self Pay Address: [place], [place] Care Teams Rug Scratcher Relationship Specialty Start Date End Date Haim Bullard PA [address] [place] [phone] PCP - General Physician Beef Grinder 07/06/17
[2025-04-07 19:43] LABS: Iron 94 ug/dL (37-170)
[2025-04-07 19:52] LABS: Percent Iron Saturation 30 % (20-50)
[2025-04-07 20:27] LABS: Vitamin B12 836.0 pg/mL (239-931)
[2025-04-07 20:30] LABS: Ferritin 65.70 ng/mL (6.24-137)
== END 2025-04-07 09:10 | disposition home or self-care (01) ==
LOC: ANHBWCLAB 09:10
PROVIDERS: PCP Nurse Practitioner Adult Health; Visit Provider Nurse Practitioner Adult Health
DX: R79.89 Other specified abnormal findings of blood chemistry (principal); R53.83 Other fatigue; Z13.9 Encounter for screening, unspecified
CPT/HCPCS: 36415; 82306; 82607; 82728; 83540; 83550; 85652

== ENCOUNTER 2025-06-22 09:17 | Outpatient (CLI) | payer BC, SELFPAY ==
--- OUTSIDE RECORDS SUMMARY | 2025-06-22 09:48 | XMS_ITS | Clinical Summary ---
Author Organization [facility] [employer] Address [address] [facility] [place] [address] Care Team Providers Care Cigar Head Holer Name Role Phone Haim Bullard Primary Care Provider + Source Comments [facility] [employer],non-owned Affiliates and Associated Physician Practices is amultiple site organization consisting of ambulatory clinics and hospital sitesin [place], [place]. This disclosure is being madepursuant to the Care Everywhere program and may not contain all information available regarding this patient. Last updated 05/31/18.24/7 [employer] Allergies No known active allergies Medications * [...] Health Maintenance Due Date Last Done Comments COLOGUARD (AGES 45-75) - COL ON CA SCREENING 1980 COLON MONITORING 1980 COLONOSCOPY - COLON CA SCREENING 1980 CT COLONOGRAPHY - COLON CA SCREENING 1980 Colorectal Cancer Screening 1980 FIT - COLON CA SCREENING 1980 FLEX SIG - COLON CA SCREENING 1980 LIPID TESTING 1980 MAMMOGRAM 1980 HIV SCREENING 1995 HEPATITIS C SCREENING 06/07/1998 DTAP/TDAP/TD VACCINES (1 - Tdap) 1999 HEPATITIS B VACCINE (1 of 3 - 19+ 3-dose series) 1999 PAP SMEAR 2001 HPV VACCINE (1 - 3-dose SCDM series) 2007 DEPRESSION SCREENING 09/10/2024 COVID-19 VACCINE (1 - 4-2 5 season) 2025 INFLUENZA VACCINE (#1) 2025 ZOSTER VACCINE (1 [...] patient's age to complete this topic Insurance [employer] BCBS/[place]UE BLUE [place] SELF [place] NO INSURANCE Member Subscriber Plan / Payer (Ef fective for All Dates) Name:Aung Wilkins Member ID:Not on file Relation to Subscriber:Not on file Subscriber ID:Not on file Payer ID:Not on file Group ID:Not on file Type:Self Pay Address: [place], [place] BCBS/[place]UE [employer] [place] SELF [place] NO INSURANCE Member Subscriber Plan / Payer (Ef fective for All Dates) Name:Aung Wilkins Member ID:Not on file Relation to Subscriber:Not on file Subscriber ID:Not on file Payer ID:Not on file Group ID:Not on file Type:Self Pay Address: [place], [place] BC/[facility] [place] SELF PAY NO INSURANCE Member Subscriber Plan / Payer (Ef fective for All Dates) Name:Aung Wilkins Member ID:Not on file Relation to Subscriber:Not on file Subscriber ID:Not on file Payer ID:Not on file Group ID:Not on file Type:Self Pay Address: [place], [place] Care Teams Cigar Head Holer Relationship Specialty [place] [address] [place] [phone] PCP - General Physician Rail Engineer 07/06/17
--- OUTSIDE RECORDS SUMMARY | 2025-06-22 09:48 | XMS_ITS | Clinical Summary ---
Author Organization [facility] Address [address] [place] [address] Care Team Providers Care Laborer Egg Producing Farm Name Role Phone Juliet Guerrero NP Primary Care Provider [phone] Allergies No known active allergies Medications esomeprazole [...] Health Maintenance Due Date Last Done Comments Colon Cancer Screening-Colonoscopy 1980 Depression Screening 1980 Hepatitis C Screening 1980 Varicella Vaccines (1 of 2 - 13+ 2-dose series) 1993 Regular Well Visit/Exam 18-64 1998 Pneumococcal vaccine <65 (2 of 2 - PPSV23, PCV20, or PCV21) 03/11/2001 01/14/2001, 11/14/2000, 09/13/2000 HPV Vaccines (1 - 3-dose SCD M series) 2007 DTaP/Tdap/Td Vaccine (4 - Tdap) 01/14/2011 01/14/2001, 11/14/2000, 09/13/2000 Breast Cancer Screening-Mammogram 10/09/2023 023 Influenza Vaccine (#1) 2025 3, 05/14/2022, 07/08/2021, Additional history exists Hepatitis B Screening Completed 08/06/2000, 000 Insurance [employer] OOS Care Teams Laborer Egg Producing Farm Relationship Specialty Start Date End Date Juliet Guerrero NP [address] [place] [id number] PCP - General Nurse Practitioner 12/08/24
--- OUTSIDE RECORDS SUMMARY | 2025-06-22 09:49 | XMS_ITS | Data Portability ---
Author Organization [facility] [employer], Main Office Address [address] [place] [address] Care Team Providers Care Commissions Manager Name Role Phone JM DE LEON Primary Care Provider HAWA, PFIEFER Planning Official [phone] HAWA, PFIEFER Planning Official [phone] AHWA, PFIEFER Planning Official [phone] Assessment No assessment recorded. Plan of Treatment Reminders Order Date Submit Date Provider Last Modified By Organization Details Last Modified Time Details Appointments None recorded. Lab CBC w/ auto diff 2023 024 [facility] (Lab), [address] [place], [address], 4 18:36:35 iron + total iron-bindin g capacity (TIBC), serum 2023 024 [facility] (Lab), [address] [place], [address], 4 18:36:35 ferritin, serum or plasma 2023 024 [facility] (Lab), [address] [place], [address], 4 18:36:35 vitamin B12 + folate, serum or blood 2023 024 [facility] (Lab), [address] [place], [address], 4 18:36:35 lipid panel, serum 2022 023 [facility] (Lab), [address] [place], [address], 22:43:13 TSH, serum or plasma 2022 023 [facility] (Lab), [address] [place], [address], 22:47:36 CBC w/ auto diff 2022 023 [facility] (Lab), [address] [place], [address], 20:32:42 CMP, serum or plasma 2022 023 [facility] (Lab), [address] [place], [address], 22:43:08 glycohemogl obin, total, blood 2022 023 [facility] (Lab), [address] [place], [address], 21:27:50 Referral gastroenter ologist referral - Please call patient to schedule an appointment . Thank you. [address] - Gastroenterol ogy, [address], [address], [place], [address], 4 18:40:49 criminal records technician referral 2022 023 [email or web address] 3 Martine Schneider MD, [address] [place], [address], 3 09:02:42 Procedures None recorded. Surgeries None recorded. Imaging XR, chest, 2 view 2023 024 [facility], [address], [place], [address], 4 10:28:03 MAMMO, screening, digital, bilateral - *Please call pt to schedule* 2022 [email or web address] [place] [address] - Breast Ctr, [address], [address], [place], [address], 4 09:10:29 Medication Orders ergocalcife rol (vitamin D2) 1,250 mcg (50,000 unit) capsule 2023 024 [facility]/Pharmacy #[id number], [address], [place], [address], 4 11:23:47 hydroxyzine HCl 25 mg tablet 2023 024 [facility]/Pharmacy #[id number], [address], [place], [address], 4 11:41:32 triamcinolo ne acetonide 40 mg/mL suspension for injection 2023 024 Not available 4 11:29:13 betamethaso ne acetate and sodium phos 6 mg/mL suspension for injection 2023 024 Not available 4 11:32:34 Airsupra 90 mcg-80 mcg/actuati on HFA aerosol inhaler 2023 024 [facility]/Pharmacy #[id number], [address], [place], [address], 4 09:22:41 ergocalcife rol (vitamin D2) 1,250 mcg (50,000 unit) capsule 2023 024 [facility]/Pharmacy #[id number], [address], [place], [address], 4 09:22:41 omeprazole 40 mg capsule,del ayed release 2023 024 [facility]/Pharmacy #[id number], [address], [place], [address], 09:22:40 Patient TargetsNo targets recorded. Patient Instructions Encounter Date Encounter Id Patient Instructions Last Modified By Organization Details Last Modified Time 07/10/2023 [id number] wellness after 07/11/24 6 mo fu anxiety, gerd, asthma, allergies around january 2024. [email or web address] Not available 07/10/2023 09:41:20 Reason for Referral Director Ship Referral for Aller gy to food Referring Physician: Yasmeen De Jesus, Family Medicine, Encounter Date: 07/10/2023 Electric Wirer Referral for Family history of cancer of [...] Care in Diabe helena(A DA). Not Available [facility] [address] [address] [place], [address], 01/18/2022 04:55:10 01/18/20 22 01/18/2022 VITAM IN [...] /MS is recom noe d: order code 38005 (juan carlos ents >2yrs ). See Note 1 Note 1 For addit ional infor petra schmitz refer to http: //antoine flores.Silvio stDia gnost ics.c om/fa q/FAQ 199 (This link is being provi ded for infor cassie fernandez/ douglas bro purpo ses only. ) Not Available [facility] [address], [place], [address], 01/18/2022 04:55:10 01/18/20 22 01/18/2022 TSH W/REF ABRAN TO FT4 TSH w/reflex to FT4 1.75 mIU/L normal Refer ence Range > or = 20 Years 0.40- 4.50 Pregn angelita Range s First trime ster 0.26- 2.66 Secon d trime ster 0.55- 2.73 Third trime ster 0.43- 2.91 Not Available [facility] [address], [place], [address], 01/18/2022 04:55:09 01/18/20 22 01/18/2022 VITAM IN B12/F OLATE , SERUM PANEL vitamin B12 634 pg/mL 200-11 00 normal Not Available [address], [address], 01/18/2022 04:55:08 01/18/20 22 01/18/2022 VITAM IN B12/F OLATE , SERUM PANEL folate, serum 19.0 NG/mL normal Refer ence Range Low: <3.4 Borde rline : 3.4-5 .4 Carmen l: >5.4 Not Available [address], [address], 01/18/2022 04:55:08 01/18/20 22 01/18/2022 CBC (INCL UDES DIFF/ PLT) white blood cell count 8.3 thous and/u L 3.8-10 .8 normal Not Available [address], [address], 01/18/2022 04:55:08 01/18/20 22 01/18/2022 CBC (INCL UDES DIFF/ PLT) red blood cell count 4.28 abel on/uL 3.80-5 .10 normal Not Available [address], [address], 01/18/2022 04:55:08 01/18/20 22 01/18/2022 CBC (INCL UDES DIFF/ PLT) hemoglobin 11.9 g/dL 11.7-1 5.5 normal Not Available [address], [address], 01/18/2022 04:55:08 01/18/20 22 01/18/2022 CBC (INCL UDES DIFF/ PLT) hematocrit 37.2 % 35.0-4 5.0 normal Not Available [address], [address], 01/18/2022 04:55:08 01/18/20 22 01/18/2022 CBC (INCL UDES DIFF/ PLT) MCV 86.9 fL 80.0-1 00.0 normal Not Available [address], [address], 01/18/2022 04:55:08 01/18/20 22 01/18/2022 CBC (INCL UDES DIFF/ PLT) MCH 27.8 pg 27.0-3 3.0 normal Not Available [address], [address], 01/18/2022 04:55:08 01/18/20 22 01/18/2022 CBC (INCL UDES DIFF/ PLT) MCHC 32.0 g/dL 32.0-3 6.0 normal Not Available [address], [address], 01/18/2022 04:55:08 01/18/20 22 01/18/2022 CBC (INCL UDES DIFF/ PLT) RDW 13.4 % 11.0-1 5.0 normal Not Available [address], [address], 01/18/2022 04:55:08 01/18/20 22 01/18/2022 CBC (INCL UDES DIFF/ PLT) platelet count 442 thous and/u L 140-40 0 high Not Available [address], [address], 01/18/2022 04:55:08 01/18/20 22 01/18/2022 CBC (INCL UDES DIFF/ PLT) MPV 10.0 fL 7.5-12 .5 normal Not Available [facility] [address], [address], 01/18/2022 04:55:08 01/18/20 22 01/18/2022 CBC (INCL UDES DIFF/ PLT) absolute neutrophils 4723 cells /uL 1500-7 800 normal Not Available [facility] [address], [address], 01/18/2022 04:55:08 01/18/20 22 01/18/2022 CBC (INCL UDES DIFF/ PLT) absolute lymphocytes 2673 cells /uL 850-39 00 normal Not Available [address], [address], 01/18/2022 04:55:08 01/18/20 22 01/18/2022 CBC (INCL UDES DIFF/ PLT) absolute monocytes 664 cells /uL 200-95 0 normal Not Available [facility] [address], [address], 01/18/2022 04:55:08 01/18/20 22 01/18/2022 CBC (INCL UDES DIFF/ PLT) absolute eosinophils 174 cells /uL 15-500 normal Not Available [address], [address], 01/18/2022 04:55:08 01/18/20 22 01/18/2022 CBC (INCL UDES DIFF/ PLT) absolute basophils 66 cells /uL 0-200 normal Not Available [facility] [address], [address], 01/18/2022 04:55:08 01/18/20 22 01/18/2022 CBC (INCL UDES DIFF/ PLT) neutrophils 56.9 % normal Not Available [address], [address], 01/18/2022 04:55:08 01/18/20 22 01/18/2022 CBC (INCL UDES DIFF/ PLT) lymphocytes 32.2 % normal Not Available [address], [address], 01/18/2022 04:55:08 01/18/20 22 01/18/2022 CBC (INCL UDES DIFF/ PLT) monocytes 8.0 % normal Not Available [facility] [address] [place], [address], 01/18/2022 04:55:08 01/18/20 22 01/18/2022 CBC (INCL UDES DIFF/ PLT) eosinophils 2.1 % normal Not Available [address], [address], 01/18/2022 04:55:08 01/18/20 22 01/18/2022 CBC (INCL UDES DIFF/ PLT) basophils 0.8 % normal Not Available [address], [address], 01/18/2022 04:55:08 01/18/20 22 01/18/2022 COMPR EHENS POLO METAB OLIC PANEL glucose 84 mg/dL 65-99 normal Fasti ng refer ence inter olga Not Available [address], [address], 01/18/2022 04:55:08 01/18/20 22 01/18/2022 COMPR EHENS POLO METAB OLIC PANEL urea nitrogen (BUN) 10 mg/dL 7-25 normal Not Available [address], [address], 01/18/2022 04:55:08 01/18/20 22 01/18/2022 COMPR EHENS POLO METAB OLIC PANEL creatinine 0.83 mg/dL 0.50-1 .10 normal Not Available [address], [address], 01/18/2022 04:55:08 01/18/20 22 01/18/2022 COMPR EHENS POLO METAB OLIC PANEL eGFR non-afr. qatari 88 mL/mi n/1.7 3m2 > or = 60 normal Not Available [address], [address], 01/18/2022 04:55:08 01/18/20 22 01/18/2022 COMPR EHENS POLO METAB OLIC PANEL eGFR 102 mL/mi n/1.7 3m2 > or = 60 normal Not Available [address], [address], 01/18/2022 04:55:08 01/18/20 22 01/18/2022 COMPR EHENS POLO METAB OLIC PANEL BUN/creatini ne ratio not applic able (calc ) 6-22 Not Available [address], [address], 01/18/2022 04:55:08 01/18/20 22 01/18/2022 COMPR EHENS POLO METAB OLIC PANEL sodium 139 mmol/ L 135-14 6 normal Not Available [address], [address], 01/18/2022 04:55:08 01/18/20 22 01/18/2022 COMPR EHENS POLO METAB OLIC PANEL potassium 4.1 mmol/ L 3.5-5. 3 normal Not Available [address], [address], 01/18/2022 04:55:08 01/18/20 22 01/18/2022 COMPR EHENS POLO METAB OLIC PANEL chloride 106 mmol/ L 98-110 normal Not Available [address], [address], 01/18/2022 04:55:08 01/18/20 22 01/18/2022 COMPR EHENS POLO METAB OLIC PANEL carbon dioxide 25 mmol/ L 20-32 normal Not Available [address], [address], 01/18/2022 04:55:08 01/18/20 22 01/18/2022 COMPR EHENS POLO METAB OLIC PANEL calcium 9.2 mg/dL 8.6-10 .2 normal Not Available [address], [address], 01/18/2022 04:55:08 01/18/20 22 01/18/2022 COMPR EHENS POLO METAB OLIC PANEL protein, total 6.7 g/dL 6.1-8. 1 normal Not Available [address], [address], 01/18/2022 04:55:08 01/18/20 22 01/18/2022 COMPR EHENS POLO METAB OLIC PANEL albumin 3.8 g/dL 3.6-5. 1 normal Not Available [address], [address], 01/18/2022 04:55:08 01/18/20 22 01/18/2022 COMPR EHENS POLO METAB OLIC PANEL globulin 2.9 g/dL_ (calc ) 1.9-3. 7 normal Not Available [address], [address], 01/18/2022 04:55:08 01/18/20 22 01/18/2022 COMPR EHENS POLO METAB OLIC PANEL albumin/glob ulin ratio 1.3 (calc ) 1.0-2. 5 normal Not Available [address], [address], 01/18/2022 04:55:08 01/18/20 22 01/18/2022 COMPR EHENS POLO METAB OLIC PANEL bilirubin, total 0.4 mg/dL 0.2-1. 2 normal Not Available [address], [address], 01/18/2022 04:55:08 01/18/20 22 01/18/2022 COMPR EHENS POLO METAB OLIC PANEL alkaline phosphatase 110 U/L 31-125 normal Not Available [address] [address] [place], [address], 01/18/2022 04:55:08 01/18/20 22 01/18/2022 COMPR EHENS POLO METAB OLIC PANEL AST 18 U/L 10-30 normal Not Available [address], [address], 01/18/2022 04:55:08 01/18/20 22 01/18/2022 COMPR EHENS POLO METAB OLIC PANEL ALT 18 U/L 6-29 normal Not Available [address], [address], 01/18/2022 04:55:08 01/18/20 22 01/18/2022 LIPID PANEL , STAND CAROLIN cholesterol, total 162 mg/dL <200 normal Not Available [address], [address], 01/18/2022 04:55:07 01/18/20 22 01/18/2022 LIPID PANEL , STAND CAROLIN HDL cholesterol 35 mg/dL > or = 50 low Not Available [address], [address], 01/18/2022 04:55:07 01/18/20 22 01/18/2022 LIPID PANEL , STAND CAROLIN triglyceride s 149 mg/dL <150 normal Not Available [address], [address], 01/18/2022 04:55:07 01/18/20 22 01/18/2022 LIPID PANEL [...] is a valid ated novel metho d thompson rothman r accur acy than the Fried abdi equat ion in the estim ation of LDL-C . Mony OJEDA et al. IBIS. 2013; 310(1 9): 2061- 2068 (http ://ed ucati on.Elham villatoroIndependent IP. com/f aq/FA Q164) Not Available [facility] [address] , [place], [address], 01/18/2022 04:55:07 01/18/20 22 01/18/2022 LIPID PANEL , STAND CAROLIN chol/HDLC ratio 4.6 (calc ) <5.0 normal Not Available [facility] [address], [place], [address], 01/18/2022 04:55:07 01/18/20 22 01/18/2022 LIPID PANEL , STAND CAROLIN non HDL cholesterol 127 mg/dL _(lilly c) <130 normal For patie nts with diabe helena plus 1 major ASCVD risk facto r, treat ing to a non-H DL-C goal of <100 mg/dL (LDL- C of <70 mg/dL ) is consi malcolm jimenez n. Not Available [facility] [address] , [place], [address], 01/18/2022 04:55:07 07/10/20 23 07/10/2023 CBC/C OMPLE TE BLD COUNT W/DIF F white blood cells 8.0 x10'3 /uL 4.2-10 .8 Not Available [facility] (Lab) [address] [place], [address], 07/10/2023 20:32:42 07/10/20 23 07/10/2023 CBC/C OMPLE TE BLD COUNT W/DIF F red blood cells 4.52 x10'6 /uL 3.80-5 .20 Not Available [facility] (Lab) [address] [place], [address], 07/10/2023 20:32:42 07/10/20 23 07/10/2023 CBC/C OMPLE TE BLD COUNT W/DIF F hemoglobin 11.9 g/dL 12.0-1 5.6 low Not Available [facility] (Lab) [address] [place], [address], 07/10/2023 20:32:42 07/10/2007/10/2023 CBC/C OMPLE TE BLD COUNT W/DIF F hematocrit 38.6 % 35.7-4 5.7 Not Available [facility] (Lab) [address] [place], [address], 07/10/2023 20:32:42 07/10/2007/10/2023 CBC/C OMPLE TE BLD COUNT W/DIF F mean red cell volume 85.4 fL 82.0-9 9.0 Not Available [facility] (Lab) [address] [place], [address], 07/10/2023 20:32:42 07/10/2007/10/2023 CBC/C OMPLE TE BLD COUNT W/DIF F mean red cell hemoglobin 26.3 pg 27.0-3 3.0 low Not Available [facility] (Lab) [address] [place], [address], 07/10/2023 20:32:42 07/10/2007/10/2023 CBC/C OMPLE TE BLD COUNT W/DIF F mean RBC HGB concentratio n 30.8 g/dL 31.0-3 6.0 low Not Available [facility] (Lab) [address] [place], [address], 07/10/2023 20:32:42 07/10/2007/10/2023 CBC/C OMPLE TE BLD COUNT W/DIF F red cell distribution width 15.2 % 11.8-1 5.5 Not Available [facility] (Lab) [address] [place], [address], 07/10/2023 20:32:42 07/10/2007/10/2023 CBC/C OMPLE TE BLD COUNT W/DIF F platelets 422 x10'3 /uL 150-40 0 high Not Available [facility] (Lab) [address] [place], [address], 07/10/2023 20:32:42 07/10/2007/10/2023 CBC/C OMPLE TE BLD COUNT W/DIF F mean platelet volume 10.7 fL 9.0-12 .4 Not Available [facility] (Lab) [address] [place], [address], 07/10/2023 20:32:42 07/10/2007/10/2023 CBC/C OMPLE TE BLD COUNT W/DIF F neutrophils 59.7 % 39.0-7 2.0 Not Available [facility] (Lab) [address] [place], [address], 07/10/2023 20:32:42 07/10/2007/10/2023 CBC/C OMPLE TE BLD COUNT W/DIF F lymphocytes 30.7 % 16.0-4 7.0 Not Available [facility] (Lab) [address] [place], [address], 07/10/2023 20:32:42 07/10/2007/10/2023 CBC/C OMPLE TE BLD COUNT W/DIF F monocytes 6.8 % 5.0-12 .0 Not Available [facility] (Lab) [address] [place], [address], 07/10/2023 20:32:42 07/10/2007/10/2023 CBC/C OMPLE TE BLD COUNT W/DIF F eosinophils 1.6 % 1.0-7. 0 Not Available [facility] (Lab) [address] [place], [address], 07/10/2023 20:32:42 07/10/2007/10/2023 CBC/C OMPLE TE BLD COUNT W/DIF F basophils 0.9 % 0.0-2. 0 Not Available [facility] (Lab) [address] [place], [address], 07/10/2023 20:32:42 07/10/2007/10/2023 CBC/C OMPLE TE BLD COUNT W/DIF F immature granulocytes 0.3 % 0.00-0 .50 Not Available [facility] (Lab) [address] [place], [address], 07/10/2023 20:32:42 07/10/2007/10/2023 CBC/C OMPLE TE BLD COUNT W/DIF F neutrophils, absolute count 4.77 x10'3 /uL 1.5-8. 0 Not Available [facility] (Lab) [address] [place], [address], 07/10/2023 20:32:42 07/10/2007/10/2023 CBC/C OMPLE TE BLD COUNT W/DIF F lymphocytes, absolute count 2.45 x10'3 /uL 1.07-3 .43 Not Available [facility] (Lab) [address] [place], [address], 07/10/2023 20:32:42 07/10/2007/10/2023 CBC/C OMPLE TE BLD COUNT W/DIF F monocytes, absolute count 0.54 x10'3 /uL 0.29-0 .99 Not Available [facility] (Lab) [address] [place], [address], 07/10/2023 20:32:42 07/10/2007/10/2023 CBC/C OMPLE TE BLD COUNT W/DIF F eosinophils, absolute count 0.13 x10'3 /uL 0.02-0 .53 Not Available [facility] (Lab) [address] [place], [address], 07/10/2023 20:32:42 07/10/2007/10/2023 CBC/C OMPLE TE BLD COUNT W/DIF F basophils, absolute count 0.07 x10'3 /uL 0.01-0 .08 Not Available [facility] (Lab) [address] [place], [address], 07/10/2023 20:32:42 07/10/2007/10/2023 CBC/C OMPLE TE BLD COUNT W/DIF F immature granulocytes ,absolute 0.02 x10'3 /uL 0.00-0 .05 Not Available [facility] (Lab) [address] [place], [address], 07/10/2023 20:32:42 07/10/20 23 07/10/2023 CBC/C OMPLE TE BLD COUNT W/DIF F nucleated red blood cells 0.0 % -0 Not Available [facility] (Lab) [address] [place], [address], 07/10/2023 20:32:42 07/10/2007/10/2023 CBC/C OMPLE TE BLD COUNT W/DIF F NRBC# 0.00 x10'3 /uL Not Available [facility] (Lab) [address] [place], [address], 07/10/2023 20:32:42 07/10/2007/10/2023 HEMOG LOBIN A1C HA1C 5.5 % 4.0-6. 0 Diabe helena Scree mona Crite tere: <5.7% Consi stent with absen ce of diabe helena 5.7-6 .4% Consi stent with incre ased risk for diabe helena (pred iabet es) >OR=6 .5% Consi stent with diabe helena REFER ENCE: Diabe helena Care 2016, 39(Cervantes ppl.1 ):s13 -s22 Not Available [facility] (Lab) [address] [facility] [place], [address], 07/10/2023 21:27:50 07/10/2007/10/2023 COMPR EHENS POLO METAB OLIC PANEL sodium 136 mmol/ L 137-14 5 low Not Available [facility] (Lab) [address] [place], [address], 07/10/2023 22:43:08 07/10/2007/10/2023 COMPR EHENS POLO METAB OLIC PANEL potassium 4.8 mmol/ L 3.5-5. 1 Not Available [facility] (Lab) [address] [place], [address], 07/10/2023 22:43:08 07/10/2007/10/2023 COMPR EHENS POLO METAB OLIC PANEL chloride 106 mmol/ L 98-107 Not Available [facility] (Lab) [address] [place], [address], 07/10/2023 22:43:08 07/10/20 23 07/10/2023 COMPR EHENS POLO METAB OLIC PANEL carbon dioxide 23 mmol/ L 22-30 Not Available [facility] (Lab) [address] [place], [address], 07/10/2023 22:43:08 07/10/2007/10/2023 COMPR EHENS POLO METAB OLIC PANEL anion gap 11.8 mmol/ L 14-22 low Not Available [facility] (Lab) [address] [place], [address], 07/10/2023 22:43:08 07/10/2007/10/2023 COMPR EHENS POLO METAB OLIC PANEL glucose 68 mg/dL 70-99 low Not Available [facility] (Lab) [address] [place], [address], 07/10/2023 22:43:08 10/31/07/10/2023 COMPR EHENS POLO METAB OLIC PANEL BUN 12 mg/dL 8-19 Not Available [facility] (Lab) [address] [place], [address], 07/10/2023 22:43:08 07/10/20 23 07/10/2023 COMPR EHENS POLO METAB OLIC PANEL creatinine 0.73 mg/dL 0.66-1 .25 Not Available [facility] (Lab) [address] [place], [address], 07/10/2023 22:43:08 07/10/20 23 07/10/2023 COMPR EHENS POLO METAB OLIC PANEL GFR >60 Refer ence Range : [place] ge GFR Healt hy Adult : >60 [...] or ethni c subgr oups, such as Radha nics. Outsi de the valid ated shade [...] calcu lator is avail able on the F websi te: https ://owen w.geovanni kovacs.o rg/pr maria victoriaess ional s/kdo qi/gf r_cal culat or Not Available [facility] (Lab) [address] [place], [address], 07/10/2023 22:43:08 07/10/20 23 07/10/2023 COMPR EHENS POLO METAB OLIC PANEL alkaline phosphatase 106 U/L 38-126 Not Available [facility] (Lab) [address] [place], [address], 07/10/2023 22:43:08 07/10/20 23 07/10/2023 COMPR EHENS POLO METAB OLIC PANEL alanine aminotransfe rase 22 U/L 0-35 Not Available [facility] (Lab) [address] [place], [address], 07/10/2023 22:43:08 07/10/20 23 07/10/2023 COMPR EHENS POLO METAB OLIC PANEL aspartate aminotransfe rase 24 U/L 15-37 Not Available [facility] (Lab) [address] [place], [address], 07/10/2023 22:43:08 07/10/20 23 07/10/2023 COMPR EHENS POLO METAB OLIC PANEL bilirubin, total 0.30 mg/dL 0.20-1 .30 Not Available [facility] (Lab) [address] [place], [address], 07/10/2023 22:43:08 07/10/20 23 07/10/2023 COMPR EHENS POLO METAB OLIC PANEL calcium 9.6 mg/dL 8.4-10 .2 Not Available [facility] (Lab) [address] [place], [address], 07/10/2023 22:43:08 07/10/20 23 07/10/2023 COMPR EHENS POLO METAB OLIC PANEL total protein 7.6 g/dL 6.3-8. 2 Not Available [facility] (Lab) [address] [facility], [address], 07/10/2023 22:43:08 1007/10/2023 COMPR EHENS POLO METAB OLIC PANEL albumin 4.1 g/dL 3.4-5. 0 Not Available [facility] (Lab) [address] [place], [address], 07/10/2023 22:43:08 07/10/20 23 07/10/2023 COMPR EHENS POLO METAB OLIC PANEL globulin 3.5 g/dL 2.6-4. 2 Not Available [facility] (Lab) [address] [place], [address], 07/10/2023 22:43:08 07/10/2007/10/2023 COMPR EHENS POLO METAB OLIC PANEL A/G ratio 1.2 ratio 1.0-2. 0 Not Available [facility] (Lab) [address] [place], [address], 07/10/2023 22:43:08 07/10/2007/10/2023 LIPID PANEL cholesterol 181 mg/dL 140-19 9 NIH STACEY NSUS RECOM MENDA TION FOR DARREN STERO L: ADULT CHILD LOW RISK: <200 <170 BORDE RLINE : <200- 239 ----- HIGH RISK: >240 >200 Not Available [facility] (Lab) [address] [place], [address], 07/10/2023 22:43:13 07/10/2007/10/2023 LIPID PANEL triglyceride s 129 mg/dL 0-150 NIH STACEY NSUS REPOR T RECOM MENDA TION FOR TRIGL YCERI HEATHER: ADULT CHILD LOW RISK: <150 ----- BODER LINE: 150-1 99 ----- HIGH RISK: >200 ----- Not Available [facility] (Lab) [address] [place], [address], 07/10/2023 22:43:13 07/10/20 23 07/10/2023 LIPID PANEL HDL cholesterol 35 mg/dL 40- low Not Available [facility] (Lab) [address] [place], [address], 07/10/2023 22:43:13 07/10/2007/10/2023 LIPID PANEL LDL cholesterol, [...] WILL NOT BE REPOR MICHOACANO. Not Available [facility] (Lab) [address] [place], [address], 07/10/2023 22:43:13 07/10/2007/10/2023 TSH W/REF ABRAN FT4 TSH with reflex free T4 1.970 uIU/m L 0.465- 4.680 Not Available [facility] (Lab) [address] [place], [address], 07/10/2023 22:47:36 12/20/19 22 12/19/2021 XR, chest [facility] [address] [place] [address] Patien t Name: AUNG TYSON Rubio Access ion #: [id number] Sex: F : 1979 9 Locati [...] cholec ystect bernadette. Page 1 of 2 [facility] Patien t Name: AUNG TYSON Access ion #: [id number] Sex: F : 1979 9 Exam [...] 10:41 AM (CT) Page 2 of 2 [id number] [facility] (Imaging) [address] [place], [address], 11/08/2022 13:57:19 12/24/19 22 12/23/2021 US, echoc ardio gram No observ ation record ed. [id number] [facility] [address] [place], [address], 11/08/2022 13:57:19 02/04/20 22 02/03/2022 CT, angio gram, chest , w/ contr ast No observ ation record ed. [id number] [facility] Add On Lab Orders [address] [place], [address], 11/08/2022 13:57:19 02/14/20 22 02/13/2022 exerc ise stres s test No observ ation record ed. [id number] [facility] [address] [facility], [place], [address], 11/08/2022 13:57:19 02/15/20 22 02/13/2022 myoca rdial perfu oren study w/ eject ion fract ion (PROC ) No observ ation record ed. [id number] [facility] [address] [facility], [place], [address], 11/08/2022 13:57:19 03/30/20 22 03/30/2022 PFT, compl ete No observ ation record ed. [id number] [facility] [address] [facility], [place], [address], 11/08/2022 13:57:19 10/09/19 23 10/09/2022 MAMMO , scree mona, bilat eral No observ ation record ed. [id number], [place], [address], 11/08/2022 13:57:19 07/04/20 23 07/04/2023 XR, ribs, bilat eral No observ ation record ed. [email or web address] [facility] [address] [place], [address], 07/05/2023 07:18:57 07/04/20 23 07/04/2023 XR, lumba r spine No observ ation record ed. [email or web address] [facility] [address] [place], [address], 07/05/2023 07:19:29 09/24/19 24 09/24/2023 CT, sinus es, w/o contr ast No observ ation record ed. [address], [place], [address], 09/26/2023 12:41:31 03/10/20 24 03/07/2024 XR, chest , 2 view No observ ation record ed. [facility] [address], [place], [address], 03/10/2024 11:17:16 Result Notes None recorded. Problems Name Problem SNOMED Code Status Onset Date Resolution Date Notes Provider Name and Address Organization Details Recorded Time Fluid level behind tympanic membrane Active 2018 Not Available [facility] 3 13:54:05 Sprain of left ankle 2661682235695 9105 Active 2019 Not Available [facility] 3 13:54:05 Feels hot 399856230 Active 2019 Not Available [facility] 3 13:54:06 Wheezing 40920555 Active 2019 Not Available [facility] 3 13:54:06 Pain of right hip joint 5256148954694 02 Active 2020 Not Available [facility] 3 13:54:05 Anxiety 06038241 Active 2020 Not Available [facility] 3 13:54:06 Bronchitis 11815919 Active 2021 Not Available [facility] 3 13:54:06 Seasonal allergic rhinitis 174843677 Active 2021 Not Available [facility] 3 13:54:06 Seasonal asthma 462001563 Active 2021 Not Available [facility] 3 13:54:06 Cough 06834033 Active 2021 Not Available [facility] 3 13:54:06 Cardiomega ly 4724546 Active 2021 Not Available [facility] 3 13:54:06 COVID-19 908352944 Active 2022 Yasmeen De Jesus NP [address] [facility] [address], [place], [address] , [facility] 3 10:07:24 Gastroesop hageal reflux disease 165212150 Active 2022 Yasmeen De Jesus NP [address], [place], [address] , [facility] [facility] 3 09:37:33 Allergy to food 191612677 Active 2022 Yasmeen De Jesus NP [address], [place], [address] , [facility] 3 11:31:20 Vitamin D deficiency 17837429 Active 2023 MARAH June [address], [place], [address] , [facility] [employer] [facility] 4 09:09:33 Asthma 597237372 Active 2023 MARAH June [address], [place], [address] , [facility] 4 09:11:38 Mucus in stool 595791873 Active 2023 MARAH June [address], [place], [address] , [facility] [employer] [facility] [employer] [facility] 4 09:14:57 Productive cough 31677151 Active 2023 MARAH June [address], [place], [address] , [facility] 4 09:19:26 Thrombocyt osis 6410138 Active 2023 MARAH June [address], [place], [address] , [facility] [facility] 4 09:22:15 Iron deficiency anemia 84681803 Active 2023 MARAH June [address], [place], [address] , [facility] [employer] [facility] 4 19:47:24 Contact dermatitis 39022350 Active 2023 MARAH June [address], [place], [address] , [facility] [facility] 4 11:10:01 Problem Notes None recorded. Procedures Surgical History Date Name Laterality Status Provider Name and Address Organization Details Recorded Time 10/09/19 23 Date of Last Pap Smear completed Yasmeen Yoder RN [facility] 07/10/2023 11:09:47 10/09/19 23 Most Recent Mammogram completed Yasmeen Yoder RN [facility] 07/10/2023 11:09:30 09/10/19 14 Cholecystectomy completed Not Available [facility] 11/08/2022 13:52:32 09/10/19 06 [employer] Surgery completed Not Available Critical access hospital 11/08/2022 13:52:32 Imaging Results None recorded. Procedure Notes None recorded. Medical Equipment None [...] capsule TAKE 1 CAPSULE BY MOUTH ONCE WEEKLY, DIRECTED active Not Available Not Available No t Available cefuroxim e axetil 500 mg tablet TAKE [...] completed Not Available Not Available Not Available [employer] [facility] Nasal Neti Rinse with packet Take [...] Available [employer] COVID-19 Ag Self Test kit 10/07 /2022 completed Not Available Not Available Not Available [...] Heart rate Body temperature Body weight Systolic And Diastolic Provider Name and Address Organization Details Last Updated DateTime 2 31.3 kg/m2 170.18 cm 98 % 98 % 106 /min 98.2 [degF] 80206.4 7 g 124/88 mm[Hg] Not Available [facility] 3 13:53:09 Date Recorded Body height Body mass index (BMI) Body weight Body temperature Respiratory rate Heart rate Oxygen saturation Oxygen saturation in Arterial blood by Pulse oximetry Pain severity - 0-10 verbal numeric rating [Score] - Reported Systolic And Diastolic Provider Name and Address Organization Details Last Updated DateTime 4 170.18 cm 30.4 kg/m2 13447.9 2 g 98.3 [degF] 20 /min 74 /min 98 % 98 % 0 122/88 mm[Hg] Yasmeen Yoder RN [facility] [employer] 4 08:46:02 Date Recorded Body height Body mass index (BMI) Body weight Body temperature Heart rate Respiratory rate Oxygen saturation Oxygen saturation in Arterial blood by Pulse oximetry Pain severity - 0-10 verbal numeric rating [Score] - Reported Systolic And Diastolic Provider Name and Address Organization Details Last Updated DateTime 4 170.18 cm 30 kg/m2 47046.9 4 g 97.8 [degF] 100 /min 20 /min 98 % 98 % 2 122/70 mm[Hg] Yasmeen Yoder RN [facility] [employer] 4 11:07:18 Date Recorded Body weight Body mass index (BMI) Body height Body temperature Heart rate Respiratory rate Oxygen saturation Oxygen saturation in Arterial blood by Pulse oximetry Pain severity - 0-10 verbal numeric rating [Score] - Reported Systolic And Diastolic Provider Name and Address Organization Details Last Updated DateTime 3 30929.1 7 g 31.3 kg/m2 170.18 cm 96.5 [degF] 81 /min 16 /min 99 % 99 % 5 138/92 mm[Hg] Yasmeen Yoder RN [place] [facility] 11:05:40 Social History Question Answer Notes LastModified by Organizat ion Details LastModified Time Tobacco Smoking Status Never Smoker Not Available [facility] 11/08/2022 13:52:29 Do You Have An Advance Directive? No Information not available 07/10/2023 If You Are , What Was Your Level Of Alcohol Consumption Prior To ? None [id number] Information not available 11/08/2022 Is Blood Transfusion Acceptable In An Emergency? Yes Information not available 07/10/2023 What Is Your Level Of Caffeine Consumption? Moderate [id number] Information not available 11/08/2022 What Is Your Code Status? Full Code Not If Brain Information not available 07/10/2023 In The 14 Days Before Symptom Onset, Have You Had Close Contact With A Laboratory-confi rmed COVID-19 While That Case Was Ill? No MIGRATION.[id number] Information not available 11/08/2022 In The 14 Days Before Symptom Onset, Have You Had Close Contact With A Person Who Is Under Investigation For COVID-19 While That Person Was Ill? No MIGRATION.88478 44099 Information not available 11/08/2022 What Type Of Diet Are You Following? REGULAR MIGRATION.80673 43768 Information not available 11/08/2022 Have There Been Any Changes To Your Family Or Social Situation? No Information not available 07/10/2023 Do You Use Insect Repellent Routinely? No Information not available 07/10/2023 Where Do You Live? SingleLevelHouse Information not available 07/10/2023 Do You Have A Medical Power Of Furnace Erector? No Information not available 07/10/2023 Do You Have Any Pets? Yes Information not available 07/10/2023 What Is Your Relationship Status? MIGRATION.31509 22421 Information not available 11/08/2022 Do You Use Your Seat Belt Or Car Seat Routinely? Yes MIGRATION.03170 87071 Information not available 11/08/2022 Do You Have Smoke And Carbon Monoxide Detectors In Your Home? Yes Information not available 07/10/2023 Are There Any Smokers In Your House? No Information not available 07/10/2023 Do You Participate In Social Media? Yes Information not available 07/10/2023 Do You Use Sunscreen Routinely? No Information not available 07/10/2023 Have You Recently Traveled Abroad? No Information not available 07/10/2023 Sex: Female Functional Status Question Answer Note LastModified by Organizat ion Details LastModified Time Do you use any illicit or recreational drugs? No MIGRATION.09725 34877 Information not available 11/08/2022 What is your level of alcohol consumption? Occasional MIGRATION.89865 21851 Information not available 11/08/2022 Are you currently employed? 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 Occasional active job Information not available 07/10/2023 Mental Status Question Answer Note LastModified by Organization D etails LastModified Time Do you feel stressed (tense, restless, nervous, or anxious, or unable to sleep at night)? [id number] Information not available 02/22/2024 Family History Relationship Description Onset Age of this Age Resolved Age Notes LastModified by Organization Details LastModified Time Father Hypertensive disorder MIGRATION.248 [id number] Not available 11/08/2022 13:52:33 Father Family history of stroke MIGRATION.907 [id number] Not available 11/08/2022 13:52:33 Mother Hypertensive disorder MIGRATION.122 [id number] Not available 11/08/2022 13:52:33 Maternal Aunt Malignant neoplasm of transverse colon MIGRATION.326 [id number] Not available 11/08/2022 13:52:33 Maternal Aunt Malignant neoplasm of colon ~70's MIGRATION.000 [id number] Not available 11/08/2022 13:52:33 Medical History Condition [...] virus, quadrivalent, preservative 1 completed Not Available Critical [facility] hospital 11/08/2022 13:57:13 Influenza, split virus, quadrivalent, preservative 0 completed Not Available Critical access hospital 11/08/2022 13:57:13 Influenza, split virus, quadrivalent, preservative 9 completed Not Available Critical access hospital 11/08/2022 13:57:14 Past Encounters Encounter ID Performer Location Encounter Start Date Encounter Closed Date Diagnosis/Indication Diagnosis SNOMED-CT Code Diagnosis ICD10 Code Diagnosis IMO Codes Diagnosis Note [id number] Efe Brooks MD [address] [address] 12/20/2020 00:00:00 12/20/2020 14:33:50 [id number] Efe Brooks MD [address] [address] 08/03/2021 00:00:00 08/03/2021 14:53:36 [id number] [facility] ic_[facility] _ATHENA_M IGRATION_ DEFAULT_1 _1 , 08/31/2021 00:00:00 08/31/2021 10:59:50 [id number] Efe Brooks MD [address] [address] 10/14/2021 00:00:00 10/14/2021 16:34:56 [id number] Efe Brooks MD [facility] [address] 12/14/2021 00:00:00 12/14/2021 10:34:42 [id number] Efe Brooks MD [address] [address] 01/04/2022 00:00:00 01/04/2022 11:38:25 [id number] Yasmeen De Jesus NP [address] [address] 06/16/2022 00:00:00 06/16/2022 10:05:24 [id number] Yasmeen De Jesus NP [address] [address] 07/10/2023 10:52:51 07/10/2023 12:09:13 Adult health examination 084812553 Z00.00 Encouraged well balanced meals, active lifestyle, and routine vision and dental exams. Anemia screening 8765086 07 Z13.0 Diabetes m ellitus screening 358619832 Z13.1 Thyroid di sorder screening 429818453 Z13.29 Hyperlipid emia screening 061315064 Z13.220 Anxiety 04806894 F41.9 Sertraline 50 mg, 2 tabs po daily. Seasonal asthma 18507921 6 J45.909 Montelukas t 10 mg po daily.Albu terol prn Gastroesop hageal reflux disease 755671483 K21.9 Omeprazole 20 mg po daily. Jump to 40 mg to see if better coverage. Screening for malignant neoplasm of breast 720093235 Z12.39 Allergy to food 23709190 1 T78.1XXA [id number] Efe Brooks MD [facility]_[address] [address] 02/22/2024 08:28:53 02/22/2024 09:38:22 Vitamin D deficiency 80440900 E55.9 Asthma 596878259 J45.90 9 Gastroesop hageal reflux disease 151568645 K21.9 Family his tory of cancer of colon 913391425 Z80.0 Productive cough 2278175 5 R05.9 Thrombocytosis 6442668 D 75.803 [id number] Efe Brooks MD [facility] [address] [address] 04/29/2024 10:54:07 04/29/2024 11:27:31 Contact dermatitis 37138362 L25.9 Vitamin D deficiency 347 85254 E55.9 Health Concerns Section Related Observation LastModified by Organization Detai ls LastModified Time None Recorded Concern Status LastModified by Organization Details LastModified Time None Recorded Advance Directives Directive N: Payers Insurance Date Sequence Insurance Name Policy Number Policy Adan Covered Member ID Adan Member ID Guarantor Name 11/27/2023 [facility] [facility] Aung Wilkins 11/08/2022 [facility] Aung Wilkins 11/08/2022 [facility] Aung Wilkins 11/08/2022 [facility] 9 Aung Wilkins 04/28/2024 1 [facility] [id number] Carlos Wilkins [id number] Aung Wilkins Notes Date Note Type Note Provider Name and Address Organization Details Recorded Time 07/10/2023 text/html Here for wellness visit.Last was 01/04/22 Covid End of Apr 2023. Still having hoarse voice and goes in and out.Cough still going on.Has posterior drainage.Has changed all taste buds. Sensitive to peanut butter, recees peanut butter- throat feels thick and under pressure. Since covid vood hasn't tasted the same. No pickles, peppers, fruit. Yasmeen De Jesus NP [address] [facility], [facility] [address], [place], [address], [facility] 07/10/2023 11:53:48 02/22/2024 text/html Aung Wilkins is [...] by OBColonoscopy: referral sent MARAH June [address] [facility], [facility] [address], [place], [address], [employer] 02/22/2024 09:33:40 04/29/2024 text/html Aung Wilkins is a 43 year old female patient here today for a concern of poison mohit. Went to on 03/29, had a shot of prednisone and an oral taper pack. States helped when she was taking it but is now so itchy that she is scratching bruises into her skin. MARAH June [address] [facility], [facility] [address], [place], [address], [employer] 04/29/2024 11:26:04 OBGyn Episode No OBEpisode recorded.
[2025-06-22 10:05] LABS: Hemoglobin A1C 5.1 % (<5.7)
== END 2025-06-22 09:18 | disposition home or self-care (01) ==
LOC: ANHLAB 09:20
PROVIDERS: PCP Nurse Practitioner Adult Health; Visit Provider Student in an Organized Health Care Education/Training Program
DX: Z13.1 Encounter for screening for diabetes mellitus (principal)
CPT/HCPCS: 36415; 83036

== ENCOUNTER 2025-06-26 09:31 | Outpatient (CLI) | payer BC, SELFPAY ==
--- NOTE | ~2025-06-26 | US_ITS ---
Clinical history:Follow-up from prior biopsy. EXAM:Ultrasound breast left limited TECHNIQUE:Multiple static grayscale images and color Doppler images were obtained of the areas of concern in the left breast at the 12 and 2:00 positions. Comparisons:Breast ultrasound 12/19/2024; ultrasound guided breast biopsy 01/29/2025 FINDINGS: The mass in the left breast at the 12:00 position that measured 1.3 x 1.3 x 0.6 cm on 12/19/2024 and was previously biopsied has increased in size and now measures 1.5 x 1.1 x 0.8 cm. The mass in the left breast which measured 7 x 10 x 7 mm on 12/19/2024 in the left breast at the 2:00 position 1 cm from nipple. The measures 9 x 7 x 6 mm. The finding was previously biopsied. The finding is stable and benign. IMPRESSION: 1.The mass in the left breast at the 12:00 position that measured 1.3 x 1.3 x 0.6 cm on 12/19/2024 and was previously biopsied has increased in size and now measures 1.5 x 1.1 x 0.8 cm. An ultrasound-guided biopsy is recommended. 2.The mass in the left breast which measured 7 x 10 x 7 mm on 12/19/2024 in the left breast at the 2:00 position 1 cm from, now measures 9 x 7 x 6 mm. The finding was previously biopsied. The finding is stable and benign. BI-RADS 4-Suspicious finding. Protocol insures that results of the study are called and/or faxed to the referring clinician's office and documented in the patient's chart per critical findings protocol. Reviewed, dictated and finalized at location Q. IMPRESSION: 1.The mass in the left breast at the 12:00 position that measured 1.3 x 1.3 x 0 .6 cm on 12/19/2024 and was previously biopsied has increased in size and now me asures 1.5 x 1.1 x 0.8 cm. An ultrasound-guided biopsy is recommended. 2.The mass in the left breast which measured 7 x 10 x 7 mm on 12/19/2024 in the left breast at the 2:00 position 1 cm from, now measures 9 x 7 x 6 mm. The randi garay was previously biopsied. The finding is stable and benign. BI-RADS 4-Suspicious finding. Protocol insures that results of the study are called and/or faxed to the refer ring clinician's office and documented in the patient's chart per critical find ings protocol.
--- OUTSIDE RECORDS SUMMARY | 2025-06-26 09:59 | XMS_ITS | Clinical Summary ---
Author Organization [facility] [employer] Address [address] [facility] [place] [address] Care Team Providers Care Automotive D[employer]antler Name Role Phone Haim Bullard Primary Care Provider + Source Comments [facility],non-owned Affiliates and Associated Physician Practices is amultiple site organization consisting of ambulatory clinics and hospital sitesin [place], [place], [place] and [place]. This disclosure is being madepursuant to the Care Everywhere program and may not contain all information available regarding this patient. Last updated 18.[employer] [facility] Allergies No known active allergies Medications * [...] Group ID:Not on file Type:Self Pay Address: [place], [place] BCBS/BLUE BLUE [employer] [place] SELF PAY NO INSURANCE Member Subscriber Plan / Payer (Ef fective for All Dates) Name:Augn Wilkins Member ID:Not on file Relation to Subscriber:Not on file Subscriber ID:Not on file Payer ID:Not on file Group ID:Not on file Type:Self Pay Address: [place], [place] BC/COUNT INCLUDES THE [facility] BLUE [facility] [place] SELF PAY NO INSURANCE Member Subscriber Plan / Payer (Ef fective for All Dates) Name:Aung Wilkins Member ID:Not on file Relation to Subscriber:Not on file Subscriber ID:Not on file Payer ID:Not on file Group ID:Not on file Type:Self Pay Address: [place], [place] Care Teams [employer] D[employer] Relationship Specialty [place] [address] [place] [phone] 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
--- OUTSIDE RECORDS SUMMARY | 2025-06-26 09:59 | XMS_ITS | Data Portability ---
Author Organization [facility] [employer] Main Office Address [address] [place] [address] Care Team Providers Care Bar Useful Or Busser Name Role Phone JM DE LEON Primary Care Provider [phone] HAWA, PFIEFER Map Maker [phone] HAWA, PFIEFER Map Maker [phone] HAWA, PFIEFER Map Maker [phone] Assessment No assessment recorded. Plan of Treatment Reminders Order Date Submit Date Provider Last Modified By Organization Details Last Modified Time Details Appointments None recorded. Lab CBC w/ auto diff 2023 024 [facility] (Lab), [address] [place], [address], 4 18:36:35 iron + total iron-bindin g capacity (TIBC), serum 2023 024 [facility] (Lab), [address] [place], [address], 4 18:36:35 ferritin, serum or plasma 2023 024 [facility] (Lab), [address] [place], [address], 4 18:36:35 vitamin B12 + folate, serum or blood 2023 024 [facility] (Lab), [address] [place], [address], 4 18:36:35 lipid panel, serum 2022 023 [facility] (Lab), [address] [place], [address], 22:43:13 TSH, serum or plasma 2022 023 [facility] (Lab), [address] [place], [address], 22:47:36 CBC w/ auto diff 2022 023 [facility] (Lab), [address] [place], [address], 20:32:42 CMP, serum or plasma 2022 023 [facility] (Lab), [address] [place], [address], 22:43:08 glycohemogl obin, total, blood 2022 023 [facility] (Lab), [address] [place], [address], 21:27:50 Referral gastroenter ologist referral - Please call patient to schedule an appointment . Thank you. 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 Surgeries None recorded. Imaging XR, chest, [address] [facility], [address], [address], 4 10:28:03 MAMMO, screening, digital, bilateral - *Please call pt to schedule* 2022 [email or web address] [place] [address] - Breast Ctr, [address], [address], [place], [address], 4 09:10:29 Medication Orders ergocalcife rol (vitamin D2) 1,250 mcg (50,000 unit) capsule 2023 024 [facility]/Pharmacy #[id number], [address], [place], [address], 4 11:23:47 hydroxyzine HCl 25 mg tablet [address] [facility]/Pharmacy #[id number], [address], [place], [address], 4 11:41:32 triamcinolo ne acetonide 40 mg/mL suspension for injection 2023 024 Not available 4 11:29:13 betamethaso ne acetate and sodium phos 6 mg/mL suspension for injection 2023 024 Not available 4 11:32:34 Airsupra 90 mcg-80 mcg/actuati on HFA aerosol inhaler 2023 024 [facility]/Pharmacy #[id number], [address], [place], [address], 4 09:22:41 ergocalcife rol (vitamin D2) 1,250 mcg (50,000 unit) capsule 2023 024 [facility]/Pharmacy #[id number], [address], [place], [address], 4 09:22:41 omeprazole 40 mg capsule,del ayed release 2023 024 [facility]/Pharmacy #[id number], [address], [place], [address], 09:22:40 Patient TargetsNo targets recorded. Patient Instructions Encounter Date Encounter Id Patient Instructions Last Modified By Organization Details Last Modified Time 07/10/2023 [id number] wellness after 07/11/24 6 mo fu anxiety, gerd, asthma, allergies around january 2024. 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 Not Available [facility] [address] [address] [place], [address], 01/18/2022 04:55:10 01/18/20 22 01/18/2022 VITAM IN [...] /MS is recom noe d: order code 09189 (juan carlos ents >2yrs ). See Note 1 Note 1 For addit ional infor petra schmitz refer to http: //antoine flores.Silvio stDia gnost ics.c om/fa q/FAQ 199 (This link is being provi ded for infor cassie fernandez/ douglas bro purpo ses only. ) Not Available [facility] [address], [place], [address], 01/18/2022 04:55:10 01/18/20 22 01/18/2022 TSH W/REF ABRAN TO FT4 TSH w/reflex to FT4 1.75 mIU/L normal Refer ence Range > or = 20 Years 0.40- 4.50 Pregn angelita Range s First trime ster 0.26- 2.66 Secon d trime ster 0.55- 2.73 Third trime ster 0.43- 2.91 Not Available [facility] [address], [place], [address], 01/18/2022 04:55:09 01/18/20 22 01/18/2022 VITAM IN B12/F OLATE , SERUM PANEL vitamin B12 634 pg/mL 200-11 00 normal Not Available [address], [address], 01/18/2022 04:55:08 01/18/20 22 01/18/2022 VITAM IN B12/F OLATE , SERUM PANEL folate, serum 19.0 NG/mL normal Refer ence Range Low: <3.4 Borde rline : 3.4-5 .4 Carmen l: >5.4 Not Available [address], [address], 01/18/2022 04:55:08 01/18/20 22 01/18/2022 CBC (INCL UDES DIFF/ PLT) white blood cell count 8.3 thous and/u L 3.8-10 .8 normal Not Available [address], [address], 01/18/2022 04:55:08 01/18/20 22 01/18/2022 CBC (INCL UDES DIFF/ PLT) red blood cell count 4.28 abel on/uL 3.80-5 .10 normal Not Available [address], [address], 01/18/2022 04:55:08 01/18/20 22 01/18/2022 CBC (INCL UDES DIFF/ PLT) hemoglobin 11.9 g/dL 11.7-1 5.5 normal Not Available [address], [address], 01/18/2022 04:55:08 01/18/20 22 01/18/2022 CBC (INCL UDES DIFF/ PLT) hematocrit 37.2 % 35.0-4 5.0 normal Not Available [address], [address], 01/18/2022 04:55:08 01/18/20 22 01/18/2022 CBC (INCL UDES DIFF/ PLT) MCV 86.9 fL 80.0-1 00.0 normal Not Available [address], [address], 01/18/2022 04:55:08 01/18/20 22 01/18/2022 CBC (INCL UDES DIFF/ PLT) MCH 27.8 pg 27.0-3 3.0 normal Not Available [address], [address], 01/18/2022 04:55:08 01/18/20 22 01/18/2022 CBC (INCL UDES DIFF/ PLT) MCHC 32.0 g/dL 32.0-3 6.0 normal Not Available [address], [address], 01/18/2022 04:55:08 01/18/20 22 01/18/2022 CBC (INCL UDES DIFF/ PLT) RDW 13.4 % 11.0-1 5.0 normal Not Available [address], [address], 01/18/2022 04:55:08 01/18/20 22 01/18/2022 CBC (INCL UDES DIFF/ PLT) platelet count 442 thous and/u L 140-40 0 high Not Available [address], [address], 01/18/2022 04:55:08 01/18/20 22 01/18/2022 CBC (INCL UDES DIFF/ PLT) MPV 10.0 fL 7.5-12 .5 normal Not Available [facility] [address], [address], 01/18/2022 04:55:08 01/18/20 22 01/18/2022 CBC (INCL UDES DIFF/ PLT) absolute neutrophils 4723 cells /uL 1500-7 800 normal Not Available [facility] [address], [address], 01/18/2022 04:55:08 01/18/20 22 01/18/2022 CBC (INCL UDES DIFF/ PLT) absolute lymphocytes 2673 cells /uL 850-39 00 normal Not Available [address], [address], 01/18/2022 04:55:08 01/18/20 22 01/18/2022 CBC (INCL UDES DIFF/ PLT) absolute monocytes 664 cells /uL 200-95 0 normal Not Available [facility] [address], [address], 01/18/2022 04:55:08 01/18/20 22 01/18/2022 CBC (INCL UDES DIFF/ PLT) absolute eosinophils 174 cells /uL 15-500 normal Not Available [address], [address], 01/18/2022 04:55:08 01/18/20 22 01/18/2022 CBC (INCL UDES DIFF/ PLT) absolute basophils 66 cells /uL 0-200 normal Not Available [facility] [address], [address], 01/18/2022 04:55:08 01/18/20 22 01/18/2022 CBC (INCL UDES DIFF/ PLT) neutrophils 56.9 % normal Not Available [address], [address], 01/18/2022 04:55:08 01/18/20 22 01/18/2022 CBC (INCL UDES DIFF/ PLT) lymphocytes 32.2 % normal Not Available [address], [address], 01/18/2022 04:55:08 01/18/20 22 01/18/2022 CBC (INCL UDES DIFF/ PLT) monocytes 8.0 % normal Not Available [facility] [address] [place], [address], 01/18/2022 04:55:08 01/18/20 22 01/18/2022 CBC (INCL UDES DIFF/ PLT) eosinophils 2.1 % normal Not Available [address], [address], 01/18/2022 04:55:08 01/18/20 22 01/18/2022 CBC (INCL UDES DIFF/ PLT) basophils 0.8 % normal Not Available [address], [address], 01/18/2022 04:55:08 01/18/20 22 01/18/2022 COMPR EHENS POLO METAB OLIC PANEL glucose 84 mg/dL 65-99 normal Fasti ng refer ence inter olga Not Available [address], [address], 01/18/2022 04:55:08 01/18/20 22 01/18/2022 COMPR EHENS POLO METAB OLIC PANEL urea nitrogen (BUN) 10 mg/dL 7-25 normal Not Available [address], [address], 01/18/2022 04:55:08 01/18/20 22 01/18/2022 COMPR EHENS POLO METAB OLIC PANEL creatinine 0.83 mg/dL 0.50-1 .10 normal Not Available [address], [address], 01/18/2022 04:55:08 01/18/20 22 01/18/2022 COMPR EHENS POLO METAB OLIC PANEL eGFR non-afr. british virgin islander 88 mL/mi n/1.7 3m2 > or = 60 normal Not Available [address], [address], 01/18/2022 04:55:08 01/18/20 22 01/18/2022 COMPR EHENS POLO METAB OLIC PANEL eGFR 102 mL/mi n/1.7 3m2 > or = 60 normal Not Available [address], [address], 01/18/2022 04:55:08 01/18/20 22 01/18/2022 COMPR EHENS POLO METAB OLIC PANEL BUN/creatini ne ratio not applic able (calc ) 6-22 Not Available [address], [address], 01/18/2022 04:55:08 01/18/20 22 01/18/2022 COMPR EHENS POLO METAB OLIC PANEL sodium 139 mmol/ L 135-14 6 normal Not Available [address], [address], 01/18/2022 04:55:08 01/18/20 22 01/18/2022 COMPR EHENS POLO METAB OLIC PANEL potassium 4.1 mmol/ L 3.5-5. 3 normal Not Available [address], [address], 01/18/2022 04:55:08 01/18/20 22 01/18/2022 COMPR EHENS POLO METAB OLIC PANEL chloride 106 mmol/ L 98-110 normal Not Available [address], [address], 01/18/2022 04:55:08 01/18/20 22 01/18/2022 COMPR EHENS POLO METAB OLIC PANEL carbon dioxide 25 mmol/ L 20-32 normal Not Available [address], [address], 01/18/2022 04:55:08 01/18/20 22 01/18/2022 COMPR EHENS POLO METAB OLIC PANEL calcium 9.2 mg/dL 8.6-10 .2 normal Not Available [address], [address], 01/18/2022 04:55:08 01/18/20 22 01/18/2022 COMPR EHENS POLO METAB OLIC PANEL protein, total 6.7 g/dL 6.1-8. 1 normal Not Available [address], [address], 01/18/2022 04:55:08 01/18/20 22 01/18/2022 COMPR EHENS POLO METAB OLIC PANEL albumin 3.8 g/dL 3.6-5. 1 normal Not Available [address], [address], 01/18/2022 04:55:08 01/18/20 22 01/18/2022 COMPR EHENS POLO METAB OLIC PANEL globulin 2.9 g/dL_ (calc ) 1.9-3. 7 normal Not Available [address], [address], 01/18/2022 04:55:08 01/18/20 22 01/18/2022 COMPR EHENS POLO METAB OLIC PANEL albumin/glob ulin ratio 1.3 (calc ) 1.0-2. 5 normal Not Available [address], [address], 01/18/2022 04:55:08 01/18/20 22 01/18/2022 COMPR EHENS POLO METAB OLIC PANEL bilirubin, total 0.4 mg/dL 0.2-1. 2 normal Not Available [address], [address], 01/18/2022 04:55:08 01/18/20 22 01/18/2022 COMPR EHENS POLO METAB OLIC PANEL alkaline phosphatase 110 U/L 31-125 normal Not Available [address] [address] [place], [address], 01/18/2022 04:55:08 01/18/20 22 01/18/2022 COMPR EHENS POLO METAB OLIC PANEL AST 18 U/L 10-30 normal Not Available [address], [address], 01/18/2022 04:55:08 01/18/20 22 01/18/2022 COMPR EHENS POLO METAB OLIC PANEL ALT 18 U/L 6-29 normal Not Available [address], [address], 01/18/2022 04:55:08 01/18/20 22 01/18/2022 LIPID PANEL , STAND CAROLIN cholesterol, total 162 mg/dL <200 normal Not Available [address], [address], 01/18/2022 04:55:07 01/18/20 22 01/18/2022 LIPID PANEL , STAND CAROLIN HDL cholesterol 35 mg/dL > or = 50 low Not Available [address], [address], 01/18/2022 04:55:07 01/18/20 22 01/18/2022 LIPID PANEL , STAND CAROLIN triglyceride s 149 mg/dL <150 normal Not Available [address], [address], 01/18/2022 04:55:07 01/18/20 22 01/18/2022 LIPID PANEL [...] 9): 2061- 2068 (http ://ed ucati on.Elham villatoroFashism. com/f aq/FA Q164) Not Available [facility] [address] , [place], [address], 01/18/2022 04:55:07 01/18/20 22 01/18/2022 LIPID PANEL , STAND CAROLIN chol/HDLC ratio 4.6 (calc ) <5.0 normal Not Available [facility] [address], [place], [address], 01/18/2022 04:55:07 01/18/20 22 01/18/2022 LIPID PANEL , STAND CAROLIN non HDL cholesterol 127 mg/dL _(lilly c) <130 normal For patie nts with diabe helena plus 1 major ASCVD risk facto r, treat ing to a non-H DL-C goal of <100 mg/dL (LDL- C of <70 mg/dL ) is consi malcolm jimenez n. Not Available [facility] [address] [address] , [place], [address], 01/18/2022 04:55:07 07/10/20 23 07/10/2023 CBC/C OMPLE TE BLD COUNT W/DIF F white blood cells 8.0 x10'3 /uL 4.2-10 .8 Not Available [facility] (Lab) [address] [place], [address], 07/10/2023 20:32:42 07/10/20 23 07/10/2023 CBC/C OMPLE TE BLD COUNT W/DIF F red blood cells 4.52 x10'6 /uL 3.80-5 .20 Not Available [facility] (Lab) [address] [place], [address], 07/10/2023 20:32:42 07/10/20 23 07/10/2023 CBC/C OMPLE TE BLD COUNT W/DIF F hemoglobin 11.9 g/dL 12.0-1 5.6 low Not Available [facility] (Lab) [address] [place], [address], 07/10/2023 20:32:42 07/10/2007/10/2023 CBC/C OMPLE TE BLD COUNT W/DIF F hematocrit 38.6 % 35.7-4 5.7 Not Available [facility] (Lab) [address] [place], [address], 07/10/2023 20:32:42 07/10/2007/10/2023 CBC/C OMPLE TE BLD COUNT W/DIF F mean red cell volume 85.4 fL 82.0-9 9.0 Not Available [facility] (Lab) [address] [place], [address], 07/10/2023 20:32:42 07/10/2007/10/2023 CBC/C OMPLE TE BLD COUNT W/DIF F mean red cell hemoglobin 26.3 pg 27.0-3 3.0 low Not Available [facility] (Lab) [address] [place], [address], 07/10/2023 20:32:42 07/10/2007/10/2023 CBC/C OMPLE TE BLD COUNT W/DIF F mean RBC HGB concentratio n 30.8 g/dL 31.0-3 6.0 low Not Available [facility] (Lab) [address] [place], [address], 07/10/2023 20:32:42 07/10/2007/10/2023 CBC/C OMPLE TE BLD COUNT W/DIF F red cell distribution width 15.2 % 11.8-1 5.5 Not Available [facility] (Lab) [address] [place], [address], 07/10/2023 20:32:42 07/10/2007/10/2023 CBC/C OMPLE TE BLD COUNT W/DIF F platelets 422 x10'3 /uL 150-40 0 high Not Available [facility] (Lab) [address] [place], [address], 07/10/2023 20:32:42 07/10/2007/10/2023 CBC/C OMPLE TE BLD COUNT W/DIF F mean platelet volume 10.7 fL 9.0-12 .4 Not Available [facility] (Lab) [address] [place], [address], 07/10/2023 20:32:42 07/10/2007/10/2023 CBC/C OMPLE TE BLD COUNT W/DIF F neutrophils 59.7 % 39.0-7 2.0 Not Available [facility] (Lab) [address] [place], [address], 07/10/2023 20:32:42 07/10/2007/10/2023 CBC/C OMPLE TE BLD COUNT W/DIF F lymphocytes 30.7 % 16.0-4 7.0 Not Available [facility] (Lab) [address] [place], [address], 07/10/2023 20:32:42 07/10/2007/10/2023 CBC/C OMPLE TE BLD COUNT W/DIF F monocytes 6.8 % 5.0-12 .0 Not Available [facility] (Lab) [address] [place], [address], 07/10/2023 20:32:42 07/10/2007/10/2023 CBC/C OMPLE TE BLD COUNT W/DIF F eosinophils 1.6 % 1.0-7. 0 Not Available [facility] (Lab) [address] [place], [address], 07/10/2023 20:32:42 07/10/2007/10/2023 CBC/C OMPLE TE BLD COUNT W/DIF F basophils 0.9 % 0.0-2. 0 Not Available [facility] (Lab) [address] [place], [address], 07/10/2023 20:32:42 07/10/2007/10/2023 CBC/C OMPLE TE BLD COUNT W/DIF F immature granulocytes 0.3 % 0.00-0 .50 Not Available [facility] (Lab) [address] [place], [address], 07/10/2023 20:32:42 07/10/2007/10/2023 CBC/C OMPLE TE BLD COUNT W/DIF F neutrophils, absolute count 4.77 x10'3 /uL 1.5-8. 0 Not Available [facility] (Lab) [address] [place], [address], 07/10/2023 20:32:42 07/10/2007/10/2023 CBC/C OMPLE TE BLD COUNT W/DIF F lymphocytes, absolute count 2.45 x10'3 /uL 1.07-3 .43 Not Available [facility] (Lab) [address] [place], [address], 07/10/2023 20:32:42 07/10/2007/10/2023 CBC/C OMPLE TE BLD COUNT W/DIF F monocytes, absolute count 0.54 x10'3 /uL 0.29-0 .99 Not Available [facility] (Lab) [address] [place], [address], 07/10/2023 20:32:42 07/10/2007/10/2023 CBC/C OMPLE TE BLD COUNT W/DIF F eosinophils, absolute count 0.13 x10'3 /uL 0.02-0 .53 Not Available [facility] (Lab) [address] [place], [address], 07/10/2023 20:32:42 07/10/2007/10/2023 CBC/C OMPLE TE BLD COUNT W/DIF F basophils, absolute count 0.07 x10'3 /uL 0.01-0 .08 Not Available [facility] (Lab) [address] [place], [address], 07/10/2023 20:32:42 07/10/2007/10/2023 CBC/C OMPLE TE BLD COUNT W/DIF F immature granulocytes ,absolute 0.02 x10'3 /uL 0.00-0 .05 Not Available [facility] (Lab) [address] [place], [address], 07/10/2023 20:32:42 07/10/20 23 07/10/2023 CBC/C OMPLE TE BLD COUNT W/DIF F nucleated red blood cells 0.0 % -0 Not Available [facility] (Lab) [address] [place], [address], 07/10/2023 20:32:42 07/10/2007/10/2023 CBC/C OMPLE TE BLD COUNT W/DIF F NRBC# 0.00 x10'3 /uL Not Available [facility] (Lab) [address] [place], [address], 07/10/2023 20:32:42 07/10/2007/10/2023 HEMOG LOBIN A1C HA1C 5.5 % 4.0-6. 0 Diabe helena Scree mona Crite tere: <5.7% Consi stent with absen ce of diabe helena 5.7-6 .4% Consi stent with incre ased risk for diabe helena (pred iabet es) >OR=6 .5% Consi stent with diabe helena REFER ENCE: Diabe helena Care 2016, 39(Cervantes ppl.1 ):s13 -s22 Not Available [facility] (Lab) [address] [facility] [place], [address], 07/10/2023 21:27:50 07/10/2007/10/2023 COMPR EHENS POLO METAB OLIC PANEL sodium 136 mmol/ L 137-14 5 low Not Available [facility] (Lab) [address] [place], [address], 07/10/2023 22:43:08 07/10/2007/10/2023 COMPR EHENS POLO METAB OLIC PANEL potassium 4.8 mmol/ L 3.5-5. 1 Not Available [facility] (Lab) [address] [place], [address], 07/10/2023 22:43:08 07/10/2007/10/2023 COMPR EHENS POLO METAB OLIC PANEL chloride 106 mmol/ L 98-107 Not Available [facility] (Lab) [address] [place], [address], 07/10/2023 22:43:08 07/10/20 23 07/10/2023 COMPR EHENS POLO METAB OLIC PANEL carbon dioxide 23 mmol/ L 22-30 Not Available [facility] (Lab) [address] [place], [address], 07/10/2023 22:43:08 07/10/2007/10/2023 COMPR EHENS POLO METAB OLIC PANEL anion gap 11.8 mmol/ L 14-22 low Not Available [facility] (Lab) [address] [place], [address], 07/10/2023 22:43:08 07/10/2007/10/2023 COMPR EHENS POLO METAB OLIC PANEL glucose 68 mg/dL 70-99 low Not Available [facility] (Lab) [address] [place], [address], 07/10/2023 22:43:08 10/31/07/10/2023 COMPR EHENS POLO METAB OLIC PANEL BUN 12 mg/dL 8-19 Not Available [facility] (Lab) [address] [place], [address], 07/10/2023 22:43:08 07/10/20 23 07/10/2023 COMPR EHENS POLO METAB OLIC PANEL creatinine 0.73 mg/dL 0.66-1 .25 Not Available [facility] (Lab) [address] [place], [address], 07/10/2023 22:43:08 07/10/20 23 07/10/2023 COMPR EHENS POLO METAB OLIC PANEL GFR >60 Refer ence Range : [place] GFR Healt hy Adult : >60 [...] s/kdo qi/gf r_cal culat or Not Available [facility] (Lab) [address] [place], [address], 07/10/2023 22:43:08 07/10/20 23 07/10/2023 COMPR EHENS POLO METAB OLIC PANEL alkaline phosphatase 106 U/L 38-126 Not Available [facility] (Lab) [address] [place], [address], 07/10/2023 22:43:08 07/10/20 23 07/10/2023 COMPR EHENS POLO METAB OLIC PANEL alanine aminotransfe rase 22 U/L 0-35 Not Available [facility] (Lab) [address] [place], [address], 07/10/2023 22:43:08 07/10/20 23 07/10/2023 COMPR EHENS POLO METAB OLIC PANEL aspartate aminotransfe rase 24 U/L 15-37 Not Available [facility] (Lab) [address] [place], [address], 07/10/2023 22:43:08 07/10/20 23 07/10/2023 COMPR EHENS POLO METAB OLIC PANEL bilirubin, total 0.30 mg/dL 0.20-1 .30 Not Available [facility] (Lab) [address] [place], [address], 07/10/2023 22:43:08 07/10/20 23 07/10/2023 COMPR EHENS POLO METAB OLIC PANEL calcium 9.6 mg/dL 8.4-10 .2 Not Available [facility] (Lab) [address] [place], [address], 07/10/2023 22:43:08 07/10/20 23 07/10/2023 COMPR EHENS POLO METAB OLIC PANEL total protein 7.6 g/dL 6.3-8. 2 Not Available [facility] (Lab) [address] [place], [address], 07/10/2023 22:43:08 1007/10/2023 COMPR EHENS POLO METAB OLIC PANEL albumin 4.1 g/dL 3.4-5. 0 Not Available [facility] (Lab) [address] [place], [address], 07/10/2023 22:43:08 07/10/20 23 07/10/2023 COMPR EHENS POLO METAB OLIC PANEL globulin 3.5 g/dL 2.6-4. 2 Not Available [facility] (Lab) [address] [place], [address], 07/10/2023 22:43:08 07/10/2007/10/2023 COMPR EHENS POLO METAB OLIC PANEL A/G ratio 1.2 ratio 1.0-2. 0 Not Available [facility] (Lab) [address] [place], [address], 07/10/2023 22:43:08 07/10/2007/10/2023 LIPID PANEL cholesterol 181 mg/dL 140-19 9 NIH STACEY NSUS RECOM MENDA TION FOR DARREN STERO L: ADULT CHILD LOW RISK: <200 <170 BORDE RLINE : <200- 239 ----- HIGH RISK: >240 >200 Not Available [facility] (Lab) [address] [place], [address], 07/10/2023 22:43:13 07/10/2007/10/2023 LIPID PANEL triglyceride s 129 mg/dL 0-150 NIH STACEY NSUS REPOR T RECOM MENDA TION FOR TRIGL YCERI HEATHER: ADULT CHILD LOW RISK: <150 ----- BODER LINE: 150-1 99 ----- HIGH RISK: >200 ----- Not Available [facility] (Lab) [address] [place], [address], 07/10/2023 22:43:13 07/10/20 23 07/10/2023 LIPID PANEL HDL cholesterol 35 mg/dL 40- low Not Available [facility] (Lab) [address] [place], [address], 07/10/2023 22:43:13 07/10/2007/10/2023 LIPID PANEL LDL cholesterol, [...] WILL NOT BE REPOR MICHOACANO. Not Available [facility] (Lab) [address] [place], [address], 07/10/2023 22:43:13 07/10/2007/10/2023 TSH W/REF ABRAN FT4 TSH with reflex free T4 1.970 uIU/m L 0.465- 4.680 Not Available [facility] (Lab) [address] [place], [address], 07/10/2023 22:47:36 12/20/19 22 12/19/2021 XR, chest [facility] [address] [place] [address] Patien t Name: AUNG TYSON Rubio Access ion #: [id number] Sex: F : 1979 9 Locati [...] cholec ystect bernadette. Page 1 of 2 [facility] Patien t Name: AUNG TYSON Access ion #: [id number] Sex: F : 1979 9 Exam [...] 10:41 AM (CT) Page 2 of 2 [id number] [facility] (Imaging) [address] [place], [address], 11/08/2022 13:57:19 12/24/19 22 12/23/2021 US, echoc ardio gram No observ ation record ed. [id number] [facility] [address] [place], [address], 11/08/2022 13:57:19 02/04/20 22 02/03/2022 CT, angio gram, chest , w/ contr ast No observ ation record ed. [id number] [facility] Orders [address] [place], [address], 11/08/2022 13:57:19 02/14/20 22 02/13/2022 exerc ise stres s test No observ ation record ed. [id number] [facility] [address] [facility], [place], [address], 11/08/2022 13:57:19 02/15/20 22 02/13/2022 myoca rdial perfu oren study w/ eject ion fract ion (PROC ) No observ ation record ed. [id number] [facility] [address] [facility], [place], [address], 11/08/2022 13:57:19 03/30/20 22 03/30/2022 PFT, compl ete No observ ation record ed. [id number] [facility] [address] [facility], [place], [address], 11/08/2022 13:57:19 10/09/19 23 10/09/2022 MAMMO , scree mona, bilat eral No observ ation record ed. [id number], [place], [address], 11/08/2022 13:57:19 07/04/20 23 07/04/2023 XR, ribs, bilat eral No observ ation record ed. [email or web address] [facility] [address] [place], [address], 07/05/2023 07:18:57 07/04/20 23 07/04/2023 XR, lumba r spine No observ ation record ed. [email or web address] [facility] [address] [place], [address], 07/05/2023 07:19:29 09/24/19 24 09/24/2023 CT, sinus es, w/o contr ast No observ ation record ed. [address], [place], [address], 09/26/2023 12:41:31 03/10/20 24 03/07/2024 XR, chest , 2 view No observ ation record ed. [facility] [address], [place], [address], 03/10/2024 11:17:16 Result Notes None recorded. Problems Name Problem SNOMED Code Status Onset Date Resolution Date Notes Provider Name and Address Organization Details Recorded Time Fluid level behind tympanic membrane Active 2018 Not Available [facility] 3 13:54:05 Sprain of left ankle 5123269406260 9105 Active 2019 Not Available [facility] 3 13:54:05 Feels hot 304636041 Active 2019 Not Available [facility] 3 13:54:06 Wheezing 78113927 Active 2019 Not Available [employer] 3 13:54:06 Pain of right hip joint 5904366264499 02 Active 2020 Not Available [facility] 3 13:54:05 Anxiety 68294713 Active 2020 Not Available [employer] 3 13:54:06 Bronchitis 43624912 Active 2021 Not Available [facility] 3 13:54:06 Seasonal allergic rhinitis 276074737 Active 2021 Not Available [employer] 3 13:54:06 Seasonal asthma 363107018 Active 2021 Not Available [facility] 3 13:54:06 Cough 76872661 Active 2021 Not Available [facility] 3 13:54:06 Cardiomega ly 4640128 Active 2021 Not Available [facility] 3 13:54:06 COVID-19 468700361 Active 2022 Yasmeen De Jesus NP [address], [place], [address] , [facility] 3 10:07:24 Gastroesop hageal reflux disease 991712585 Active 2022 Yasmeen De Jesus NP [address], [place], [address] , [facility] [employer] [facility] 3 09:37:33 Allergy to food 061121234 Active 2022 Yasmeen De Jesus NP [address], [place], [address] , [facility] 3 11:31:20 Vitamin D deficiency 25090517 Active 2023 MARAH June [address], [place], [address] , [facility] [employer] [facility] 4 09:09:33 Asthma 393106572 Active 2023 MARAH June [address], [place], [address] , [facility] 4 09:11:38 Mucus in stool 406840269 Active 2023 MARAH June [address], [place], [address] , [facility] [employer] [facility] [employer] [facility] 4 09:14:57 Productive cough 42281729 Active 2023 MARAH June [address], [place], [address] , [facility] 4 09:19:26 Thrombocyt osis 1792695 Active 2023 MARAH June [address], [place], [address] , [facility] [employer] [facility] 4 09:22:15 Iron deficiency anemia 16278908 Active 2023 MARAH June [address], [place], [address] , [facility] [employer] [facility] 4 19:47:24 Contact dermatitis 87205866 Active 2023 MARAH June [address], [place], [address] , [facility] [employer] [facility] 4 11:10:01 Problem Notes None recorded. Procedures Surgical History Date Name Laterality Status Provider Name and Address Organization Details Recorded Time 10/09/19 23 Date of Last Pap Smear completed Yasmeen Yoder RN [facility] [employer] [facility] 07/10/2023 11:09:47 10/09/19 23 Most Recent Mammogram completed Yasmeen Yoder RN [facility] [employer] [facility] 07/10/2023 11:09:30 09/10/19 14 Cholecystectomy completed Not Available On license of [facility] 11/08/2022 13:52:32 09/10/19 06 IT INFRASTRUCTURE ARCHITECT Surgery completed Not Available On license of [facility] 11/08/2022 13:52:32 Imaging Results None recorded. Procedure [...] completed Not Available Not Available Not Available [facility] Saline Nasal Neti Rinse with packet Take [...] % 98 % 106 /min 98.2 [degF] 54720.4 7 g 124/88 mm[Hg] Not Available [employer] 3 13:53:09 Date Recorded Body height Body mass index (BMI) Body weight Body temperature Respiratory rate Heart rate Oxygen saturation Oxygen saturation in Arterial blood by Pulse oximetry Pain severity - 0-10 verbal numeric rating [Score] - Reported Systolic And Diastolic Provider Name and Address Organization Details Last Updated DateTime 4 170.18 cm 30.4 kg/m2 41452.9 2 g 98.3 [degF] 20 /min 74 /min 98 % 98 % 0 122/88 mm[Hg] Yasmeen Yoder RN [facility] [employer] 4 08:46:02 Date Recorded Body height Body mass index (BMI) Body weight Body temperature Heart rate Respiratory rate Oxygen saturation Oxygen saturation in Arterial blood by Pulse oximetry Pain severity - 0-10 verbal numeric rating [Score] - Reported Systolic And Diastolic Provider Name and Address Organization Details Last Updated DateTime 4 170.18 cm 30 kg/m2 53161.9 4 g 97.8 [degF] 100 /min 20 /min 98 % 98 % 2 122/70 mm[Hg] Yasmeen Yoder RN [facility] [employer] 4 11:07:18 Date Recorded Body weight Body mass index (BMI) Body height Body temperature Heart rate Respiratory rate Oxygen saturation Oxygen saturation in Arterial blood by Pulse oximetry Pain severity - 0-10 verbal numeric rating [Score] - Reported Systolic And Diastolic Provider Name and Address Organization Details Last Updated DateTime 3 80864.1 7 g 31.3 kg/m2 170.18 cm 96.5 [degF] 81 /min 16 /min 99 % 99 % 5 138/92 mm[Hg] Yasmeen Yoder RN [place] [facility] 11:05:40 Social History Question Answer Notes LastModified by Organizat ion Details LastModified Time Tobacco Smoking Status Never Smoker Not Available [employer] 11/08/2022 13:52:29 Do You Have An Advance Directive? No Information not available 07/10/2023 If You Are , What Was Your Level Of Alcohol Consumption Prior To ? None [id number] Information not available 11/08/2022 Is Blood Transfusion Acceptable In An Emergency? Yes Information not available 07/10/2023 What Is Your Level Of Caffeine Consumption? Moderate [id number] Information not available 11/08/2022 What Is Your Code Status? Full Code Not If Brain Information not available 07/10/2023 In The 14 Days Before Symptom Onset, Have You Had Close Contact With A Laboratory-confi rmed COVID-19 While That Case Was Ill? No [id number].[id number] Information not available 11/08/2022 In The 14 Days Before Symptom Onset, Have You Had Close Contact With A Person Who Is Under Investigation For COVID-19 While That Person Was Ill? No [id number].80617 [id number] Information not available 11/08/2022 What Type Of Diet Are You Following? REGULAR MIGRATION.78352 02581 Information not available 11/08/2022 Have There Been Any Changes To Your Family Or Social Situation? No Information not available 07/10/2023 Do You Use Insect Repellent Routinely? No Information not available 07/10/2023 Where Do You Live? SingleLevelHouse Information not available 07/10/2023 Do You Have A Medical Power Of Artist Manager? No Information not available 07/10/2023 Do You Have Any Pets? Yes Information not available 07/10/2023 What Is Your Relationship Status? MIGRATION.14951 62347 Information not available 11/08/2022 Do You Use Your Seat Belt Or Car Seat Routinely? Yes [id number].85839 [id number] Information not available 11/08/2022 Do You Have [...] use any illicit or recreational drugs? No MIGRATION.28764 72522 Information not available 11/08/2022 What is your level of alcohol consumption? Occasional MIGRATION.42847 56441 Information not available 11/08/2022 Are you currently [...] anxious, or unable to sleep at night)? [id number] Information not available 02/22/2024 Family History Relationship Description Onset Age of this Age Resolved Age Notes LastModified by Organization Details LastModified Time Father Hypertensive disorder [id number] [id number] Not available 11/08/2022 13:52:33 Father Family history of stroke MIGRATION.109 [id number] Not available 11/08/2022 13:52:33 Mother Hypertensive disorder MIGRATION.686 [id number] Not available 11/08/2022 13:52:33 Maternal Aunt Malignant neoplasm of transverse colon MIGRATION.251 [id number] Not available 11/08/2022 13:52:33 Maternal Aunt Malignant neoplasm of colon ~70's MIGRATION.049 [id number] Not available 11/08/2022 13:52:33 Medical History Condition [...] virus, quadrivalent, preservative 1 completed Not Available On license of [facility] 11/08/2022 13:57:13 Influenza, split virus, quadrivalent, preservative 0 completed Not Available On license of [facility] 11/08/2022 13:57:13 Influenza, split virus, quadrivalent, preservative 9 completed Not Available On license of [facility] 11/08/2022 13:57:14 Past Encounters Encounter ID Performer Location Encounter Start Date Encounter Closed Date Diagnosis/Indication Diagnosis SNOMED-CT Code Diagnosis ICD10 Code Diagnosis IMO Codes Diagnosis Note [id number] Efe Brooks MD [address] [address] 12/20/2020 00:00:00 12/20/2020 14:33:50 [id number] Efe Brooks MD [address] [address] 08/03/2021 00:00:00 08/03/2021 14:53:36 [id number] [facility] ic_[facility] _ATHENA_M IGRATION_ DEFAULT_1 _1 , 08/31/2021 00:00:00 08/31/2021 10:59:50 [id number] Efe Brooks MD [address] [address] 10/14/2021 00:00:00 10/14/2021 16:34:56 [id number] Efe Brooks MD [facility] [address] 12/14/2021 00:00:00 12/14/2021 10:34:42 [id number] Efe Brokos MD [address] [address] 01/04/2022 00:00:00 01/04/2022 11:38:25 [id number] Yasmeen De Jesus NP [address] [address] 06/16/2022 00:00:00 06/16/2022 10:05:24 [id number] Yasmeen De Jesus NP [address] [address] 07/10/2023 10:52:51 07/10/2023 12:09:13 Adult health examination 509971369 Z00.00 Encouraged well balanced meals, active lifestyle, and routine vision and dental exams. Anemia screening 5446405 07 Z13.0 Diabetes m ellitus screening 258011548 Z13.1 Thyroid di sorder screening 663622555 Z13.29 Hyperlipid emia screening 207546577 Z13.220 Anxiety 20642599 F41.9 Sertraline 50 mg, 2 tabs po daily. Seasonal asthma 00782394 6 J45.909 Montelukas t 10 mg po daily.Albu terol prn Gastroesop hageal reflux disease 862039144 K21.9 Omeprazole 20 mg po daily. Jump to 40 mg to see if better coverage. Screening for malignant neoplasm of breast 236038180 Z12.39 Allergy to food 12172871 1 T78.1XXA [id number] Efe Brooks MD [facility]_[address] [address] 02/22/2024 08:28:53 02/22/2024 09:38:22 Vitamin D deficiency 79589642 E55.9 Asthma 276184803 J45.90 9 Gastroesop hageal reflux disease 141487503 K21.9 Family his tory of cancer of colon 811652725 Z80.0 Productive cough 1902807 5 R05.9 Thrombocytosis 6101106 D 75.195 [id number] Efe Brooks MD [facility] [address] [address] 04/29/2024 10:54:07 04/29/2024 11:27:31 Contact dermatitis 73210319 L25.9 Vitamin D deficiency 347 70780 E55.9 Health Concerns Section Related Observation LastModified by Organization Detai ls LastModified Time None Recorded Concern Status LastModified by Organization Details LastModified Time None Recorded Advance Directives Directive N: Payers Insurance Date Sequence Insurance Name Policy Number Policy Adan Covered Member ID Adan Member ID Guarantor Name 11/27/2023 [facility] Disctrict Aung Wilkins 11/08/2022 [facility] Aung Wilkins 11/08/2022 [facility] Aung Wilkins 11/08/2022 [facility] 9 Aung Wilkins 04/28/2024 1 [facility] [id number] Carlos Wilkins [id number] Aung Wilkins Notes Date Note Type Note [...] peppers, fruit. Yasmeen De Jesus NP [address] [facility], [place], [address], [facility] 07/10/2023 11:53:48 02/22/2024 text/html Aung Wilkins [...] by OBColonoscopy: referral sent MARAH June [address] [facility], [place], [address], [employer] 02/22/2024 09:33:40 04/29/2024 text/html Aung Wilkins is a 43 year old female patient here today for a concern of poison mohit. Went to on 03/29, had a shot of prednisone and an oral taper pack. States helped when she was taking it but is now so itchy that she is scratching bruises into her skin. MARAH June [address] [facility], [place], [address], [employer] 04/29/2024 11:26:04 OBGyn Episode No OBEpisode recorded.
--- OUTSIDE RECORDS SUMMARY | 2025-06-26 09:59 | XMS_ITS | Clinical Summary ---
Author Organization [facility] Address [address] [place] [address] Care Team Providers Care Gis Administrator Name Role Phone Juliet Guerrero NP Primary Care Provider [phone] Allergies No known active allergies Medications esomeprazole [...] Hepatitis B Screening Completed 08/06/2000, 000 Insurance [employer] OOS Care Teams Gis Administrator Relationship Specialty Start Date End Date Juliet Guerrero NP [address] [place] [address] PCP - General Nurse Practitioner 12/08/24
--- OUTSIDE RECORDS SUMMARY | 2025-06-26 09:59 | XMS_ITS | Patient Health Record ---
Author Organization [facility] [employer] Address [address] [facility] [address] [place] [address] Care Team Providers Care Business Operations Consultant Name Role Phone Claudio Wynne Unavailable [phone] Reason For Referral No Information Plan Of Treatment No Information
== END 2025-06-26 09:32 | disposition home or self-care (01) ==
PROVIDERS: PCP Nurse Practitioner Adult Health; Visit Provider Surgery
DX: N63.25 Unspecified lump in the left breast, overlapping quadrants (principal); N63.21 Unspecified lump in the left breast, upper outer quadrant; N64.89 Other specified disorders of breast; D24.2 Benign neoplasm of left breast
CPT/HCPCS: 76642

== ENCOUNTER 2025-07-08 09:11 | Outpatient (CLI) | payer BC, SELFPAY ==
--- OUTSIDE RECORDS SUMMARY | 2025-07-08 09:58 | XMS_ITS | Clinical Summary ---
Author Organization [facility] Address [address] [place] [address] Care Team Providers Care Tear Down Man Name Role Phone Juliet Guerrero NP Primary Care Provider [phone] Allergies No known active allergies Medications esomeprazole [...] Hepatitis B Screening Completed 08/06/2000, 000 Insurance [employer] OOS Care Teams Tear Down Man Relationship Specialty Start Date End Date Juliet Guerrero NP [address] [place] [address] PCP - General Nurse Practitioner 12/08/24
--- OUTSIDE RECORDS SUMMARY | 2025-07-08 09:58 | XMS_ITS | Clinical Summary ---
Author Organization [facility] [employer] Address [address] [facility] [address] Care Team Providers Care Agile Coach Name Role Phone Haim Bullard Primary Care Provider + Source Comments [facility] [employer],non-owned Affiliates and Associated Physician Practices is amultiple site organization consisting of ambulatory clinics and hospital sitesin [place], [place], [place]. This disclosure is being madepursuant to the Care Everywhere program and may not contain all information available regarding this patient. Last updated 18.[employer] Allergies No known active allergies Medications * [...] Group ID:Not on file Type:Self Pay Address: [place], [place] BCBS/[employer] [place] SELF PAY NO INSURANCE Member Subscriber Plan / Payer (Ef fective for All Dates) Name:Aung Wilkins Member ID:Not on file Relation to Subscriber:Not on file Subscriber ID:Not on file Payer ID:Not on file Group ID:Not on file Type:Self Pay Address: [place], [place] BC/[facility] BLUE [facility] Address: [facility] [address] [place] [address] SELF PAY NO INSURANCE Member Subscriber Plan / Payer (Ef fective for All Dates) Name:Aung Wilkins Member ID:Not on file Relation to Subscriber:Not on file Subscriber ID:Not on file Payer ID:Not on file Group ID:Not on file Type:Self Pay Address: [place], [place] Care Teams Agile Coach Relationship Specialty [place] [address] [place] [address] PCP - General Physician Exhibit Technician 07/06/17
--- OUTSIDE RECORDS SUMMARY | 2025-07-08 09:59 | XMS_ITS | Patient Health Record ---
Author Organization [facility] [employer] Address [address] [facility] [address] [facility] [address] [place] [address] Care Team Providers Care Insurance Professional Name Role Phone Claudio Wynne Unavailable [phone] Reason For Referral No Information Plan Of Treatment No Information
[2025-07-08 18:46] LABS: Hematocrit 45.4 % (37.0-47.0); Hemoglobin 14.4 g/dL (12.0-15.0); Mean Corpuscular HGB Conc 31.7 g/dl (32-36); Mean Corpuscular Hemoglobin 30.6 pg (26-34); Mean Corpuscular Volume 96.6 fl (80-100); Platelet Count Result 358 k/mm3 (150-375); Red Blood Count 4.70 M/mm3 (4.2-5.4); White Blood Count 8.4 K/mm3 (4.5-10.0)
[2025-07-08 18:54] LABS: Alanine Aminotransferase 28 U/L (6-35); Albumin Level 4.0 g/dL (3.5-5.1); Alkaline Phosphatase 98 U/L (38-126); Anion Gap 6 mmol/L (4-12); Aspartate Amino Transferase 82 U/L (14-36); Bilirubin,Total 0.6 mg/dL (0.2-1.3); Blood Urea Nitrogen 11 mg/dL (7-17); Calcium 9.3 mg/dL (8.4-10.2); Carbon Dioxide 23 mmol/L (22-30); Chloride 107 mmol/L (98-107); Cholesterol 187 mg/dL (0-200); Estimated Glomerular Filt Rate > 60; Glucose 75 mg/dL (65-110); HDL Direct 34 mg/dL; Potassium 4.1 mmol/L (3.4-5.0); Sodium 136 mmol/L (137-145); Total Protein 7.3 g/dL (6.3-8.2); Triglycerides 99 mg/dL (<150)
[2025-07-08 19:29] LABS: Thyroid Stimulating Hormone 1.780 uIU/mL (0.465-4.680)
== END 2025-07-08 09:12 | disposition home or self-care (01) ==
LOC: ANHBWCLAB 09:12
PROVIDERS: PCP Nurse Practitioner Adult Health; Visit Provider Nurse Practitioner Adult Health
DX: R23.2 Flushing (principal); R53.83 Other fatigue
CPT/HCPCS: 36415; 80053; 80061; 84443; 85027

== ENCOUNTER 2025-07-10 09:18 | Outpatient (CLI) | payer BC, SELFPAY ==
--- NOTE | ~2025-07-10 | MMUS_ITS ---
MM post biopsy diagnostic LT, US_MAGSEEDLT_US EXAMINATION: MM post biopsy diagnostic LT, US_MAGSEEDLT_US INDICATION: Left breast mass TECHNIQUE: The procedure for a ultrasound -guided Magseed localization was discussed with the patient. Risks discussed included bleeding and infection. The patient verbalized understanding and agreed to proceed. The time out was performed to verify the patient's name, date of , and site of procedure. The skin overlying the left breast was prepared in usual fashion. Utilizing ultrasound guidance, the needle was advanced into the left breast. Confirmation of Magseed position was achieved with ultrasound and subsequent mediolateral and craniocaudal mammogram. The patient tolerated procedure without immediate complication. BREAST PARENCHYMAL COMPOSITION: Dense: The breasts are heterogeneously dense, which may obscure small masses FINDINGS: Ultrasound and mammographic images demonstrate deployment of the Magseed device contiguous with mass located at 12:00 near the nipple. Follow-up mammograms demonstrates magseed placement just anterior to the mass of interest. IMPRESSION: 1. Successful ultrasound-guided left breast Magseed localization. Post procedure mammogram for marker placement. Reviewed, dictated and finalized at location B. IMPRESSION: 1. Successful ultrasound-guided left breast Magseed localization. Post procedur e mammogram for marker placement.
--- OUTSIDE RECORDS SUMMARY | 2025-07-10 09:44 | XMS_ITS | Clinical Summary ---
Author Organization [facility] [employer] Address [address] [facility] [place] [address] Care Team Providers Care Planting Machine Crewman Name Role Phone Haim Bullard Primary Care Provider + Source Comments [facility] [employer],non-owned Affiliates and Associated Physician Practices is amultiple site organization consisting of ambulatory clinics and hospital sitesin [place], [place], [place] and [place]. This disclosure is being madepursuant to the Care Everywhere program and may not contain all information available regarding this patient. Last updated 18.[employer] Allergies No known active allergies Medications * [...] Group ID:Not on file Type:Self Pay Address: [place], [place] BC[place]/[employer] [place] SELF PAY NO INSURANCE Member Subscriber Plan / Payer (Ef fective for All Dates) Name:Aung Wilkins Member ID:Not on file Relation to Subscriber:Not on file Subscriber ID:Not on file Payer ID:Not on file Group ID:Not on file Type:Self Pay Address: [place], [place] BC/[facility] [place] SELF PAY NO INSURANCE Member Subscriber Plan / Payer (Ef fective for All Dates) Name:Aung Wilkins Member ID:Not on file Relation to Subscriber:Not on file Subscriber ID:Not on file Payer ID:Not on file Group ID:Not on file Type:Self Pay Address: [place], [place] Care Teams Planting Machine Crewman Relationship Specialty [place] [address] [place] [address] PCP - General Physician Poleyard Supervisor 07/06/17
--- OUTSIDE RECORDS SUMMARY | 2025-07-10 09:44 | XMS_ITS | Patient Health Record ---
Author Organization [facility] [employer] Address [address] [facility] [address] [facility] [address] [place] [address] Care Team Providers Care Web Mobile Designer Name Role Phone Claudio Wynne Unavailable [phone] Reason For Referral No Information Plan Of Treatment No Information
--- OUTSIDE RECORDS SUMMARY | 2025-07-10 09:44 | XMS_ITS | Clinical Summary ---
Author Organization [facility] Address [address] [place] [address] Care Team Providers Care Nurse Practitioner Hospitalist Name Role Phone Juliet Guerrero NP Primary Care Provider [phone] Allergies No known active allergies Medications esomeprazole [...] Hepatitis B Screening Completed 08/06/2000, 000 Insurance [employer] OOS Care Teams Nurse Practitioner Hospitalist Relationship Specialty Start Date End Date Juliet Guerrero NP [address] [place] [id number] PCP - General Nurse Practitioner 12/08/24
== END 2025-07-10 09:19 | disposition home or self-care (01) ==
PROVIDERS: PCP Nurse Practitioner Adult Health; Visit Provider Surgery
DX: N63.25 Unspecified lump in the left breast, overlapping quadrants (principal); D24.2 Benign neoplasm of left breast; Z98.890 Other specified postprocedural states
CPT/HCPCS: 19285; 77065; A4648

== ENCOUNTER 2025-07-22 02:19 | Day surgery (SDC) | payer BC, SELFPAY ==
--- NOTE | 2025-07-08 14:50 | PC.NURSE ---
[facility] has started construction of its new state of the art ER which will open Spring 2026. With this, we anticipate parking may be a challenge for some our surgical patients and families. Parking spaces are limited but are available for all Surgical, obstetrics, and ER patients sharing this lot. If you arrive and find you are having a hard time finding a parking space, please note that we understand the challenges, please drive around the hospital and park near Hospital Entrance 1. When you enter this entrance, you can ask a volunteer to direct or take you back to the surgical waiting area to check in. We appreciate everyone?s understanding of these expected challenges while we build for your future. Report to the Outpatient Waiting Room, entrance under the green pavilion located off [address], at time __7am on date ___[phone]____. Planned Procedure Time: ____9am____.? Time changes happen often and if your time is changed the preop area will call you the afternoon before. - You and your visitor will be asked to self-screen and do not enter if you have any COVID symptoms. Please call surgeon if you need to reschedule. - A mask is optional within the hospital at this time. Patients may have clear liquids (water, carbonated beverages, clear teas, apple juice) until 3 hours prior to surgery with a maximum of 20 ounces. - No food from midnight until time of surgery and no smoking, or chewing tobacco (or any form of nicotine). No chewing gum, candy or mints. Take only the following medications with a SIP of water on the morning of surgery: Effexor DO NOT STOP ANY OF YOUR OTHER PRESCRIPTION MEDICATIONS PRIOR TO SURGERY EXCEPT THE FOLLOWING Hold all vitamins and supplements for 3 days per anesthesiologist. Medications to discontinue per physician Bring Albuterol with you, do not take Zofran or Nexium the morning of surgery. Please no make-up, nail telugu, hairspray, perfume, deodorant, or body powder the day of surgery.? No jewelry (including any body piercings) or valuables the day of surgery, leave them at home.? Please take a shower or bath the night before, or the morning of, surgery with an antibacterial soap.? Wear comfortable, loose fitting clothing.? - Jewelry must be removed prior to entering the operating room.? Rings and piercings that are not removed may be cut off. - The hospital will not accept responsibility for valuables.? - Please leave all valuables, including medications, at home the day of surgery. If you are going home after surgery, a licensed industrial tractor driver must drive you home.? - NO public transportation without another adult if you receive anesthesia. - We recommend that an adult stay with you for 24 hours following discharge. - We also recommend that you do not drive, make important decision, drink alcoholic beverages, or take any drugs that were not prescribed by your health care provider for at least 24 hours after your discharge time. Follow any additional instructions given to you from your surgeon. Telephone instructions given to __Patient/Aung and asked if any additional questions and then verbalized understanding. Patient advised to call surgeon office or pre surgery nurse liaison [phone] if any additional questions.
[2025-07-22] VITALS (8 sets, daily range): BP systolic 120–130; BP diastolic 63–82; PULSE 78–93; RESP 10–20; TEMP 36.2–36.4; O2SAT 95–100
--- NOTE | ~2025-07-22 | MM_ITS ---
MM_FAXITRON_MG 07/22/2025 14:08 Indication: Status post left breast lumpectomy. Procedure: Specimen breast radiograph Comparison: Mammogram dated 07/10/2025 Findings: Breast specimen contains magseed seen in prior examination. The tissue marker from previous biopsy is not included in the study. Please refer to procedural and pathology report for details. Impression: 1: Status post recent right breast lumpectomy specimen containing magseed device. Reviewed, dictated and finalized at location B. UTER SUPPORT TECHNICIAN Impression: 1: Status post recent right breast lumpectomy specimen containing magseed jose miguel salazar.
--- OUTSIDE RECORDS SUMMARY | 2025-07-22 02:22 | XMS_ITS | Clinical Summary ---
Author Organization [facility] [employer] Address [address] [place] [address] Care Team Providers Care Illuminating Engineer Name Role Phone Haim Bullard Primary Care Provider + Source Comments [facility] [employer],non-owned Affiliates and Associated Physician Practices is amultiple site organization consisting of ambulatory clinics and hospital sitesin [place], [place], [place] and [place]. This disclosure is being madepursuant to the Care Everywhere program and may not contain all information available regarding this patient. Last updated 18.[employer] Allergies No known active allergies Medications * [...] Group ID:Not on file Type:Self Pay Address: [place], [place] BCBS/[employer] [place] SELF PAY NO INSURANCE Member Subscriber Plan / Payer (Ef fective for All Dates) Name:Aung Wilkins Member ID:Not on file Relation to Subscriber:Not on file Subscriber ID:Not on file Payer ID:Not on file Group ID:Not on file Type:Self Pay Address: [place], [place] BC/[facility] [place] SELF PAY NO INSURANCE Member Subscriber Plan / Payer (Ef fective for All Dates) Name:Aung Wilkins Member ID:Not on file Relation to Subscriber:Not on file Subscriber ID:Not on file Payer ID:Not on file Group ID:Not on file Type:Self Pay Address: [place], [place] Care Teams Illuminating Engineer Relationship Specialty [place] [address] [place] [id number] PCP - General Physician Press Tender 07/06/17
--- OUTSIDE RECORDS SUMMARY | 2025-07-22 02:23 | XMS_ITS | Patient Health Record ---
Author Organization [facility] [employer] Address [address] [facility] [address] [place] [address] Care Team Providers Care Talent Acquisition Program Manager Name Role Phone Claudio Wynne Unavailable [phone] Reason For Referral No Information Plan Of Treatment No Information
--- OUTSIDE RECORDS SUMMARY | 2025-07-22 02:23 | XMS_ITS | Data Portability ---
Author Organization [facility] Open CS, Main Office Address [address] [place] [address] Care Team Providers Care Key Cutter Name Role Phone JM DE LEON Primary Care Provider HAWA, PFIEFER It Risk Advisor HAWA, PFIEFER It Risk Advisor [phone] HAWA, PFIEFER It Risk Advisor [phone] Assessment No assessment recorded. Plan of Treatment Reminders Order Date Submit Date Provider Last Modified By Organization Details Last Modified Time Details Appointments None recorded. Lab CBC w/ auto diff 2023 024 [facility] (Lab), [address] [place], [address], 4 18:36:35 iron + total iron-bindin g capacity (TIBC), serum 2023 024 [facility] (Lab), [address] [place], [address], 4 18:36:35 ferritin, serum or plasma 2023 024 [facility] (Lab), [address] [place], [address], 4 18:36:35 vitamin B12 + folate, serum or blood 2023 024 [facility] (Lab), [address] [place], [address], 4 18:36:35 lipid panel, serum 2022 023 [facility] (Lab), [address] [place], [address], 22:43:13 TSH, serum or plasma 2022 023 [facility] (Lab), [address] [place], [address], 22:47:36 CBC w/ auto diff 2022 023 [facility] (Lab), [address] [place], [address], 20:32:42 CMP, serum or plasma 2022 023 [facility] (Lab), [address] [place], [address], 22:43:08 glycohemogl obin, total, blood 2022 023 [facility] (Lab), [address] [place], [address], 21:27:50 Referral gastroenter ologist referral - Please call patient to schedule an appointment . Thank you. [address] - Gastroenterol ogy, [address], [address], [place], [address], 4 18:40:49 mechanical maintenance referral 2022 023 [email or web address] 3 Martine Schneider MD, [address] [place], [address], 3 09:02:42 Procedures None recorded. Surgeries None recorded. Imaging XR, chest, 2 view 2023 024 [facility], [address], [address], 4 10:28:03 MAMMO, screening, digital, bilateral - *Please call pt to schedule* 2022 [email or web address] [place] [address] - Breast Ctr, [address], [address], [place], [address], 4 09:10:29 Medication Orders ergocalcife rol (vitamin D2) 1,250 mcg (50,000 unit) capsule 2023 024 [facility]/Pharmacy #[id number], [address], [place], [address], 4 11:23:47 hydroxyzine HCl 25 mg tablet 2023 024 [facility]/Pharmacy #[id number], [address], [place], [address], 4 11:41:32 triamcinolo ne acetonide 40 mg/mL suspension for injection 2023 024 Not available 4 11:29:13 betamethaso ne acetate and sodium phos 6 mg/mL suspension for injection 2023 024 Not available 4 11:32:34 Airsupra 90 mcg-80 mcg/actuati on HFA aerosol inhaler 2023 024 [facility]/Pharmacy #[id number], [address], [place], [address], 4 09:22:41 ergocalcife rol (vitamin D2) 1,250 mcg (50,000 unit) capsule 2023 024 [facility]/Pharmacy #[id number], [address], [place], [address], 4 09:22:41 omeprazole 40 mg capsule,del ayed release 2023 024 [facility]/Pharmacy #[id number], [address], [place], [address], 09:22:40 Patient TargetsNo targets recorded. Patient Instructions Encounter Date Encounter Id Patient Instructions Last Modified By Organization Details Last Modified Time 07/10/2023 [id number] wellness after 07/11/24 6 mo fu anxiety, gerd, asthma, allergies around january 2024. [email or web address] Not available 07/10/2023 09:41:20 Reason for Referral Nurse'S Companion Referral for Aller gy to food Referring Physician: Yasmeen De Jesus, Family Medicine, Encounter Date: 07/10/2023 Digital Media Intern Referral for Family history of cancer of [...] Care in Diabe helena(A DA). Not Available [facility] [address] [address] [place], [address], 01/18/2022 04:55:10 01/18/20 22 01/18/2022 VITAM IN [...] /MS is recom noe d: order code 82343 (juan carlos ents >2yrs ). See Note 1 Note 1 For addit ional infor petra schmitz refer to http: //antoine flores.Silvio stDia gnost ics.c om/fa q/FAQ 199 (This link is being provi ded for infor cassie fernandez/ dougals bro purpo ses only. ) Not Available [facility] [address] [address] [address], [place], [address], 01/18/2022 04:55:10 01/18/20 22 01/18/2022 TSH W/REF ABRAN TO FT4 TSH w/reflex to FT4 1.75 mIU/L normal Refer ence Range > or = 20 Years 0.40- 4.50 Pregn angelita Range s First trime ster 0.26- 2.66 Secon d trime ster 0.55- 2.73 Third trime ster 0.43- 2.91 Not Available [facility] [address] [address], [place], [address], 01/18/2022 04:55:09 01/18/20 22 01/18/2022 VITAM IN B12/F OLATE , SERUM PANEL vitamin B12 634 pg/mL 200-11 00 normal Not Available [address], [address], 01/18/2022 04:55:08 01/18/20 22 01/18/2022 VITAM IN B12/F OLATE , SERUM PANEL folate, serum 19.0 NG/mL normal Refer ence Range Low: <3.4 Borde rline : 3.4-5 .4 Carmen l: >5.4 Not Available [address], [address], 01/18/2022 04:55:08 01/18/20 22 01/18/2022 CBC (INCL UDES DIFF/ PLT) white blood cell count 8.3 thous and/u L 3.8-10 .8 normal Not Available [address], [address], 01/18/2022 04:55:08 01/18/20 22 01/18/2022 CBC (INCL UDES DIFF/ PLT) red blood cell count 4.28 abel on/uL 3.80-5 .10 normal Not Available [address], [address], 01/18/2022 04:55:08 01/18/20 22 01/18/2022 CBC (INCL UDES DIFF/ PLT) hemoglobin 11.9 g/dL 11.7-1 5.5 normal Not Available [address], [address], 01/18/2022 04:55:08 01/18/20 22 01/18/2022 CBC (INCL UDES DIFF/ PLT) hematocrit 37.2 % 35.0-4 5.0 normal Not Available [address], [address], 01/18/2022 04:55:08 01/18/20 22 01/18/2022 CBC (INCL UDES DIFF/ PLT) MCV 86.9 fL 80.0-1 00.0 normal Not Available [address], [address], 01/18/2022 04:55:08 01/18/20 22 01/18/2022 CBC (INCL UDES DIFF/ PLT) MCH 27.8 pg 27.0-3 3.0 normal Not Available [address], [address], 01/18/2022 04:55:08 01/18/20 22 01/18/2022 CBC (INCL UDES DIFF/ PLT) MCHC 32.0 g/dL 32.0-3 6.0 normal Not Available [address], [address], 01/18/2022 04:55:08 01/18/20 22 01/18/2022 CBC (INCL UDES DIFF/ PLT) RDW 13.4 % 11.0-1 5.0 normal Not Available [address], [address], 01/18/2022 04:55:08 01/18/20 22 01/18/2022 CBC (INCL UDES DIFF/ PLT) platelet count 442 thous and/u L 140-40 0 high Not Available [address], [address], 01/18/2022 04:55:08 01/18/20 22 01/18/2022 CBC (INCL UDES DIFF/ PLT) MPV 10.0 fL 7.5-12 .5 normal Not Available [facility] [address], [address], 01/18/2022 04:55:08 01/18/20 22 01/18/2022 CBC (INCL UDES DIFF/ PLT) absolute neutrophils 4723 cells /uL 1500-7 800 normal Not Available [facility] [address], [address], 01/18/2022 04:55:08 01/18/20 22 01/18/2022 CBC (INCL UDES DIFF/ PLT) absolute lymphocytes 2673 cells /uL 850-39 00 normal Not Available [address], [address], 01/18/2022 04:55:08 01/18/20 22 01/18/2022 CBC (INCL UDES DIFF/ PLT) absolute monocytes 664 cells /uL 200-95 0 normal Not Available [facility] [address], [address], 01/18/2022 04:55:08 01/18/20 22 01/18/2022 CBC (INCL UDES DIFF/ PLT) absolute eosinophils 174 cells /uL 15-500 normal Not Available [address], [address], 01/18/2022 04:55:08 01/18/20 22 01/18/2022 CBC (INCL UDES DIFF/ PLT) absolute basophils 66 cells /uL 0-200 normal Not Available [facility] [address], [address], 01/18/2022 04:55:08 01/18/20 22 01/18/2022 CBC (INCL UDES DIFF/ PLT) neutrophils 56.9 % normal Not Available [address], [address], 01/18/2022 04:55:08 01/18/20 22 01/18/2022 CBC (INCL UDES DIFF/ PLT) lymphocytes 32.2 % normal Not Available [address], [address], 01/18/2022 04:55:08 01/18/20 22 01/18/2022 CBC (INCL UDES DIFF/ PLT) monocytes 8.0 % normal Not Available [facility] [address] [place], [address], 01/18/2022 04:55:08 01/18/20 22 01/18/2022 CBC (INCL UDES DIFF/ PLT) eosinophils 2.1 % normal Not Available [address], [address], 01/18/2022 04:55:08 01/18/20 22 01/18/2022 CBC (INCL UDES DIFF/ PLT) basophils 0.8 % normal Not Available [address], [address], 01/18/2022 04:55:08 01/18/20 22 01/18/2022 COMPR EHENS POLO METAB OLIC PANEL glucose 84 mg/dL 65-99 normal Fasti ng refer ence inter olga Not Available [address], [address], 01/18/2022 04:55:08 01/18/20 22 01/18/2022 COMPR EHENS POLO METAB OLIC PANEL urea nitrogen (BUN) 10 mg/dL 7-25 normal Not Available [address], [address], 01/18/2022 04:55:08 01/18/20 22 01/18/2022 COMPR EHENS POLO METAB OLIC PANEL creatinine 0.83 mg/dL 0.50-1 .10 normal Not Available [address], [address], 01/18/2022 04:55:08 01/18/20 22 01/18/2022 COMPR EHENS POLO METAB OLIC PANEL eGFR non-afr. burkinan 88 mL/mi n/1.7 3m2 > or = 60 normal Not Available [address], [address], 01/18/2022 04:55:08 01/18/20 22 01/18/2022 COMPR EHENS POLO METAB OLIC PANEL eGFR 102 mL/mi n/1.7 3m2 > or = 60 normal Not Available [address], [address], 01/18/2022 04:55:08 01/18/20 22 01/18/2022 COMPR EHENS POLO METAB OLIC PANEL BUN/creatini ne ratio not applic able (calc ) 6-22 Not Available [address], [address], 01/18/2022 04:55:08 01/18/20 22 01/18/2022 COMPR EHENS POLO METAB OLIC PANEL sodium 139 mmol/ L 135-14 6 normal Not Available [address], [address], 01/18/2022 04:55:08 01/18/20 22 01/18/2022 COMPR EHENS POLO METAB OLIC PANEL potassium 4.1 mmol/ L 3.5-5. 3 normal Not Available [address], [address], 01/18/2022 04:55:08 01/18/20 22 01/18/2022 COMPR EHENS POLO METAB OLIC PANEL chloride 106 mmol/ L 98-110 normal Not Available [address], [address], 01/18/2022 04:55:08 01/18/20 22 01/18/2022 COMPR EHENS POLO METAB OLIC PANEL carbon dioxide 25 mmol/ L 20-32 normal Not Available [address], [address], 01/18/2022 04:55:08 01/18/20 22 01/18/2022 COMPR EHENS POLO METAB OLIC PANEL calcium 9.2 mg/dL 8.6-10 .2 normal Not Available [address], [address], 01/18/2022 04:55:08 01/18/20 22 01/18/2022 COMPR EHENS POLO METAB OLIC PANEL protein, total 6.7 g/dL 6.1-8. 1 normal Not Available [address], [address], 01/18/2022 04:55:08 01/18/20 22 01/18/2022 COMPR EHENS POLO METAB OLIC PANEL albumin 3.8 g/dL 3.6-5. 1 normal Not Available [address], [address], 01/18/2022 04:55:08 01/18/20 22 01/18/2022 COMPR EHENS POLO METAB OLIC PANEL globulin 2.9 g/dL_ (calc ) 1.9-3. 7 normal Not Available [address], [address], 01/18/2022 04:55:08 01/18/20 22 01/18/2022 COMPR EHENS POLO METAB OLIC PANEL albumin/glob ulin ratio 1.3 (calc ) 1.0-2. 5 normal Not Available [address], [address], 01/18/2022 04:55:08 01/18/20 22 01/18/2022 COMPR EHENS POLO METAB OLIC PANEL bilirubin, total 0.4 mg/dL 0.2-1. 2 normal Not Available [address], [address], 01/18/2022 04:55:08 01/18/20 22 01/18/2022 COMPR EHENS POLO METAB OLIC PANEL alkaline phosphatase 110 U/L 31-125 normal Not Available [address] [address] [place], [address], 01/18/2022 04:55:08 01/18/20 22 01/18/2022 COMPR EHENS POLO METAB OLIC PANEL AST 18 U/L 10-30 normal Not Available [address], [address], 01/18/2022 04:55:08 01/18/20 22 01/18/2022 COMPR EHENS POLO METAB OLIC PANEL ALT 18 U/L 6-29 normal Not Available [address], [address], 01/18/2022 04:55:08 01/18/20 22 01/18/2022 LIPID PANEL , STAND CAROLIN cholesterol, total 162 mg/dL <200 normal Not Available [address], [address], 01/18/2022 04:55:07 01/18/20 22 01/18/2022 LIPID PANEL , STAND CAROLIN HDL cholesterol 35 mg/dL > or = 50 low Not Available [address], [address], 01/18/2022 04:55:07 01/18/20 22 01/18/2022 LIPID PANEL , STAND CAROLIN triglyceride s 149 mg/dL <150 normal Not Available [address], [address], 01/18/2022 04:55:07 01/18/20 22 01/18/2022 LIPID PANEL [...] 9): 2061- 2068 (http ://ed ucati on.Elham villatoroTunespeak. com/f aq/FA Q164) Not Available [facility] [address] [address] , [place], [address], 01/18/2022 04:55:07 01/18/20 22 01/18/2022 LIPID PANEL , STAND CAROLIN chol/HDLC ratio 4.6 (calc ) <5.0 normal Not Available [facility] [address] [address], [place], [address], 01/18/2022 04:55:07 01/18/20 22 01/18/2022 LIPID PANEL , STAND CAROLIN non HDL cholesterol 127 mg/dL _(lilly c) <130 normal For patie nts with diabe helena plus 1 major ASCVD risk facto r, treat ing to a non-H DL-C goal of <100 mg/dL (LDL- C of <70 mg/dL ) is consi malcolm jimenez n. Not Available [facility] [address] [address] , [place], [address], 01/18/2022 04:55:07 07/10/20 23 07/10/2023 CBC/C OMPLE TE BLD COUNT W/DIF F white blood cells 8.0 x10'3 /uL 4.2-10 .8 Not Available [facility] (Lab) [address] [place], [address], 07/10/2023 20:32:42 07/10/20 23 07/10/2023 CBC/C OMPLE TE BLD COUNT W/DIF F red blood cells 4.52 x10'6 /uL 3.80-5 .20 Not Available [facility] (Lab) [address] [place], [address], 07/10/2023 20:32:42 07/10/20 23 07/10/2023 CBC/C OMPLE TE BLD COUNT W/DIF F hemoglobin 11.9 g/dL 12.0-1 5.6 low Not Available [facility] (Lab) [address] [place], [address], 07/10/2023 20:32:42 07/10/2007/10/2023 CBC/C OMPLE TE BLD COUNT W/DIF F hematocrit 38.6 % 35.7-4 5.7 Not Available [facility] (Lab) [address] [place], [address], 07/10/2023 20:32:42 07/10/2007/10/2023 CBC/C OMPLE TE BLD COUNT W/DIF F mean red cell volume 85.4 fL 82.0-9 9.0 Not Available [facility] (Lab) [address] [place], [address], 07/10/2023 20:32:42 07/10/2007/10/2023 CBC/C OMPLE TE BLD COUNT W/DIF F mean red cell hemoglobin 26.3 pg 27.0-3 3.0 low Not Available [facility] (Lab) [address] [place], [address], 07/10/2023 20:32:42 07/10/2007/10/2023 CBC/C OMPLE TE BLD COUNT W/DIF F mean RBC HGB concentratio n 30.8 g/dL 31.0-3 6.0 low Not Available [facility] (Lab) [address] [place], [address], 07/10/2023 20:32:42 07/10/2007/10/2023 CBC/C OMPLE TE BLD COUNT W/DIF F red cell distribution width 15.2 % 11.8-1 5.5 Not Available [facility] (Lab) [address] [place], [address], 07/10/2023 20:32:42 07/10/2007/10/2023 CBC/C OMPLE TE BLD COUNT W/DIF F platelets 422 x10'3 /uL 150-40 0 high Not Available [facility] (Lab) [address] [place], [address], 07/10/2023 20:32:42 07/10/2007/10/2023 CBC/C OMPLE TE BLD COUNT W/DIF F mean platelet volume 10.7 fL 9.0-12 .4 Not Available [facility] (Lab) [address] [place], [address], 07/10/2023 20:32:42 07/10/2007/10/2023 CBC/C OMPLE TE BLD COUNT W/DIF F neutrophils 59.7 % 39.0-7 2.0 Not Available [facility] (Lab) [address] [place], [address], 07/10/2023 20:32:42 07/10/2007/10/2023 CBC/C OMPLE TE BLD COUNT W/DIF F lymphocytes 30.7 % 16.0-4 7.0 Not Available [facility] (Lab) [address] [place], [address], 07/10/2023 20:32:42 07/10/2007/10/2023 CBC/C OMPLE TE BLD COUNT W/DIF F monocytes 6.8 % 5.0-12 .0 Not Available [facility] (Lab) [address] [place], [address], 07/10/2023 20:32:42 07/10/2007/10/2023 CBC/C OMPLE TE BLD COUNT W/DIF F eosinophils 1.6 % 1.0-7. 0 Not Available [facility] (Lab) [address] [place], [address], 07/10/2023 20:32:42 07/10/2007/10/2023 CBC/C OMPLE TE BLD COUNT W/DIF F basophils 0.9 % 0.0-2. 0 Not Available [facility] (Lab) [address] [place], [address], 07/10/2023 20:32:42 07/10/2007/10/2023 CBC/C OMPLE TE BLD COUNT W/DIF F immature granulocytes 0.3 % 0.00-0 .50 Not Available [facility] (Lab) [address] [place], [address], 07/10/2023 20:32:42 07/10/2007/10/2023 CBC/C OMPLE TE BLD COUNT W/DIF F neutrophils, absolute count 4.77 x10'3 /uL 1.5-8. 0 Not Available [facility] (Lab) [address] [place], [address], 07/10/2023 20:32:42 07/10/2007/10/2023 CBC/C OMPLE TE BLD COUNT W/DIF F lymphocytes, absolute count 2.45 x10'3 /uL 1.07-3 .43 Not Available [facility] (Lab) [address] [place], [address], 07/10/2023 20:32:42 07/10/2007/10/2023 CBC/C OMPLE TE BLD COUNT W/DIF F monocytes, absolute count 0.54 x10'3 /uL 0.29-0 .99 Not Available [facility] (Lab) [address] [place], [address], 07/10/2023 20:32:42 07/10/2007/10/2023 CBC/C OMPLE TE BLD COUNT W/DIF F eosinophils, absolute count 0.13 x10'3 /uL 0.02-0 .53 Not Available [facility] (Lab) [address] [place], [address], 07/10/2023 20:32:42 07/10/2007/10/2023 CBC/C OMPLE TE BLD COUNT W/DIF F basophils, absolute count 0.07 x10'3 /uL 0.01-0 .08 Not Available [facility] (Lab) [address] [place], [address], 07/10/2023 20:32:42 07/10/2007/10/2023 CBC/C OMPLE TE BLD COUNT W/DIF F immature granulocytes ,absolute 0.02 x10'3 /uL 0.00-0 .05 Not Available [facility] (Lab) [address] [place], [address], 07/10/2023 20:32:42 07/10/20 23 07/10/2023 CBC/C OMPLE TE BLD COUNT W/DIF F nucleated red blood cells 0.0 % -0 Not Available [facility] (Lab) [address] [place], [address], 07/10/2023 20:32:42 07/10/2007/10/2023 CBC/C OMPLE TE BLD COUNT W/DIF F NRBC# 0.00 x10'3 /uL Not Available [facility] (Lab) [address] [place], [address], 07/10/2023 20:32:42 07/10/2007/10/2023 HEMOG LOBIN A1C HA1C 5.5 % 4.0-6. 0 Diabe helena Scree mona Crite tere: <5.7% Consi stent with absen ce of diabe helena 5.7-6 .4% Consi stent with incre ased risk for diabe helena (pred iabet es) >OR=6 .5% Consi stent with diabe helena REFER ENCE: Diabe helena Care 2016, 39(Cervantes ppl.1 ):s13 -s22 Not Available [facility] (Lab) [address] [place], [address], 07/10/2023 21:27:50 07/10/2007/10/2023 COMPR EHENS POLO METAB OLIC PANEL sodium 136 mmol/ L 137-14 5 low Not Available [facility] (Lab) [address] [facility] [place], [address], 07/10/2023 22:43:08 07/10/2007/10/2023 COMPR EHENS POLO METAB OLIC PANEL potassium 4.8 mmol/ L 3.5-5. 1 Not Available [facility] (Lab) [address] [place], [address], 07/10/2023 22:43:08 07/10/2007/10/2023 COMPR EHENS POLO METAB OLIC PANEL chloride 106 mmol/ L 98-107 Not Available [facility] (Lab) [address] [place], [address], 07/10/2023 22:43:08 07/10/20 23 07/10/2023 COMPR EHENS POLO METAB OLIC PANEL carbon dioxide 23 mmol/ L 22-30 Not Available [facility] (Lab) [address] [place], [address], 07/10/2023 22:43:08 07/10/2007/10/2023 COMPR EHENS POLO METAB OLIC PANEL anion gap 11.8 mmol/ L 14-22 low Not Available [facility] (Lab) [address] [place], [address], 07/10/2023 22:43:08 07/10/2007/10/2023 COMPR EHENS POLO METAB OLIC PANEL glucose 68 mg/dL 70-99 low Not Available [facility] (Lab) [address] [place], [address], 07/10/2023 22:43:08 10/31/07/10/2023 COMPR EHENS POLO METAB OLIC PANEL BUN 12 mg/dL 8-19 Not Available [facility] (Lab) [address] [place], [address], 07/10/2023 22:43:08 07/10/20 23 07/10/2023 COMPR EHENS POLO METAB OLIC PANEL creatinine 0.73 mg/dL 0.66-1 .25 Not Available [facility] (Lab) [address] [place], [address], 07/10/2023 22:43:08 07/10/20 23 07/10/2023 COMPR EHENS POLO METAB OLIC PANEL GFR >60 Refer ence Range : Chester ge GFR Healt hy Adult : >60 [...] s/kdo qi/gf r_cal culat or Not Available [facility] (Lab) [address] [place], [address], 07/10/2023 22:43:08 07/10/20 23 07/10/2023 COMPR EHENS POLO METAB OLIC PANEL alkaline phosphatase 106 U/L 38-126 Not Available [facility] (Lab) [address] [place], [address], 07/10/2023 22:43:08 07/10/20 23 07/10/2023 COMPR EHENS POLO METAB OLIC PANEL alanine aminotransfe rase 22 U/L 0-35 Not Available [facility] (Lab) [address] [place], [address], 07/10/2023 22:43:08 07/10/20 23 07/10/2023 COMPR EHENS POLO METAB OLIC PANEL aspartate aminotransfe rase 24 U/L 15-37 Not Available [facility] (Lab) [address] [place], [address], 07/10/2023 22:43:08 07/10/20 23 07/10/2023 COMPR EHENS POLO METAB OLIC PANEL bilirubin, total 0.30 mg/dL 0.20-1 .30 Not Available [facility] (Lab) [address] [place], [address], 07/10/2023 22:43:08 07/10/20 23 07/10/2023 COMPR EHENS POLO METAB OLIC PANEL calcium 9.6 mg/dL 8.4-10 .2 Not Available [facility] (Lab) [address] [place], [address], 07/10/2023 22:43:08 07/10/20 23 07/10/2023 COMPR EHENS POLO METAB OLIC PANEL total protein 7.6 g/dL 6.3-8. 2 Not Available [facility] (Lab) [address] [facility] [place], [address], 07/10/2023 22:43:08 1007/10/2023 COMPR EHENS POLO METAB OLIC PANEL albumin 4.1 g/dL 3.4-5. 0 Not Available [facility] (Lab) [address] [place], [address], 07/10/2023 22:43:08 07/10/20 23 07/10/2023 COMPR EHENS POLO METAB OLIC PANEL globulin 3.5 g/dL 2.6-4. 2 Not Available [facility] (Lab) [address] [place], [address], 07/10/2023 22:43:08 07/10/2007/10/2023 COMPR EHENS POLO METAB OLIC PANEL A/G ratio 1.2 ratio 1.0-2. 0 Not Available [facility] (Lab) [address] [place], [address], 07/10/2023 22:43:08 07/10/2007/10/2023 LIPID PANEL cholesterol 181 mg/dL 140-19 9 NIH STACEY NSUS RECOM MENDA TION FOR DARREN STERO L: ADULT CHILD LOW RISK: <200 <170 BORDE RLINE : <200- 239 ----- HIGH RISK: >240 >200 Not Available [facility] (Lab) [address] [place], [address], 07/10/2023 22:43:13 07/10/2007/10/2023 LIPID PANEL triglyceride s 129 mg/dL 0-150 NIH STACEY NSUS REPOR T RECOM MENDA TION FOR TRIGL YCERI HEATHER: ADULT CHILD LOW RISK: <150 ----- BODER LINE: 150-1 99 ----- HIGH RISK: >200 ----- Not Available [facility] (Lab) [address] [place], [address], 07/10/2023 22:43:13 07/10/20 23 07/10/2023 LIPID PANEL HDL cholesterol 35 mg/dL 40- low Not Available [facility] (Lab) [address] [place], [address], 07/10/2023 22:43:13 07/10/2007/10/2023 LIPID PANEL LDL cholesterol, [...] WILL NOT BE REPOR MICHOACANO. Not Available [facility] (Lab) [address] [place], [address], 07/10/2023 22:43:13 07/10/2007/10/2023 TSH W/REF ABRAN FT4 TSH with reflex free T4 1.970 uIU/m L 0.465- 4.680 Not Available [facility] (Lab) [address] [place], [address], 07/10/2023 22:47:36 12/20/19 22 12/19/2021 XR, chest [facility] [address] [place] [address] Patien t Name: AUNG TYSON Rubio Access ion #: [id number] Sex: F : 1979 9 Locati [...] cholec ystect bernadette. Page 1 of 2 [facility] Patien t Name: AUNG TYSON Access ion #: [id number] Sex: F : 1979 9 Exam [...] 10:41 AM (CT) Page 2 of 2 [id number] [facility] (Imaging) [address] [place], [address], 11/08/2022 13:57:19 12/24/19 22 12/23/2021 US, echoc ardio gram No observ ation record ed. [id number] [facility] [address] [place], [address], 11/08/2022 13:57:19 02/04/20 22 02/03/2022 CT, angio gram, chest , w/ contr ast No observ ation record ed. [id number] [facility] On Lab Orders [address] [place], [address], 11/08/2022 13:57:19 02/14/20 22 02/13/2022 exerc ise stres s test No observ ation record ed. [id number] [facility] [address] [facility], [place], [address], 11/08/2022 13:57:19 02/15/20 22 02/13/2022 myoca rdial perfu oren study w/ eject ion fract ion (PROC ) No observ ation record ed. [id number] [facility] [address] [facility], [place], [address], 11/08/2022 13:57:19 03/30/20 22 03/30/2022 PFT, compl ete No observ ation record ed. [id number] [facility] [address] [facility], [place], [address], 11/08/2022 13:57:19 10/09/19 23 10/09/2022 MAMMO , scree mona, bilat eral No observ ation record ed. [id number], [place], [address], 11/08/2022 13:57:19 07/04/20 23 07/04/2023 XR, ribs, bilat eral No observ ation record ed. [email or web address] [facility] [address] [place], [address], 07/05/2023 07:18:57 07/04/20 23 07/04/2023 XR, lumba r spine No observ ation record ed. [email or web address] [facility] [facility] [address] [place], [address], 07/05/2023 07:19:29 09/24/19 24 09/24/2023 CT, sinus es, w/o contr ast No observ ation record ed. [address], [place], [address], 09/26/2023 12:41:31 03/10/20 24 03/07/2024 XR, chest , 2 view No observ ation record ed. [facility] [address], [place], [address], 03/10/2024 11:17:16 Result Notes None recorded. Problems Name Problem SNOMED Code Status Onset Date Resolution Date Notes Provider Name and Address Organization Details Recorded Time Fluid level behind tympanic membrane Active 2018 Not Available [facility] 3 13:54:05 Sprain of left ankle 1535992425993 9105 Active 2019 Not Available [facility] 3 13:54:05 Feels hot 224652854 Active 2019 Not Available [facility] 3 13:54:06 Wheezing 67685271 Active 2019 Not Available [facility] 3 13:54:06 Pain of right hip joint 8443658790411 02 Active 2020 Not Available [facility] 3 13:54:05 Anxiety 29149012 Active 2020 Not Available [facility] 3 13:54:06 Bronchitis 79396952 Active 2021 Not Available [facility] 3 13:54:06 Seasonal allergic rhinitis 996012284 Active 2021 Not Available [facility] 3 13:54:06 Seasonal asthma 449648916 Active 2021 Not Available [facility] 3 13:54:06 Cough 34844524 Active 2021 Not Available [facility] 3 13:54:06 Cardiomega ly 7671399 Active 2021 Not Available [facility] 3 13:54:06 COVID-19 599187931 Active 2022 Yasmeen De Jesus NP [address], [facility] [address], [place], [address] , [facility] 3 10:07:24 Gastroesop hageal reflux disease 736726589 Active 2022 Yasmeen De Jesus NP [address], [place], [address] , [facility] [employer] [facility] 3 09:37:33 Allergy to food 360190552 Active 2022 Yasmeen De Jesus NP [address], [place], [address] , [facility] 3 11:31:20 Vitamin D deficiency 85495576 Active 2023 MARAH June [address], [place], [address] , [facility] [email or web address] [facility] 4 09:09:33 Asthma 539993752 Active 2023 MARAH June [address], [place], [address] , [facility] 4 09:11:38 Mucus in stool 520988380 Active 2023 MARAH June [address], [place], [address] , [facility] [email or web address] [facility] [employer] [facility] 4 09:14:57 Productive cough 08819605 Active 2023 MARAH June [address], [place], [address] , [facility] 4 09:19:26 Thrombocyt osis 2802609 Active 2023 MARAH June [address], [place], [address] , [facility] [employer] [facility] 4 09:22:15 Iron deficiency anemia 50274790 Active 2023 MARAH June [address], [place], [address] , [facility] [employer] [facility] 4 19:47:24 Contact dermatitis 55052928 Active 2023 MARAH June [address], [place], [address] , [facility] [employer] [facility] 4 11:10:01 Problem Notes None recorded. Procedures Surgical History Date Name Laterality Status Provider Name and Address Organization Details Recorded Time 10/09/19 23 Date of Last Pap Smear completed Yasmeen Yoder RN [facility] [employer] [facility] 07/10/2023 11:09:47 10/09/19 23 Most Recent Mammogram completed Yasmeen Yoder RN [facility] [employer] [facility] 07/10/2023 11:09:30 09/10/19 14 Cholecystectomy completed Not Available [facility] hospital 11/08/2022 13:52:32 09/10/19 06 DIRECTOR OF EMERGENCY NURSING Surgery completed Not Available Critical access hospital [...] completed Not Available Not Available Not Available [employer] [facility] Nasal Neti Rinse with packet Take [...] % 98 % 106 /min 98.2 [degF] 73322.4 7 g 124/88 mm[Hg] Not Available [facility] 3 13:53:09 Date Recorded Body height Body mass index (BMI) Body weight Body temperature Respiratory rate Heart rate Oxygen saturation Oxygen saturation in Arterial blood by Pulse oximetry Pain severity - 0-10 verbal numeric rating [Score] - Reported Systolic And Diastolic Provider Name and Address Organization Details Last Updated DateTime 4 170.18 cm 30.4 kg/m2 30007.9 2 g 98.3 [degF] 20 /min 74 /min 98 % 98 % 0 122/88 mm[Hg] Yasmeen Yoder RN [facility] [employer] 4 08:46:02 Date Recorded Body height Body mass index (BMI) Body weight Body temperature Heart rate Respiratory rate Oxygen saturation Oxygen saturation in Arterial blood by Pulse oximetry Pain severity - 0-10 verbal numeric rating [Score] - Reported Systolic And Diastolic Provider Name and Address Organization Details Last Updated DateTime 4 170.18 cm 30 kg/m2 78817.9 4 g 97.8 [degF] 100 /min 20 /min 98 % 98 % 2 122/70 mm[Hg] Yasmeen Yoder RN [facility] 4 11:07:18 Date Recorded Body weight Body mass index (BMI) Body height Body temperature Heart rate Respiratory rate Oxygen saturation Oxygen saturation in Arterial blood by Pulse oximetry Pain severity - 0-10 verbal numeric rating [Score] - Reported Systolic And Diastolic Provider Name and Address Organization Details Last Updated DateTime 3 03422.1 7 g 31.3 kg/m2 170.18 cm 96.5 [degF] 81 /min 16 /min 99 % 99 % 5 138/92 mm[Hg] Yasmeen Yoder RN [facility] 11:05:40 Social History Question Answer Notes LastModified by Organizat ion Details LastModified Time Tobacco Smoking Status Never Smoker Not Available [facility] 11/08/2022 13:52:29 Do You Have An Advance Directive? No Information not available 07/10/2023 If You Are , What Was Your Level Of Alcohol Consumption Prior To ? None [id number] Information not available 11/08/2022 Is Blood Transfusion Acceptable In An Emergency? Yes Information not available 07/10/2023 What Is Your Level Of Caffeine Consumption? Moderate [id number] Information not available 11/08/2022 What Is Your Code Status? Full Code Not If Brain Information not available 07/10/2023 In The 14 Days Before Symptom Onset, Have You Had Close Contact With A Laboratory-confi rmed COVID-19 While That Case Was Ill? No [id number] Information not available 11/08/2022 In The 14 Days Before Symptom Onset, Have You Had Close Contact With A Person Who Is Under Investigation For COVID-19 While That Person Was Ill? No [id number] Information not available 11/08/2022 What Type Of Diet Are You Following? REGULAR MIGRATION.10003 08315 Information not available 11/08/2022 Have There Been Any Changes To Your Family Or Social Situation? No Information not available 07/10/2023 Do You Use Insect Repellent Routinely? No Information not available 07/10/2023 Where Do You Live? SingleLevelHouse Information not available 07/10/2023 Do You Have A Medical Power Of Sociology Professor? No Information not available 07/10/2023 Do You Have Any Pets? Yes Information not available 07/10/2023 What Is Your Relationship Status? [id number].56880 [id number] Information not available 11/08/2022 Do You Use Your Seat Belt Or Car Seat Routinely? Yes [id number].80222 [id number] Information not available 11/08/2022 Do You Have [...] use any illicit or recreational drugs? No MIGRATION.29993 35369 Information not available 11/08/2022 What is your level of alcohol consumption? Occasional MIGRATION.67595 77747 Information not available 11/08/2022 Are you currently [...] anxious, or unable to sleep at night)? [id number] Information not available 02/22/2024 Family History Relationship Description Onset Age of this Age Resolved Age Notes LastModified by Organization Details LastModified Time Father Hypertensive disorder [id number] [id number] Not available 11/08/2022 13:52:33 Father Family history of stroke [id number].243 [id number] Not available 11/08/2022 13:52:33 Mother Hypertensive disorder MIGRATION.935 [id number] Not available 11/08/2022 13:52:33 Maternal Aunt Malignant neoplasm of transverse colon MIGRATION.822 [id number] Not available 11/08/2022 13:52:33 Maternal Aunt Malignant neoplasm of colon ~70's MIGRATION.728 [id number] Not available 11/08/2022 13:52:33 Medical History Condition [...] ICD10 Code Diagnosis IMO Codes Diagnosis Note [id number] Efe Brooks MD [address] [address] 12/20/2020 00:00:00 12/20/2020 14:33:50 [id number] Efe Brooks MD [address] [address] 08/03/2021 00:00:00 08/03/2021 14:53:36 [id number] [facility] _ATHENA_M IGRATION_ DEFAULT_1 _1 , 08/31/2021 00:00:00 08/31/2021 10:59:50 [id number] Eef Brooks MD [address] [address] 10/14/2021 00:00:00 10/14/2021 16:34:56 [id number] Efe Brooks MD [facility] [address] 12/14/2021 00:00:00 12/14/2021 10:34:42 [id number] Efe Brooks MD [address] [address] 01/04/2022 00:00:00 01/04/2022 11:38:25 [id number] Yasmeen De Jesus NP [address] [address] 06/16/2022 00:00:00 06/16/2022 10:05:24 [id number] Yasmeen De Jesus NP [address] [address] 07/10/2023 10:52:51 07/10/2023 12:09:13 Adult health examination 691064067 Z00.00 Encouraged well balanced meals, active lifestyle, and routine vision and dental exams. Anemia screening 4594874 07 Z13.0 Diabetes m ellitus screening 501623628 Z13.1 Thyroid di sorder screening 496244735 Z13.29 Hyperlipid emia screening 848467356 Z13.220 Anxiety 10067139 F41.9 Sertraline 50 mg, 2 tabs po daily. Seasonal asthma 22460667 6 J45.909 Montelukas t 10 mg po daily.Albu terol prn Gastroesop hageal reflux disease 296571682 K21.9 Omeprazole 20 mg po daily. Jump to 40 mg to see if better coverage. Screening for malignant neoplasm of breast 874360529 Z12.39 Allergy to food 75270840 1 T78.1XXA [id number] Efe Brooks MD [facility] [address] 02/22/2024 08:28:53 02/22/2024 09:38:22 Vitamin D deficiency 87733983 E55.9 Asthma 621201195 J45.90 9 Gastroesop hageal reflux disease 545392040 K21.9 Family his tory of cancer of colon 086041347 Z80.0 Productive cough 0789655 5 R05.9 Thrombocytosis 7489585 D 75.105 [id number] Efe Brooks MD [facility] [address] [address] 04/29/2024 10:54:07 04/29/2024 11:27:31 Contact dermatitis 99257402 L25.9 Vitamin D deficiency 347 55089 E55.9 Health Concerns Section Related Observation LastModified by Organization Detai ls LastModified Time None Recorded Concern Status LastModified by Organization Details LastModified Time None Recorded Advance Directives Directive N: Payers Insurance Date Sequence Insurance Name Policy Number Policy Adan Covered Member ID Adan Member ID Guarantor Name 11/27/2023 [facility] Aung Wilkins 11/08/2022 [facility] Aung Wilkins 11/08/2022 [facility] Aung Wilkins 11/08/2022 [facility] Aung Wilkins 04/28/2024 1 [facility] [id number] Carlos Wilkins [id number] Aung Wilkins Notes Date Note Type Note [...] peppers, fruit. Yasmeen De Jesus NP [address] [facility], [facility] [address], [place], [address], [facility] 07/10/2023 11:53:48 02/22/2024 text/html Aung Wilkins [...] by OBColonoscopy: referral sent MARAH June [address] [facility], [facility] [address], [place], [address], [employer] 02/22/2024 09:33:40 04/29/2024 text/html Aung Wilkins is a 43 year old female patient here today for a concern of poison mohit. Went to on 03/29, had a shot of prednisone and an oral taper pack. States helped when she was taking it but is now so itchy that she is scratching bruises into her skin. MARAH June [address] [facility], [facility] [address], [place], [address], [employer] 04/29/2024 11:26:04 OBGyn Episode No OBEpisode recorded.
--- NOTE | 2025-07-22 07:21 | WPDHPUPDATE1 ---
History and Physical Update Update Date/Time: 07/22/25 07:21 - Left breast lumpectomy with Mag seed localization a possible adjacent tissue transfer. History and Physical has been reviewed, including an updated exam of the patient. There are NO changes in the patient's condition. Risks, benefits, and alternatives have been discussed and questions answered. Patient agrees to proceed with procedure.
[2025-07-22] MEDS: ACETAMINOPHEN 500 MG TABLET 1000 MG PO (07:37)
--- NOTE | 2025-07-22 08:47 | WPDANESEPPF ---
Anes - Initial Pre Proc Eval Procedure: Operation Date: 07/22/25 09:00 Proposed Procedures p Left Breast Lumpectomy with Mag Seed Localization, Possible Adjacent Tissue Transfer - Joyce Burns MD Date/Time: 07/22/25 08:47 Surgeon: Joyce Burns MD Pre Op Diagnosis: unspecified lump left breast Patient Data Age: 45 Gender: F Height: 1.7 m Weight: 88.7 kg Last Vital Signs Temp 36.2 C L 07/22/25 07:05 Pulse 87 07/22/25 07:05 Resp 20 07/22/25 07:05 BP 127/69 07/22/25 07:05 Pulse Ox 99 07/22/25 07:05 O2 Del Method Room Air 07/22/25 07:05 Allergies Allergy/AdvReac Type Severity Reaction Status Date / Time No Known Allergies Allergy Verified 07/22/25 07:54 Home Medications ?Medication ?Instructions ?Recorded ?Confirmed ?Type albuterol 90 mcg-budesonide 80 2 inh inhalation ONCE 06/24/24 07/16/25 History mcg/actuation HFA aerosol inhaler (Airsupra) multivitamin (Daily Multi-Vitamin 1 tablet PO DAILY 08/27/24 07/22/25 History tablet) ondansetron 4 mg disintegrating 4 mg PO Q6H PRN nausea and 09/06/24 07/16/25 Rx tablet vomiting #14 tabs esomeprazole magnesium 40 mg See Rx Instructions .Route 12/23/24 07/22/25 Rx capsule,delayed release .COMPLEX #90 caps venlafaxine 75 mg capsule,extended 75 mg PO DAILY #90 caps 06/15/25 07/22/25 Rx release 24 hr ferrous sulfate 325 mg (65 mg See Rx Instructions .Route 06/16/25 07/22/25 Rx iron) tablet .COMPLEX #180 tabs estradiol 0.01% (0.1 mg/gram) 1 g vaginal 3XW #42.5 grams 06/17/25 07/16/25 Rx vaginal cream fluconazole 150 mg tablet 150 mg PO WEEKLY 6 months #26 tabs 06/22/25 07/22/25 Rx cholecalciferol (vitamin D3) 1,250 1,250 mcg PO WEEKLY #12 caps 07/09/25 07/22/25 Rx mcg (50,000 unit) capsule Patient hx anesthesia problems: post op nausea/vomiting Family hx anesthesia problems: none Results Review: All pre-operative results and documents have been reviewed as part of the pre-operative evaluation. [facility] Past Medical History Medical History Left foot pain Breast asymmetry Peroneal tendinitis of left lower leg Left ankle sprain Anemia, unspecified Low serum vitamin D GERD (gastroesophageal reflux disease) Allergies Asthma Anxiety Screening mammogram for breast cancer Surgical History Surgical History H/O: hysterectomy H/O tubal ligation (~2005) Hx of cholecystectomy Family History Family History Mother Hypertension Depression Anxiety Father Hypertension Cerebrovascular accident Depression Anxiety Other Carcinoma of colon, Onset Age: 70 maternal aunt Malignant tumor of transverse colon maternal aunt Sibling Anxiety Depression Sibling Anxiety Depression Social History Social History Smoking status: Never smoker Second hand tobacco smoke exposure: No Alcohol intake: never Alcohol use details: rare Substance use: never Substance use type: does not use Do You Feel Safe in your Home?: Yes Lack of Transportation: No Lack of Food: Never True Current Housing: Decline to Answer Concerned About Future Housing: Decline to Answer Difficulty Paying Gas/Electric Bills: Decline to Answer Difficulty Paying for Meds: Decline to Answer Currently Unemployed: Decline to Answer Education: Decline to Answer Difficulty w/ Childcare or Family Care: No Living arrangements: with family Additional living arrangements comments: Occupation/Education: occupation 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 Gender identity (if verbalized by the patient): Female Sexual Orientation (if Verbalized by the Patient): Straight or Heterosexual Spiritual care concerns: No Agree to blood products: Yes Anes - Eval Final PreProcedure Day of Procedure 07/22/25 08:47 Patient weight: obese Heart: regular rate and rhythm Lungs: clear to auscultation Airway: Mallampati scale class III Neurological: alert and oriented Last oral intake: >/= 8 hours ASA classification: III Emergent: no Anesthetic plan: proceed Anesthesia type and monitoring: general LMA and standard monitoring Results Review: All pre-operative results and documents have been reviewed as part of the pre-operative evaluation. Informed Consent: The patient's anesthetic plan and its attendant risks and benefits were discussed with the patient/family/POA. Questions were solicited and answers provided to the satisfaction of the patient/family/POA.
[2025-07-22] MEDS: SCOPOLAMINE 1 MG PATCH 1 PATCH TRANSDERM (08:49)
[2025-07-22] MEDS: LACTATED RINGERS 1,000 ML 30 ML IV CONT ×2 (08:50→10:00)
[2025-07-22] MEDS: ceFAZolin 2 GM in SODIUM CHLORIDE 0.9% IV 50 ML 100 ML IVPB (09:00)
--- NOTE | 2025-07-22 09:10 | S_PTH ---
PATIENT: Aung Wilkins LOC: [facility] U#:[id number] AGE/SX: 45/F ROOM: RE07/22/[address]: Joyce Burns MD : 1980 BED: DIS: 07/22/2025 SPEC #: [id number] RECD: 07/22/25 09:51 STATUS: ONEIDA REGilbert #: [id number] BIENVENIDO: 07/22/25 09:[address]: Joyce Burns DEPT: [facility] Surgical RECD BY: Catrina Painter ENTERED: 07/22/25 09:51 SP TYPE: Surgical OTHR DR: Juliet Guerrero APRN Tissues: A - Breast Lumpectomy Procedures: Hematoxylin and Eosin Stain Gross and Microscopic Level 5
[2025-07-22] MEDS: BUPIVACAINE/EPINEPHRINE 0.5% 50 ML VIAL 30 ML INFILTRATE (09:40)
--- NOTE | 2025-07-22 09:42 | SUR.OPER ---
Left Breast Lumpectomy specimen sent with CLEM Maldonado and received in pathology by Catrina
--- NOTE | 2025-07-22 09:58 | W.PM.PROC2 ---
Procedure Note - Detailed Date of Procedure 07/22/25 Pre-op Diagnosis Previously biopsied benign left breast mass, increasing in size Post-op Diagnosis Same Procedure Performed Left breast lumpectomy with Mag seed localization Surgeon Joyce Burns MD Anesthesia MAC Description of Procedure Patient underwent IR guided placement of Mag seed in to the previously biopsy proven fibroadenoma prior to surgery. Patient was identified in the preoperative holding area brought to the operating room suite. She was laid supine in the OR table sequential compression devices were applied. Anesthesia was induced without difficulty. The left chest area was prepped and draped in a sterile fashion. The sentimag probe was used to identify the Mag seed and a small superior periareolar incision was made overlying this area. Dissection was carried down into the breast tissue and the Mag seed again was identified and confirmed with the probe. A small rim of breast tissue was removed along with the Mag seed for a lumpectomy specimen. The lumpectomy specimen was then placed in the Faxitron and intraoperative pictures obtained showed the Mag seed within the specimen however node biopsy clip was identified or mass. I again re-examined the cavity and I was able to palpate the small rubbery well-circumscribed mass just deep to the cavity. This was completely excised and placed in the Faxitron confirming this to be the fibroadenoma. However, I was still unable to identify the previously placed biopsy clip on Faxitron images. I reinspected the cavity and no further masses, abnormalities or clip was identified. All the specimens were sent to pathology fresh, after they were oriented with paint for margins. The cavity was irrigated with saline hemostasis was assured. Several intraparenchymal 2 0 Vicryl sutures were placed to close the central lumpectomy cavity and decrease the risk of seroma. The deep dermal layer was then approximated with interrupted 3-0 Vicryl followed by 4-0 Monocryl in a subcuticular fashion for the skin. Dermabond was applied followed by a sterile dressing and a surgical bra. Patient was awoken from anesthesia and taken to the recovery area in stable condition. All needles, instruments, sponge counts were correct as reported by the operating room staff. Patient tolerated the procedure well with no immediate complications. Estimated Blood Loss 5 Pathology Yes Complications No immediate complications Condition Stable Disposition PACU [facility] Billing Surgery - Charge Forward: Surgery Billing (CPT 75655)
[2025-07-22] MEDS: ONDANSETRON INJ 4 MG/2 ML VIAL IV PUSH (11:04)
== END 2025-07-22 12:00 | disposition home or self-care (01) ==
PROVIDERS: PCP Nurse Practitioner Adult Health; Visit Provider Surgery
PROC: (CPT 19301; principal; 2025-07-22 09:00)
DX: D24.2 Benign neoplasm of left breast (principal); E66.9 Obesity, unspecified; Z68.30 Body mass index [BMI] 30.0-30.9, adult
CPT/HCPCS: 19301; 76098; 88307; J0690; A9270; J1100; J2250; J2270; J2405; J2704; J7120

== ENCOUNTER 2025-08-04 00:17 | Day surgery (SDC) | payer BC, SELFPAY ==
[2025-07-16 12:50] VITALS: BMI 29.7
--- OUTSIDE RECORDS SUMMARY | 2025-08-04 00:21 | XMS_ITS | Clinical Summary ---
Author Organization [facility] ([email or web address]) Address [address] [place] [address] Care Team Providers Care Tack Welder Name Role Phone Haim Bullard Primary Care Provider + Source Comments [facility] ([email or web address]),non-owned Affiliates and Associated Physician Practices is amultiple site organization consisting of ambulatory clinics and hospital sitesin [place], [place], [place] and [place]. This disclosure is being madepursuant to the Care Everywhere program and may not contain all information available regarding this patient. Last updated 18.[facility] ([email or web address]) Allergies No known active allergies Medications * Be aware that medications may not be up to date on this document. Alwaysverify current medications with the patient. Fexofenadine HCl (SAHNTELL PO) Active diphenhydrAMINE HCl (BENADRYL ALLERGY PO) [...] of 3 - 19+ 3-dose series) 1999 Cervical Cancer Screening 2001 PAP SMEAR 2001 HPV VACCINE (1 - 3-dose SCDM series) 2007 PAP with HPV 2010 DEPRESSION SCREENING 09/10/2024 COVID-19 VACCINE (1 - 2024-2 6 season) 2025 INFLUENZA VACCINE (#1) 2025 ZOSTER [...] / Payer (Ef fective for All Dates) Name:Russel Wilkins Member ID:Not on file Relation to Subscriber:Not on file Name:RUSSEL WILKINS Subscriber ID:Not on file (Home) Address: [address] [place] [phone] Payer ID:Not on file Group ID:Not on file Type:Self Pay Address: [facility] [place] BCBS/BLUE BLUE [place] Member Subscriber Plan / Payer (Ef fective for All Dates) Name:Russel Wilkins Relation to Subscriber:Spouse Name:CARLOS WILKINS Subscriber ID:Not on file Date of :1977 Address: [address] [place] [id number] Payer ID:Not on file Type:PPO Address: [address] SELF PAY NO INSURANCE Member Subscriber Plan / Payer (Ef fective for All Dates) Name:Russel Wilkins Member ID:Not on file Relation to Subscriber:Not on file Subscriber ID:Not on file Payer ID:Not on file Group ID:Not on file Type:Self Pay [facility] [employer] [place] [place] SELF PAY NO INSURANCE Member Subscriber Plan / Payer (Ef fective for All Dates) Name:Russel Wilkins Member ID:Not on file Relation to Subscriber:Not on file Subscriber ID:Not on file Payer ID:Not on file Group ID:Not on file Type:Self Pay [facility] [place] SELF PAY NO INSURANCE Member Subscriber Plan / Payer (Ef fective for All Dates) Name:Russel Wilkins Member ID:Not on file Relation to Subscriber:Not on file Subscriber ID:Not on file Payer ID:Not on file Group ID:Not on file Type:Self Pay Address: [place], [place] Care Teams Tack Welder Relationship Specialty Start Date End Date Haim Bullard PA [address] [place] [phone] PCP - General Physician Supervisor [employer] 07/06/17
--- OUTSIDE RECORDS SUMMARY | 2025-08-04 00:21 | XMS_ITS | Clinical Summary ---
Author Organization [facility] Address [address] [place] [address] Care Team Providers Care Transformer Inspector Name Role Phone Juliet Guerrero NP Primary Care Provider [phone] Allergies No known active allergies Medications esomeprazole [...] Hepatitis B Screening Completed 08/06/2000, 000 Insurance [employer] OOS Care Teams Transformer Inspector Relationship Specialty Start Date End Date Juliet Guerrero NP [address] [place] [id number] PCP - General Nurse Practitioner 12/08/24
[2025-08-04 11:51] VITALS: BP 99/69; PULSE 102; RESP 16; TEMP 36.1; O2SAT 99; BMI 30.2
[2025-08-04] MEDS: LACTATED RINGERS 1,000 ML 150 ML IV CONT (11:58)
--- NOTE | 2025-08-04 12:24 | P.PNAN_ITS ---
Anes - Initial Pre Proc Eval Procedure: Operation Date: 08/04/25 13:00 Proposed Procedures p Screening Colonoscopy - Vini Mckenzie DO Date/Time: 08/04/25 12:24 Surgeon: Vini Mckenzie DO Pre Op Diagnosis: Neoplasm screening Patient Data Age: 45 Gender: F Height: 1.7 m Weight: 87.5 kg Last Vital Signs Temp 97.0 F L 08/04/25 11:51 Pulse 102 H 08/04/25 11:51 Resp 16 08/04/25 11:51 BP 99/69 L 08/04/25 11:51 Pulse Ox 99 08/04/25 11:51 O2 Del Method Room Air 08/04/25 11:51 Allergies Allergy/AdvReac Type Severity Reaction Status Date / Time No Known Allergies Allergy Verified 08/04/25 11:50 Home Medications ?Medication ?Instructions ?Recorded ?Confirmed ?Type albuterol 90 mcg-budesonide 80 2 inh inhalation ONCE 1 07/16/25 History mcg/actuation HFA aerosol inhaler (Airsupra) multivitamin (Daily Multi-Vitamin 1 tablet PO DAILY 08/04/25 History tablet) ondansetron 4 mg disintegrating 4 mg PO Q6H PRN nausea and 09/06/24 07/16/25 Rx tablet vomiting #14 tabs esomeprazole magnesium 40 mg See Rx Instructions .Rout e 12/23/24 08/04/25 Rx capsule,delayed release .COMPLEX #90 caps venlafaxine 75 mg capsule,extended 75 mg PO DAILY #90 caps 06/15/25 08/04/25 Rx release 24 hr ferrous sulfate 325 mg (65 mg See Rx Instructions .Rou te 06/16/25 08/04/25 Rx iron) tablet .COMPLEX #180 tabs estradiol 0.01% (0.1 mg/gram) 1 g vaginal 3XW #42.5 gr ams 06/17/25 08/04/25 Rx vaginal cream fluconazole 150 mg tablet 150 mg PO WEEKLY 6 months #2 6 tabs 06/22/25 08/04/25 Rx cholecalciferol (vitamin D3) 1,250 1,250 mcg PO WEEKLY #12 caps 07/09/25 07/22/25 Rx mcg (50,000 unit) capsule Patient hx anesthesia problems: post op nausea/vomiting Family hx anesthesia problems: none Results Review: All pre-operative results and documents have been reviewed as part of the pre- operative evaluation. [facility] Past Medical History Medical History Left foot pain Breast asymmetry Peroneal tendinitis of left lower leg Left ankle sprain Anemia, unspecified Low serum vitamin D GERD (gastroesophageal reflux disease) Allergies Asthma Anxiety Screening mammogram for breast cancer Surgical History Surgical History H/O: hysterectomy H/O tubal ligation (~2005) Hx of cholecystectomy Family History Family History Mother Hypertension Depression Anxiety Father Hypertension Cerebrovascular accident Depression Anxiety Other Carcinoma of colon, Onset Age: 70 maternal aunt Malignant tumor of transverse colon maternal aunt Sibling Anxiety Depression Sibling Anxiety Depression Social History Social History Smoking status: Never smoker Second hand tobacco smoke exposure: No Alcohol intake: current Alcohol use details: rare Substance use: never Substance use type: does not use Do You Feel Safe in your Home?: Yes Lack of Transportation: No Lack of Food: Never True Current Housing: Decline to Answer Concerned About Future Housing: Decline to Answer Difficulty Paying Gas/Electric Bills: Decline to Answer Difficulty Paying for Meds: Decline to Answer Currently Unemployed: Decline to Answer Education: Decline to Answer Difficulty w/ Childcare or Family Care: No Living arrangements: with family Additional living arrangements comments: Occupation/Education: occupation 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 Gender identity (if verbalized by the patient): Female Sexual Orientation (if Verbalized by the Patient): Straight or Heterosexual Spiritual care concerns: No Agree to blood products: Yes Anes - Eval Final PreProcedure Day of Procedure 08/04/25 12:24 Patient weight: obese Lungs: normal air movement Airway: Mallampati scale class II Neurological: alert and oriented Last oral intake: >/= 8 hours ASA classification: II Emergent: no Anesthetic plan: proceed Anesthesia type and monitoring: general GIVS and standard monitoring Results Review: All pre-operative results and documents have been reviewed as part of the pre- operative evaluation. Asthma stable, hx anxiety, remote hx of SVT, none since 2019 violeta. Pt can walk 1-2 fos, no cp or sob. Informed Consent: The patient's anesthetic plan and its attendant risks and benefits were discussed with the patient/family/POA. Questions were solicited and answers provided to the satisfaction of the patient/family/POA.
[2025-08-04] MEDS: ONDANSETRON INJ 4 MG/2 ML VIAL IV PUSH (12:31)
--- NOTE | 2025-08-04 12:33 | PM.IMHP ---
H&P: HPI History of Present Illness Date/Time: 08/04/25 12:33 Chief Complaint: Screening for colorectal cancer Narrative: 45 yo woman presents for her first colonoscopy. She denies any hematochezia/melena. Denies fam hx colon cancer in 1st degree relatives. Review of Systems Review of Systems: All systems reviewed & are unremarkable except as noted in HPI and below Constitutional: Constitutional: Denies chills, Denies fever(s), Denies headache(s) and Denies weight loss Eyes: Eyes: Denies change in vision ENT: Denies dizziness, Denies headache(s), Denies neck mass and Denies throat swelling Cardiovascular: Cardiovascular: Denies chest pain, Denies lightheadedness and Denies dyspnea Respiratory: Respiratory: Denies cough, Denies dyspnea and Denies wheezing Gastrointestinal: Gastrointestinal: Denies abdominal pain, Denies change in bowel habits, Denies nausea and Denies vomiting Genitourinary: Genitourinary: Denies hematuria and Denies dysuria Musculoskeletal: Musculoskeletal: Reports as per HPI Integumentary/Breasts: Skin/Breast: Reports as per HPI Neurologic: Denies dizziness and Denies headache(s) Allergic/Immunologic: Allergic/Immunologic: Denies throat swelling and Denies wheezing PMFSH Past Medical History Medical History Left foot pain Breast asymmetry Peroneal tendinitis of left lower leg Left ankle sprain Anemia, unspecified Low serum vitamin D GERD (gastroesophageal reflux disease) Allergies Asthma Anxiety Screening mammogram for breast cancer Surgical History Surgical History H/O: hysterectomy H/O tubal ligation (~2005) Hx of cholecystectomy Family History Family History Mother Hypertension Depression Anxiety Father Hypertension Cerebrovascular accident Depression Anxiety Other Carcinoma of colon, Onset Age: 70 maternal aunt Malignant tumor of transverse colon maternal aunt Sibling Anxiety Depression Sibling Anxiety Depression Social History Social History Smoking status: Never smoker Second hand tobacco smoke exposure: No Alcohol intake: current Alcohol use details: rare Substance use: never Substance use type: does not use Do You Feel Safe in your Home?: Yes Lack of Transportation: No Lack of Food: Never True Current Housing: Decline to Answer Concerned About Future Housing: Decline to Answer Difficulty Paying Gas/Electric Bills: Decline to Answer Difficulty Paying for Meds: Decline to Answer Currently Unemployed: Decline to Answer Education: Decline to Answer Difficulty w/ Childcare or Family Care: No Living arrangements: with family Additional living arrangements comments: Occupation/Education: occupation 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 Gender identity (if verbalized by the patient): Female Sexual Orientation (if Verbalized by the Patient): Straight or Heterosexual Spiritual care concerns: No Agree to blood products: Yes Meds Home Medications and Allergies Home Medications ?Medication ?Instructions ?Recorded ?Confirmed ?Type albuterol 90 mcg-budesonide 80 2 inh inhalation ONCE 06/24/24 07/16/25 History mcg/actuation HFA aerosol inhaler (Airsupra) multivitamin (Daily Multi-Vitamin 1 tablet PO DAILY 08/27/24 08/04/25 History tablet) ondansetron 4 mg disintegrating 4 mg PO Q6H PRN nausea and 09/06/24 07/16/25 Rx tablet vomiting #14 tabs esomeprazole magnesium 40 mg See Rx Instructions .Route 12/23/24 08/04/25 Rx capsule,delayed release .COMPLEX #90 caps venlafaxine 75 mg capsule,extended 75 mg PO DAILY #90 caps 06/15/25 08/04/25 Rx release 24 hr ferrous sulfate 325 mg (65 mg See Rx Instructions .Route 06/16/25 08/04/25 Rx iron) tablet .COMPLEX #180 tabs estradiol 0.01% (0.1 mg/gram) 1 g vaginal 3XW #42.5 grams 06/17/25 08/04/25 Rx vaginal cream fluconazole 150 mg tablet 150 mg PO WEEKLY 6 months #26 tabs 06/22/25 08/04/25 Rx cholecalciferol (vitamin D3) 1,250 1,250 mcg PO WEEKLY #12 caps 07/09/25 07/22/25 Rx mcg (50,000 unit) capsule Allergies Allergy/AdvReac Type Severity Reaction Status Date / Time No Known Allergies Allergy Verified 08/04/25 11:50 Vital Signs Vital Signs - 24 hr 08/04/25 11:51 Temperature 97.0 F L Pulse Rate 102 H Respiratory Rate 16 Blood Pressure 99/69 L Pulse Oximetry 99 Oxygen Delivery Room Air Exam Const: General: no acute distress and alert Orientation/consciousness: patient oriented x3 HENMT: Head: normocephalic and atraumatic Ears: hearing grossly normal bilaterally Face/Nose/Sinus: Normal nares present Mouth: Yes Normal oral and palatal mucosa present Eyes: Periorbital: periorbital findings normal Sclera: sclerae normal EOM: EOMs intact bilaterally Neck: Neck: normal visual inspection, no lymphadenopathy and trachea midline Chest: Chest palpation & inspection: normal inspection of the chest Resp: Effort & Inspection: normal respiratory effort Auscultation: clear to auscultation bilaterally Cardio: Jugular venous distension: no JVD Rate: regular rate Rhythm: regular rhythm Heart sounds: S1 normal heart sound present and S2 normal heart sound present Peripheral pulses: Peripheral pulses 2+ throughout GI: Inspection: normal to inspection GI Palp: Yes Soft to palpation, No Tenderness to palpation present (GI), No Guarding due to palpation present (GI) and No Rebound tenderness present Percussion: Yes normal to percussion Auscultation: normal bowel sounds : General: Yes no CVA tenderness Back/Spine/Pelvis: Back: no CVA tenderness Neuro: General: patient oriented x3, no focal motor deficits and CN's II-XI intact bilaterally Cognition (Neuro): normal cognition Speech: normal speech Motor exam (neuro): 5/5 motor strength present throughout Extrem: General: capillary refill normal and no clubbing, cyanosis or edema Assessment and Plan Assessment and plan (1) Screening for colon cancer: Code(s): Z12.11 - Encounter for screening for malignant neoplasm of colon Status: Acute Assessment and Plan: I have recommended colonoscopy. I have discussed the procedure, risks, benefits, and alternatives. Questions were answered. Patient is agreeable to proceed.
[2025-08-04 13:15] VITALS: BP 102/57; PULSE 97; RESP 25; O2SAT 96
[2025-08-04 13:25] VITALS: BP 101/54; PULSE 98; RESP 21; O2SAT 96
[2025-08-04 13:35] VITALS: BP 111/65; PULSE 90; RESP 24; O2SAT 100
== END 2025-08-04 13:44 | disposition home or self-care (01) ==
PROVIDERS: PCP Nurse Practitioner Adult Health; Visit Provider Surgery
PROC: 0DJD8ZZ Inspection of Lower Intestinal Tract, Via Natural or Artificial Opening Endoscopic (ICD-10-PCS; CPT 45378; principal; 2025-08-04 13:00)
DX: Z12.11 Encounter for screening for malignant neoplasm of colon (principal); K57.30 Diverticulosis of large intestine without perforation or abscess without bleeding; E66.9 Obesity, unspecified; Z68.30 Body mass index [BMI] 30.0-30.9, adult
CPT/HCPCS: 45378; J2003; J2405; J2704; J7120

== ENCOUNTER 2025-09-01 09:52 | Emergency (ER) | payer BC, SELFPAY ==
[2025-09-01 10:06] VITALS: BP 124/72; PULSE 94; RESP 18; TEMP 36.6; O2SAT 99
--- NOTE | 2025-09-01 10:16 | ED_ITS ---
HPI - URI/Sore Throat General Chief Complaint: Upper Respiratory Infection Stated Complaint: Sinus Time Seen by Provider: 09/01/25 10:10 Source: patient Mode of arrival: ambulatory Limitations: no limitations History of Present Illness HPI Narrative: Aung is a 45-year-old female patient presenting to the clinic today with complaints of sinus congestion, cough, and chest congestion for over 3 weeks. She reports her symptoms started back in July. States she gets sinusitis bronchitis every year around this time. 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 No fevers, chills, body aches. Does have a productive cough with some clear phlegm was some blood at times does have a lot of sinus pressure with bloody mucus. History of asthma. Related Data Home Medications ?Medication ?Instructions ?Recorded ?Confirmed ?Last Taken ?Type albuterol 90 mcg-budesonide 80 2 inh inhalation ONCE 1 07/16/25 Unknown History mcg/actuation HFA aerosol inhaler (Airsupra) multivitamin (Daily Multi-Vitamin 1 tablet PO DAILY 09/01/25 08/03/25 History tablet) Allergies Allergy/AdvReac Type Severity Reaction Status Date / Time No Known Allergies Allergy Verified 09/01/25 10:02 Review of Systems Review of Systems: Pertinent positives per HPI. Patient denies any fever, chills, rash, visual changes, dizziness, shortness of breath, chest pain, palpitations, nausea, vomiting, diarrhea, constipation, abdominal pain, or any urinary issues. [facility] Past Medical History Medical History Left foot pain Breast asymmetry Peroneal tendinitis of left lower leg Left ankle sprain Anemia, unspecified Low serum vitamin D GERD (gastroesophageal reflux disease) Allergies Asthma Anxiety Screening mammogram for breast cancer Surgical History Surgical History H/O: hysterectomy H/O tubal ligation (~2005) Hx of cholecystectomy Family History Family History Mother Hypertension Depression Anxiety Father Hypertension Cerebrovascular accident Depression Anxiety Other Carcinoma of colon, Onset Age: 70 maternal aunt Malignant tumor of transverse colon maternal aunt Sibling Anxiety Depression Sibling Anxiety Depression Social History Social History Smoking status: Never smoker Second hand tobacco smoke exposure: No Alcohol intake: current Alcohol use details: rare Substance use: never Substance use type: does not use Lack of Transportation: No Lack of Food: Never True Current Housing: Decline to Answer Concerned About Future Housing: Decline to Answer Difficulty Paying Gas/Electric Bills: Decline to Answer Difficulty Paying for Meds: Decline to Answer Currently Unemployed: Decline to Answer Education: Decline to Answer Difficulty w/ Childcare or Family Care: No Living arrangements: with family Additional living arrangements comments: Occupation/Education: occupation 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 There is no relevant family history pertinent to the patient complaint. Exam Narrative: General: Well-developed, overweight, in no apparent distress Head: Normocephalic, atraumatic Eyes: Pupils equally round and reactive to light bilaterally, EOM intact, sclera and conjunctive clear, no discharge, lids normal Ears: TMs intact and congested, ear canals clear, no drainage, grossly hearing normal. Nose: Nares patent, yellow nasal discharge, moderate inflammation, frontal and maxillary sinus tenderness. Mouth: Oral pharynx red without lesions or masses, good dentition, MMM. Postnasal drip Neck: Supple, trachea midline, no enlargement of anterior or posterior cervical nodes, no thyroid masses or goiter palpable. Cardio: Regular rate and rhythm, s1 and s2 normal, no murmur appreciated. Resp: Clear to auscultation bilaterally, no rhonchi, rales, wheezing or rubs Course Course Level of Care: Express Care Visit Vital Signs Vital signs: Vital Signs Temperature 36.6 C 09/01/25 10:06 Pulse Rate 94 09/01/25 10:06 Respiratory Rate 18 09/01/25 10:06 Blood Pressure 124/72 09/01/25 10:06 Pulse Oximetry 99 09/01/25 10:06 Oxygen Delivery Room Air 09/01/25 10:06 Temperature 36.6 C 09/01/25 10:06 Pulse Rate 94 09/01/25 10:06 Respiratory Rate 18 09/01/25 10:06 Blood Pressure 124/72 09/01/25 10:06 Pulse Oximetry 99 09/01/25 10:06 Oxygen Delivery Room Air 09/01/25 10:06 [facility] MDM Narrative Medical decision making narrative: At the time of visit patient is resting comfortably on the exam table. Patient appears to be nontoxic. Complaints of sinus congestion, cough, and chest congestion for over 3 weeks. She reports her symptoms started back in July. States she gets sinusitis bronchitis every year around this time. 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 No fevers, chills, body aches. Does have a productive cough with some clear phlegm was some blood at times does have a lot of sinus pressure with bloody mucus. History of asthma. Plan: I suspect patient has sinusitis. No wheezing in the clinic today. Hoa finley reports she does have her inhaler as she has a history of asthma. Offer to send a new inhaler if needed and she agreed. Prescription for albuterol inhaler, prednisone, Augmentin, and Tessalon Perles was sent to the pharmacy. Supportive measures were discussed with the patient and they voiced understanding discharge instructions and agrees to treatment plan. Return precautions reviewed Differential Diagnosis Differential Diagnosis: Differential diagnostic considerations for upper respiratory infection include u pper respiratory infection, croup, otitis media, sinusitis, viral infection, bronchitis, influenza, pharyngitis, strep, uvulitis. Discharge Plan Discharge Clinical Impression: Sinusitis Qualifiers: Sinusitis location: frontal Chronicity: acute Recurrence: non-recurrent Qualified Code(s): J01.10 - Acute frontal sinusitis, unspecified Patient Disposition: Home Condition: Stable Instructions: Antibiotic Form, Rhinosinusitis (ED) Additional Instructions: Take prescription medications only as prescribed Increase fluids and stay well hydrated May take Tylenol or motrin as directed on bottle for pain/fever May use Flonase 1 spray in each nare daily May take OTC antihistamines such as Zyrtec or Claritin daily as directed on bottle May apply Vicks vapor rub to chest to open sinuses Sinus rinses for congestion Cepacol spray, cough drops, throat lozenges, warm tea with honey/lemon, gargle salt water to soothe throat BRAT diet for diarrhea Clear liquids x 24 hours then advance as tolerated for nausea/vomiting Go to the ED if you develop a worsening in your condition- high fever not controlled by Tylenol or Motrin, dehydration, weakness, lethargy, shortness of b reath, or chest pain. Follow up with your PCP in 3-5 days if symptoms persist. Patient Language: Occitan Prescriptions: New benzonatate 200 mg capsule 200 mg PO TID 7 Days Qty: 21 0RF prednisone 20 mg tablet 40 mg PO DAILY 5 Days Qty: 10 0RF albuterol sulfate 90 mcg/actuation HFA aerosol inhaler 2 puff inhalation Q4-6H PRN (Reason: shortness of breath or wheezing) 30 Days Qty: 8.5 0RF amoxicillin-pot clavulanate 875-125 mg tablet 1 tablet PO Q12H 10 Days Qty: 20 0RF No Action estradiol 0.01 % (0.1 mg/gram) cream 1 g vaginal 3XW Qty: 42.5 1RF Airsupra 90-80 mcg/actuation HFA aerosol inhaler 2 inh inhalation ONCE Rx Instructions: as a single dose; may repeat up to 6 doses per day (12 inhalations) multivitamin [Daily Multi-Vitamin] Tablet 1 tablet PO DAILY esomeprazole magnesium 40 mg capsule,delayed release(DR/EC) See Rx Instructions .ROUTE .COMPLEX Qty: 90 1RF Dose Instruction: TAKE 1 CAPSULE BY MOUTH EVERY DAY Rx Instructions: TAKE 1 CAPSULE BY MOUTH EVERY DAY venlafaxine 75 mg capsule,extended release 24hr 75 mg PO DAILY Qty: 90 1RF ferrous sulfate 325 mg (65 mg iron) tablet See Rx Instructions .ROUTE .COMPLEX Qty: 180 0RF Dose Instruction: TAKE 2 TABLETS BY MOUTH EVERY DAY Rx Instructions: TAKE 2 TABLETS BY MOUTH EVERY DAY fluconazole 150 mg tablet 150 mg PO WEEKLY 180 Days Qty: 26 0RF Rx Instructions: as a single dose cholecalciferol (vitamin D3) 1,250 mcg (50,000 unit) capsule 1,250 mcg PO WEEKLY Qty: 12 1RF Follow-up/Referrals: Juliet Guerrero APRN [Primary Care Provider, [facility]] Time of Disposition: 10:14 Quality NIHSS Nursing Documentation ED NIHSS nursing documentation: reviewed/agree
== END 2025-09-01 10:18 | disposition home or self-care (01) ==
PROVIDERS: Emergency Provider Nurse Practitioner Family; PCP Nurse Practitioner Adult Health
DX: J01.10 Acute frontal sinusitis, unspecified (principal); K21.9 Gastro-esophageal reflux disease without esophagitis; J45.909 Unspecified asthma, uncomplicated; D64.9 Anemia, unspecified; F41.9 Anxiety disorder, unspecified
CPT/HCPCS: 99213; G0463